=== PATIENT | male | born 1940 | race Caucasian/White ===

== ENCOUNTER 2017-05-14 21:24 | Inpatient (IN) | payer MEDICARE ==
--- NOTE | 2017-05-14 22:13 | ED ---
General Adult HPI - General Chief complaint: Shortness of Breath Stated complaint: fluid retention/SOB Time Seen by Provider: 05/14/17 21:35 Source: patient, RN notes reviewed Mode of arrival: wheelchair Limitations: no limitations - History of Present Illness Initial comments: This is a 77-year-old male who has a past medical history significant for alcoholism but no longer drinks. Patient has diabetes. Patient has some depression as well. Patient is on a small dose of Lasix according to family. Family brings the patient in today because he's been more short of breath lately and they've noticed increasing edema of his legs and increased size of his abdomen. Patient denies any pain whatsoever. Patient denies any recent fever chills or cough. Patient denies any abdominal pain patient denies nausea vomiting diarrhea. Patient denies chest pain palpitations difficulty breathing or shortness of breath. Patient denies any dysuria hematuria urinary frequency. - Related Data Home Medications Medication Instructions Recorded Confirmed ALPRAZolam [Xanax] 0.25 mg PO DAILY PRN 05/14/17 05/14/17 Aspirin [Adult Low Dose Aspirin EC] 81 mg PO DAILY 05/14/17 05/14/17 Cholecalciferol [Vitamin D3] 1,000 unit PO DAILY 05/14/17 05/14/17 Furosemide [Lasix] 20 mg PO DAILY 05/14/17 05/14/17 Memantine HCl [Namenda] 5 mg PO BID 05/14/17 05/14/17 Multivitamins, Thera [Multivitamin 1 tab PO DAILY 05/14/17 05/14/17 (formulary)] Omeprazole [PriLOSEC] 20 mg PO AC-BID 05/14/17 05/14/17 Potassium Chloride ER [K-Dur 10] 10 meq PO DAILY 05/14/17 05/14/17 Pravastatin Sodium [Pravachol] 20 mg PO DAILY 05/14/17 05/14/17 Venlafaxine HCl [Effexor XR] 150 mg PO DAILY 05/14/17 05/14/17 metFORMIN HCL 1,000 mg PO BID 05/14/17 05/14/17 risperiDONE [RisperDAL] 0.5 mg PO HS 05/14/17 05/14/17 Allergies Allergy/AdvReac Type Severity Reaction Status Date / Time donepezil [From Aricept] Allergy Unknown Verified 05/14/17 22:17 morphine Allergy Unknown Verified 05/14/17 22:17 Review of Systems ROS Statement: Those systems with pertinent positive or pertinent negative responses have been documented in the HPI. ROS Other: All systems not noted in ROS Statement are negative. Past Medical History Past Medical History: Dementia, Diabetes Mellitus, GERD/Reflux, Hyperlipidemia Additional Past Medical History / Comment(s): swallowing problems History of Any Multi-Drug Resistant Organisms: None Reported Past Surgical History: Back Surgery Additional Past Surgical History / Comment(s): esophagus stretched for swallowing issues, knee replaced, hip replaced Past Psychological History: Depression, PTSD Smoking Status: Former smoker Past Alcohol Use History: None Reported Past Drug Use History: None Reported General Exam - General Exam Comments Initial Comments: GENERAL: Patient is well-developed and well-nourished. Patient is nontoxic and well- hydrated and is in no acute distress. ENT: Neck is soft and supple. No significant lymphadenopathy is noted. Oropharynx is clear. Moist mucous membranes. Neck has full range of motion without eliciting any pain. EYES: The sclera were anicteric and conjunctiva were pink and moist. Extraocular movements were intact and pupils were equal round and reactive to light. Eyelids were unremarkable. PULMONARY: Unlabored respirations. Good breath sounds bilaterally. No audible rales rhonchi or wheezing was noted. CARDIOVASCULAR: There is a regular rate and rhythm without any murmurs gallops or rubs. ABDOMEN: Abdomen is soft and nontender but distended. Patient has normal bowel sounds SKIN: Skin is clear with no lesions or rashes and otherwise unremarkable. NEUROLOGIC: Patient is alert and oriented x3. Cranial nerves II through XII are grossly intact. Motor and sensory are also intact. Normal speech, volume and content. Symmetrical smile. MUSCULOSKELETAL: Normal extremities with adequate strength and full range of motion. 2+ edema bilaterally LYMPHATICS: No significant lymphadenopathy is noted PSYCHIATRIC: Normal psychiatric evaluation. Limitations: no limitations Course Vital Signs 05/14/17 05/14/17 05/14/17 21:35 22:05 22:57 Temperature 97.6 F Pulse Rate 89 79 Pulse Rate [ 88 [employer] ] Respiratory 26 H 20 18 Rate Blood Pressure 138/77 134/82 O2 Sat by Pulse 98 97 Oximetry 05/15/17 00:04 Temperature Pulse Rate 86 Pulse Rate [ [employer] ] Respiratory 20 Rate Blood Pressure 144/90 O2 Sat by Pulse 100 Oximetry Medical Decision Making - Medical Decision Making EKG shows normal sinus rhythm at 88 bpm RI interval 232 QRS is 76 QT interval 352 QTC is 425. Patient's EKG shows no ST segment elevation or depression or T wave abnormalities are noted. Chest x-ray shows possible aortic aneurysm. KUB shows probable ascites. CT of the chest shows no pulmonary embolism. Aorta does not look dilated. CT of the abdomen pelvis shows massive ascites with cirrhosis. There also appears to be a calcified gallstone that is quite large - Lab Data Result diagrams: 05/14/17 22:20 05/14/17 22:20 Lab Results 05/14/17 05/14/17 05/14/17 Range/Units 22:20 22:20 22:20 WBC 6.8 (3.8-10.6) k/uL RBC 3.39 L (4.30-5.90) m/uL Hgb 11.2 L (13.0-17.5) gm/dL Hct 36.1 L (39.0-53.0) % MCV 106.5 H (80.0-100.0) fL MCH 33.2 (25.0-35.0) pg MCHC 31.2 (31.0-37.0) g/dL RDW 13.9 (11.5-15.5) % Plt Count 168 (150-450) k/uL Neutrophils % 55 % Lymphocytes % 28 % Monocytes % 8 % Eosinophils % 6 % Basophils % 1 % Neutrophils # 3.7 (1.3-7.7) k/uL Lymphocytes # 1.9 (1.0-4.8) k/uL Monocytes # 0.6 (0-1.0) k/uL Eosinophils # 0.4 (0-0.7) k/uL Basophils # 0.0 (0-0.2) k/uL Hypochromasia Slight Macrocytosis Moderate PT (9.0-12.0) sec INR (<1.2) APTT (22.0-30.0) sec D-Dimer (<0.60) mg/L FEU Sodium 138 (137-145) mmol/L Potassium 4.8 (3.5-5.1) mmol/L Chloride 103 (98-107) mmol/L Carbon Dioxide 23 (22-30) mmol/L Anion Gap 12 mmol/L BUN 20 (9-20) mg/dL Creatinine 1.10 (0.66-1.25) mg/dL Est GFR (MDRD) Af Amer >60 (>60 ml/min/1.73 sqM) Est GFR (MDRD) Non-Af >60 (>60 ml/min/1.73 sqM) Glucose 144 H (74-99) mg/dL Calcium 8.8 (8.4-10.2) mg/dL Magnesium 1.1 L (1.6-2.3) mg/dL Total Bilirubin 1.0 (0.2-1.3) mg/dL AST 78 H (17-59) U/L ALT 42 (21-72) U/L Alkaline Phosphatase 322 H (38-126) U/L Total Creatine Kinase 95 (55-170) U/L CK-MB (CK-2) 1.1 (0.0-2.4) ng/mL CK-MB (CK-2) Rel Index 1.2 Troponin I 0.023 (0.000-0.034) ng/mL Total Protein 7.5 (6.3-8.2) g/dL Albumin 3.0 L (3.5-5.0) g/dL 05/14/17 Range/Units 22:20 WBC (3.8-10.6) k/uL RBC (4.30-5.90) m/uL Hgb (13.0-17.5) gm/dL Hct (39.0-53.0) % MCV (80.0-100.0) fL MCH (25.0-35.0) pg MCHC (31.0-37.0) g/dL RDW (11.5-15.5) % Plt Count (150-450) k/uL Neutrophils % % Lymphocytes % % Monocytes % % Eosinophils % % Basophils % % Neutrophils # (1.3-7.7) k/uL Lymphocytes # (1.0-4.8) k/uL Monocytes # (0-1.0) k/uL Eosinophils # (0-0.7) k/uL Basophils # (0-0.2) k/uL Hypochromasia Macrocytosis PT 13.5 H (9.0-12.0) sec INR 1.4 H (<1.2) APTT 25.3 (22.0-30.0) sec D-Dimer 4.94 H (<0.60) mg/L FEU Sodium (137-145) mmol/L Potassium (3.5-5.1) mmol/L Chloride (98-107) mmol/L Carbon Dioxide (22-30) mmol/L Anion Gap mmol/L BUN (9-20) mg/dL Creatinine (0.66-1.25) mg/dL Est GFR (MDRD) Af Amer (>60 ml/min/1.73 sqM) Est GFR (MDRD) Non-Af (>60 ml/min/1.73 sqM) Glucose (74-99) mg/dL Calcium (8.4-10.2) mg/dL Magnesium (1.6-2.3) mg/dL Total Bilirubin (0.2-1.3) mg/dL AST (17-59) U/L ALT (21-72) U/L Alkaline Phosphatase (38-126) U/L Total Creatine Kinase (55-170) U/L CK-MB (CK-2) (0.0-2.4) ng/mL CK-MB (CK-2) Rel Index Troponin I (0.000-0.034) ng/mL Total Protein (6.3-8.2) g/dL Albumin (3.5-5.0) g/dL Disposition Clinical Impression: Ascites, Cirrhosis Disposition: ADMITTED IP TO THIS [facility] Referrals: Jasmine Galicia MD [Primary Care Provider] - 1-2 days Time of Disposition: 00:29
[2017-05-14 22:34] LABS: Basophils % (A) 1 %; Eosinophils # (A) 0.4 k/uL (0-0.7); Eosinophils % (A) 6 %; HCT 36.1 % (39.0-53.0); HGB 11.2 gm/dL (13.0-17.5); Hypochromasia Slight; Lymphocytes # (A) 1.9 k/uL (1.0-4.8); Lymphocytes % (A) 28 %; MCH 33.2 pg (25.0-35.0); MCHC 31.2 g/dL (31.0-37.0); MCV 106.5 fL (80.0-100.0); Macrocytosis Moderate; Mean Platelet Volume 7.1; Monocytes # (A) 0.6 k/uL (0-1.0); Monocytes % (A) 8 %; Neutrophils # (A) 3.7 k/uL (1.3-7.7); Neutrophils % (A) 55 %; Platelet Count 168 k/uL (150-450); RBC 3.39 m/uL (4.30-5.90); RDW 13.9 % (11.5-15.5); WBC 6.8 k/uL (3.8-10.6)
--- NOTE | 2017-05-14 22:40 | XR ---
EXAMINATION TYPE: XR chest 2V DATE OF EXAM: 05/14/2017 COMPARISON: 05/14/2017 HISTORY: Difficulty breathing TECHNIQUE: Frontal and lateral views of the chest are obtained. FINDINGS: There is no heart failure nor confluent pneumonic infiltrate. Thoracic aorta is atheromato us. There is no sign of pleural effusion. There are chest leads. There is probably a hiatal hernia. IMPRESSION: No active cardiopulmonary disease. Hiatal hernia is possible. Atheromatous aorta. Aortic aneurysm at the diaphragm cannot be excluded. This appears increased compared to old exam.
--- NOTE | 2017-05-14 22:41 | XR ---
EXAMINATION TYPE: XR KUB DATE OF EXAM: 05/14/2017 COMPARISON: NONE HISTORY: Difficulty breathing TECHNIQUE: 2 views upright FINDINGS: There is no sign of intestinal obstruction or pneumoperitoneum. There is increased density over the abdomen could relate to ascites. Fecal pattern is normal. There are no pathologic calcificat ions over the kidneys. There is a right hip prosthesis. There is increased density at the diaphragmat ic hiatus that is probably due to hiatal hernia. IMPRESSION: Probable ascites. No free air seen.
[2017-05-14 22:45] LABS: Anion Gap 12 mmol/L; Calcium 8.8 mg/dL (8.4-10.2); Carbon Dioxide 23 mmol/L (22-30); Chloride 103 mmol/L (98-107); Glucose 144 mg/dL (74-99); Sodium 138 mmol/L (137-145); Total Protein 7.5 g/dL (6.3-8.2)
[2017-05-14 22:49] LABS: INR 1.4 (<1.2); Partial Thromboplastin Time 25.3 sec (22.0-30.0); Prothrombin Time 13.5 sec (9.0-12.0)
[2017-05-14 22:52] LABS: ALT 42 U/L (21-72); AST 78 U/L (17-59); Alkaline Phosphatase 322 U/L (38-126); Blood Urea Nitrogen 20 mg/dL (9-20); Magnesium 1.1 mg/dL (1.6-2.3); Potassium 4.8 mmol/L (3.5-5.1)
[2017-05-14 22:54] LABS: D-Dimer 4.94 mg/L FEU (<0.60)
[2017-05-14 23:11] LABS: Creatine Kinase MB 1.1 ng/mL (0.0-2.4); Troponin I 0.023 ng/mL (0.000-0.034)
[2017-05-14] MEDS ORDERED: RX INFO: IV CONTRAST WAS GIVEN 1 EACH MISC MISCELLANE PRN ×2 (23:23→23:24)
--- NOTE | 2017-05-15 00:18 | CT ---
EXAMINATION TYPE: CT abdomen pelvis w con DATE OF EXAM: 05/15/2017 COMPARISON: NONE HISTORY: abd swelling CT DLP: 2331 mGycm Automated exposure control for dose reduction was used. TECHNIQUE: Helical acquisition of images was performed from the lung bases through the pelvis. CONTRAST: Performed without Oral Contrast and with IV Contrast, patient injected with 100 mL of Omnipaque 350. FINDINGS: Lung bases are clear of consolidation. There is no pleural effusion. There is minimal calcified pleur al plaque at the left lung base. There is a massive amount of ascites fluid in the abdomen. Liver is relatively small and consistent w ith cirrhosis. There is no evidence of a splenic mass. There is no evidence of pancreatic mass. There is a 2 cm calcified gallstone. Bile ducts are not dilated. There is no adrenal mass. Kidneys show satisfactory contrast opacification. There is no hydronephrosi s. Ureters are not dilated. There is no retroperitoneal adenopathy. There is no evidence of a bowel o bstruction. I see no intestinal wall thickening. There are no dilated loops. There is a right hip pro sthesis. There is left scrotal hernia that contains fluid. IMPRESSION: MINIMAL CALCIFIED PLEURAL PLAQUE. CHANGES IN THE LIVER CONSISTENT WITH CIRRHOSIS. NO FOCAL LIVER MASS . MASSIVE ASCITES. LARGE CALCIFIED GALLSTONE. LEFT SCROTAL HERNIA AND PROBABLE LEFT HYDROCELE. THE WIDENING OF THE POSTERIOR MEDIASTINUM AT THE DIAPHRAGM ON THE ABDOMEN X-RAY APPEARS TO RELATE TO ASCITES FLUID COLLECTING AROUND THE GASTROESOPHAGEAL JUNCTION. NO EVIDENCE OF AORTIC ANEURYSM.
--- NOTE | 2017-05-15 00:22 | CT ---
EXAMINATION TYPE: CT chest angio for PE DATE OF EXAM: 05/15/2017 COMPARISON: NONE HISTORY: Pt. has elevated D-Dimer and swollen lower extremities CT DLP: 2331 mGycm Automated exposure control for dose reduction was used. CONTRAST: CT Chest for pulmonary embolism performed with with IV Contrast, patient injected with 100 mL of Omni paque 350. FINDINGS: There are 3-D post processed images. There is atheromatous change in the thoracic aorta. Ascending aorta measures up to 3.5 cm. There is n o sign of dissection. There is small pericardial effusion. There is no pleural effusion. There is mas sive ascites fluid in the upper abdomen. I see no filling defects in the pulmonary arteries. There are a few nonspecific mediastinal lymph nod es that measure less than 1 cm. There are no hilar masses. IMPRESSION: No evidence of pulmonary embolism. Massive ascites. Small pericardial effusion.
[2017-05-15] MEDS ORDERED: SODIUM CHLORIDE 0.9% 1,000 ML IV ONE (00:29)
[2017-05-15] MEDS ORDERED: ALPRAZolam 0.25 MG TAB PO PRN (10:46)
[2017-05-15] MEDS ORDERED: MAGNESIUM SULFATE-D5W PMX 1 GM in DEXTROSE/WATER 1 100ML.BAG IVPB ONE (10:49)
--- NOTE | 2017-05-15 10:56 | P.HPIM ---
History of Present Illness H&P Date: 05/15/17 This is a 77 -year-old gentleman is admitted to the emergency room with worsening distention and shortness of breath. Patient says that over the past several days he noticed worsening bilateral lower extremity edema and abdominal distention. Patient said that he used to drink alcohol heavily for several years and quit drinking a year ago. Never been evaluated for this problem for him. The emergency room scan of the abdomen and pelvis showed evidence of cirrhosis extensive ascites. The chest was negative for PE. Patient was admitted to the hospital for further evaluation. Review of Systems Review of system: 14 points review of systems were obtained and were negative except to what were mentioned in the HPI. Past Medical History Past Medical History: Dementia, Diabetes Mellitus, GERD/Reflux, Hyperlipidemia Additional Past Medical History / Comment(s): swallowing problems, edema, anemia , [place], [place] History of Any Multi-Drug Resistant Organisms: None Reported Past Surgical History: Back Surgery Additional Past Surgical History / Comment(s): esophagus stretched for swallowing issues, knee replaced, hip replaced, Past Anesthesia/Blood Transfusion Reactions: No Reported Reaction Past Psychological History: Depression, PTSD Smoking Status: Former smoker Past Alcohol Use History: None Reported Past Drug Use History: None Reported Medications and Allergies Home Medications Medication Instructions Recorded Confirmed Type ALPRAZolam [Xanax] 0.25 mg PO DAILY PRN 05/14/17 05/14/17 History Aspirin [Adult Low Dose Aspirin EC] 81 mg PO DAILY 05/14/17 05/14/17 History Cholecalciferol [Vitamin D3] 1,000 unit PO DAILY 05/14/17 05/14/17 History Furosemide [Lasix] 20 mg PO DAILY 05/14/17 05/14/17 History Memantine HCl [Namenda] 5 mg PO BID 05/14/17 05/14/17 History Multivitamins, Thera [Multivitamin 1 tab PO DAILY 05/14/17 05/14/17 History (formulary)] Omeprazole [PriLOSEC] 20 mg PO AC-BID 05/14/17 05/14/17 History Potassium Chloride ER [K-Dur 10] 10 meq PO DAILY 05/14/17 05/14/17 History Pravastatin Sodium [Pravachol] 20 mg PO DAILY 05/14/17 05/14/17 History Venlafaxine HCl [Effexor XR] 150 mg PO DAILY 05/14/17 05/14/17 History metFORMIN HCL 1,000 mg PO BID 05/14/17 05/14/17 History risperiDONE [RisperDAL] 0.5 mg PO HS 05/14/17 05/14/17 History Allergies Allergy/AdvReac Type Severity Reaction Status Date / Time donepezil [From Aricept] Allergy Unknown Verified 05/14/17 22:17 morphine Allergy Unknown Verified 05/14/17 22:17 Physical Exam Vitals: Vital Signs Temp Pulse Pulse Pulse Resp BP BP 05/15/17 07:00 98.0 F 87 16 117/75 05/15/17 01:42 97.0 F L 83 16 121/63 05/15/17 01:02 98.2 F 87 18 142/75 05/15/17 00:04 86 20 144/90 05/14/17 22:57 79 18 134/82 05/14/17 22:05 88 20 05/14/17 21:35 97.6 F 89 26 H 138/77 Pulse Ox 05/15/17 07:00 98 05/15/17 01:42 99 05/15/17 01:02 100 05/15/17 00:04 100 05/14/17 22:57 97 05/14/17 22:05 05/14/17 21:35 98 Intake and Output 05/14/17 05/15/17 05/15/17 22:59 06:59 14:59 Intake Total 590 Balance 590 Intake: Oral 590 Other: Voiding Method Toilet Urinal # Voids 2 Weight 80.286 kg General: The patient is awake and alert, in no distress Eye: there is normal conjunctiva bilaterally. Neck: The neck is supple, there is no JVD. Cardiovascular: Normal S1-S2, no S3-S4, no murmurs. Respiratory: Lungs clear to auscultation bilaterally Gastrointestinal: Abdomen significantly distended with evidence of large site Musculoskeletal: There is +3 pedal edema. Neurological:. Speech is normal. Skin: Skin is warm and dry Results CBC & Chem 7: 05/14/17 22:20 05/14/17 22:20 Labs: Abnormal Lab Results - Last 24 Hours (Table) 05/14/17 05/14/17 05/14/17 Range/Units 22:20 22:20 22:20 RBC 3.39 L (4.30-5.90) m/uL Hgb 11.2 L (13.0-17.5) gm/dL Hct 36.1 L (39.0-53.0) % MCV 106.5 H (80.0-100.0) fL PT 13.5 H (9.0-12.0) sec INR 1.4 H (<1.2) D-Dimer 4.94 H (<0.60) mg/L FEU Glucose 144 H (74-99) mg/dL Magnesium 1.1 L (1.6-2.3) mg/dL AST 78 H (17-59) U/L Alkaline Phosphatase 322 H (38-126) U/L Albumin 3.0 L (3.5-5.0) g/dL Thrombosis Risk Factor Assmnt - Choose All That Apply Each Risk Factor Represents 3 Points: Age 75 years or older Thrombosis Risk Factor Assessment Total Risk Factor Score: 3 Thrombosis Risk Factor Assessment Level: Moderate Risk Assessment and Plan Assessment: 1. Liver cirrhosis, most likely alcoholic cirrhosis given history. I would consult GI for further evaluation. Viral hepatitis panel 2. Large ascites: I would request therapeutic paracentesis. 3. Dyspnea: Most likely related to large ascites and fluids pushing on his diaphragm. Chest x-ray showed small effusion 4. History of heavy alcohol abuse now in remission for 1 year 5. BA
--- NOTE | 2017-05-15 14:14 | US ---
Therapeutic and diagnostic paracentesis. DATE OF EXAM: 05/15/2017 CLINICAL HISTORY: Ascites The procedure was discussed with the patient. The risks, complications, benefits, and alternatives we re discussed and any questions were answered. Informed consent was obtained. The patient was placed s upine on the ultrasound table and prepped and draped in the usual sterile fashion. All elements of maximal barrier technique were utilized. Under ultrasound guidance, access into the right lower quadrant was obtained, via the paracentesis catheter system and direct ultrasound guidanc e. Approximately 5.8 liters of straw-colored fluid was removed. The patient was stable throughout the pr ocedure and remained stable upon discharge from Department of Radiology. Sample sent to pathology for analysis. IMPRESSION: Successful paracentesis under ultrasound guidance.
[2017-05-15] MEDS: FUROSEMIDE 40 MG TAB PO SCH (14:25)
[2017-05-15 16:04] LABS: Hepatitis A Antibody IgM Non-Reactive (Non-Reactive); Hepatitis B Core IgM Non-Reactive (Non-Reactive)
--- NOTE | 2017-05-15 17:12 | CONS ---
CONSULTATION DATE OF CONSULTATION: 05/15/17. REQUESTING PHYSICIAN: Dr. White REASON FOR CONSULTATION: New onset ascites and possible liver cirrhosis. HISTORY OF THE PRESENT ILLNESS: The patient is a 77-year-old pleasant white male who was admitted to the hospital because of shortness of breath, abdominal distention and lower extremity swelling for the last several days duration. The patient has history of remote history of heavy alcohol abuse which he quit drinking about 5 years ago prior to which he was drinking almost on a daily basis for almost 40 years. At the time he denies any abdominal pain, reports no nausea, vomiting. He came into the emergency room and had a CT of the abdomen and pelvis done that showed evidence of a cirrhotic appearing liver as well as massive ascites. The patient has no prior history of chronic liver disease. No history of jaundice or hepatitis. No new medications that were started recently. He has longstanding history of diabetes mellitus. PAST MEDICAL HISTORY: Significant for dementia, diabetes mellitus, hypertension, hyperlipidemia and gastroesophageal reflux disease. PAST SURGICAL HISTORY: EGD with dilation in the past, knee replacement and hip replacement. MEDICATIONS: At home include Xanax, aspirin, Lasix, multivitamin, Prilosec, K-Dur, Pravachol, Effexor, metformin, Risperdal. ALLERGIES: TO ARICEPT AND MORPHINE. SOCIAL HISTORY: Alcohol use as mentioned above. No history of smoking. FAMILY HISTORY: Unremarkable. REVIEW OF SYSTEMS: Cardiopulmonary: No chest pain, shortness of breath. Genitourinary: No dysuria or hematuria. Musculoskeletal: Unremarkable. Skin unremarkable. Endocrine unremarkable. Psychiatric: History of anxiety and depression. Neurology unremarkable. Mild dementia. Constitutional: No recent weight loss. No fever, chills, night sweats. PHYSICAL EXAMINATION: He appears comfortable. No apparent distress. VITAL SIGNS: Stable. Blood pressure 152/86, pulse rate 90, temperature 96. HEENT examination unremarkable. Conjunctivae pink. Sclerae anicteric. Oral cavity no lesions. Neck: No jugular venous distention or lymph node enlargement. Chest was clear to auscultation. HEART: Regular rate and rhythm. ABDOMEN: Soft. He was distended. Free fluid noted in the abdomen. Positive shifting dullness. Extremities: 2+ pedal edema. Skin no rashes. NEUROLOGIC: Alert and orient x3. No focal deficits. LAB: WBC 6.8, hemoglobin 11.2, platelets 168, MCV 106, PT 13.5, INR 1.4, AST is 78, ALT is 42, alkaline phosphatase 322, and T bilirubin 1, albumin is 3. CT of the abdomen showed evidence of ascites and nodular appearing liver consistent with cirrhosis. IMPRESSION: This is a patient who presents to the hospital with new onset ascites and lower extremity swelling and CT scan showing free fluid in the abdomen as well as nodular irregularities in the liver consistent with liver cirrhosis. The biochemical picture and history is very suggestive of alcoholic liver disease with cirrhosis/portal hypertension. Of course, other etiologies of chronic liver disease needs to be excluded. RECOMMENDATIONS: 1. Agree with large volume diagnostic and therapeutic paracentesis. The fluid will be requested for albumin, protein, cell count and cytology. 2. Hepatitis serologies for B, and C. 3. Workup for chronic liver disease. 4. Low-salt diet. 5. After the paracentesis is done, we will start him on diuretics with Lasix 40 mg daily and Aldactone 100 mg daily. 6. We will follow the patient closely during this hospital stay. Thank you for this consultation. MMODL / IJN: [id number] /
[2017-05-15] MEDS: PANTOPRAZOLE 40 MG TABLET PO SCH (17:44)
[2017-05-15 18:27] LABS: Appearance,BF Hazy; Color,BF Yellow; Nucleated Cells, Body Fluid 78 /uL; RBC, Body Fluid 233 /uL
[2017-05-15 18:33] LABS: Mononuclear WBC,Body Fluid 95 %; Polynuclear WBC,Body Fluid 5 %; Total Cells Counted,Body Fluid 100
[2017-05-15] MEDS: HEPARIN SODIUM,PORCINE 5,000 UNIT/ML 1 ML VIAL SQ SCH (21:15)
[2017-05-15] MEDS: MEMANTINE 5 MG TAB PO SCH (21:15)
[2017-05-15] MEDS: risperiDONE 0.5 MG TAB PO SCH (21:15)
[2017-05-16 08:44] LABS: Basophils # (A) 0.1 k/uL (0-0.2); Basophils % (A) 1 %; Eosinophils # (A) 0.5 k/uL (0-0.7); Eosinophils % (A) 7 %; HCT 37.1 % (39.0-53.0); HGB 11.7 gm/dL (13.0-17.5); Hypochromasia Slight; Lymphocytes # (A) 2.5 k/uL (1.0-4.8); Lymphocytes % (A) 34 %; MCHC 31.6 g/dL (31.0-37.0); MCV 107.7 fL (80.0-100.0); Macrocytosis Moderate; Monocytes # (A) 0.6 k/uL (0-1.0); Monocytes % (A) 8 %; Neutrophils # (A) 3.4 k/uL (1.3-7.7); Neutrophils % (A) 46 %; Platelet Count 176 k/uL (150-450); RBC 3.44 m/uL (4.30-5.90); RDW 13.9 % (11.5-15.5); WBC 7.4 k/uL (3.8-10.6)
[2017-05-16 08:59] LABS: ALT 46 U/L (21-72); AST 73 U/L (17-59); Albumin 2.5 g/dL (3.5-5.0); Alkaline Phosphatase 362 U/L (38-126); Anion Gap 13 mmol/L; Blood Urea Nitrogen 15 mg/dL (9-20); Calcium 8.4 mg/dL (8.4-10.2); Carbon Dioxide 23 mmol/L (22-30); Chloride 102 mmol/L (98-107); Glucose 178 mg/dL (74-99); Magnesium 1.1 mg/dL (1.6-2.3); Potassium 3.9 mmol/L (3.5-5.1); Sodium 138 mmol/L (137-145); Total Bilirubin 0.9 mg/dL (0.2-1.3); Total Protein 6.4 g/dL (6.3-8.2)
[2017-05-16] MEDS: FUROSEMIDE 40 MG TAB PO SCH (10:25)
[2017-05-16] MEDS: PANTOPRAZOLE 40 MG TABLET PO SCH ×2 (10:25→18:15)
[2017-05-16] MEDS: CHOLECALCIFEROL 1,000 UNIT TAB PO SCH (10:25)
[2017-05-16] MEDS: ASPIRIN 81 MG PO SCH (10:25)
[2017-05-16] MEDS: MEMANTINE 5 MG TAB PO SCH ×2 (10:26→22:03)
[2017-05-16] MEDS: VENLAFAXINE HCL ER 150 MG CAP PO SCH (10:26)
[2017-05-16] MEDS: PRAVASTATIN SODIUM 20 MG TAB PO SCH (10:26)
[2017-05-16] MEDS: POTASSIUM CHLORIDE ER 10 MEQ TAB.ER.PRT PO SCH (10:26)
[2017-05-16] MEDS: SPIRONOLACTONE 25 MG TAB PO SCH (10:27)
[2017-05-16] MEDS: HEPARIN SODIUM,PORCINE 5,000 UNIT/ML 1 ML VIAL SQ SCH ×2 (10:28→22:04)
--- NOTE | 2017-05-16 11:25 | P.PN ---
Subjective Patient feels a lot better today after paracentesis. Objective - Vital Signs Vital signs: Vital Signs Temp 99.6 F 05/16/17 07:00 Pulse 103 H 05/16/17 07:00 Resp 18 05/16/17 07:00 BP 147/83 05/16/17 07:00 Pulse Ox 97 05/16/17 07:00 Intake & Output 05/15/17 05/16/17 05/16/17 18:59 06:59 18:59 Intake Total 700 1340 Balance 700 1340 Intake: Oral 700 1340 Other: Voiding Method Toilet Toilet Toilet Urinal Urinal Urinal # Voids 1 3 1 # Bowel Movements 1 - Exam General: The patient is awake and alert, in no distress Eye: there is normal conjunctiva bilaterally. Neck: The neck is supple, there is no JVD. Cardiovascular: Normal S1-S2, no S3-S4, no murmurs. Respiratory: Lungs clear to auscultation bilaterally Gastrointestinal: Abdomen is soft, nontender Musculoskeletal: There is no pedal edema. Neurological:. Speech is normal. Skin: Skin is warm and dry - Labs CBC & Chem 7: 05/16/17 08:20 05/16/17 08:20 Labs: Abnormal Lab Results - Last 24 Hours (Table) 05/16/17 05/16/17 Range/Units 08:20 08:20 RBC 3.44 L (4.30-5.90) m/uL Hgb 11.7 L (13.0-17.5) gm/dL Hct 37.1 L (39.0-53.0) % MCV 107.7 H (80.0-100.0) fL Glucose 178 H (74-99) mg/dL Magnesium 1.1 L (1.6-2.3) mg/dL AST 73 H (17-59) U/L Alkaline Phosphatase 362 H (38-126) U/L Albumin 2.5 L (3.5-5.0) g/dL Microbiology - Last 24 Hours (Table) 05/15/17 12:12 Gram Stain - Preliminary Peritoneal Fluid Body Fluid Culture - Preliminary 05/15/17 12:59 Anaerobic Culture - Preliminary Paracentesis Fluid Assessment and Plan Assessment: 1. Liver cirrhosis, most likely alcoholic cirrhosis given history. Viral hepatitis panel is negative. Seen and evaluated by GI. 2. Large ascites: Status post 5.8 L paracentesis. no evidence of SBP. We will start diuretics with Lasix 40 mg daily and spironolactone 100 mg daily. 3. Dyspnea: improved significantly. Most likely related to large ascites and fluids pushing on his diaphragm. Chest x-ray showed small effusion 4. History of heavy alcohol abuse now in remission for 1 year 5. BA Replace magnesium. Repeat lab work in the morning. Encouraged ambulation.
[2017-05-16] MEDS: MAGNESIUM SULFATE-D5W PMX 1 GM in DEXTROSE/WATER 1 100ML.BAG IVPB SCH ×2 (11:36→13:17)
--- NOTE | 2017-05-16 12:11 | P.PN ---
Subjective Progress Note Date: 05/16/17 Principal diagnosis: 77-year-old male admitted with shortness of breath abdominal distention with CT imaging reporting evidence of a cirrhotic-appearing liver as well as ascites. He is status post diagnostic therapeutic paracentesis yesterday with 5.8 L removal. This morning he feels better. Afebrile. Hepatitis screen nonreactive. Receiving diuretics. BUN 15. Creatinine 1.0. Objective - Vital Signs Vital signs: Vital Signs Temp 99.6 F 05/16/17 07:00 Pulse 103 H 05/16/17 07:00 Resp 18 05/16/17 07:00 BP 147/83 05/16/17 07:00 Pulse Ox 97 05/16/17 07:00 Intake & Output 05/15/17 05/16/17 05/16/17 18:59 06:59 18:59 Intake Total 700 1340 Balance 700 1340 Intake: Oral 700 1340 Other: Voiding Method Toilet Toilet Toilet Urinal Urinal Urinal # Voids 1 3 1 # Bowel Movements 1 - Exam General appearance: The patient is alert, oriented, in no acute distress. HET: Head is normocephalic and atraumatic. Pupils are equal and reactive. Oropharynx is clear without lesions. Neck: Supple without lymphadenopathy. Trachea midline. Heart: S1 S2. Regular rate and rhythm. Lungs: No crackles or wheezes are heard. Abdomen: Soft, nontender, nondistended with bowel sounds. No peritoneal signs. No palpable organomegaly or masses. Extremities: Normal skin color and turgor. No cyanosis, rash, ulceration, clubbing, or edema. Radial and pedal pulses are 2/4 bilaterally. Neurological: No focal deficits. Strength and sensation are grossly intact. - Labs CBC & Chem 7: 05/16/17 08:20 05/16/17 08:20 Labs: Abnormal Lab Results - Last 24 Hours (Table) 05/16/17 05/16/17 Range/Units 08:20 08:20 RBC 3.44 L (4.30-5.90) m/uL Hgb 11.7 L (13.0-17.5) gm/dL Hct 37.1 L (39.0-53.0) % MCV 107.7 H (80.0-100.0) fL Glucose 178 H (74-99) mg/dL Magnesium 1.1 L (1.6-2.3) mg/dL AST 73 H (17-59) U/L Alkaline Phosphatase 362 H (38-126) U/L Albumin 2.5 L (3.5-5.0) g/dL Microbiology - Last 24 Hours (Table) 05/15/17 12:12 Gram Stain - Preliminary Peritoneal Fluid Body Fluid Culture - Preliminary 05/15/17 12:59 Anaerobic Culture - Preliminary Paracentesis Fluid Assessment and Plan (1) Cirrhosis Narrative/Plan: Suspect alcohol liver disease Current Visit: Yes Status: Acute Code(s): K74.60 - UNSPECIFIED CIRRHOSIS OF LIVER SNOMED Code(s): 09446745 (2) Ascites Current Visit: Yes Status: Acute Code(s): R18.8 - OTHER ASCITES SNOMED Code(s): 416993303 (3) Portal hypertension Current Visit: Yes Status: Acute Code(s): K76.6 - PORTAL HYPERTENSION SNOMED Code(s): 06862112 Plan: 1. Lasix 40 mg daily. Aldactone 100 mg daily. Low-salt diet. Return to office in 2-3 weeks for reevaluation. Discharge per medicine. Assessment and plan of care discussed with Dr. Bennett
[2017-05-16] MEDS: MAGNESIUM OXIDE 400 MG TAB PO SCH (13:24)
[2017-05-16 16:55] LABS: Hepatitis C IgG Antibody Non-Reactive (Non-Reactive)
[2017-05-16 17:15] LABS: Iron Saturation 28.06 (15.00-50.00)
[2017-05-16 17:24] LABS: Alpha Fetoprotein, Tumor Mkr <1.3 ng/mL (0.0-7.9)
[2017-05-16] MEDS: risperiDONE 0.5 MG TAB PO SCH (22:03)
[2017-05-17 08:13] LABS: Basophils % (A) 0 %; Eosinophils # (A) 0.4 k/uL (0-0.7); Eosinophils % (A) 7 %; HCT 32.5 % (39.0-53.0); HGB 10.3 gm/dL (13.0-17.5); Lymphocytes # (A) 1.7 k/uL (1.0-4.8); Lymphocytes % (A) 31 %; MCH 33.7 pg (25.0-35.0); MCHC 31.8 g/dL (31.0-37.0); MCV 106.2 fL (80.0-100.0); Macrocytosis Moderate; Mean Platelet Volume 6.9; Monocytes # (A) 0.5 k/uL (0-1.0); Monocytes % (A) 9 %; Neutrophils # (A) 2.7 k/uL (1.3-7.7); Neutrophils % (A) 50 %; Platelet Count 160 k/uL (150-450); RBC 3.06 m/uL (4.30-5.90); RDW 13.9 % (11.5-15.5); WBC 5.5 k/uL (3.8-10.6)
[2017-05-17 08:35] LABS: ALT 47 U/L (21-72); AST 77 U/L (17-59); Albumin 2.2 g/dL (3.5-5.0); Alkaline Phosphatase 297 U/L (38-126); Anion Gap 7 mmol/L; Blood Urea Nitrogen 14 mg/dL (9-20); Carbon Dioxide 25 mmol/L (22-30); Chloride 104 mmol/L (98-107); Glucose 158 mg/dL (74-99); Magnesium 1.4 mg/dL (1.6-2.3); Potassium 4.1 mmol/L (3.5-5.1); Sodium 136 mmol/L (137-145); Total Bilirubin 0.6 mg/dL (0.2-1.3); Total Protein 5.7 g/dL (6.3-8.2)
[2017-05-17] MEDS: ASPIRIN 81 MG PO SCH (09:29)
[2017-05-17] MEDS: MEMANTINE 5 MG TAB PO SCH (09:29)
[2017-05-17] MEDS: CHOLECALCIFEROL 1,000 UNIT TAB PO SCH (09:29)
[2017-05-17] MEDS: FUROSEMIDE 40 MG TAB PO SCH (09:29)
[2017-05-17] MEDS: PANTOPRAZOLE 40 MG TABLET PO SCH (09:29)
[2017-05-17] MEDS: POTASSIUM CHLORIDE ER 10 MEQ TAB.ER.PRT PO SCH (09:30)
[2017-05-17] MEDS: VENLAFAXINE HCL ER 150 MG CAP PO SCH (09:30)
[2017-05-17] MEDS: SPIRONOLACTONE 25 MG TAB PO SCH (09:30)
[2017-05-17] MEDS: PRAVASTATIN SODIUM 20 MG TAB PO SCH (09:30)
[2017-05-17] MEDS: HEPARIN SODIUM,PORCINE 5,000 UNIT/ML 1 ML VIAL SQ SCH (09:31)
--- NOTE | 2017-05-17 10:12 | P.PN ---
Subjective Progress Note Date: 05/17/17 Principal diagnosis: Cirrhosis 77-year-old male admitted with shortness of breath abdominal distention with CT imaging reporting evidence of a cirrhotic-appearing liver as well as ascites. He is status post diagnostic therapeutic paracentesis 2 days ago with 5.8 L removal. Feels well today anticipating discharge. Afebrile. Hepatitis screen nonreactive. Receiving diuretics. BUN 14. Creatinine 0.9. Magnesium 1.4. Objective - Vital Signs Vital signs: Vital Signs Temp 98.4 F 05/17/17 07:00 Pulse 91 05/17/17 07:00 Resp 20 05/17/17 07:00 BP 101/69 05/17/17 07:00 Pulse Ox 94 L 05/16/17 23:00 Intake & Output 05/16/17 05/17/17 05/17/17 18:59 06:59 18:59 Intake Total 300 Output Total 300 Balance 0 Intake: Oral 300 Output: Urine 300 Other: Voiding Method Diaper Diaper # Voids 1 3 - Exam General appearance: The patient is alert, oriented, in no acute distress. HET: Head is normocephalic and atraumatic. Pupils are equal and reactive. Oropharynx is clear without lesions. Neck: Supple without lymphadenopathy. Trachea midline. Heart: S1 S2. Regular rate and rhythm. Lungs: No crackles or wheezes are heard. Abdomen: Soft, nontender, nondistended with bowel sounds. No peritoneal signs. No palpable organomegaly or masses. Extremities: Normal skin color and turgor. No cyanosis, rash, ulceration, clubbing, or edema. Radial and pedal pulses are 2/4 bilaterally. Neurological: No focal deficits. Strength and sensation are grossly intact. - Labs CBC & Chem 7: 05/17/17 07:38 05/17/17 07:38 Labs: Abnormal Lab Results - Last 24 Hours (Table) 05/16/17 05/17/17 05/17/17 Range/Units 08:20 07:38 07:38 RBC 3.06 L (4.30-5.90) m/uL Hgb 10.3 L (13.0-17.5) gm/dL Hct 32.5 L (39.0-53.0) % MCV 106.2 H (80.0-100.0) fL Sodium 136 L (137-145) mmol/L Glucose 158 H (74-99) mg/dL Calcium 8.0 L (8.4-10.2) mg/dL Magnesium 1.4 L (1.6-2.3) mg/dL AST 77 H (17-59) U/L Alkaline Phosphatase 297 H (38-126) U/L Total Protein 5.7 L (6.3-8.2) g/dL Albumin 2.2 L (3.5-5.0) g/dL ZBIGNIEW Screen POSITIVE H (NEGATIVE) Microbiology - Last 24 Hours (Table) 05/15/17 12:12 Gram Stain - Preliminary Peritoneal Fluid Body Fluid Culture - Preliminary Assessment and Plan (1) Cirrhosis Narrative/Plan: Suspect alcohol liver disease Current Visit: Yes Status: Acute Code(s): K74.60 - UNSPECIFIED CIRRHOSIS OF LIVER SNOMED Code(s): 98021539 (2) Ascites Current Visit: Yes Status: Acute Code(s): R18.8 - OTHER ASCITES SNOMED Code(s): 100561762 (3) Portal hypertension Current Visit: Yes Status: Acute Code(s): K76.6 - PORTAL HYPERTENSION SNOMED Code(s): 48650077 Plan: 1. Lasix 40 mg daily. Aldactone 100 mg daily. Low-salt diet. Return to office in 2-3 weeks for reevaluation. Discharge per medicine. Assessment and plan of care discussed with Dr. Bennett
--- NOTE | 2017-05-17 11:23 | P.DS ---
Providers Date of admission: 05/15/17 00:29 Expected date of discharge: 05/17/17 Attending physician: Nori Philippe Consults: 05/15/17 10:46 Consult Physician Routine Consulting Provider: Ruddy Jones Consult Reason/Comments: cirrhosis Do you want consulting provider notified?: Yes Primary care physician: Jasmine [facility] Course: 1. Liver cirrhosis, most likely alcoholic cirrhosis given history. Viral hepatitis panel is negative. Seen and evaluated by GI. 2. Large ascites: Status post 5.8 L paracentesis. no evidence of SBP. We will start diuretics with Lasix 40 mg daily and spironolactone 100 mg daily. 3. Dyspnea: improved significantly. Most likely related to large ascites and fluids pushing on his diaphragm. Chest x-ray showed small effusion 4. History of heavy alcohol abuse now in remission for 1 year 5. BA 6. Hypomagnesemia, started on magnesium supplements twice daily. Patient will be discharged home in a stable condition. Follow-up with PCP and GI as directed. Plan - Discharge Summary New Discharge Prescriptions: New Furosemide [Lasix] 40 mg PO DAILY #30 tab Magnesium Oxide [Mag-Ox] 400 mg PO BID #60 tab Spironolactone [Aldactone] 100 mg PO DAILY #30 tab Continue ALPRAZolam [Xanax] 0.25 mg PO DAILY PRN PRN Reason: Anxiety risperiDONE [RisperDAL] 0.5 mg PO HS Multivitamins, Thera [Multivitamin (formulary)] 1 tab PO DAILY metFORMIN HCL 1,000 mg PO BID Memantine HCl [Namenda] 5 mg PO BID Cholecalciferol [Vitamin D3] 1,000 unit PO DAILY Pravastatin Sodium [Pravachol] 20 mg PO DAILY Omeprazole [PriLOSEC] 20 mg PO AC-BID Venlafaxine HCl [Effexor XR] 150 mg PO DAILY Aspirin [Adult Low Dose Aspirin EC] 81 mg PO DAILY Discontinued Potassium Chloride ER [K-Dur 10] 10 meq PO DAILY Furosemide [Lasix] 20 mg PO DAILY Discharge Medication List ALPRAZolam [Xanax] 0.25 mg PO DAILY PRN 05/14/17 [History] Aspirin [Adult Low Dose Aspirin EC] 81 mg PO DAILY 05/14/17 [History] Cholecalciferol [Vitamin D3] 1,000 unit PO DAILY 05/14/17 [History] Memantine HCl [Namenda] 5 mg PO BID 05/14/17 [History] Multivitamins, Thera [Multivitamin (formulary)] 1 tab PO DAILY 05/14/17 [History ] Omeprazole [PriLOSEC] 20 mg PO AC-BID 05/14/17 [History] Pravastatin Sodium [Pravachol] 20 mg PO DAILY 05/14/17 [History] Venlafaxine HCl [Effexor XR] 150 mg PO DAILY 05/14/17 [History] metFORMIN HCL 1,000 mg PO BID 05/14/17 [History] risperiDONE [RisperDAL] 0.5 mg PO HS 05/14/17 [History] Furosemide [Lasix] 40 mg PO DAILY #30 tab 05/17/17 [Rx] Magnesium Oxide [Mag-Ox] 400 mg PO BID #60 tab 05/17/17 [Rx] Spironolactone [Aldactone] 100 mg PO DAILY #30 tab 05/17/17 [Rx] Follow up Appointment(s)/Referral(s): Radha Bennett MD [STAFF PHYSICIAN] - 06/28/17 2:00 pm Jasmine Galicia MD [Primary Care Provider] - 3 Days Discharge Disposition: HOME SELF-CARE
[2017-05-17 11:34] LABS: ANA Pattern Homogeneous; ANA Pattern 2 Nucleolar
[2017-05-17 12:26] VITALS: BP 113/67; PULSE 95; RESP 18; TEMP 98.6
[2017-05-17] MEDS: MAGNESIUM OXIDE 400 MG TAB PO SCH (12:30)
== END 2017-05-17 14:10 | disposition home or self-care (01) | DRG 433 ==
LOC: EC 21:24 → 5MS5E 05-15 00:29
PROVIDERS: ADMIT Internal Medicine; ATTEND Internal Medicine
PROC: 0W9G3ZX Drainage of Peritoneal Cavity, Percutaneous Approach, Diagnostic (ICD-10-PCS; principal; 2017-05-15)
DX: K70.31 Alcoholic cirrhosis of liver with ascites (principal); K76.6 Portal hypertension; E11.9 Type 2 diabetes mellitus without complications; E83.42 Hypomagnesemia; F03.90 Unspecified dementia, unspecified severity, without behavioral disturbance, psychotic disturbance, mood disturbance, and anxiety; F10.21 Alcohol dependence, in remission; F41.1 Generalized anxiety disorder; F32.9 Major depressive disorder, single episode, unspecified; F43.10 Post-traumatic stress disorder, unspecified; K21.9 Gastro-esophageal reflux disease without esophagitis; E78.5 Hyperlipidemia, unspecified; H91.90 Unspecified hearing loss, unspecified ear; Z96.659 Presence of unspecified artificial knee joint; I10 Essential (primary) hypertension; Z88.6 Allergy status to analgesic agent; Z88.8 Allergy status to other drugs, medicaments and biological substances; Z79.899 Other long term (current) drug therapy; Z79.82 Long term (current) use of aspirin; Z79.84 Long term (current) use of oral hypoglycemic drugs; Z87.891 Personal history of nicotine dependence; Z96.649 Presence of unspecified artificial hip joint
CPT/HCPCS: 36415; 49083; 71046; 71275; 74018; 74177; 80053; 80074; 82042; 82103; 82105; 82550; 82553; 82728; 83540; 83550; 83735; 84157; 84484; 85025; 85379; 85610; 85730; 86038; 86039; 86803; 87070; 87075; 87205; 87340; 88108; 88305; 88341; 88342; 89050; 93005; 99285

== ENCOUNTER 2017-05-20 20:36 | Inpatient (IN) | payer MEDICARE ==
[2017-05-20 21:33] LABS: HCT 34.2 % (39.0-53.0); MCH 33.5 pg (25.0-35.0); MCHC 32.2 g/dL (31.0-37.0); MCV 103.9 fL (80.0-100.0); Macrocytosis Slight; Mean Platelet Volume 7.4; Platelet Count 168 k/uL (150-450); RBC 3.29 m/uL (4.30-5.90); RDW 14.2 % (11.5-15.5); WBC 6.1 k/uL (3.8-10.6)
--- NOTE | 2017-05-20 21:39 | ED ---
SOB HPI - General Chief Complaint: Shortness of Breath Stated Complaint: LARS Time Seen by Provider: 05/20/17 21:00 Source: EMS Mode of arrival: EMS Limitations: altered mental status - History of Present Illness Initial Comments: Patient's a 77-year-old man here for dyspnea and also having fever. Patient also having a cough associated with this. The history is a little bit limited as she does appear to have some mild delirium. The patient does admit to a recent paracentesis where they took over 5 L of ascites from his abdomen. The patient had not been having fevers until today. He is not having abdominal pain. He is not having chest pain. MD Complaint: shortness of breath Onset/Timin -: days(s) Improves With: oxygen Worsens With: nothing Associated Symptoms: fever, cough - Related Data Home Medications Medication Instructions Recorded Confirmed ALPRAZolam [Xanax] 0.25 mg PO DAILY PRN 05/14/17 05/21/17 Aspirin [Adult Low Dose Aspirin EC] 81 mg PO DAILY 05/14/17 05/21/17 Cholecalciferol [Vitamin D3] 1,000 unit PO DAILY 05/14/17 05/21/17 Memantine HCl [Namenda] 5 mg PO BID 05/14/17 05/21/17 Multivitamins, Thera [Multivitamin 1 tab PO DAILY 05/14/17 05/21/17 (formulary)] Omeprazole [PriLOSEC] 20 mg PO AC-BID 05/14/17 05/21/17 Pravastatin Sodium [Pravachol] 20 mg PO DAILY 05/14/17 05/21/17 Venlafaxine HCl [Effexor XR] 150 mg PO DAILY 05/14/17 05/21/17 metFORMIN HCL 1,000 mg PO BID 05/14/17 05/21/17 risperiDONE [RisperDAL] 0.5 mg PO HS 05/14/17 05/21/17 Spironolactone [Aldactone] 100 mg PO DAILY 05/21/17 05/21/17 Previous Rx's Medication Instructions Recorded Furosemide [Lasix] 40 mg PO DAILY #30 tab 05/17/17 Magnesium Oxide [Mag-Ox] 400 mg PO BID #60 tab 05/17/17 Allergies Allergy/AdvReac Type Severity Reaction Status Date / Time donepezil [From Aricept] Allergy Unknown Verified 05/21/17 07:16 morphine Allergy Unknown Verified 05/21/17 07:16 Review of Systems ROS Statement: Those systems with pertinent positive or pertinent negative responses have been documented in the HPI. ROS Other: All systems not noted in ROS Statement are negative. Limitations: ROS unobtainable due to patients medical condition (Mild laryngeal) Constitutional: Reports: fever, weakness. Denies: chills Respiratory: Reports: cough, dyspnea. Denies: wheezes, hemoptysis Cardiovascular: Denies: chest pain, palpitations Gastrointestinal: Denies: abdominal pain, nausea, vomiting, diarrhea Genitourinary: Denies: dysuria, hematuria Musculoskeletal: Denies: back pain Skin: Denies: rash Neurological: Denies: headache, weakness, numbness Past Medical History Past Medical History: Dementia, Diabetes Mellitus, GERD/Reflux, Hyperlipidemia Additional Past Medical History / Comment(s): swallowing problems, edema, anemia , [place], Dentures History of Any Multi-Drug Resistant Organisms: None Reported Past Surgical History: Back Surgery Additional Past Surgical History / Comment(s): esophagus stretched for swallowing issues, knee replaced, hip replaced, Past Anesthesia/Blood Transfusion Reactions: No Reported Reaction Past Psychological History: Depression, PTSD Smoking Status: Former smoker Past Alcohol Use History: None Reported Past Drug Use History: None Reported General Exam Limitations: no limitations General appearance: alert, in distress Head exam: Present: atraumatic, normocephalic Eye exam: Present: normal appearance. Absent: scleral icterus, conjunctival injection Neck exam: Present: normal inspection Respiratory exam: Present: normal lung sounds bilaterally, rales (Bilateral bases). Absent: respiratory distress, wheezes, rhonchi, stridor, accessory muscle use, decreased breath sounds Cardiovascular Exam: Present: regular rate, tachycardia, normal heart sounds. Absent: systolic murmur, diastolic murmur, rubs, gallop GI/Abdominal exam: Present: soft. Absent: distended, tenderness, guarding, rebound, mass Extremities exam: Present: normal inspection, normal capillary refill. Absent: pedal edema, calf tenderness Back exam: Absent: CVA tenderness (R), CVA tenderness (L) Neurological exam: Present: alert Skin exam: Present: warm, dry, intact, normal color. Absent: rash Course Vital Signs 05/20/17 05/20/17 05/20/17 20:52 21:00 22:10 Temperature 102.7 F H 102.5 F H Pulse Rate 106 H 104 H Respiratory 25 H 26 H 23 Rate Blood Pressure 134/76 129/58 O2 Sat by Pulse 97 100 Oximetry 05/21/17 05/21/17 05/21/17 00:36 01:34 02:23 Temperature 100.6 F H 100.5 F H Pulse Rate 100 105 H 102 H Respiratory 26 H 26 H 20 Rate Blood Pressure 90/64 97/60 99/54 O2 Sat by Pulse 98 100 98 Oximetry 05/21/17 05/21/17 05/21/17 02:50 03:13 03:50 Temperature Pulse Rate 96 94 92 Respiratory 18 18 18 Rate Blood Pressure 84/51 94/50 88/54 O2 Sat by Pulse 98 100 100 Oximetry 05/21/17 05/21/17 05/21/17 04:20 05:17 05:50 Temperature 98.6 F Pulse Rate 82 95 82 Respiratory 22 18 18 Rate Blood Pressure 105/63 100/61 91/51 O2 Sat by Pulse 100 100 100 Oximetry 05/21/17 05/21/17 05/21/17 06:50 07:34 08:00 Temperature 101 F H Pulse Rate 82 90 90 Respiratory 18 16 16 Rate Blood Pressure 93/53 101/58 93/58 O2 Sat by Pulse 100 100 100 Oximetry 05/21/17 05/21/17 05/21/17 09:00 09:48 10:00 Temperature 99.6 F Pulse Rate 92 84 Respiratory 18 16 Rate Blood Pressure 114/56 96/62 O2 Sat by Pulse 100 100 Oximetry 05/21/17 05/21/17 05/21/17 11:00 12:00 12:41 Temperature Pulse Rate 79 81 Respiratory 18 18 Rate Blood Pressure 96/58 94/57 92/56 O2 Sat by Pulse 99 96 Oximetry 05/21/17 05/21/17 05/21/17 15:00 15:55 16:21 Temperature Pulse Rate 98 79 Respiratory 20 22 16 Rate Blood Pressure 86/51 O2 Sat by Pulse 95 98 Oximetry 05/21/17 05/21/17 17:59 18:00 Temperature 98.7 F Pulse Rate 83 86 Respiratory 18 20 Rate Blood Pressure 89/62 O2 Sat by Pulse 96 97 Oximetry Medical Decision Making - Medical Decision Making This patient is a 77-year-old man presenting with fever, cough, delirium. He is found to have influenza a and sepsis. Patient also having suspected right lower lobe pulmonary embolism. The patient given dose of Lovenox following the elevated d-dimer. Case discussed with Dr. Yao and assistant in nursing choice Dr. Coughlin. His treatment recommendations incorporated. - Lab Data Result diagrams: 05/22/17 03:50 05/22/17 03:50 Lab Results 05/20/17 05/20/17 05/20/17 Range/Units 21:00 21:00 21:00 WBC 6.1 (3.8-10.6) k/uL RBC 3.29 L (4.30-5.90) m/uL Hgb 11.0 L (13.0-17.5) gm/dL Hct 34.2 L (39.0-53.0) % MCV 103.9 H (80.0-100.0) fL MCH 33.5 (25.0-35.0) pg MCHC 32.2 (31.0-37.0) g/dL RDW 14.2 (11.5-15.5) % Plt Count 168 (150-450) k/uL Neutrophils % (Manual) 76 % Band Neutrophils % 1 % Lymphocytes % (Manual) 13 % Monocytes % (Manual) 10 % Neutrophils # (Manual) 4.60 (1.3-7.7) k/uL Lymphocytes # (Manual) 0.79 L (1.0-4.8) k/uL Monocytes # (Manual) 0.61 (0-1.0) k/uL Nucleated RBCs 0 (0-0) /100 WBC Manual Slide Review Performed Macrocytosis Slight PT (9.0-12.0) sec INR (<1.2) APTT (22.0-30.0) sec D-Dimer (<0.60) mg/L FEU Sample Site ABG pH (7.35-7.45) ABG pCO2 (35-45) mmHg ABG pO2 (83-108) mmHg ABG HCO3 (21-25) mmol/L ABG Total CO2 (19-24) mmol/L ABG O2 Saturation (94-97) % ABG Base Excess mmol/L Fidel Test FiO2 % Sodium 136 L (137-145) mmol/L Potassium 5.0 (3.5-5.1) mmol/L Chloride 99 (98-107) mmol/L Carbon Dioxide 23 (22-30) mmol/L Anion Gap 14 mmol/L BUN 19 (9-20) mg/dL Creatinine 1.20 (0.66-1.25) mg/dL Est GFR (MDRD) Af Amer >60 (>60 ml/min/1.73 sqM) Est GFR (MDRD) Non-Af 59 (>60 ml/min/1.73 sqM) Glucose 138 H (74-99) mg/dL Lactic Ac Sepsis Rflx Plasma Lactic Acid Rusty (0.7-2.0) mmol/L Calcium 8.9 (8.4-10.2) mg/dL Magnesium 1.2 L (1.6-2.3) mg/dL Total Bilirubin 0.8 (0.2-1.3) mg/dL AST 112 H (17-59) U/L ALT 64 (21-72) U/L Alkaline Phosphatase 299 H (38-126) U/L Ammonia (<30) umol/L Total Creatine Kinase 141 (55-170) U/L CK-MB (CK-2) 1.0 (0.0-2.4) ng/mL CK-MB (CK-2) Rel Index 0.7 Troponin I 0.048 H* (0.000-0.034) ng/mL NT-Pro-B Natriuret Pep pg/mL Total Protein 7.0 (6.3-8.2) g/dL Albumin 2.8 L (3.5-5.0) g/dL Influenza Type A RNA (Not Detectd) Influenza Type B (PCR) (Not Detectd) 05/20/17 05/20/17 05/20/17 Range/Units 21:00 21:00 21:00 WBC (3.8-10.6) k/uL RBC (4.30-5.90) m/uL Hgb (13.0-17.5) gm/dL Hct (39.0-53.0) % MCV (80.0-100.0) fL MCH (25.0-35.0) pg MCHC (31.0-37.0) g/dL RDW (11.5-15.5) % Plt Count (150-450) k/uL Neutrophils % (Manual) % Band Neutrophils % % Lymphocytes % (Manual) % Monocytes % (Manual) % Neutrophils # (Manual) (1.3-7.7) k/uL Lymphocytes # (Manual) (1.0-4.8) k/uL Monocytes # (Manual) (0-1.0) k/uL Nucleated RBCs (0-0) /100 WBC Manual Slide Review Macrocytosis PT 13.0 H (9.0-12.0) sec INR 1.4 H (<1.2) APTT 24.8 (22.0-30.0) sec D-Dimer 10.25 H (<0.60) mg/L FEU Sample Site ABG pH (7.35-7.45) ABG pCO2 (35-45) mmHg ABG pO2 (83-108) mmHg ABG HCO3 (21-25) mmol/L ABG Total CO2 (19-24) mmol/L ABG O2 Saturation (94-97) % ABG Base Excess mmol/L Fidel Test FiO2 % Sodium (137-145) mmol/L Potassium (3.5-5.1) mmol/L Chloride (98-107) mmol/L Carbon Dioxide (22-30) mmol/L Anion Gap mmol/L BUN (9-20) mg/dL Creatinine (0.66-1.25) mg/dL Est GFR (MDRD) Af Amer (>60 ml/min/1.73 sqM) Est GFR (MDRD) Non-Af (>60 ml/min/1.73 sqM) Glucose (74-99) mg/dL Lactic Ac Sepsis Rflx Plasma Lactic Acid Rusty 4.9 H* (0.7-2.0) mmol/L Calcium (8.4-10.2) mg/dL Magnesium (1.6-2.3) mg/dL Total Bilirubin (0.2-1.3) mg/dL AST (17-59) U/L ALT (21-72) U/L Alkaline Phosphatase (38-126) U/L Ammonia 11 (<30) umol/L Total Creatine Kinase (55-170) U/L CK-MB (CK-2) (0.0-2.4) ng/mL CK-MB (CK-2) Rel Index Troponin I (0.000-0.034) ng/mL NT-Pro-B Natriuret Pep 593 pg/mL Total Protein (6.3-8.2) g/dL Albumin (3.5-5.0) g/dL Influenza Type A RNA (Not Detectd) Influenza Type B (PCR) (Not Detectd) 05/20/17 05/20/17 05/20/17 Range/Units 21:00 21:52 23:50 WBC (3.8-10.6) k/uL RBC (4.30-5.90) m/uL Hgb (13.0-17.5) gm/dL Hct (39.0-53.0) % MCV (80.0-100.0) fL MCH (25.0-35.0) pg MCHC (31.0-37.0) g/dL RDW (11.5-15.5) % Plt Count (150-450) k/uL Neutrophils % (Manual) % Band Neutrophils % % Lymphocytes % (Manual) % Monocytes % (Manual) % Neutrophils # (Manual) (1.3-7.7) k/uL Lymphocytes # (Manual) (1.0-4.8) k/uL Monocytes # (Manual) (0-1.0) k/uL Nucleated RBCs (0-0) /100 WBC Manual Slide Review Macrocytosis PT (9.0-12.0) sec INR (<1.2) APTT (22.0-30.0) sec D-Dimer (<0.60) mg/L FEU Sample Site Right Radial ABG pH 7.46 H (7.35-7.45) ABG pCO2 27 L (35-45) mmHg ABG pO2 104 (83-108) mmHg ABG HCO3 19 L (21-25) mmol/L ABG Total CO2 20 (19-24) mmol/L ABG O2 Saturation 97.3 H (94-97) % ABG Base Excess -4.7 mmol/L Fidel Test Yes FiO2 36 % Sodium (137-145) mmol/L Potassium (3.5-5.1) mmol/L Chloride (98-107) mmol/L Carbon Dioxide (22-30) mmol/L Anion Gap mmol/L BUN (9-20) mg/dL Creatinine (0.66-1.25) mg/dL Est GFR (MDRD) Af Amer (>60 ml/min/1.73 sqM) Est GFR (MDRD) Non-Af (>60 ml/min/1.73 sqM) Glucose (74-99) mg/dL Lactic Ac Sepsis Rflx Y Plasma Lactic Acid Rusty (0.7-2.0) mmol/L Calcium (8.4-10.2) mg/dL Magnesium (1.6-2.3) mg/dL Total Bilirubin (0.2-1.3) mg/dL AST (17-59) U/L ALT (21-72) U/L Alkaline Phosphatase (38-126) U/L Ammonia (<30) umol/L Total Creatine Kinase (55-170) U/L CK-MB (CK-2) (0.0-2.4) ng/mL CK-MB (CK-2) Rel Index Troponin I (0.000-0.034) ng/mL NT-Pro-B Natriuret Pep pg/mL Total Protein (6.3-8.2) g/dL Albumin (3.5-5.0) g/dL Influenza Type A RNA Detected H (Not Detectd) Influenza Type B (PCR) Not Detected (Not Detectd) - EKG Data EKG shows normal: sinus rhythm (With PVCs), axis (Left axis deviation), intervals (Normal), QRS complexes (Normal), ST-T waves (T inversions in the lateral leads.) Rate: tachycardia (Rate approximately 106 bpm) When compared to previous EKG there are: other (The EKG is similar to that from 6 days ago.) Disposition Clinical Impression: Influenza A, Sepsis, Fever, Delirium, Pulmonary embolism Disposition: ADMITTED IP TO THIS HOSP Condition: Critical
[2017-05-20 21:43] LABS: INR 1.4 (<1.2); Partial Thromboplastin Time 24.8 sec (22.0-30.0)
[2017-05-20 21:44] LABS: Band Neutrophils % 1 %; Lymphocytes # (M) 0.79 k/uL (1.0-4.8); Monocytes # (M) 0.61 k/uL (0-1.0); Neutrophils % (M) 76 %; Nucleated Red Blood Cells 0 /100 WBC (0-0); Total Cells Counted 100
[2017-05-20 21:45] LABS: ALT 64 U/L (21-72); AST 112 U/L (17-59); Albumin 2.8 g/dL (3.5-5.0); Alkaline Phosphatase 299 U/L (38-126); Anion Gap 14 mmol/L; Blood Urea Nitrogen 19 mg/dL (9-20); Calcium 8.9 mg/dL (8.4-10.2); Carbon Dioxide 23 mmol/L (22-30); Chloride 99 mmol/L (98-107); Glucose 138 mg/dL (74-99); Sodium 136 mmol/L (137-145); Total Bilirubin 0.8 mg/dL (0.2-1.3)
--- NOTE | 2017-05-20 21:45 | XR ---
EXAMINATION TYPE: XR chest 1V portable DATE OF EXAM: 05/20/2017 Comparison: 05/14/2017 Clinical History: 77-year-old male shortness of breath and dyspnea Findings: Heart mildly enlarged. Low lung volumes with crowded vascular markings. Atherosclerotic arch calcific ations. Diffuse interstitial prominence is similar. Rounded retrocardiac density again noted. Impression: 1. Hypoventilatory changes. Interstitial densities likely chronic senescent change, stable from prior . No definite acute process. 2. Rounded retrocardiac density again noted. 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 We no te that the patient is frankly cirrhotic.
[2017-05-20 21:48] LABS: D-Dimer 10.25 mg/L FEU (<0.60)
[2017-05-20 21:51] LABS: Lactic Acid, Venous 4.9 mmol/L (0.7-2.0)
[2017-05-20 21:57] LABS: Troponin I 0.048 ng/mL (0.000-0.034)
[2017-05-20] MEDS ORDERED: SODIUM CHLORIDE 0.9% 500 ML IV STA (21:57)
[2017-05-20] MEDS ORDERED: RX INFO: IV CONTRAST WAS GIVEN 1 EACH MISC MISCELLANE PRN (22:14)
[2017-05-20] MEDS: IBUPROFEN 600 MG TAB PO STA ×2 (22:25→22:27)
[2017-05-20] MEDS ORDERED: IBUPROFEN 600 MG TAB PO STA (22:27)
--- NOTE | 2017-05-20 23:16 | CT ---
EXAMINATION TYPE: CT chest angio for PE DATE OF EXAM: 05/20/2017 COMPARISON: 05/14/2017 HISTORY: r/o PE chest pain CT DLP: 399.90 mGycm Automated exposure control for dose reduction was used. CONTRAST: CT Chest for pulmonary embolism performed with with IV Contrast, patient injected with 80 mL of Visip aque 320. FINDINGS: There are 3-D post processed images. Lungs are clear of consolidation. Heart is enlarged. There is a small pericardial effusion. There is no pleural effusion. Thoracic aorta measures up to 3.8 cm. There is no evidence of dissection. There are paratracheal lymph nodes that measure up to 1 cm. There are no hilar masses. There are small filling defects in the right lower lobe pulmonary artery. This is best seen on axial image 63. There is massive ascites. Liver is small consistent with cirrhosis. There is hiatal hernia. The bony thorax is intact. IMPRESSION: Massive ascites. Cirrhosis. Cardiomegaly. There is evidence of minimal emboli in the right lower lobe pulmonary artery. This appears new compar ed to old exam. Small pericardial effusion. This exam was discussed with Dr. Ambrose at 11:15 PM. Large calcified gallstone is noted.
[2017-05-20] MEDS ORDERED: ENOXAPARIN 80 MG/0.8 ML SYRINGE SQ STA (23:23)
[2017-05-20] MEDS ORDERED: LORazepam 2 MG/ML INJ IV STA (23:38)
[2017-05-20] MEDS ORDERED: OSELTAMIVIR 75 MG CAP PO STA (23:40)
[2017-05-20 23:56] LABS: ABG Base Excess -4.7 mmol/L; ABG HCO3 19 mmol/L (21-25); ABG Oxygen Saturation 97.3 % (94-97); ABG PCO2 27 mmHg (35-45); ABG PH 7.46 (7.35-7.45); ABG PO2 104 mmHg (83-108); ABG TCO2 20 mmol/L (19-24)
[2017-05-21] MEDS ORDERED: LEVOFLOXACIN 750MG-D5W PMX 750 MG in DEXTROSE/WATER 1 150ML.BAG IVPB STA (00:04)
[2017-05-21] MEDS ORDERED: SODIUM CHLORIDE 0.9% 1,000 ML IV ONE (00:12)
[2017-05-21] MEDS ORDERED: ALPRAZolam 0.25 MG TAB PO PRN (00:36)
[2017-05-21] MEDS ORDERED: NALOXONE 0.4 MG/ML 1 ML VIAL IV PRN (00:36)
[2017-05-21] MEDS ORDERED: VANCOMYCIN IV PER PHARMACY 1 EACH MISC MISCELLANE PRN (00:43)
[2017-05-21] MEDS ORDERED: HEPARIN SODIUM,PORCINE 10,000 UNIT/ML 1 ML VIAL IV ONE ×2 (00:49→04:45)
[2017-05-21] MEDS ORDERED: HEPARIN SODIUM,PORCINE 5,000 UNIT/ML 1 ML VIAL IV PRN (00:49)
[2017-05-21] MEDS ORDERED: VANCOMYCIN 1,250 MG in SODIUM CHLORIDE 0.9% 250 ML IVPB SCH (01:00)
--- NOTE | 2017-05-21 01:02 | CT ---
EXAMINATION TYPE: CT brain wo con DATE OF EXAM: 05/21/2017 COMPARISON: NONE HISTORY: AMS CT DLP: 2093.20 mGycm Automated exposure control for dose reduction was used. FINDINGS: There is patchy hypodensity in the periventricular white matter. There is mild cerebral cortical atro phy. There is no mass effect nor midline shift. There is no sign of intracranial hemorrhage. The calv arium is intact. IMPRESSION: MILD ATROPHY. CHRONIC WHITE MATTER CHANGES. NO ACUTE INTRACRANIAL ABNORMALITY.
[2017-05-21 01:24] LABS: Appearance,Urine Clear (Clear); Bilirubin,Urine Negative (Negative); Blood,Urine Negative (Negative); Color,Urine Dark Yellow; Glucose,Urine (UA) Negative (Negative); Ketones,Urine Trace (Negative); Leukocyte Esterase,Urine Negative (Negative); Mucus,Urine Moderate /hpf; PH, Urine 6.5 (5.0-8.0); Protein,Urine 3+ (Negative); RBC,Urine 6 /hpf (0-5)
[2017-05-21 01:33] LABS: Specific Gravity,Urine >1.050 (1.001-1.035)
[2017-05-21] MEDS: SODIUM CHLORIDE 0.9% 1,000 ML IV SCH (02:22)
[2017-05-21] MEDS ORDERED: SODIUM CHLORIDE 0.9% 500 ML IV STA (04:13)
[2017-05-21] MEDS: HEPARIN SOD,PORK IN 0.45% NACL 25,000 UNIT in 0.45% NACL 1 500ML.BAG IV SCH ×2 (04:44→14:27)
[2017-05-21] MEDS ORDERED: IBUPROFEN 600 MG TAB PO STA (07:36)
[2017-05-21] MEDS: ASPIRIN 81 MG PO SCH (08:55)
[2017-05-21] MEDS: CHOLECALCIFEROL 1,000 UNIT TAB PO SCH (08:56)
[2017-05-21] MEDS: DOCUSATE 100 MG CAP PO SCH ×2 (08:56→19:57)
[2017-05-21] MEDS: FUROSEMIDE 40 MG TAB PO SCH (08:57)
[2017-05-21] MEDS: MAGNESIUM OXIDE 400 MG TAB PO SCH ×2 (08:58→19:59)
[2017-05-21] MEDS: MEMANTINE 5 MG TAB PO SCH ×2 (08:59→19:58)
[2017-05-21] MEDS: MULTIVITAMINS, THERA 1 EACH TAB PO SCH (08:59)
[2017-05-21] MEDS: OSELTAMIVIR 75 MG CAP PO SCH ×2 (09:00→19:59)
[2017-05-21] MEDS: PRAVASTATIN SODIUM 20 MG TAB PO SCH (09:02)
[2017-05-21] MEDS: SPIRONOLACTONE 25 MG TAB PO SCH (09:02)
[2017-05-21] MEDS: PANTOPRAZOLE 40 MG TABLET PO SCH ×2 (09:05→19:52)
[2017-05-21] MEDS: VENLAFAXINE HCL ER 150 MG CAP PO SCH (09:05)
[2017-05-21] MEDS: FAMOTIDINE 20 MG/2 ML VIAL IV SCH ×2 (09:08→20:01)
[2017-05-21 11:21] LABS: Basophils % (A) 0 %; Eosinophils % (A) 1 %; HCT 27.9 % (39.0-53.0); Lymphocytes # (A) 0.8 k/uL (1.0-4.8); Lymphocytes % (A) 11 %; MCH 33.7 pg (25.0-35.0); MCHC 32.3 g/dL (31.0-37.0); MCV 104.3 fL (80.0-100.0); Macrocytosis Slight; Mean Platelet Volume 7.8; Monocytes # (A) 0.5 k/uL (0-1.0); Monocytes % (A) 6 %; Neutrophils # (A) 5.6 k/uL (1.3-7.7); Neutrophils % (A) 78 %; Platelet Count 104 k/uL (150-450); RBC 2.67 m/uL (4.30-5.90); RDW 14.1 % (11.5-15.5); WBC 7.1 k/uL (3.8-10.6)
[2017-05-21 11:33] LABS: ALT 59 U/L (21-72); AST 90 U/L (17-59); Albumin 2.3 g/dL (3.5-5.0); Alkaline Phosphatase 205 U/L (38-126); Anion Gap 9 mmol/L; Blood Urea Nitrogen 23 mg/dL (9-20); Calcium 7.9 mg/dL (8.4-10.2); Carbon Dioxide 22 mmol/L (22-30); Chloride 101 mmol/L (98-107); Glucose 148 mg/dL (74-99); Phosphorus 3.4 mg/dL (2.5-4.5); Potassium 4.8 mmol/L (3.5-5.1); Sodium 132 mmol/L (137-145); Total Bilirubin 0.5 mg/dL (0.2-1.3); Total Protein 5.9 g/dL (6.3-8.2)
[2017-05-21] MEDS: cefTRIAXone IN SWFI 1,000 MG/10 ML SYRINGE IVP SCH (12:23)
[2017-05-21] MEDS ORDERED: Magnesium Replacement Protocol 1 EACH MISC MISCELLANE PRN (12:39)
[2017-05-21] MEDS: MAGNESIUM SULFATE-D5W PMX 1 GM in DEXTROSE/WATER 1 100ML.BAG IVPB SCH ×4 (13:15→22:31)
--- NOTE | 2017-05-21 13:15 | P.HPIM ---
History of Present Illness H&P Date: 05/21/17 Chief Complaint: Confusion and shortness of breath This is a 77-year-old gentleman recently diagnosed alcoholic liver cirrhosis who presented to the emergency room with worsening confusion and shortness of breath. Patient was discharged from the hospital last week after a 3 days hospitalization where he underwent paracentesis with approximately 5.8 L removed. Patient is currently awake and alert. His daughter who is a nurse at bedside is providing history. She said after he came home within 2 days she noted that his abdomen is getting bigger. She also noted that her father was getting more short of breath and was having some wheezing. Today, he was more confused and hardly arousable. He also spiked a fever of 102 so EMS were called and patient was brought to the emergency room. Upon arrival, patient was found to be septic and influenza test was positive for influenza A. Patient was started on Tamiflu on IV ceftriaxone as well as IV fluid. His lactic acid was found to be elevated. Review of Systems Review of system: 14 points review of systems were obtained and were negative except to what were mentioned in the HPI. Past Medical History Past Medical History: Dementia, Diabetes Mellitus, GERD/Reflux, Hyperlipidemia Additional Past Medical History / Comment(s): swallowing problems, edema, anemia , [place], Dentures History of Any Multi-Drug Resistant Organisms: None Reported Past Surgical History: Back Surgery Additional Past Surgical History / Comment(s): esophagus stretched for swallowing issues, knee replaced, hip replaced, Past Anesthesia/Blood Transfusion Reactions: No Reported Reaction Past Psychological History: Depression, PTSD Smoking Status: Former smoker Past Alcohol Use History: None Reported Past Drug Use History: None Reported Medications and Allergies Home Medications Medication Instructions Recorded Confirmed Type ALPRAZolam [Xanax] 0.25 mg PO DAILY PRN 05/14/17 05/21/17 History Aspirin [Adult Low Dose Aspirin EC] 81 mg PO DAILY 05/14/17 05/21/17 History Cholecalciferol [Vitamin D3] 1,000 unit PO DAILY 05/14/17 05/21/17 History Memantine HCl [Namenda] 5 mg PO BID 05/14/17 05/21/17 History Multivitamins, Thera [Multivitamin 1 tab PO DAILY 05/14/17 05/21/17 History (formulary)] Omeprazole [PriLOSEC] 20 mg PO AC-BID 05/14/17 05/21/17 History Pravastatin Sodium [Pravachol] 20 mg PO DAILY 05/14/17 05/21/17 History Venlafaxine HCl [Effexor XR] 150 mg PO DAILY 05/14/17 05/21/17 History metFORMIN HCL 1,000 mg PO BID 05/14/17 05/21/17 History risperiDONE [RisperDAL] 0.5 mg PO HS 05/14/17 05/21/17 History Furosemide [Lasix] 40 mg PO DAILY #30 tab 05/17/17 05/21/17 Rx Magnesium Oxide [Mag-Ox] 400 mg PO BID #60 tab 05/17/17 05/21/17 Rx Spironolactone [Aldactone] 100 mg PO DAILY 05/21/17 05/21/17 History Allergies Allergy/AdvReac Type Severity Reaction Status Date / Time donepezil [From Aricept] Allergy Unknown Verified 05/21/17 07:16 morphine Allergy Unknown Verified 05/21/17 07:16 Physical Exam Vitals: Vital Signs Temp Pulse Resp BP Pulse Ox 05/21/17 12:41 92/56 05/21/17 12:00 81 18 94/57 96 05/21/17 11:00 79 18 96/58 99 05/21/17 10:00 84 16 96/62 100 05/21/17 09:48 99.6 F 05/21/17 09:00 92 18 114/56 100 05/21/17 08:00 90 16 93/58 100 05/21/17 07:34 101 F H 90 16 101/58 100 05/21/17 06:50 82 18 93/53 100 05/21/17 05:50 82 18 91/51 100 05/21/17 05:17 98.6 F 95 18 100/61 100 05/21/17 04:20 82 22 105/63 100 05/21/17 03:50 92 18 88/54 100 05/21/17 03:13 94 18 94/50 100 05/21/17 02:50 96 18 84/51 98 05/21/17 02:23 102 H 20 99/54 98 05/21/17 01:34 100.5 F H 105 H 26 H 97/60 100 05/21/17 00:36 100.6 F H 100 26 H 90/64 98 05/20/17 22:10 102.5 F H 104 H 23 129/58 100 05/20/17 21:00 26 H 05/20/17 20:52 102.7 F H 106 H 25 H 134/76 97 Intake and Output 05/20/17 05/21/17 05/21/17 22:59 06:59 14:59 Intake Total 214.993 Output Total 20 Balance -20 214.993 Intake: Intake, IV Titration 214.993 Amount Heparin Sod,Pork in 0.45% 214.993 NaCl 25,000 unit In 0.45 % NaCl 1 500ml.bag @ 18 UNITS/KG/HR 27.1 mls/hr IV .[id number] [facility] Rx#: [id number] Output: Urine 20 Straight 20 Other: Weight 75.296 kg General: The patient is awake and alert, in no distress. He appears chronically ill. Eye: there is normal conjunctiva bilaterally. Neck: The neck is supple, there is no JVD. Cardiovascular: Normal S1-S2, no S3-S4, no murmurs. Respiratory: Lungs clear to auscultation bilaterally Gastrointestinal: Abdomen is soft nontender, nondistended with evidence of moderate ascites. Musculoskeletal: There is +1-2 pedal edema. Neurological:. Speech is normal. Skin: Skin is warm and dry Results CBC & Chem 7: 05/21/17 10:57 05/21/17 10:57 Labs: Abnormal Lab Results - Last 24 Hours (Table) 05/20/17 05/20/17 05/20/17 Range/Units 21:00 21:00 21:00 RBC 3.29 L (4.30-5.90) m/uL Hgb 11.0 L (13.0-17.5) gm/dL Hct 34.2 L (39.0-53.0) % MCV 103.9 H (80.0-100.0) fL Plt Count (150-450) k/uL Lymphocytes # (1.0-4.8) k/uL Lymphocytes # (Manual) 0.79 L (1.0-4.8) k/uL PT (9.0-12.0) sec INR (<1.2) APTT (22.0-30.0) sec D-Dimer (<0.60) mg/L FEU ABG pH (7.35-7.45) ABG pCO2 (35-45) mmHg ABG HCO3 (21-25) mmol/L ABG O2 Saturation (94-97) % Sodium 136 L (137-145) mmol/L BUN (9-20) mg/dL Creatinine (0.66-1.25) mg/dL Glucose 138 H (74-99) mg/dL Plasma Lactic Acid Rusty (0.7-2.0) mmol/L Calcium (8.4-10.2) mg/dL Magnesium 1.2 L (1.6-2.3) mg/dL AST 112 H (17-59) U/L Alkaline Phosphatase 299 H (38-126) U/L Troponin I 0.048 H* (0.000-0.034) ng/mL Total Protein (6.3-8.2) g/dL Albumin 2.8 L (3.5-5.0) g/dL Ur Specific [place] (1.001-1.035) Urine Protein (Negative) Urine Ketones (Negative) Urine RBC (0-5) /hpf Urine Mucus (None) /hpf Influenza Type A RNA (Not Detectd) 05/20/17 05/20/17 05/20/17 Range/Units 21:00 21:00 21:00 RBC (4.30-5.90) m/uL Hgb (13.0-17.5) gm/dL Hct (39.0-53.0) % MCV (80.0-100.0) fL Plt Count (150-450) k/uL Lymphocytes # (1.0-4.8) k/uL Lymphocytes # (Manual) (1.0-4.8) k/uL PT 13.0 H (9.0-12.0) sec INR 1.4 H (<1.2) APTT (22.0-30.0) sec D-Dimer 10.25 H (<0.60) mg/L FEU ABG pH (7.35-7.45) ABG pCO2 (35-45) mmHg ABG HCO3 (21-25) mmol/L ABG O2 Saturation (94-97) % Sodium (137-145) mmol/L BUN (9-20) mg/dL Creatinine (0.66-1.25) mg/dL Glucose (74-99) mg/dL Plasma Lactic Acid Rusty 4.9 H* (0.7-2.0) mmol/L Calcium (8.4-10.2) mg/dL Magnesium (1.6-2.3) mg/dL AST (17-59) U/L Alkaline Phosphatase (38-126) U/L Troponin I (0.000-0.034) ng/mL Total Protein (6.3-8.2) g/dL Albumin (3.5-5.0) g/dL Ur Specific [place] (1.001-1.035) Urine Protein (Negative) Urine Ketones (Negative) Urine RBC (0-5) /hpf Urine Mucus (None) /hpf Influenza Type A RNA Detected H (Not Detectd) 05/20/17 05/21/17 05/21/17 Range/Units 23:50 01:04 01:33 RBC (4.30-5.90) m/uL Hgb (13.0-17.5) gm/dL Hct (39.0-53.0) % MCV (80.0-100.0) fL Plt Count (150-450) k/uL Lymphocytes # (1.0-4.8) k/uL Lymphocytes # (Manual) (1.0-4.8) k/uL PT (9.0-12.0) sec INR (<1.2) APTT (22.0-30.0) sec D-Dimer (<0.60) mg/L FEU ABG pH 7.46 H (7.35-7.45) ABG pCO2 27 L (35-45) mmHg ABG HCO3 19 L (21-25) mmol/L ABG O2 Saturation 97.3 H (94-97) % Sodium (137-145) mmol/L BUN (9-20) mg/dL Creatinine (0.66-1.25) mg/dL Glucose (74-99) mg/dL Plasma Lactic Acid Rusty 4.2 H* (0.7-2.0) mmol/L Calcium (8.4-10.2) mg/dL Magnesium (1.6-2.3) mg/dL AST (17-59) U/L Alkaline Phosphatase (38-126) U/L Troponin I (0.000-0.034) ng/mL Total Protein (6.3-8.2) g/dL Albumin (3.5-5.0) g/dL Ur Specific [place] >1.050 H (1.001-1.035) Urine Protein 3+ H (Negative) Urine Ketones Trace H (Negative) Urine RBC 6 H (0-5) /hpf Urine Mucus Moderate H (None) /hpf Influenza Type A RNA (Not Detectd) 05/21/17 05/21/17 05/21/17 Range/Units 10:57 10:57 10:57 RBC 2.67 L (4.30-5.90) m/uL Hgb 9.0 L D (13.0-17.5) gm/dL Hct 27.9 L (39.0-53.0) % MCV 104.3 H (80.0-100.0) fL Plt Count 104 L (150-450) k/uL Lymphocytes # 0.8 L (1.0-4.8) k/uL Lymphocytes # (Manual) (1.0-4.8) k/uL PT (9.0-12.0) sec INR (<1.2) APTT >200.0 H* (22.0-30.0) sec D-Dimer (<0.60) mg/L FEU ABG pH (7.35-7.45) ABG pCO2 (35-45) mmHg ABG HCO3 (21-25) mmol/L ABG O2 Saturation (94-97) % Sodium 132 L (137-145) mmol/L BUN 23 H (9-20) mg/dL Creatinine 1.30 H (0.66-1.25) mg/dL Glucose 148 H (74-99) mg/dL Plasma Lactic Acid Rusty (0.7-2.0) mmol/L Calcium 7.9 L (8.4-10.2) mg/dL Magnesium 1.2 L (1.6-2.3) mg/dL AST 90 H (17-59) U/L Alkaline Phosphatase 205 H (38-126) U/L Troponin I (0.000-0.034) ng/mL Total Protein 5.9 L (6.3-8.2) g/dL Albumin 2.3 L (3.5-5.0) g/dL Ur Specific [place] (1.001-1.035) Urine Protein (Negative) Urine Ketones (Negative) Urine RBC (0-5) /hpf Urine Mucus (None) /hpf Influenza Type A RNA (Not Detectd) 05/21/17 Range/Units 10:57 RBC (4.30-5.90) m/uL Hgb (13.0-17.5) gm/dL Hct (39.0-53.0) % MCV (80.0-100.0) fL Plt Count (150-450) k/uL Lymphocytes # (1.0-4.8) k/uL Lymphocytes # (Manual) (1.0-4.8) k/uL PT (9.0-12.0) sec INR (<1.2) APTT (22.0-30.0) sec D-Dimer (<0.60) mg/L FEU ABG pH (7.35-7.45) ABG pCO2 (35-45) mmHg ABG HCO3 (21-25) mmol/L ABG O2 Saturation (94-97) % Sodium (137-145) mmol/L BUN (9-20) mg/dL Creatinine (0.66-1.25) mg/dL Glucose (74-99) mg/dL Plasma Lactic Acid Rusty 3.0 H* (0.7-2.0) mmol/L Calcium (8.4-10.2) mg/dL Magnesium (1.6-2.3) mg/dL AST (17-59) U/L Alkaline Phosphatase (38-126) U/L Troponin I (0.000-0.034) ng/mL Total Protein (6.3-8.2) g/dL Albumin (3.5-5.0) g/dL Ur Specific [place] (1.001-1.035) Urine Protein (Negative) Urine Ketones (Negative) Urine RBC (0-5) /hpf Urine Mucus (None) /hpf Influenza Type A RNA (Not Detectd) Microbiology - Last 24 Hours (Table) 05/21/17 01:04 Urine Culture - Preliminary Urine,Catheterized Assessment and Plan Assessment: 1. Influenza A upper respiratory tract infection: On Tamiflu 2. Recurrent ascites need to rule out SBP. Currently on IV ceftriaxone 3. Acute toxo metabolic encephalopathy probably related to #1 and 2. Hepatic encephalopathy less likely as ammonia level is normal. 4. Suspected small PE in the right lower lobe noted on computed tomography scan currently on IV heparin. Seen and evaluated by pulmonology, thought to be less likely clinically. Awaiting final recommendations. 5. Alcoholic liver cirrhosis. 6. Hypomagnesemia will be replaced Today, I had a prolonged discussion with his daughter at bedside. She appeared to be frustrated of how fast his ascites recur. She wants her to be transferred to [facility] for TIPS evaluation. I told her I would be happy to transfer the patient that I think it's very less likely that he is getting to be considered for a TIPS procedure at this time giving ongoing infection and his overall condition as well as he only had 1 episode of ascites requiring paracentesis just last week. I counseled her extensively about the nature and the chronicity of his underlying liver cirrhosis. I told her that the focus is to get him better and try to improve his sepsis condition with antibiotic and use of Tamiflu. She appeared to be stressful about his recurrent ascites and wanted to be treated immediately. I also told her that this is not urgent and will be done in the morning. She believes that his recurrent ascites as a cause of his PROBLEMS. I tried my best to explain to her the overall condition of her father and his guarded prognosis. She appears to having hard time accepting the diagnosis as its recent diagnosis and also appeared to have hard time coping with his current presentation. She said that she would like to discuss with the rest of her family whether they want him to be transferred to [facility]. I told her I would be happy to do whatever they decide.
--- NOTE | 2017-05-21 14:21 | P.CNPUL ---
History of Present Illness Consult date: 05/21/17 Requesting physician: Meghna White Reason for consult: pulmonary embolism Chief complaint: Confusion, and shortness of breath. History of present illness: This is a 77-year-old white male with history of alcoholic liver cirrhosis, patient was admitted last week, and he was inpatient for about 3 days. At the time the patient presented with ascites, and he underwent paracentesis were and 5.8 L of fluid were removed from his abdominal cavity. The fluid was not infected, and it was not malignant. It was felt to be fluid related to ascites. Patient was noted by his daughter who is a nurse as having increase in his abdominal girth, she was also noting that her dad is getting more short of breath, intermittent episodes of wheezing, and at times he has become more confused and hardly arousable. Patient even spiked a temp of 102. Based on his initial workup in the ER, patient was positive for influenza A, his lactic acid was also noted to be elevated, and his CT of the chest raised the possibility of right lower lobe pulmonary embolism. Although the patient had a CT of the chest on his last admission and there was no evidence of pulmonary embolism at the time. Patient was started on Tamiflu and ceftriaxone, and I was asked to see him on consultation. He received fluid boluses, he was also placed on heparin for his presumptive right lower lobe pulmonary embolism, venous Doppler of both lower extremities was ordered, and patient will likely require another paracentesis. This will be addressed by gastroenterology and possibly by interventional radiology in the next 24-48 hours. The patient himself does not seem to be in distress, however he is a very poor historian, seems to be a bit lethargic. Most of the history was obtained from his daughter who was a nurse at his bedside. Prior to arrival to the ER, patient was noted to have more shortness of breath, coughing, wheezing, and the daughter believed he vomited not certain whether he sustained some aspiration. Review of Systems 12 point review of systems were obtained from his daughter at bedside, please refer to pertinent positives in the HPI otherwise remaining systems are negative. Past Medical History Past Medical History: Dementia, Diabetes Mellitus, GERD/Reflux, Hyperlipidemia Additional Past Medical History / Comment(s): swallowing problems, edema, anemia , [place], Dentures History of Any Multi-Drug Resistant Organisms: None Reported Past Surgical History: Back Surgery Additional Past Surgical History / Comment(s): esophagus stretched for swallowing issues, knee replaced, hip replaced, Past Anesthesia/Blood Transfusion Reactions: No Reported Reaction Past Psychological History: Depression, PTSD Smoking Status: Former smoker Past Alcohol Use History: None Reported Past Drug Use History: None Reported Medications and Allergies Home Medications Medication Instructions Recorded Confirmed Type ALPRAZolam [Xanax] 0.25 mg PO DAILY PRN 05/14/17 05/21/17 History Aspirin [Adult Low Dose Aspirin EC] 81 mg PO DAILY 05/14/17 05/21/17 History Cholecalciferol [Vitamin D3] 1,000 unit PO DAILY 05/14/17 05/21/17 History Memantine HCl [Namenda] 5 mg PO BID 05/14/17 05/21/17 History Multivitamins, Thera [Multivitamin 1 tab PO DAILY 05/14/17 05/21/17 History (formulary)] Omeprazole [PriLOSEC] 20 mg PO AC-BID 05/14/17 05/21/17 History Pravastatin Sodium [Pravachol] 20 mg PO DAILY 05/14/17 05/21/17 History Venlafaxine HCl [Effexor XR] 150 mg PO DAILY 05/14/17 05/21/17 History metFORMIN HCL 1,000 mg PO BID 05/14/17 05/21/17 History risperiDONE [RisperDAL] 0.5 mg PO HS 05/14/17 05/21/17 History Furosemide [Lasix] 40 mg PO DAILY #30 tab 05/17/17 05/21/17 Rx Magnesium Oxide [Mag-Ox] 400 mg PO BID #60 tab 05/17/17 05/21/17 Rx Spironolactone [Aldactone] 100 mg PO DAILY 05/21/17 05/21/17 History Allergies Allergy/AdvReac Type Severity Reaction Status Date / Time donepezil [From Aricept] Allergy Unknown Verified 05/21/17 07:16 morphine Allergy Unknown Verified 05/21/17 07:16 Physical Exam Vitals: Vital Signs Temp Pulse Resp BP Pulse Ox 05/21/17 12:41 92/56 05/21/17 12:00 81 18 94/57 96 05/21/17 11:00 79 18 96/58 99 05/21/17 10:00 84 16 96/62 100 05/21/17 09:48 99.6 F 05/21/17 09:00 92 18 114/56 100 05/21/17 08:00 90 16 93/58 100 05/21/17 07:34 101 F H 90 16 101/58 100 05/21/17 06:50 82 18 93/53 100 05/21/17 05:50 82 18 91/51 100 05/21/17 05:17 98.6 F 95 18 100/61 100 05/21/17 04:20 82 22 105/63 100 05/21/17 03:50 92 18 88/54 100 05/21/17 03:13 94 18 94/50 100 05/21/17 02:50 96 18 84/51 98 05/21/17 02:23 102 H 20 99/54 98 05/21/17 01:34 100.5 F H 105 H 26 H 97/60 100 05/21/17 00:36 100.6 F H 100 26 H 90/64 98 05/20/17 22:10 102.5 F H 104 H 23 129/58 100 05/20/17 21:00 26 H 05/20/17 20:52 102.7 F H 106 H 25 H 134/76 97 Intake and Output 05/20/17 05/21/17 05/21/17 22:59 06:59 14:59 Intake Total 214.993 Output Total 20 Balance -20 214.993 Intake: Intake, IV Titration 214.993 Amount Heparin Sod,Pork in 0.45% 214.993 NaCl 25,000 unit In 0.45 % NaCl 1 500ml.bag @ 18 UNITS/KG/HR 27.1 mls/hr IV .[id number] [facility] Rx#: [id number] Output: Urine 20 Straight 20 Other: Weight 75.296 kg General appearance: Physical exam revealed a 77-year-old white male, slightly lethargic, but arousable, not in respiratory distress. Head exam: atraumatic, normocephalic Eye exam: normal appearance. No evidence of scleral icterus, conjunctival injection Neck exam: Neck is supple, no neck masses, no JVD, no stridor. No lymphadenopathy noted. Respiratory exam: Minimal crackles and rhonchi noted at the bases bilaterally. Symmetrical chest expansion, no chest wall tenderness. Cardiovascular Exam: Distant S1 and S2, no S3 gallop. No murmur. GI/Abdominal exam: Slightly distended, positive ascites, enlarged liver was palpable about 5 cm below the right costal margin. Extremities exam: Trace of bipedal edema, left lower extremity seems to be a bit more swollen than the right lower extremity. Back exam: Absent: CVA tenderness (R), CVA tenderness (L) Neurological exam: Lethargic, arousable, follows simple instructions, no gross focal neurologic deficit except for lethargy. Skin exam: Unremarkable. Results - Laboratory Findings CBC and BMP: 05/21/17 10:57 05/21/17 10:57 ABG ABG pH 7.46 (7.35-7.45) H 05/20/17 23:50 ABG pCO2 27 mmHg (35-45) L 05/20/17 23:50 ABG pO2 104 mmHg (83-108) 05/20/17 23:50 ABG O2 Saturation 97.3 % (94-97) H 05/20/17 23:50 PT/INR, D-dimer PT 13.0 sec (9.0-12.0) H 05/20/17 21:00 INR 1.4 (<1.2) H 05/20/17 21:00 D-Dimer 10.25 mg/L FEU (<0.60) H 05/20/17 21:00 Abnormal lab findings: Abnormal Labs 05/20/17 05/20/17 05/20/17 21:00 21:00 21:00 RBC 3.29 L Hgb 11.0 L Hct 34.2 L MCV 103.9 H Plt Count Lymphocytes # Lymphocytes # (Manual) 0.79 L PT INR APTT D-Dimer ABG pH ABG pCO2 ABG HCO3 ABG O2 Saturation Sodium 136 L BUN Creatinine Glucose 138 H Plasma Lactic Acid Rusty Calcium Magnesium 1.2 L AST 112 H Alkaline Phosphatase 299 H Troponin I 0.048 H* Total Protein Albumin 2.8 L Ur Specific [place] Urine Protein Urine Ketones Urine RBC Urine Mucus Influenza Type A RNA 05/20/17 05/20/17 05/20/17 21:00 21:00 21:00 RBC Hgb Hct MCV Plt Count Lymphocytes # Lymphocytes # (Manual) PT 13.0 H INR 1.4 H APTT D-Dimer 10.25 H ABG pH ABG pCO2 ABG HCO3 ABG O2 Saturation Sodium BUN Creatinine Glucose Plasma Lactic Acid Rusty 4.9 H* Calcium Magnesium AST Alkaline Phosphatase Troponin I Total Protein Albumin Ur Specific [place] Urine Protein Urine Ketones Urine RBC Urine Mucus Influenza Type A RNA Detected H 05/20/17 05/21/17 05/21/17 23:50 01:04 01:33 RBC Hgb Hct MCV Plt Count Lymphocytes # Lymphocytes # (Manual) PT INR APTT D-Dimer ABG pH 7.46 H ABG pCO2 27 L ABG HCO3 19 L ABG O2 Saturation 97.3 H Sodium BUN Creatinine Glucose Plasma Lactic Acid Rusty 4.2 H* Calcium Magnesium AST Alkaline Phosphatase Troponin I Total Protein Albumin Ur Specific [place] >1.050 H Urine Protein 3+ H Urine Ketones Trace H Urine RBC 6 H Urine Mucus Moderate H Influenza Type A RNA 05/21/17 05/21/17 05/21/17 10:57 10:57 10:57 RBC 2.67 L Hgb 9.0 L D Hct 27.9 L MCV 104.3 H Plt Count 104 L Lymphocytes # 0.8 L Lymphocytes # (Manual) PT INR APTT >200.0 H* D-Dimer ABG pH ABG pCO2 ABG HCO3 ABG O2 Saturation Sodium 132 L BUN 23 H Creatinine 1.30 H Glucose 148 H Plasma Lactic Acid Rusty Calcium 7.9 L Magnesium 1.2 L AST 90 H Alkaline Phosphatase 205 H Troponin I Total Protein 5.9 L Albumin 2.3 L Ur Specific [place] Urine Protein Urine Ketones Urine RBC Urine Mucus Influenza Type A RNA 05/21/17 10:57 RBC Hgb Hct MCV Plt Count Lymphocytes # Lymphocytes # (Manual) PT INR APTT D-Dimer ABG pH ABG pCO2 ABG HCO3 ABG O2 Saturation Sodium BUN Creatinine Glucose Plasma Lactic Acid Rusty 3.0 H* Calcium Magnesium AST Alkaline Phosphatase Troponin I Total Protein Albumin Ur Specific [place] Urine Protein Urine Ketones Urine RBC Urine Mucus Influenza Type A RNA - Diagnostic Findings Chest x-ray: image reviewed (Chest x-ray was relatively unremarkable except for nonspecific retrocardiac density noted.) CT scan - chest: image reviewed (CT of the chest showed no evidence of consolidation. No evidence of pericardial or pleural effusion. Small filling defects noted in the right lower lobe pulmonary artery. And there is massive ascites.) Assessment and Plan Assessment: Impression: 1 recurrent ascites, rule out spontaneous bacterial peritonitis, patient is presently on ceftriaxone. 2 acute influenza A, presently on Tamiflu. 3 possible pulmonary embolism involving the right lower lobe, patient is presently on heparin. A venous Doppler was ordered to possibly confirm that there is evidence of thromboembolic disease. 4 history of alcoholic liver cirrhosis 5 acute presentation of sepsis with lactic acidosis, source is not quite clear, however I would be concerned about possible spontaneous bacterial peritonitis. Recommendation: Continue present treatment plan, patient may eventually require TIPS procedure for his recurrent ascites. In the meantime continue antibiotics , continue treatment with heparin, continue Tamiflu, continue Rocephin, long- term prognosis is definitely poor and guarded. Had a long discussion with his 2 daughters at bedside in the ER. We'll continue to follow. Patient may require another paracentesis, therapeutic and diagnostic at the same time. However heparin will have to be placed on hold prior to the procedure. Time with Patient: Greater than 30
--- NOTE | 2017-05-21 16:29 | US ---
EXAMINATION TYPE: US venous doppler duplex LE BI DATE OF EXAM: 05/21/2017 1:05 PM COMPARISON: NONE CLINICAL HISTORY: dvt / pe. SIDE PERFORMED: Bilateral TECHNIQUE: The lower extremity deep venous system is examined utilizing real time linear array sonog devi with graded compression, doppler sonography and color-flow sonography. VESSELS IMAGED: External Iliac Vein (EIV) Common Femoral Vein Deep Femoral Vein Greater Saphenous Vein * Femoral Vein Popliteal Vein Small Saphenous Vein * Proximal Calf Veins (* superficial vessels) Right Leg: Negative for DVT Left Leg: Negative for DVT IMPRESSION: Normal exam. No evidence of deep venous thrombosis in both legs.
[2017-05-21] MEDS: risperiDONE 0.5 MG TAB PO SCH (20:00)
[2017-05-21] MEDS: IPRATROPIUM-ALBUTEROL 3 ML NEB INHALATION PRN (21:07)
[2017-05-22] MEDS: SODIUM CHLORIDE 0.9% 1,000 ML IV SCH (01:40)
[2017-05-22] MEDS: HEPARIN SOD,PORK IN 0.45% NACL 25,000 UNIT in 0.45% NACL 1 500ML.BAG IV SCH (02:17)
[2017-05-22 04:10] LABS: ALT 50 U/L (21-72); AST 78 U/L (17-59); Albumin 2.1 g/dL (3.5-5.0); Alkaline Phosphatase 194 U/L (38-126); Anion Gap 7 mmol/L; Blood Urea Nitrogen 26 mg/dL (9-20); Carbon Dioxide 22 mmol/L (22-30); Chloride 101 mmol/L (98-107); Glucose 124 mg/dL (74-99); Potassium 4.3 mmol/L (3.5-5.1); Sodium 130 mmol/L (137-145); Total Bilirubin 0.4 mg/dL (0.2-1.3); Total Protein 5.7 g/dL (6.3-8.2)
[2017-05-22 04:19] LABS: HCT 28.5 % (39.0-53.0); HGB 8.9 gm/dL (13.0-17.5); MCH 33.6 pg (25.0-35.0); MCHC 31.2 g/dL (31.0-37.0); MCV 107.8 fL (80.0-100.0); Macrocytosis Moderate; Mean Platelet Volume 7.3; Platelet Count 90 k/uL (150-450); RBC 2.65 m/uL (4.30-5.90); RDW 14.1 % (11.5-15.5); WBC 5.5 k/uL (3.8-10.6)
[2017-05-22 04:42] LABS: Band Neutrophils % 4 %; Lymphocytes # (M) 0.11 k/uL (1.0-4.8); Monocytes # (M) 0.33 k/uL (0-1.0); Neutrophils % (M) 88 %; Nucleated Red Blood Cells 0 /100 WBC (0-0); Total Cells Counted 100
[2017-05-22 04:43] LABS: Polychromasia Present
[2017-05-22 06:28] LABS: Glucose,Whole Blood 102 mg/dL (75-99)
[2017-05-22] MEDS: PANTOPRAZOLE 40 MG TABLET PO SCH ×2 (06:34→17:32)
[2017-05-22] MEDS: IPRATROPIUM-ALBUTEROL 3 ML NEB INHALATION PRN ×2 (07:19→11:15)
[2017-05-22 09:34] LABS: INR 1.6 (<1.2); Prothrombin Time 15.1 sec (9.0-12.0)
[2017-05-22] MEDS: ASPIRIN 81 MG PO SCH (10:23)
[2017-05-22] MEDS: cefTRIAXone IN SWFI 1,000 MG/10 ML SYRINGE IVP SCH (10:26)
[2017-05-22] MEDS: CHOLECALCIFEROL 1,000 UNIT TAB PO SCH (10:26)
[2017-05-22] MEDS: MULTIVITAMINS, THERA 1 EACH TAB PO SCH (10:26)
[2017-05-22] MEDS: DOCUSATE 100 MG CAP PO SCH ×2 (10:26→20:33)
[2017-05-22] MEDS: FUROSEMIDE 40 MG TAB PO SCH (10:26)
[2017-05-22] MEDS: MEMANTINE 5 MG TAB PO SCH ×2 (10:27→20:32)
[2017-05-22] MEDS: FAMOTIDINE 20 MG/2 ML VIAL IV SCH (10:27)
[2017-05-22] MEDS: MAGNESIUM OXIDE 400 MG TAB PO SCH ×2 (10:27→20:32)
[2017-05-22] MEDS: OSELTAMIVIR 75 MG CAP PO SCH (10:28)
[2017-05-22] MEDS: VENLAFAXINE HCL ER 150 MG CAP PO SCH (11:39)
[2017-05-22] MEDS: PRAVASTATIN SODIUM 20 MG TAB PO SCH (11:39)
[2017-05-22] MEDS: SPIRONOLACTONE 25 MG TAB PO SCH (11:39)
[2017-05-22 12:01] LABS: Glucose,Whole Blood 167 mg/dL (75-99)
--- NOTE | 2017-05-22 12:14 | P.PN ---
Subjective Progress Note Date: 05/22/17 Patient is more awake today. He had an episode of choking while taking his pills this morning. His lung sounds wet with diffuse rhonchi and end expiratory wheezing Objective - Vital Signs Vital signs: Vital Signs Temp 97.2 F L 05/22/17 08:00 Pulse 94 05/22/17 11:26 Resp 18 05/22/17 08:00 BP 92/57 05/22/17 08:00 Pulse Ox 100 05/22/17 08:00 Intake & Output 05/21/17 05/22/17 05/22/17 18:59 06:59 18:59 Intake Total 1214.993 544.898 Balance 1214.993 544.898 Weight 74.5 kg Intake: Amount of Fluid Infused ( 1000 ml) Intake, IV Titration 214.993 544.898 Amount Heparin Sod,Pork in 0.45% 214.993 264.898 NaCl 25,000 unit In 0.45 % NaCl 1 500ml.bag @ 18 UNITS/KG/HR 27.1 mls/hr IV .[id number] [facility]ARE[facility] Rx#: [id number] Magnesium Sulfate-D5w Pmx 200 1 gm In Dextrose/Water 1 100ml.bag @ 100 mls/hr IVPB Q1H JARE[facility] Rx#: [id number] Sodium Chloride 0.9% 1, 80 000 ml @ 20 mls/hr IV . Q24H [facility]ARE[facility] Rx#:[id number] Other: Voiding Method Incontinent # Voids 1 - Exam General: The patient is awake and alert, in no distress Eye: there is normal conjunctiva bilaterally. Neck: The neck is supple, there is no JVD. Cardiovascular: Normal S1-S2, no S3-S4, no murmurs. Respiratory: Lungs with diffuse rhonchi and end expiratory wheezing Gastrointestinal: Abdomen is soft, nontender. There is evidence of small ascites Musculoskeletal: There is +1-2 pedal edema. Neurological:. Speech is normal. Skin: Skin is warm and dry - Labs CBC & Chem 7: 05/22/17 03:50 05/22/17 03:50 Labs: Abnormal Lab Results - Last 24 Hours (Table) 05/21/17 05/21/17 05/21/17 Range/Units 10:57 15:46 20:11 RBC (4.30-5.90) m/uL Hgb (13.0-17.5) gm/dL Hct (39.0-53.0) % MCV (80.0-100.0) fL Plt Count (150-450) k/uL Lymphocytes # (Manual) (1.0-4.8) k/uL PT (9.0-12.0) sec INR (<1.2) APTT >200.0 H* >200.0 H* (22.0-30.0) sec Sodium (137-145) mmol/L BUN (9-20) mg/dL Creatinine (0.66-1.25) mg/dL Glucose (74-99) mg/dL POC Glucose (mg/dL) (75-99) mg/dL Plasma Lactic Acid Rusty 2.4 H* (0.7-2.0) mmol/L Calcium (8.4-10.2) mg/dL AST (17-59) U/L Alkaline Phosphatase (38-126) U/L Total Protein (6.3-8.2) g/dL Albumin (3.5-5.0) g/dL 05/22/17 05/22/17 05/22/17 Range/Units 03:50 03:50 03:50 RBC 2.65 L (4.30-5.90) m/uL Hgb 8.9 L (13.0-17.5) gm/dL Hct 28.5 L (39.0-53.0) % MCV 107.8 H (80.0-100.0) fL Plt Count 90 L (150-450) k/uL Lymphocytes # (Manual) 0.11 L (1.0-4.8) k/uL PT (9.0-12.0) sec INR (<1.2) APTT >200.0 H* (22.0-30.0) sec Sodium 130 L (137-145) mmol/L BUN 26 H (9-20) mg/dL Creatinine 1.30 H (0.66-1.25) mg/dL Glucose 124 H (74-99) mg/dL POC Glucose (mg/dL) (75-99) mg/dL Plasma Lactic Acid Rusty (0.7-2.0) mmol/L Calcium 8.0 L (8.4-10.2) mg/dL AST 78 H (17-59) U/L Alkaline Phosphatase 194 H (38-126) U/L Total Protein 5.7 L (6.3-8.2) g/dL Albumin 2.1 L (3.5-5.0) g/dL 05/22/17 05/22/17 05/22/17 Range/Units 06:27 08:14 08:14 RBC (4.30-5.90) m/uL Hgb (13.0-17.5) gm/dL Hct (39.0-53.0) % MCV (80.0-100.0) fL Plt Count (150-450) k/uL Lymphocytes # (Manual) (1.0-4.8) k/uL PT 15.1 H (9.0-12.0) sec INR 1.6 H (<1.2) APTT 116.3 H* (22.0-30.0) sec Sodium (137-145) mmol/L BUN (9-20) mg/dL Creatinine (0.66-1.25) mg/dL Glucose (74-99) mg/dL POC Glucose (mg/dL) 102 H (75-99) mg/dL Plasma Lactic Acid Rusty (0.7-2.0) mmol/L Calcium (8.4-10.2) mg/dL AST (17-59) U/L Alkaline Phosphatase (38-126) U/L Total Protein (6.3-8.2) g/dL Albumin (3.5-5.0) g/dL 05/22/17 Range/Units 11:57 RBC (4.30-5.90) m/uL Hgb (13.0-17.5) gm/dL Hct (39.0-53.0) % MCV (80.0-100.0) fL Plt Count (150-450) k/uL Lymphocytes # (Manual) (1.0-4.8) k/uL PT (9.0-12.0) sec INR (<1.2) APTT (22.0-30.0) sec Sodium (137-145) mmol/L BUN (9-20) mg/dL Creatinine (0.66-1.25) mg/dL Glucose (74-99) mg/dL POC Glucose (mg/dL) 167 H (75-99) mg/dL Plasma Lactic Acid Rusty (0.7-2.0) mmol/L Calcium (8.4-10.2) mg/dL AST (17-59) U/L Alkaline Phosphatase (38-126) U/L Total Protein (6.3-8.2) g/dL Albumin (3.5-5.0) g/dL Microbiology - Last 24 Hours (Table) 05/21/17 01:33 Blood Culture - Preliminary Blood No Growth after 24 hours 05/20/17 21:00 Blood Culture - Preliminary Blood No Growth after 24 hours 05/21/17 01:04 Urine Culture - Preliminary Urine,Catheterized Assessment and Plan Assessment: 1. Influenza A upper respiratory tract infection: On Tamiflu 2. Recurrent ascites need to rule out SBP. Currently on IV ceftriaxone. Plan for paracentesis tomorrow 3. Acute toxo metabolic encephalopathy: Improved significantly. probably related to #1 and 2. Hepatic encephalopathy less likely as ammonia level is normal. 4. Suspected small PE in the right lower lobe noted on computed tomography scan currently IV heparin on hold due to significantly elevated PTT.. Seen and evaluated by pulmonology, thought to be less likely clinically. Awaiting final recommendations. Doppler ultrasound was negative for DVT 5. Alcoholic liver cirrhosis. 6. Hypomagnesemia will be replaced 7. Reactive airway disease with diffuse rhonchi and wheezing: We will continue bronchodilators. Add prednisone 40 mg daily. Today, I reviewed his medication list and lab work results. Continue current regimen. I updated his daughter at bedside about his current clinical condition. We'll continue supportive care. Repeat lab work in the morning.
--- NOTE | 2017-05-22 12:29 | P.PN ---
Subjective Progress Note Date: 05/22/17 Principal diagnosis: Recurrent ascites secondary to alcoholic liver disease. This is a 77-year-old white male with history of alcoholic liver cirrhosis, patient was admitted last week, and he was inpatient for about 3 days. At the time the patient presented with ascites, and he underwent paracentesis were and 5.8 L of fluid were removed from his abdominal cavity. The fluid was not infected, and it was not malignant. It was felt to be fluid related to ascites. Patient was noted by his daughter who is a nurse as having increase in his abdominal girth, she was also noting that her dad is getting more short of breath, intermittent episodes of wheezing, and at times he has become more confused and hardly arousable. Patient even spiked a temp of 102. Based on his initial workup in the ER, patient was positive for influenza A, his lactic acid was also noted to be elevated, and his CT of the chest raised the possibility of right lower lobe pulmonary embolism. Although the patient had a CT of the chest on his last admission and there was no evidence of pulmonary embolism at the time. Patient was started on Tamiflu and ceftriaxone, and I was asked to see him on consultation. He received fluid boluses, he was also placed on heparin for his presumptive right lower lobe pulmonary embolism, venous Doppler of both lower extremities was ordered, and patient will likely require another paracentesis. This will be addressed by gastroenterology and possibly by interventional radiology in the next 24-48 hours. The patient himself does not seem to be in distress, however he is a very poor historian, seems to be a bit lethargic. Most of the history was obtained from his daughter who was a nurse at his bedside. Prior to arrival to the ER, patient was noted to have more shortness of breath, coughing, wheezing, and the daughter believed he vomited not certain whether he sustained some aspiration. Patient was reevaluated today on 01/19/2018, more awake, very appropriate, in no form of distress. Remains on heparin, Tamiflu, and diuretics for his underlying liver disease and ascites. Venous Doppler was negative. Reviewed the CT of the chest again, apparently to radiologist felt that there may be pulmonary embolism in the right lower lobe, hence the patient will remain on anticoagulation therapy. Remains on antibiotics, his lactic acid is now back to normal. PTT was supratherapeutic, and heparin was placed temporarily on hold. Patient describes intermittent episodes of choking while eating or swallowing, but she also had previous swallow evaluation, and supposedly he passed. Objective - Vital Signs Vital signs: Vital Signs Temp 97.2 F L 05/22/17 08:00 Pulse 94 05/22/17 11:26 Resp 18 05/22/17 08:00 BP 92/57 05/22/17 08:00 Pulse Ox 100 05/22/17 08:00 Intake & Output 05/21/17 05/22/17 05/22/17 18:59 06:59 18:59 Intake Total 1214.993 544.898 Balance 1214.993 544.898 Weight 74.5 kg Intake: Amount of Fluid Infused ( 1000 ml) Intake, IV Titration 214.993 544.898 Amount Heparin Sod,Pork in 0.45% 214.993 264.898 NaCl 25,000 unit In 0.45 % NaCl 1 500ml.bag @ 18 UNITS/KG/HR 27.1 mls/hr IV .[id number] [facility] Rx#: [id number] Magnesium Sulfate-D5w Pmx 200 1 gm In Dextrose/Water 1 100ml.bag @ 100 mls/hr IVPB Q1H [facility] Rx#: [id number] Sodium Chloride 0.9% 1, 80 000 ml @ 20 mls/hr IV . Q24H [facility] Rx#:[id number] Other: Voiding Method Incontinent # Voids 1 - Exam General appearance: Physical exam revealed a 77-year-old white male, awake, responsive and in no distress. Head exam: atraumatic, normocephalic Eye exam: normal appearance. No evidence of scleral icterus, conjunctival injection Neck exam: Neck is supple, no neck masses, no JVD, no stridor. No lymphadenopathy noted. Respiratory exam: Minimal crackles and rhonchi noted at the bases bilaterally. Symmetrical chest expansion, no chest wall tenderness. Cardiovascular Exam: Distant S1 and S2, no S3 gallop. No murmur. GI/Abdominal exam: Slightly distended, positive ascites, enlarged liver was palpable about 5 cm below the right costal margin. No tenderness was appreciated. No rebound, no guarding. Extremities exam: Trace of bipedal edema, left lower extremity seems to be a bit more swollen than the right lower extremity. Back exam: Absent: CVA tenderness (R), CVA tenderness (L) Neurological exam: Alert, oriented 3, no focal deficit noted. Skin exam: Unremarkable. - Labs CBC & Chem 7: 05/22/17 03:50 05/22/17 03:50 Labs: Abnormal Lab Results - Last 24 Hours (Table) 05/21/17 05/21/17 05/21/17 Range/Units 10:57 15:46 20:11 RBC (4.30-5.90) m/uL Hgb (13.0-17.5) gm/dL Hct (39.0-53.0) % MCV (80.0-100.0) fL Plt Count (150-450) k/uL Lymphocytes # (Manual) (1.0-4.8) k/uL PT (9.0-12.0) sec INR (<1.2) APTT >200.0 H* >200.0 H* (22.0-30.0) sec Sodium (137-145) mmol/L BUN (9-20) mg/dL Creatinine (0.66-1.25) mg/dL Glucose (74-99) mg/dL POC Glucose (mg/dL) (75-99) mg/dL Plasma Lactic Acid Rusty 2.4 H* (0.7-2.0) mmol/L Calcium (8.4-10.2) mg/dL AST (17-59) U/L Alkaline Phosphatase (38-126) U/L Total Protein (6.3-8.2) g/dL Albumin (3.5-5.0) g/dL 05/22/17 05/22/17 05/22/17 Range/Units 03:50 03:50 03:50 RBC 2.65 L (4.30-5.90) m/uL Hgb 8.9 L (13.0-17.5) gm/dL Hct 28.5 L (39.0-53.0) % MCV 107.8 H (80.0-100.0) fL Plt Count 90 L (150-450) k/uL Lymphocytes # (Manual) 0.11 L (1.0-4.8) k/uL PT (9.0-12.0) sec INR (<1.2) APTT >200.0 H* (22.0-30.0) sec Sodium 130 L (137-145) mmol/L BUN 26 H (9-20) mg/dL Creatinine 1.30 H (0.66-1.25) mg/dL Glucose 124 H (74-99) mg/dL POC Glucose (mg/dL) (75-99) mg/dL Plasma Lactic Acid Rusty (0.7-2.0) mmol/L Calcium 8.0 L (8.4-10.2) mg/dL AST 78 H (17-59) U/L Alkaline Phosphatase 194 H (38-126) U/L Total Protein 5.7 L (6.3-8.2) g/dL Albumin 2.1 L (3.5-5.0) g/dL 05/22/17 05/22/17 05/22/17 Range/Units 06:27 08:14 08:14 RBC (4.30-5.90) m/uL Hgb (13.0-17.5) gm/dL Hct (39.0-53.0) % MCV (80.0-100.0) fL Plt Count (150-450) k/uL Lymphocytes # (Manual) (1.0-4.8) k/uL PT 15.1 H (9.0-12.0) sec INR 1.6 H (<1.2) APTT 116.3 H* (22.0-30.0) sec Sodium (137-145) mmol/L BUN (9-20) mg/dL Creatinine (0.66-1.25) mg/dL Glucose (74-99) mg/dL POC Glucose (mg/dL) 102 H (75-99) mg/dL Plasma Lactic Acid Rusty (0.7-2.0) mmol/L Calcium (8.4-10.2) mg/dL AST (17-59) U/L Alkaline Phosphatase (38-126) U/L Total Protein (6.3-8.2) g/dL Albumin (3.5-5.0) g/dL 05/22/17 Range/Units 11:57 RBC (4.30-5.90) m/uL Hgb (13.0-17.5) gm/dL Hct (39.0-53.0) % MCV (80.0-100.0) fL Plt Count (150-450) k/uL Lymphocytes # (Manual) (1.0-4.8) k/uL PT (9.0-12.0) sec INR (<1.2) APTT (22.0-30.0) sec Sodium (137-145) mmol/L BUN (9-20) mg/dL Creatinine (0.66-1.25) mg/dL Glucose (74-99) mg/dL POC Glucose (mg/dL) 167 H (75-99) mg/dL Plasma Lactic Acid Rusty (0.7-2.0) mmol/L Calcium (8.4-10.2) mg/dL AST (17-59) U/L Alkaline Phosphatase (38-126) U/L Total Protein (6.3-8.2) g/dL Albumin (3.5-5.0) g/dL Microbiology - Last 24 Hours (Table) 05/21/17 01:33 Blood Culture - Preliminary Blood No Growth after 24 hours 05/20/17 21:00 Blood Culture - Preliminary Blood No Growth after 24 hours 05/21/17 01:04 Urine Culture - Preliminary Urine,Catheterized Assessment and Plan Assessment: Impression: 1 recurrent ascites, rule out spontaneous bacterial peritonitis, patient is presently on ceftriaxone. 2 acute influenza A, presently on Tamiflu. 3 possible pulmonary embolism involving the right lower lobe, patient is presently on heparin. A venous Doppler was ordered to possibly confirm that there is evidence of thromboembolic disease. 4 history of alcoholic liver cirrhosis 5 acute presentation of sepsis with lactic acidosis, source is not quite clear, however I would be concerned about possible spontaneous bacterial peritonitis. Recommendation: Continue present treatment plan including heparin, recommend hematology evaluation regarding his anticoagulation therapy, patient will be added very high risk of bleeding considering his underlying liver disease. Recommend interventional radiology evaluation for possible paracentesis. Eventually the patient will need to be seen at a tertiary care center for possible TIPS. Time with Patient: Less than 30
[2017-05-22] MEDS: predniSONE 20 MG TAB PO SCH (12:37)
[2017-05-22] MEDS: guaiFENesin 600 MG TABLET.ER PO SCH ×2 (12:37→20:33)
--- NOTE | 2017-05-22 12:41 | XR ---
EXAMINATION TYPE: XR chest 1V portable DATE OF EXAM: 05/22/2017 CLINICAL HISTORY: Wheezing and coughing, rule out aspiration. TECHNIQUE: Single AP portable frontal view of the chest is obtained. COMPARISON: Chest x-ray and CTA chest from 2 days earlier. CTA chest May 14, 2017. FINDINGS: Low lung volumes are redemonstrated. There is chronic parenchymal change without suspicious new focal airspace opacity, pleural effusion, or pneumothorax seen bilaterally. Cardiac silhouette s ize is stable and within normal limits with ectatic and atherosclerotic aorta. Retrocardiac opacity c onsistent with varices and herniated ascites is redemonstrated. Osseous structures are demineralized. Multiple old right posterior lateral rib fractures are noted. IMPRESSION: Overall stable findings, chronic parenchymal change without suspicious new acute infilt rate.
[2017-05-22] MEDS: IPRATROPIUM-ALBUTEROL 3 ML NEB INHALATION SCH ×2 (15:29→20:54)
[2017-05-22 17:20] LABS: Glucose,Whole Blood 259 mg/dL (75-99)
[2017-05-22] MEDS: risperiDONE 0.5 MG TAB PO SCH (20:42)
[2017-05-22 21:14] LABS: Glucose,Whole Blood 282 mg/dL (75-99)
[2017-05-22] MEDS: OSELTAMIVIR 60 MG/10 ML ORAL SYRINGE PO SCH (21:31)
[2017-05-23] MEDS: IPRATROPIUM-ALBUTEROL 3 ML NEB INHALATION SCH ×7 (01:02→19:45)
[2017-05-23] MEDS: PANTOPRAZOLE 40 MG TABLET PO SCH ×2 (05:57→17:02)
[2017-05-23] MEDS: SODIUM CHLORIDE 0.9% 1,000 ML IV SCH (05:58)
[2017-05-23 06:28] LABS: Glucose,Whole Blood 199 mg/dL (75-99)
[2017-05-23 06:33] LABS: Basophils % (A) 0 %; Eosinophils % (A) 0 %; HCT 23.6 % (39.0-53.0); HGB 7.5 gm/dL (13.0-17.5); Lymphocytes # (A) 0.6 k/uL (1.0-4.8); Lymphocytes % (A) 14 %; MCH 33.1 pg (25.0-35.0); MCHC 31.7 g/dL (31.0-37.0); MCV 104.5 fL (80.0-100.0); Macrocytosis Slight; Mean Platelet Volume 7.9; Monocytes # (A) 0.2 k/uL (0-1.0); Monocytes % (A) 5 %; Neutrophils # (A) 3.3 k/uL (1.3-7.7); Neutrophils % (A) 78 %; RBC 2.26 m/uL (4.30-5.90); RDW 14.1 % (11.5-15.5); WBC 4.3 k/uL (3.8-10.6)
[2017-05-23 06:35] LABS: Platelet Count 86 k/uL (150-450)
[2017-05-23 06:43] LABS: INR 1.4 (<1.2)
[2017-05-23 06:44] LABS: ALT 41 U/L (21-72); AST 77 U/L (17-59); Albumin 2.2 g/dL (3.5-5.0); Alkaline Phosphatase 201 U/L (38-126); Anion Gap 10 mmol/L; Blood Urea Nitrogen 22 mg/dL (9-20); Carbon Dioxide 20 mmol/L (22-30); Chloride 101 mmol/L (98-107); Glucose 219 mg/dL (74-99); Potassium 4.7 mmol/L (3.5-5.1); Prothrombin Time 13.1 sec (9.0-12.0); Sodium 131 mmol/L (137-145); Total Bilirubin 0.4 mg/dL (0.2-1.3); Total Protein 5.7 g/dL (6.3-8.2)
[2017-05-23] MEDS: HEPARIN SOD,PORK IN 0.45% NACL 25,000 UNIT in 0.45% NACL 1 500ML.BAG IV SCH (08:41)
[2017-05-23] MEDS: cefTRIAXone IN SWFI 1,000 MG/10 ML SYRINGE IVP SCH (08:47)
[2017-05-23] MEDS: MEMANTINE 5 MG TAB PO SCH ×2 (08:47→20:21)
[2017-05-23] MEDS: DOCUSATE 100 MG CAP PO SCH ×2 (08:47→20:21)
[2017-05-23] MEDS: SPIRONOLACTONE 25 MG TAB PO SCH (08:47)
[2017-05-23] MEDS: predniSONE 20 MG TAB PO SCH (08:48)
[2017-05-23] MEDS: MAGNESIUM OXIDE 400 MG TAB PO SCH ×2 (08:48→20:21)
[2017-05-23] MEDS: FUROSEMIDE 40 MG TAB PO SCH (08:48)
[2017-05-23] MEDS: ASPIRIN 81 MG PO SCH (08:48)
[2017-05-23] MEDS: VENLAFAXINE HCL ER 150 MG CAP PO SCH (08:48)
[2017-05-23] MEDS: FAMOTIDINE 20 MG TAB PO SCH (08:48)
[2017-05-23] MEDS: PRAVASTATIN SODIUM 20 MG TAB PO SCH (08:48)
[2017-05-23] MEDS: guaiFENesin 600 MG TABLET.ER PO SCH ×2 (08:48→20:21)
[2017-05-23] MEDS: OSELTAMIVIR 60 MG/10 ML ORAL SYRINGE PO SCH ×2 (08:48→20:21)
--- NOTE | 2017-05-23 10:53 | P.CONS ---
History of Present Illness - Reason for Consult Consult date: 05/23/17 Cirrhosis Requesting physician: Meghna White - History of Present Illness 77-year-old gentleman with a history of alcohol abuse recently evaluated by the GI service a week ago for new onset of ascites and liver cirrhosis. He underwent therapeutic diagnostic paracentesis on 05/15/2017 with 5.8 L removal. Anaerobic aerobic ascitic cultures reported no organisms seen. Ascitic cytology negative for malignant cells. Hepatitis screen nonreactive. Serologic workup for chronic liver disease completed. ZBIGNIEW positive with 1:640 homogenous nucleolar pattern. Admitted with influenza A possible questionable small pulmonary embolism presently being evaluated by pulmonology receiving intravenous heparin. Venous Doppler negative for VTE. Received 2 doses of Tamiflu. Hemoglobin 7.5. White count 4.3. MCV 104. Platelet 86,000. INR 1.4. Total bilirubin 0.4. AST 77. ALT 41. Alkaline phosphatase 201. AFP less than 1.3. BUN 22. Creatinine 1.1. Review of Systems Constitutional: History of dementia. Denies fever, chills, sweats, weight gain , or loss. HEENT: Negative for migraines, blurred vision or loss, earaches, drainage, tinnitus, oral mucosal lesions, dysphagia, or odynophagia. Cardiac: Hyperlipidemia. Negative for chest pain, arrhythmias, or palpitation. Respiratory: Negative for shortness of breath, hemoptysis, cough, or sputum production. Gastrointestinal: See HPI for pertinent findings. Genitourinary: Negative for hematuria, urgency, frequency, polyuria, dysuria, or penile discharge. Musculoskeletal: Negative for muscle aches, swelling, arthritis, and arthralgias. Neurologic: Negative for stroke or TIA. Endocrine: History of diabetes. Negative for thyroid problems. Skin: Negative for rash or itching. Psychiatric: History of depression. PTSD. Past Medical History Past Medical History: Dementia, Diabetes Mellitus, GERD/Reflux, Hyperlipidemia Additional Past Medical History / Comment(s): swallowing problems, edema, anemia , mary's igloo, Dentures History of Any Multi-Drug Resistant Organisms: None Reported Past Surgical History: Back Surgery Additional Past Surgical History / Comment(s): esophagus stretched for swallowing issues, knee replaced, hip replaced, Past Anesthesia/Blood Transfusion Reactions: No Reported Reaction Past Psychological History: Depression, PTSD Smoking Status: Former smoker Past Alcohol Use History: None Reported Past Drug Use History: None Reported Medications and Allergies Home Medications Medication Instructions Recorded Confirmed Type ALPRAZolam [Xanax] 0.25 mg PO DAILY PRN 05/14/17 05/21/17 History Aspirin [Adult Low Dose Aspirin EC] 81 mg PO DAILY 05/14/17 05/21/17 History Cholecalciferol [Vitamin D3] 1,000 unit PO DAILY 05/14/17 05/21/17 History Memantine HCl [Namenda] 5 mg PO BID 05/14/17 05/21/17 History Multivitamins, Thera [Multivitamin 1 tab PO DAILY 05/14/17 05/21/17 History (formulary)] Omeprazole [PriLOSEC] 20 mg PO AC-BID 05/14/17 05/21/17 History Pravastatin Sodium [Pravachol] 20 mg PO DAILY 05/14/17 05/21/17 History Venlafaxine HCl [Effexor XR] 150 mg PO DAILY 05/14/17 05/21/17 History metFORMIN HCL 1,000 mg PO BID 05/14/17 05/21/17 History risperiDONE [RisperDAL] 0.5 mg PO HS 05/14/17 05/21/17 History Furosemide [Lasix] 40 mg PO DAILY #30 tab 05/17/17 05/21/17 Rx Magnesium Oxide [Mag-Ox] 400 mg PO BID #60 tab 05/17/17 05/21/17 Rx Spironolactone [Aldactone] 100 mg PO DAILY 05/21/17 05/21/17 History Allergies Allergy/AdvReac Type Severity Reaction Status Date / Time donepezil [From Aricept] Allergy Unknown Verified 05/21/17 07:16 morphine Allergy Unknown Verified 05/21/17 07:16 Physical Exam Vitals: Vital Signs Temp Pulse Pulse Resp BP Pulse Ox 05/23/17 09:44 84 05/23/17 09:35 80 05/23/17 08:00 97.1 F L 88 16 104/65 99 05/23/17 04:53 72 05/23/17 04:41 77 05/23/17 04:00 97.2 F L 79 16 99/60 97 05/23/17 01:14 79 05/23/17 01:02 74 05/23/17 00:00 97.3 F L 78 16 95/57 98 05/22/17 21:07 96 05/22/17 20:54 95 05/22/17 20:00 97.9 F 89 16 96/61 97 05/22/17 16:00 97.0 F L 97 18 97/53 100 05/22/17 15:41 92 05/22/17 15:32 96 05/22/17 12:00 97.1 F L 98 18 141/84 100 05/22/17 11:26 94 05/22/17 11:16 88 Intake and Output 05/22/17 05/23/17 05/23/17 22:59 06:59 14:59 Intake Total 440 240 Output Total 300 Balance 140 240 Intake: Intake, IV Titration 180 Amount Sodium Chloride 0.9% 1, 180 000 ml @ 20 mls/hr IV . Q24H [facility] Rx#:[id number] Oral 260 240 Output: Urine 300 Other: Voiding Method Urinal Urinal Urinal # Voids 0 2 # Bowel Movements 1 Weight 75 kg General appearance: The patient is alert, oriented, in no acute distress. HET: Head is normocephalic and atraumatic. Pupils are equal and reactive. Oropharynx is clear without lesions. Neck: Supple without lymphadenopathy. Trachea midline. Heart: S1 S2. Regular rate and rhythm. Lungs: No scattered rhonchi bilaterally. Abdomen: Soft, nontender, mildly distended with mild ascites with bowel sounds. No peritoneal signs. No palpable organomegaly or masses. Extremities: +2 pedal edema. Neurological: No focal deficits. Strength and sensation are grossly intact. Results CBC & Chem 7: 05/23/17 05:55 05/23/17 05:55 Labs: Abnormal Lab Results - Last 24 Hours (Table) 05/22/17 05/22/17 05/22/17 Range/Units 11:57 17:15 21:02 RBC (4.30-5.90) m/uL Hgb (13.0-17.5) gm/dL Hct (39.0-53.0) % MCV (80.0-100.0) fL Plt Count (150-450) k/uL Lymphocytes # (1.0-4.8) k/uL PT (9.0-12.0) sec INR (<1.2) Sodium (137-145) mmol/L Carbon Dioxide (22-30) mmol/L BUN (9-20) mg/dL Glucose (74-99) mg/dL POC Glucose (mg/dL) 167 H 259 H 282 H (75-99) mg/dL Calcium (8.4-10.2) mg/dL AST (17-59) U/L Alkaline Phosphatase (38-126) U/L Total Protein (6.3-8.2) g/dL Albumin (3.5-5.0) g/dL 05/23/17 05/23/17 05/23/17 Range/Units 05:55 05:55 05:55 RBC 2.26 L (4.30-5.90) m/uL Hgb 7.5 L (13.0-17.5) gm/dL Hct 23.6 L (39.0-53.0) % MCV 104.5 H (80.0-100.0) fL Plt Count 86 L (150-450) k/uL Lymphocytes # 0.6 L (1.0-4.8) k/uL PT 13.1 H (9.0-12.0) sec INR 1.4 H (<1.2) Sodium 131 L (137-145) mmol/L Carbon Dioxide 20 L (22-30) mmol/L BUN 22 H (9-20) mg/dL Glucose 219 H (74-99) mg/dL POC Glucose (mg/dL) (75-99) mg/dL Calcium 8.0 L (8.4-10.2) mg/dL AST 77 H (17-59) U/L Alkaline Phosphatase 201 H (38-126) U/L Total Protein 5.7 L (6.3-8.2) g/dL Albumin 2.2 L (3.5-5.0) g/dL 05/23/17 Range/Units 06:23 RBC (4.30-5.90) m/uL Hgb (13.0-17.5) gm/dL Hct (39.0-53.0) % MCV (80.0-100.0) fL Plt Count (150-450) k/uL Lymphocytes # (1.0-4.8) k/uL PT (9.0-12.0) sec INR (<1.2) Sodium (137-145) mmol/L Carbon Dioxide (22-30) mmol/L BUN (9-20) mg/dL Glucose (74-99) mg/dL POC Glucose (mg/dL) 199 H (75-99) mg/dL Calcium (8.4-10.2) mg/dL AST (17-59) U/L Alkaline Phosphatase (38-126) U/L Total Protein (6.3-8.2) g/dL Albumin (3.5-5.0) g/dL Microbiology - Last 24 Hours (Table) 05/21/17 01:33 Blood Culture - Preliminary Blood No Growth after 48 hours 05/20/17 21:00 Blood Culture - Preliminary Blood No Growth after 48 hours 05/21/17 01:04 Urine Culture - Final Urine,Catheterized Assessment and Plan (1) Influenza A Current Visit: Yes Status: Acute Code(s): J10.1 - FLU DUE TO OTH IDENT INFLUENZA VIRUS W OTH RESP MANIFEST SNOMED Code(s): 660984364 (2) Ascites Current Visit: No Status: Acute Code(s): R18.8 - OTHER ASCITES SNOMED Code (s): 878571337 (3) Cirrhosis Narrative/Plan: Suspect alcohol liver cirrhosis Current Visit: No Status: Acute Code(s): K74.60 - UNSPECIFIED CIRRHOSIS OF LIVER SNOMED Code(s): 56501955 (4) Anemia Narrative/Plan: Clinically no evidence of active GI bleed Current Visit: Yes Status: Acute Code(s): D64.9 - ANEMIA, UNSPECIFIED SNOMED Code(s): 418160469 (5) Thrombocytopenia Current Visit: Yes Status: Acute Code(s): D69.6 - THROMBOCYTOPENIA, UNSPECIFIED SNOMED Code(s): 256344410 (6) Coagulopathy Current Visit: Yes Status: Acute Code(s): D68.9 - COAGULATION DEFECT, UNSPECIFIED SNOMED Code(s): 86551056 (7) Portal hypertension Current Visit: No Status: Acute Code(s): K76.6 - PORTAL HYPERTENSION SNOMED Code(s): 61611118 Plan: 1. Case was discussed with interventional radiologist; will reevaluate tomorrow for possible paracentesis would like patient to receive additional doses with Tamiflu before leaving isolation and undergoing paracentesis. Continue with intravenous antibiotics. 2. Will obtain an ultrasound in a.m. to assess for ascites. 3. Continue with Lasix 40 mg daily. Aldactone 100 mg daily. 4. Low-salt diet as tolerated. Thank you for this kind referral and the opportunity to participate in the care of your patient. This consultation was discussed with Dr. Jones. The impression and plan of care have been directed as dictated.
[2017-05-23 11:59] LABS: Glucose,Whole Blood 323 mg/dL (75-99)
--- NOTE | 2017-05-23 12:18 | P.PN ---
Subjective Progress Note Date: 05/23/17 Principal diagnosis: Recurrent ascites secondary to alcoholic liver disease. This is a 77-year-old white male with history of alcoholic liver cirrhosis, patient was admitted last week, and he was inpatient for about 3 days. At the time the patient presented with ascites, and he underwent paracentesis were and 5.8 L of fluid were removed from his abdominal cavity. The fluid was not infected, and it was not malignant. It was felt to be fluid related to ascites. Patient was noted by his daughter who is a nurse as having increase in his abdominal girth, she was also noting that her dad is getting more short of breath, intermittent episodes of wheezing, and at times he has become more confused and hardly arousable. Patient even spiked a temp of 102. Based on his initial workup in the ER, patient was positive for influenza A, his lactic acid was also noted to be elevated, and his CT of the chest raised the possibility of right lower lobe pulmonary embolism. Although the patient had a CT of the chest on his last admission and there was no evidence of pulmonary embolism at the time. Patient was started on Tamiflu and ceftriaxone, and I was asked to see him on consultation. He received fluid boluses, he was also placed on heparin for his presumptive right lower lobe pulmonary embolism, venous Doppler of both lower extremities was ordered, and patient will likely require another paracentesis. This will be addressed by gastroenterology and possibly by interventional radiology in the next 24-48 hours. The patient himself does not seem to be in distress, however he is a very poor historian, seems to be a bit lethargic. Most of the history was obtained from his daughter who was a nurse at his bedside. Prior to arrival to the ER, patient was noted to have more shortness of breath, coughing, wheezing, and the daughter believed he vomited not certain whether he sustained some aspiration. Patient was reevaluated today on 01/19/2018, more awake, very appropriate, in no form of distress. Remains on heparin, Tamiflu, and diuretics for his underlying liver disease and ascites. Venous Doppler was negative. Reviewed the CT of the chest again, apparently to radiologist felt that there may be pulmonary embolism in the right lower lobe, hence the patient will remain on anticoagulation therapy. Remains on antibiotics, his lactic acid is now back to normal. PTT was supratherapeutic, and heparin was placed temporarily on hold. Patient describes intermittent episodes of choking while eating or swallowing, but she also had previous swallow evaluation, and supposedly he passed. The patient is seen again today 05/23/2017 in follow-up on the selective care unit. He is currently resting quite comfortably in bed. He is awake and alert in no acute distress. He denies any worsening shortness of breath, cough or congestion. Maintaining good O2 saturations in the high 90s on room air. He's been afebrile. Hemodynamically stable. Ultrasound is pending for possible paracentesis by interventional radiology. He remains on Tamiflu. White count 4.3. Hemoglobin 7.5. Platelet count 86,000. INR 1.4. Sodium 131. Creatinine 1.10. Objective - Vital Signs Vital signs: Vital Signs Temp 97.1 F L 05/23/17 08:00 Pulse 84 05/23/17 09:44 Resp 16 05/23/17 08:00 BP 104/65 05/23/17 08:00 Pulse Ox 99 05/23/17 08:00 Intake & Output 05/22/17 05/23/17 05/23/17 18:59 06:59 18:59 Intake Total 240 440 240 Output Total 300 Balance 240 140 240 Weight 75 kg Intake: Intake, IV Titration 180 Amount Sodium Chloride 0.9% 1, 180 000 ml @ 20 mls/hr IV . Q24H JAREK Rx#:[id number] Oral 240 260 240 Output: Urine 300 Other: Voiding Method Urinal Urinal # Voids 1 2 # Bowel Movements 1 - Exam GENERAL EXAM: Alert, active, comfortable in no apparent distress. HEAD: Normocephalic. EYES: Normal reaction of pupils, equal size. NOSE: Clear with pink turbinates. THROAT: No erythema or exudates. NECK: No masses, no JVD. CHEST: No chest wall deformity. LUNGS: Equal air entry with crackles in the by lateral posterior bases. CVS: S1 and S2 normal with no audible murmur, regular rhythm. ABDOMEN: Distended, positive fluid wave, normal bowel sounds, no guarding or rigidity. SPINE: No scoliosis or deformity SKIN: No rashes CENTRAL NERVOUS SYSTEM: No focal deficits, tone is normal in all 4 extremities. EXTREMITIES: There is no peripheral edema. No clubbing, no cyanosis. Peripheral pulses are intact. - Labs CBC & Chem 7: 05/23/17 05:55 05/23/17 05:55 Labs: Abnormal Lab Results - Last 24 Hours (Table) 05/22/17 05/22/17 05/23/17 Range/Units 17:15 21:02 05:55 RBC 2.26 L (4.30-5.90) m/uL Hgb 7.5 L (13.0-17.5) gm/dL Hct 23.6 L (39.0-53.0) % MCV 104.5 H (80.0-100.0) fL Plt Count 86 L (150-450) k/uL Lymphocytes # 0.6 L (1.0-4.8) k/uL PT (9.0-12.0) sec INR (<1.2) Sodium (137-145) mmol/L Carbon Dioxide (22-30) mmol/L BUN (9-20) mg/dL Glucose (74-99) mg/dL POC Glucose (mg/dL) 259 H 282 H (75-99) mg/dL Calcium (8.4-10.2) mg/dL AST (17-59) U/L Alkaline Phosphatase (38-126) U/L Total Protein (6.3-8.2) g/dL Albumin (3.5-5.0) g/dL 05/23/17 05/23/17 05/23/17 Range/Units 05:55 05:55 06:23 RBC (4.30-5.90) m/uL Hgb (13.0-17.5) gm/dL Hct (39.0-53.0) % MCV (80.0-100.0) fL Plt Count (150-450) k/uL Lymphocytes # (1.0-4.8) k/uL PT 13.1 H (9.0-12.0) sec INR 1.4 H (<1.2) Sodium 131 L (137-145) mmol/L Carbon Dioxide 20 L (22-30) mmol/L BUN 22 H (9-20) mg/dL Glucose 219 H (74-99) mg/dL POC Glucose (mg/dL) 199 H (75-99) mg/dL Calcium 8.0 L (8.4-10.2) mg/dL AST 77 H (17-59) U/L Alkaline Phosphatase 201 H (38-126) U/L Total Protein 5.7 L (6.3-8.2) g/dL Albumin 2.2 L (3.5-5.0) g/dL 05/23/17 Range/Units 11:55 RBC (4.30-5.90) m/uL Hgb (13.0-17.5) gm/dL Hct (39.0-53.0) % MCV (80.0-100.0) fL Plt Count (150-450) k/uL Lymphocytes # (1.0-4.8) k/uL PT (9.0-12.0) sec INR (<1.2) Sodium (137-145) mmol/L Carbon Dioxide (22-30) mmol/L BUN (9-20) mg/dL Glucose (74-99) mg/dL POC Glucose (mg/dL) 323 H (75-99) mg/dL Calcium (8.4-10.2) mg/dL AST (17-59) U/L Alkaline Phosphatase (38-126) U/L Total Protein (6.3-8.2) g/dL Albumin (3.5-5.0) g/dL Microbiology - Last 24 Hours (Table) 05/21/17 01:33 Blood Culture - Preliminary Blood No Growth after 48 hours 05/20/17 21:00 Blood Culture - Preliminary Blood No Growth after 48 hours 05/21/17 01:04 Urine Culture - Final Urine,Catheterized Assessment and Plan Assessment: Impression: 1 recurrent ascites, rule out spontaneous bacterial peritonitis, patient is presently on ceftriaxone. Ultrasound and paracentesis pending. 2 acute influenza A, presently on Tamiflu. 3 possible pulmonary embolism involving the right lower lobe, patient is presently on heparin. A venous Doppler revealed no evidence of DVT bilaterally 4 history of alcoholic liver cirrhosis 5 acute presentation of sepsis with lactic acidosis, source is not quite clear, suspect possible spontaneous bacterial peritonitis. Plan: The patient was seen and evaluated by Dr. Coughlin. We'll continue with his current medications for now. Continue Tamiflu. Continue diuretics. Paracentesis is planned. We will continue to follow make further recommendations based on his clinical status. I, the cosigning physician, performed a history & physical examination of the patient. Lungs sounds have crackles in the bilateral posterior bases. Maintaining good O2 saturations in the 90s on room air. I discussed the assessment and plan of care with my nurse practitioner, Virginia Song. I attest to the above note as dictated by her.
[2017-05-23] MEDS ORDERED: RX INFO: IV CONTRAST WAS GIVEN 1 EACH MISC MISCELLANE PRN (13:12)
--- NOTE | 2017-05-23 13:17 | P.PN ---
Subjective Patient is doing well today no event overnight Objective - Vital Signs Vital signs: Vital Signs Temp 97.1 F L 05/23/17 08:00 Pulse 84 05/23/17 09:44 Resp 16 05/23/17 08:00 BP 104/65 05/23/17 08:00 Pulse Ox 99 05/23/17 08:00 Intake & Output 05/22/17 05/23/17 05/23/17 18:59 06:59 18:59 Intake Total 240 440 240 Output Total 300 Balance 240 140 240 Weight 75 kg Intake: Intake, IV Titration 180 Amount Sodium Chloride 0.9% 1, 180 000 ml @ 20 mls/hr IV . Q24H JAREK Rx#:[id number] Oral 240 260 240 Output: Urine 300 Other: Voiding Method Urinal Urinal # Voids 1 2 # Bowel Movements 1 - Exam General: The patient is awake and alert, in no distress Eye: there is normal conjunctiva bilaterally. Neck: The neck is supple, there is no JVD. Cardiovascular: Normal S1-S2, no S3-S4, no murmurs. Respiratory: Lungs clear Gastrointestinal: Abdomen is soft, nontender. There is evidence of small ascites Musculoskeletal: There is +1-2 pedal edema. Neurological:. Speech is normal. Skin: Skin is warm and dry - Labs CBC & Chem 7: 05/23/17 05:55 05/23/17 05:55 Labs: Abnormal Lab Results - Last 24 Hours (Table) 05/22/17 05/22/17 05/23/17 Range/Units 17:15 21:02 05:55 RBC 2.26 L (4.30-5.90) m/uL Hgb 7.5 L (13.0-17.5) gm/dL Hct 23.6 L (39.0-53.0) % MCV 104.5 H (80.0-100.0) fL Plt Count 86 L (150-450) k/uL Lymphocytes # 0.6 L (1.0-4.8) k/uL PT (9.0-12.0) sec INR (<1.2) Sodium (137-145) mmol/L Carbon Dioxide (22-30) mmol/L BUN (9-20) mg/dL Glucose (74-99) mg/dL POC Glucose (mg/dL) 259 H 282 H (75-99) mg/dL Calcium (8.4-10.2) mg/dL AST (17-59) U/L Alkaline Phosphatase (38-126) U/L Total Protein (6.3-8.2) g/dL Albumin (3.5-5.0) g/dL 05/23/17 05/23/17 05/23/17 Range/Units 05:55 05:55 06:23 RBC (4.30-5.90) m/uL Hgb (13.0-17.5) gm/dL Hct (39.0-53.0) % MCV (80.0-100.0) fL Plt Count (150-450) k/uL Lymphocytes # (1.0-4.8) k/uL PT 13.1 H (9.0-12.0) sec INR 1.4 H (<1.2) Sodium 131 L (137-145) mmol/L Carbon Dioxide 20 L (22-30) mmol/L BUN 22 H (9-20) mg/dL Glucose 219 H (74-99) mg/dL POC Glucose (mg/dL) 199 H (75-99) mg/dL Calcium 8.0 L (8.4-10.2) mg/dL AST 77 H (17-59) U/L Alkaline Phosphatase 201 H (38-126) U/L Total Protein 5.7 L (6.3-8.2) g/dL Albumin 2.2 L (3.5-5.0) g/dL 05/23/17 Range/Units 11:55 RBC (4.30-5.90) m/uL Hgb (13.0-17.5) gm/dL Hct (39.0-53.0) % MCV (80.0-100.0) fL Plt Count (150-450) k/uL Lymphocytes # (1.0-4.8) k/uL PT (9.0-12.0) sec INR (<1.2) Sodium (137-145) mmol/L Carbon Dioxide (22-30) mmol/L BUN (9-20) mg/dL Glucose (74-99) mg/dL POC Glucose (mg/dL) 323 H (75-99) mg/dL Calcium (8.4-10.2) mg/dL AST (17-59) U/L Alkaline Phosphatase (38-126) U/L Total Protein (6.3-8.2) g/dL Albumin (3.5-5.0) g/dL Microbiology - Last 24 Hours (Table) 05/21/17 01:33 Blood Culture - Preliminary Blood No Growth after 48 hours 05/20/17 21:00 Blood Culture - Preliminary Blood No Growth after 48 hours 05/21/17 01:04 Urine Culture - Final Urine,Catheterized Assessment and Plan Assessment: 1. Influenza A upper respiratory tract infection: On Tamiflu 2. Recurrent ascites need to rule out SBP. Currently on IV ceftriaxone. Plan for paracentesis tomorrow 3. Acute toxo metabolic encephalopathy: Improved significantly. probably related to #1 and 2. Hepatic encephalopathy less likely as ammonia level is normal. 4. Suspected small PE in the right lower lobe noted on computed tomography scan. Patient is a very poor candidate for anticoagulation. will order repeat CT to confirm or r/o PE. Doppler ultrasound was negative for DVT 5. Alcoholic liver cirrhosis. 6. Hypomagnesemia will be replaced 7. Reactive airway disease with diffuse rhonchi and wheezing: We will continue bronchodilators. Add prednisone 40 mg daily. 8. thrombocytopenia: worsening since admission. liver disease vs HIT? will consut heme Today, I reviewed his medication list and lab work results. - hold diuretics for now as patient ulises be given IV contrast for CT chest - plan for paracentesis tomorrow
[2017-05-23] MEDS ORDERED: ENOXAPARIN 80 MG/0.8 ML SYRINGE SQ STA (14:07)
[2017-05-23 16:49] LABS: Glucose,Whole Blood 315 mg/dL (75-99)
[2017-05-23] MEDS: INSULIN ASPART 100 UNIT/ML 1 ML 10 ML VIAL SQ SCH ×2 (17:41→21:37)
[2017-05-23] MEDS: risperiDONE 0.5 MG TAB PO SCH (20:21)
[2017-05-23 20:58] LABS: Glucose,Whole Blood 316 mg/dL (75-99)
[2017-05-24] MEDS: SODIUM CHLORIDE 0.9% 1,000 ML IV SCH (04:26)
[2017-05-24 06:23] LABS: Glucose,Whole Blood 133 mg/dL (75-99)
[2017-05-24] MEDS: INSULIN ASPART 100 UNIT/ML 1 ML 10 ML VIAL SQ SCH ×4 (06:34→21:44)
[2017-05-24] MEDS: PANTOPRAZOLE 40 MG TABLET PO SCH ×2 (06:35→17:28)
[2017-05-24 07:08] LABS: INR 1.4 (<1.2); Prothrombin Time 13.1 sec (9.0-12.0)
[2017-05-24 07:16] LABS: Basophils % (A) 0 %; Eosinophils % (A) 0 %; HCT 23.4 % (39.0-53.0); HGB 7.3 gm/dL (13.0-17.5); Hypochromasia Slight; Lymphocytes # (A) 0.7 k/uL (1.0-4.8); Lymphocytes % (A) 16 %; MCH 33.4 pg (25.0-35.0); MCHC 31.4 g/dL (31.0-37.0); MCV 106.6 fL (80.0-100.0); Macrocytosis Moderate; Mean Platelet Volume 7.6; Monocytes # (A) 0.4 k/uL (0-1.0); Monocytes % (A) 9 %; Neutrophils # (A) 2.9 k/uL (1.3-7.7); Neutrophils % (A) 71 %; WBC 4.1 k/uL (3.8-10.6)
[2017-05-24 07:17] LABS: ALT 46 U/L (21-72); AST 63 U/L (17-59); Albumin 2.1 g/dL (3.5-5.0); Alkaline Phosphatase 192 U/L (38-126); Anion Gap 5 mmol/L; Blood Urea Nitrogen 18 mg/dL (9-20); Calcium 8.3 mg/dL (8.4-10.2); Carbon Dioxide 26 mmol/L (22-30); Chloride 103 mmol/L (98-107); Glucose 118 mg/dL (74-99); Potassium 4.9 mmol/L (3.5-5.1); Sodium 134 mmol/L (137-145); Total Bilirubin 0.4 mg/dL (0.2-1.3); Total Protein 5.4 g/dL (6.3-8.2)
[2017-05-24 07:21] LABS: Platelet Count 80 k/uL (150-450)
--- NOTE | 2017-05-24 08:24 | US ---
EXAMINATION TYPE: US abdomen limited DATE OF EXAM: 05/24/2017 COMPARISON: NONE CLINICAL HISTORY: 77-year-old male with distention, assess for ascites. Technique: Sonographic examination of the 4 abdominal quadrants for assessment of ascites fluid. FINDINGS: Moderate amount of ascites noted within abdomen and pelvis, greater on the right . IMPRESSION: Ultrasound confirms moderate abdominopelvic ascites, greater on the right.
[2017-05-24] MEDS: cefTRIAXone IN SWFI 1,000 MG/10 ML SYRINGE IVP SCH (08:33)
[2017-05-24] MEDS: FAMOTIDINE 20 MG TAB PO SCH (08:33)
[2017-05-24] MEDS: DOCUSATE 100 MG CAP PO SCH ×2 (08:33→20:56)
[2017-05-24] MEDS: ASPIRIN 81 MG PO SCH (08:33)
[2017-05-24] MEDS: MAGNESIUM OXIDE 400 MG TAB PO SCH ×2 (08:34→21:02)
[2017-05-24] MEDS: MEMANTINE 5 MG TAB PO SCH ×2 (08:34→21:02)
[2017-05-24] MEDS: guaiFENesin 600 MG TABLET.ER PO SCH ×2 (08:34→21:02)
[2017-05-24] MEDS: OSELTAMIVIR 60 MG/10 ML ORAL SYRINGE PO SCH ×2 (08:34→21:02)
[2017-05-24] MEDS: PRAVASTATIN SODIUM 20 MG TAB PO SCH (08:35)
[2017-05-24] MEDS: VENLAFAXINE HCL ER 150 MG CAP PO SCH (08:35)
[2017-05-24] MEDS: IPRATROPIUM-ALBUTEROL 3 ML NEB INHALATION SCH ×3 (08:46→16:15)
--- NOTE | 2017-05-24 09:13 | P.PN ---
Subjective Progress Note Date: 05/24/17 Principal diagnosis: Influenza, liver cirrhosis 77-year-old male with suspected alcohol liver disease admitted with acute influenza. Feels better today. Denies abdominal pain. Afebrile. Hemoglobin 7.3. Platelet 80,000. INR 1.4. LFTs; total bilirubin 0.4. AST 63. ALT 46. Alk phos is 192. Ultrasound abdomen reported moderate abdominal pelvic ascites greater on the right. Preliminary blood cultures no growth. Objective - Vital Signs Vital signs: Vital Signs Temp 96.9 F L 05/24/17 08:00 Pulse 79 05/24/17 08:56 Resp 20 05/24/17 08:00 BP 119/75 05/24/17 08:00 Pulse Ox 97 05/24/17 08:00 Intake & Output 05/23/17 05/24/17 05/24/17 18:59 06:59 18:59 Intake Total 716 Output Total 300 Balance 416 Weight 74 kg Intake: Oral 716 Output: Urine 300 Other: Voiding Method Urinal Urinal # Voids 2 # Bowel Movements 1 1 - Exam General appearance: The patient is alert, oriented, in no acute distress. HET: Head is normocephalic and atraumatic. Pupils are equal and reactive. Oropharynx is clear without lesions. Neck: Supple without lymphadenopathy. Trachea midline. Heart: S1 S2. Regular rate and rhythm. Lungs: Slight diminishment bilaterally. Upper airways with scattered rhonchi clears with cough. Abdomen: Soft, nontender, mild ascites with bowel sounds. No peritoneal signs. No palpable organomegaly or masses. Extremities: Normal skin color and turgor. No cyanosis, rash, ulceration, clubbing, or edema. Radial and pedal pulses are 2/4 bilaterally. Neurological: No focal deficits. Strength and sensation are grossly intact. - Labs CBC & Chem 7: 05/24/17 06:17 05/24/17 06:17 Labs: Abnormal Lab Results - Last 24 Hours (Table) 05/23/17 05/23/17 05/23/17 Range/Units 11:55 16:47 20:48 RBC (4.30-5.90) m/uL Hgb (13.0-17.5) gm/dL Hct (39.0-53.0) % MCV (80.0-100.0) fL Plt Count (150-450) k/uL Lymphocytes # (1.0-4.8) k/uL PT (9.0-12.0) sec INR (<1.2) Sodium (137-145) mmol/L Glucose (74-99) mg/dL POC Glucose (mg/dL) 323 H 315 H 316 H (75-99) mg/dL Calcium (8.4-10.2) mg/dL AST (17-59) U/L Alkaline Phosphatase (38-126) U/L Total Protein (6.3-8.2) g/dL Albumin (3.5-5.0) g/dL 05/24/17 05/24/17 05/24/17 Range/Units 06:17 06:17 06:17 RBC 2.20 L (4.30-5.90) m/uL Hgb 7.3 L (13.0-17.5) gm/dL Hct 23.4 L (39.0-53.0) % MCV 106.6 H (80.0-100.0) fL Plt Count 80 L (150-450) k/uL Lymphocytes # 0.7 L (1.0-4.8) k/uL PT 13.1 H (9.0-12.0) sec INR 1.4 H (<1.2) Sodium 134 L (137-145) mmol/L Glucose 118 H (74-99) mg/dL POC Glucose (mg/dL) (75-99) mg/dL Calcium 8.3 L (8.4-10.2) mg/dL AST 63 H (17-59) U/L Alkaline Phosphatase 192 H (38-126) U/L Total Protein 5.4 L (6.3-8.2) g/dL Albumin 2.1 L (3.5-5.0) g/dL 05/24/17 Range/Units 06:22 RBC (4.30-5.90) m/uL Hgb (13.0-17.5) gm/dL Hct (39.0-53.0) % MCV (80.0-100.0) fL Plt Count (150-450) k/uL Lymphocytes # (1.0-4.8) k/uL PT (9.0-12.0) sec INR (<1.2) Sodium (137-145) mmol/L Glucose (74-99) mg/dL POC Glucose (mg/dL) 133 H (75-99) mg/dL Calcium (8.4-10.2) mg/dL AST (17-59) U/L Alkaline Phosphatase (38-126) U/L Total Protein (6.3-8.2) g/dL Albumin (3.5-5.0) g/dL Microbiology - Last 24 Hours (Table) 05/21/17 01:33 Blood Culture - Preliminary Blood No Growth after 72 hours 05/20/17 21:00 Blood Culture - Preliminary Blood No Growth after 72 hours Assessment and Plan (1) Influenza A Current Visit: Yes Status: Acute Code(s): J10.1 - FLU DUE TO OTH IDENT INFLUENZA VIRUS W OTH RESP MANIFEST SNOMED Code(s): 634688034 (2) Ascites Current Visit: No Status: Acute Code(s): R18.8 - OTHER ASCITES SNOMED Code (s): 891564825 (3) Cirrhosis Narrative/Plan: Suspect alcohol liver cirrhosis Current Visit: No Status: Acute Code(s): K74.60 - UNSPECIFIED CIRRHOSIS OF LIVER SNOMED Code(s): 50414774 (4) Anemia Narrative/Plan: Clinically no evidence of active GI bleed Current Visit: Yes Status: Acute Code(s): D64.9 - ANEMIA, UNSPECIFIED SNOMED Code(s): 318901236 (5) Thrombocytopenia Current Visit: Yes Status: Acute Code(s): D69.6 - THROMBOCYTOPENIA, UNSPECIFIED SNOMED Code(s): 361384051 (6) Coagulopathy Current Visit: Yes Status: Acute Code(s): D68.9 - COAGULATION DEFECT, UNSPECIFIED SNOMED Code(s): 13472195 (7) Portal hypertension Current Visit: No Status: Acute Code(s): K76.6 - PORTAL HYPERTENSION SNOMED Code(s): 57441119 Plan: 1. Continue with antibiotics. Possible paracentesis today. 2. Continue with Lasix 40 mg daily. Aldactone 100 mg daily. Assessment and plan a care discussed with Dr. Jones
[2017-05-24 11:47] LABS: Glucose,Whole Blood 153 mg/dL (75-99)
[2017-05-24 11:51] LABS: Reticulocyte % 1.9 % (0.5-2.0)
--- NOTE | 2017-05-24 12:44 | P.PN ---
Subjective Progress Note Date: 05/24/17 Principal diagnosis: Recurrent ascites secondary to alcoholic liver disease. This is a 77-year-old white male with history of alcoholic liver cirrhosis, patient was admitted last week, and he was inpatient for about 3 days. At the time the patient presented with ascites, and he underwent paracentesis were and 5.8 L of fluid were removed from his abdominal cavity. The fluid was not infected, and it was not malignant. It was felt to be fluid related to ascites. Patient was noted by his daughter who is a nurse as having increase in his abdominal girth, she was also noting that her dad is getting more short of breath, intermittent episodes of wheezing, and at times he has become more confused and hardly arousable. Patient even spiked a temp of 102. Based on his initial workup in the ER, patient was positive for influenza A, his lactic acid was also noted to be elevated, and his CT of the chest raised the possibility of right lower lobe pulmonary embolism. Although the patient had a CT of the chest on his last admission and there was no evidence of pulmonary embolism at the time. Patient was started on Tamiflu and ceftriaxone, and I was asked to see him on consultation. He received fluid boluses, he was also placed on heparin for his presumptive right lower lobe pulmonary embolism, venous Doppler of both lower extremities was ordered, and patient will likely require another paracentesis. This will be addressed by gastroenterology and possibly by interventional radiology in the next 24-48 hours. The patient himself does not seem to be in distress, however he is a very poor historian, seems to be a bit lethargic. Most of the history was obtained from his daughter who was a nurse at his bedside. Prior to arrival to the ER, patient was noted to have more shortness of breath, coughing, wheezing, and the daughter believed he vomited not certain whether he sustained some aspiration. Patient was reevaluated today on 01/19/2018, more awake, very appropriate, in no form of distress. Remains on heparin, Tamiflu, and diuretics for his underlying liver disease and ascites. Venous Doppler was negative. Reviewed the CT of the chest again, apparently to radiologist felt that there may be pulmonary embolism in the right lower lobe, hence the patient will remain on anticoagulation therapy. Remains on antibiotics, his lactic acid is now back to normal. PTT was supratherapeutic, and heparin was placed temporarily on hold. Patient describes intermittent episodes of choking while eating or swallowing, but she also had previous swallow evaluation, and supposedly he passed. The patient is seen again today 05/23/2017 in follow-up on the selective care unit. He is currently resting quite comfortably in bed. He is awake and alert in no acute distress. He denies any worsening shortness of breath, cough or congestion. Maintaining good O2 saturations in the high 90s on room air. He's been afebrile. Hemodynamically stable. Ultrasound is pending for possible paracentesis by interventional radiology. He remains on Tamiflu. White count 4.3. Hemoglobin 7.5. Platelet count 86,000. INR 1.4. Sodium 131. Creatinine 1.10. The patient is seen again today 05/24/2017 in follow-up on the selective care unit. He is currently resting quite comfortably in bed. He denies any worsening shortness of breath, cough or congestion. Maintaining good O2 saturations in the 90s on room air. Ultrasound of the abdomen did reveal significant ascites more so on the right. The plan is for paracentesis. White count 4.1. Hemoglobin 7.3. Platelet count 80,000, INR 1.4. Creatinine 1.08. Blood culture reveals no growth. Urine culture reveals no growth. Objective - Vital Signs Vital signs: Vital Signs Temp 97.3 F L 05/24/17 11:55 Pulse 94 05/24/17 11:55 Resp 20 05/24/17 11:55 BP 145/77 05/24/17 11:55 Pulse Ox 93 L 05/24/17 11:55 Intake & Output 05/23/17 05/24/17 05/24/17 18:59 06:59 18:59 Intake Total 716 Output Total 300 200 Balance 416 -200 Weight 74 kg Intake: Oral 716 Output: Urine 300 200 Other: Voiding Method Urinal Urinal Urinal # Voids 2 # Bowel Movements 1 1 - Exam GENERAL EXAM: Alert, active, comfortable in no apparent distress. HEAD: Normocephalic. EYES: Normal reaction of pupils, equal size. NOSE: Clear with pink turbinates. THROAT: No erythema or exudates. NECK: No masses, no JVD. CHEST: No chest wall deformity. LUNGS: Equal air entry with crackles in the by lateral posterior bases. CVS: S1 and S2 normal with no audible murmur, regular rhythm. ABDOMEN: Distended, positive fluid wave, normal bowel sounds, no guarding or rigidity. SPINE: No scoliosis or deformity SKIN: No rashes CENTRAL NERVOUS SYSTEM: No focal deficits, tone is normal in all 4 extremities. EXTREMITIES: There is no peripheral edema. No clubbing, no cyanosis. Peripheral pulses are intact. - Labs CBC & Chem 7: 05/24/17 06:17 05/24/17 06:17 Labs: Abnormal Lab Results - Last 24 Hours (Table) 05/23/17 05/23/17 05/24/17 Range/Units 16:47 20:48 06:17 RBC 2.20 L (4.30-5.90) m/uL Hgb 7.3 L (13.0-17.5) gm/dL Hct 23.4 L (39.0-53.0) % MCV 106.6 H (80.0-100.0) fL Plt Count 80 L (150-450) k/uL Lymphocytes # 0.7 L (1.0-4.8) k/uL PT (9.0-12.0) sec INR (<1.2) APTT (22.0-30.0) sec Sodium (137-145) mmol/L Glucose (74-99) mg/dL POC Glucose (mg/dL) 315 H 316 H (75-99) mg/dL Calcium (8.4-10.2) mg/dL AST (17-59) U/L Alkaline Phosphatase (38-126) U/L Total Protein (6.3-8.2) g/dL Albumin (3.5-5.0) g/dL 05/24/17 05/24/17 05/24/17 Range/Units 06:17 06:17 06:22 RBC (4.30-5.90) m/uL Hgb (13.0-17.5) gm/dL Hct (39.0-53.0) % MCV (80.0-100.0) fL Plt Count (150-450) k/uL Lymphocytes # (1.0-4.8) k/uL PT 13.1 H (9.0-12.0) sec INR 1.4 H (<1.2) APTT (22.0-30.0) sec Sodium 134 L (137-145) mmol/L Glucose 118 H (74-99) mg/dL POC Glucose (mg/dL) 133 H (75-99) mg/dL Calcium 8.3 L (8.4-10.2) mg/dL AST 63 H (17-59) U/L Alkaline Phosphatase 192 H (38-126) U/L Total Protein 5.4 L (6.3-8.2) g/dL Albumin 2.1 L (3.5-5.0) g/dL 05/24/17 05/24/17 Range/Units 11:15 11:44 RBC (4.30-5.90) m/uL Hgb (13.0-17.5) gm/dL Hct (39.0-53.0) % MCV (80.0-100.0) fL Plt Count (150-450) k/uL Lymphocytes # (1.0-4.8) k/uL PT (9.0-12.0) sec INR (<1.2) APTT 30.1 H (22.0-30.0) sec Sodium (137-145) mmol/L Glucose (74-99) mg/dL POC Glucose (mg/dL) 153 H (75-99) mg/dL Calcium (8.4-10.2) mg/dL AST (17-59) U/L Alkaline Phosphatase (38-126) U/L Total Protein (6.3-8.2) g/dL Albumin (3.5-5.0) g/dL Microbiology - Last 24 Hours (Table) 05/21/17 01:33 Blood Culture - Preliminary Blood No Growth after 72 hours 05/20/17 21:00 Blood Culture - Preliminary Blood No Growth after 72 hours Assessment and Plan Assessment: Impression: 1 recurrent ascites, rule out spontaneous bacterial peritonitis, patient is presently on ceftriaxone. Ultrasound done revealing moderate ascites more so on the right and paracentesis pending. 2 acute influenza A, presently on Tamiflu. 3 possible pulmonary embolism involving the right lower lobe, patient is presently on heparin. A venous Doppler revealed no evidence of DVT bilaterally 4 history of alcoholic liver cirrhosis 5 acute presentation of sepsis with lactic acidosis, source is not quite clear, suspect possible spontaneous bacterial peritonitis. Plan: The patient was seen and evaluated by Dr. Madyson. We'll continue with his current medications for now. Continue Tamiflu. Continue diuretics. Paracentesis is planned. He may benefit from a repeat computed tomography scan to rule out true pulmonary embolism and avoid long-term anticoagulants. We will continue to follow and make further recommendations based on his clinical status. I, the cosigning physician, performed a history & physical examination of the patient. Lungs sounds have crackles in the bilateral posterior bases. Maintaining good O2 saturations in the 90s on room air. I discussed the assessment and plan of care with my nurse practitioner, Virginia Song. I attest to the above note as dictated by her.
[2017-05-24] MEDS ORDERED: RX INFO: IV CONTRAST WAS GIVEN 1 EACH MISC MISCELLANE PRN (13:28)
[2017-05-24] MEDS: ALPRAZolam 0.25 MG TAB PO PRN (13:54)
--- NOTE | 2017-05-24 15:58 | CT ---
EXAMINATION TYPE: CT angio chest DATE OF EXAM: 05/24/2017 COMPARISON: 05/20/2017 HISTORY: 77-year-old male for candidate for anticoagulation, reassess pulmonary embolism TECHNIQUE: Contiguous axial scanning of the chest performed with IV Contrast, patient injected with 1 00 mL of Omnipaque 350. Coronal/sagittal MIP reconstructions performed. CT DLP: 295.3 mGycm Automated exposure control for dose reduction was used. FINDINGS: The heart is upper limits of normal in size with small anterior pericardial effusion relatively simil ar to prior exam. Coronary vessel calcifications are present in remarkable for coronary artery diseas e. 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 Mild episodic arch calcifications with conventional a the [facility] vessel branching anatomy. While there is satisfactory opacification of all pulmonary arterial system, there is diffuse patient breathing throughout the scan making the study essentially nondiagnostic. There is no large central s addle embolus. No large central right or left main pulmonary artery embolus. The majority of the loba r, segmental, subsegmental, and more distal arterial branches are nondiagnostic similar to the 018 exam. Borderline sized right tracheobronchial angle lymph node at 1.1 cm is stable. Breathing motion artifacts limiting assessment for small pulmonary nodules. No consolidation or pleur al effusion seen. Large abdominal ascites with cirrhotic morphology to the liver identified in the visualized upper abd omen. Cholelithiasis with a 2.1 cm gallstone. Bones: Old healed rib fracture deformities on the right. No osseous destructive process. IMPRESSION: 1. NO LARGE CENTRAL PULMONARY EMBOLUS. HOWEVER, DUE TO THE PATIENT FREELY BREATHING DURING THE SCAN, ASSESSMENT OF THE MAJORITY OF THE LOBAR, SEGMENTAL, SUBSEGMENTAL, AND MORE DISTAL ARTERIAL BRANCHES I S ESSENTIALLY NONDIAGNOSTIC, SIMILAR TO THE 05/20/2017 EXAM. 2. SEEMA CIRRHOSIS AND LARGE ABDOMINAL ASCITES. CHOLELITHIASIS.
--- NOTE | 2017-05-24 16:25 | P.PN ---
Subjective Patient is doing well today no event overnight Objective - Vital Signs Vital signs: Vital Signs Temp 97.3 F L 05/24/17 11:55 Pulse 84 05/24/17 16:17 Resp 20 05/24/17 11:55 BP 145/77 05/24/17 11:55 Pulse Ox 93 L 05/24/17 11:55 Intake & Output 05/23/17 05/24/17 05/24/17 18:59 06:59 18:59 Intake Total 716 236 Output Total 300 250 Balance 416 -14 Weight 74 kg Intake: Oral 716 236 Output: Urine 300 250 Other: Voiding Method Urinal Urinal Urinal # Voids 2 # Bowel Movements 1 1 - Exam General: The patient is awake and alert, in no distress Eye: there is normal conjunctiva bilaterally. Neck: The neck is supple, there is no JVD. Cardiovascular: Normal S1-S2, no S3-S4, no murmurs. Respiratory: Lungs clear Gastrointestinal: Abdomen is soft, nontender. There is evidence of small ascites Musculoskeletal: There is +1-2 pedal edema. Neurological:. Speech is normal. Skin: Skin is warm and dry and there is diffuse bruising with small hematoma formation on both arms above the elbow. - Labs CBC & Chem 7: 05/24/17 06:17 05/24/17 06:17 Labs: Abnormal Lab Results - Last 24 Hours (Table) 05/23/17 05/23/17 05/24/17 Range/Units 16:47 20:48 06:17 RBC 2.20 L (4.30-5.90) m/uL Hgb 7.3 L (13.0-17.5) gm/dL Hct 23.4 L (39.0-53.0) % MCV 106.6 H (80.0-100.0) fL Plt Count 80 L (150-450) k/uL Lymphocytes # 0.7 L (1.0-4.8) k/uL PT (9.0-12.0) sec INR (<1.2) APTT (22.0-30.0) sec Sodium (137-145) mmol/L Glucose (74-99) mg/dL POC Glucose (mg/dL) 315 H 316 H (75-99) mg/dL Calcium (8.4-10.2) mg/dL AST (17-59) U/L Alkaline Phosphatase (38-126) U/L Total Protein (6.3-8.2) g/dL Albumin (3.5-5.0) g/dL 05/24/17 05/24/17 05/24/17 Range/Units 06:17 06:17 06:22 RBC (4.30-5.90) m/uL Hgb (13.0-17.5) gm/dL Hct (39.0-53.0) % MCV (80.0-100.0) fL Plt Count (150-450) k/uL Lymphocytes # (1.0-4.8) k/uL PT 13.1 H (9.0-12.0) sec INR 1.4 H (<1.2) APTT (22.0-30.0) sec Sodium 134 L (137-145) mmol/L Glucose 118 H (74-99) mg/dL POC Glucose (mg/dL) 133 H (75-99) mg/dL Calcium 8.3 L (8.4-10.2) mg/dL AST 63 H (17-59) U/L Alkaline Phosphatase 192 H (38-126) U/L Total Protein 5.4 L (6.3-8.2) g/dL Albumin 2.1 L (3.5-5.0) g/dL 05/24/17 05/24/17 Range/Units 11:15 11:44 RBC (4.30-5.90) m/uL Hgb (13.0-17.5) gm/dL Hct (39.0-53.0) % MCV (80.0-100.0) fL Plt Count (150-450) k/uL Lymphocytes # (1.0-4.8) k/uL PT (9.0-12.0) sec INR (<1.2) APTT 30.1 H (22.0-30.0) sec Sodium (137-145) mmol/L Glucose (74-99) mg/dL POC Glucose (mg/dL) 153 H (75-99) mg/dL Calcium (8.4-10.2) mg/dL AST (17-59) U/L Alkaline Phosphatase (38-126) U/L Total Protein (6.3-8.2) g/dL Albumin (3.5-5.0) g/dL Microbiology - Last 24 Hours (Table) 05/21/17 01:33 Blood Culture - Preliminary Blood No Growth after 72 hours 05/20/17 21:00 Blood Culture - Preliminary Blood No Growth after 72 hours Assessment and Plan Assessment: 1. Influenza A upper respiratory tract infection: On Tamiflu finish 5 days course 2. Recurrent ascites need to rule out SBP. Currently on IV ceftriaxone. Plan for paracentesis tomorrow 3. Acute toxo metabolic encephalopathy: Improved significantly. probably related to #1 and 2. Hepatic encephalopathy less likely as ammonia level is normal. 4. Suspected small PE in the right lower lobe noted on computed tomography scan. Patient is a very poor candidate for anticoagulation. Doppler ultrasound was negative for DVT. Repeat computed tomography scan of the chest showed no evidence of large PE that was suboptimal for evaluation of segmental and subsegmental PE. 5. Alcoholic liver cirrhosis. 6. Hypomagnesemia will be replaced 7. Reactive airway disease with diffuse rhonchi and wheezing: We will continue bronchodilators. 8. thrombocytopenia: worsening since admission. liver disease vs HIT? will consut heme Today, I reviewed his medication list and lab work results. - We'll resume diuretics tomorrow - plan for paracentesis tomorrow
[2017-05-24 16:55] LABS: Glucose,Whole Blood 196 mg/dL (75-99)
[2017-05-24 18:51] LABS: Protein, Total 5.3 g/dL (6.2-8.2)
[2017-05-24 18:57] LABS: Iron Saturation 17.8 (15.00-50.00)
[2017-05-24 19:09] LABS: Folate, Serum 14.1 ng/mL
[2017-05-24] MEDS: IPRATROPIUM-ALBUTEROL 3 ML NEB INHALATION PRN (20:03)
[2017-05-24] MEDS: risperiDONE 0.5 MG TAB PO SCH (21:02)
[2017-05-24 21:55] LABS: Glucose,Whole Blood 140 mg/dL (75-99)
[2017-05-25] MEDS: SODIUM CHLORIDE 0.9% 1,000 ML IV SCH (01:43)
[2017-05-25] MEDS: PANTOPRAZOLE 40 MG TABLET PO SCH ×2 (06:13→16:22)
[2017-05-25] MEDS: INSULIN ASPART 100 UNIT/ML 1 ML 10 ML VIAL SQ SCH ×4 (06:13→21:12)
[2017-05-25 06:14] LABS: Glucose,Whole Blood 149 mg/dL (75-99)
[2017-05-25] MEDS: ALPRAZolam 0.25 MG TAB PO PRN ×2 (06:18→19:57)
[2017-05-25] MEDS: IPRATROPIUM-ALBUTEROL 3 ML NEB INHALATION PRN ×4 (06:21→20:39)
[2017-05-25 06:23] LABS: Basophils % (A) 0 %; Eosinophils # (A) 0.1 k/uL (0-0.7); Eosinophils % (A) 3 %; HCT 25.8 % (39.0-53.0); HGB 8.2 gm/dL (13.0-17.5); Lymphocytes # (A) 0.9 k/uL (1.0-4.8); Lymphocytes % (A) 21 %; MCH 32.9 pg (25.0-35.0); MCHC 31.7 g/dL (31.0-37.0); MCV 103.9 fL (80.0-100.0); Macrocytosis Slight; Mean Platelet Volume 7.4; Monocytes # (A) 0.5 k/uL (0-1.0); Monocytes % (A) 12 %; Neutrophils # (A) 2.5 k/uL (1.3-7.7); Neutrophils % (A) 60 %; RBC 2.48 m/uL (4.30-5.90); RDW 14.3 % (11.5-15.5); WBC 4.2 k/uL (3.8-10.6)
[2017-05-25 06:33] LABS: ALT 48 U/L (21-72); AST 75 U/L (17-59); Albumin 2.1 g/dL (3.5-5.0); Alkaline Phosphatase 204 U/L (38-126); Anion Gap 6 mmol/L; Blood Urea Nitrogen 16 mg/dL (9-20); Calcium 8.2 mg/dL (8.4-10.2); Carbon Dioxide 25 mmol/L (22-30); Chloride 101 mmol/L (98-107); Glucose 143 mg/dL (74-99); Platelet Count 95 k/uL (150-450); Sodium 132 mmol/L (137-145); Total Bilirubin 0.6 mg/dL (0.2-1.3); Total Protein 5.5 g/dL (6.3-8.2)
[2017-05-25 06:37] LABS: INR 1.4 (<1.2); Prothrombin Time 12.9 sec (9.0-12.0)
[2017-05-25] MEDS: ASPIRIN 81 MG PO SCH (10:41)
[2017-05-25] MEDS: VENLAFAXINE HCL ER 150 MG CAP PO SCH (10:41)
[2017-05-25] MEDS: cefTRIAXone IN SWFI 1,000 MG/10 ML SYRINGE IVP SCH (10:42)
[2017-05-25] MEDS: FUROSEMIDE 40 MG TAB PO SCH (10:43)
[2017-05-25] MEDS: guaiFENesin 600 MG TABLET.ER PO SCH ×2 (10:43→19:57)
[2017-05-25] MEDS: DOCUSATE 100 MG CAP PO SCH ×2 (10:43→19:57)
[2017-05-25] MEDS: MEMANTINE 5 MG TAB PO SCH ×2 (10:44→19:58)
[2017-05-25] MEDS: MAGNESIUM OXIDE 400 MG TAB PO SCH ×2 (10:44→19:57)
[2017-05-25] MEDS: OSELTAMIVIR 60 MG/10 ML ORAL SYRINGE PO SCH (10:45)
[2017-05-25] MEDS: PRAVASTATIN SODIUM 20 MG TAB PO SCH (10:46)
[2017-05-25] MEDS: SPIRONOLACTONE 25 MG TAB PO SCH (10:46)
[2017-05-25 11:49] LABS: Glucose,Whole Blood 121 mg/dL (75-99)
--- NOTE | 2017-05-25 13:19 | P.PN ---
Subjective Patient is scheduled for paracentesis today Objective - Vital Signs Vital signs: Vital Signs Temp 97.1 F L 05/25/17 11:07 Pulse 91 05/25/17 13:10 Resp 20 05/25/17 13:10 BP 117/69 05/25/17 13:10 Pulse Ox 99 05/25/17 13:10 Intake & Output 05/24/17 05/25/17 05/25/17 18:59 06:59 18:59 Intake Total 472 120 0 Output Total 250 150 Balance 222 -30 0 Weight 78.5 kg 78 kg Intake: Oral 472 120 0 Output: Urine 250 150 Other: Voiding Method Urinal Urinal Bedside Commode # Voids 2 # Bowel Movements 1 - Labs CBC & Chem 7: 05/25/17 05:32 05/25/17 05:32 Labs: Abnormal Lab Results - Last 24 Hours (Table) 05/24/17 05/24/17 05/24/17 Range/Units 06:30 11:29 16:50 RBC (4.30-5.90) m/uL Hgb (13.0-17.5) gm/dL Hct (39.0-53.0) % MCV (80.0-100.0) fL Plt Count (150-450) k/uL Lymphocytes # (1.0-4.8) k/uL PT (9.0-12.0) sec INR (<1.2) Sodium (137-145) mmol/L Glucose (74-99) mg/dL POC Glucose (mg/dL) 196 H (75-99) mg/dL Calcium (8.4-10.2) mg/dL Magnesium (1.6-2.3) mg/dL Iron 42 L (65-175) ug/dL AST (17-59) U/L Alkaline Phosphatase (38-126) U/L Total Protein (6.3-8.2) g/dL Total Protein (PEP) 5.3 L (6.2-8.2) g/dL Albumin (3.5-5.0) g/dL 05/24/17 05/25/17 05/25/17 Range/Units 21:42 05:32 05:32 RBC 2.48 L (4.30-5.90) m/uL Hgb 8.2 L (13.0-17.5) gm/dL Hct 25.8 L (39.0-53.0) % MCV 103.9 H (80.0-100.0) fL Plt Count 95 L (150-450) k/uL Lymphocytes # 0.9 L (1.0-4.8) k/uL PT 12.9 H (9.0-12.0) sec INR 1.4 H (<1.2) Sodium (137-145) mmol/L Glucose (74-99) mg/dL POC Glucose (mg/dL) 140 H (75-99) mg/dL Calcium (8.4-10.2) mg/dL Magnesium (1.6-2.3) mg/dL Iron (65-175) ug/dL AST (17-59) U/L Alkaline Phosphatase (38-126) U/L Total Protein (6.3-8.2) g/dL Total Protein (PEP) (6.2-8.2) g/dL Albumin (3.5-5.0) g/dL 05/25/17 05/25/17 05/25/17 Range/Units 05:32 06:08 11:47 RBC (4.30-5.90) m/uL Hgb (13.0-17.5) gm/dL Hct (39.0-53.0) % MCV (80.0-100.0) fL Plt Count (150-450) k/uL Lymphocytes # (1.0-4.8) k/uL PT (9.0-12.0) sec INR (<1.2) Sodium 132 L (137-145) mmol/L Glucose 143 H (74-99) mg/dL POC Glucose (mg/dL) 149 H 121 H (75-99) mg/dL Calcium 8.2 L (8.4-10.2) mg/dL Magnesium 1.4 L (1.6-2.3) mg/dL Iron (65-175) ug/dL AST 75 H (17-59) U/L Alkaline Phosphatase 204 H (38-126) U/L Total Protein 5.5 L (6.3-8.2) g/dL Total Protein (PEP) (6.2-8.2) g/dL Albumin 2.1 L (3.5-5.0) g/dL Microbiology - Last 24 Hours (Table) 05/21/17 01:33 Blood Culture - Preliminary Blood No Growth after 96 hours 05/20/17 21:00 Blood Culture - Preliminary Blood No Growth after 96 hours Assessment and Plan Assessment: 1. Influenza A upper respiratory tract infection: On Tamiflu finish 5 days course 2. Recurrent ascites need to rule out SBP. Currently on IV ceftriaxone. Plan for paracentesis today 3. Acute toxo metabolic encephalopathy: Improved significantly. probably related to #1 and 2. Hepatic encephalopathy less likely as ammonia level is normal. 4. Suspected small PE in the right lower lobe noted on computed tomography scan. Patient is a very poor candidate for anticoagulation. Doppler ultrasound was negative for DVT. Repeat computed tomography scan of the chest showed no evidence of large PE that was suboptimal for evaluation of segmental and subsegmental PE. 5. Alcoholic liver cirrhosis. 6. Hypomagnesemia will be replaced 7. Reactive airway disease with diffuse rhonchi and wheezing: We will continue bronchodilators. 8. thrombocytopenia: worsening since admission. liver disease vs HIT? will consut heme 9. Bilateral arms hematoma Today, I reviewed his medication list and lab work results. -Patient is a very poor candidate for anticoagulation. Awaiting hematology evaluation and final recommendation from pulmonology. -Continue diuretics -PT/OT
--- NOTE | 2017-05-25 14:25 | US ---
EXAMINATION TYPE: US paracentesis abd w/image DATE OF EXAM: 05/25/2017 COMPARISON: NONE HISTORY: Ascites. PROCEDURE: Maximal barrier technique was utilized. The skin overlying a suitable pocket of fluid was localized with ultrasound and the overlying skin was prepped and draped. Ultrasound was utilized with sterile technique. Lidocaine was used for local anesthesia and a skin terri made with a scalpel. Catheter was advanced under direct ultrasound guidance into a suitable pocket of fluid and approximately 5.1 liter s of serous fluid were removed. Catheter was withdrawn and hemostasis achieved. There is no immedia te complication; the patient is discharged in stable condition. IMPRESSION: STATUS POST ULTRASOUND GUIDED PARACENTESIS FOR PALLIATION OF ASCITES. THIS PROCEDURE WA S PERFORMED BY THE UNDERSIGNED. Specimen sent for laboratory analysis.
--- NOTE | 2017-05-25 16:28 | P.PN ---
Subjective Progress Note Date: 05/25/17 Principal diagnosis: Recurrent ascites secondary to liver disease. This is a 77-year-old white male with history of alcoholic liver cirrhosis, patient was admitted last week, and he was inpatient for about 3 days. At the time the patient presented with ascites, and he underwent paracentesis were and 5.8 L of fluid were removed from his abdominal cavity. The fluid was not infected, and it was not malignant. It was felt to be fluid related to ascites. Patient was noted by his daughter who is a nurse as having increase in his abdominal girth, she was also noting that her dad is getting more short of breath, intermittent episodes of wheezing, and at times he has become more confused and hardly arousable. Patient even spiked a temp of 102. Based on his initial workup in the ER, patient was positive for influenza A, his lactic acid was also noted to be elevated, and his CT of the chest raised the possibility of right lower lobe pulmonary embolism. Although the patient had a CT of the chest on his last admission and there was no evidence of pulmonary embolism at the time. Patient was started on Tamiflu and ceftriaxone, and I was asked to see him on consultation. He received fluid boluses, he was also placed on heparin for his presumptive right lower lobe pulmonary embolism, venous Doppler of both lower extremities was ordered, and patient will likely require another paracentesis. This will be addressed by gastroenterology and possibly by interventional radiology in the next 24-48 hours. The patient himself does not seem to be in distress, however he is a very poor historian, seems to be a bit lethargic. Most of the history was obtained from his daughter who was a nurse at his bedside. Prior to arrival to the ER, patient was noted to have more shortness of breath, coughing, wheezing, and the daughter believed he vomited not certain whether he sustained some aspiration. Patient was reevaluated today on 01/19/2018, more awake, very appropriate, in no form of distress. Remains on heparin, Tamiflu, and diuretics for his underlying liver disease and ascites. Venous Doppler was negative. Reviewed the CT of the chest again, apparently to radiologist felt that there may be pulmonary embolism in the right lower lobe, hence the patient will remain on anticoagulation therapy. Remains on antibiotics, his lactic acid is now back to normal. PTT was supratherapeutic, and heparin was placed temporarily on hold. Patient describes intermittent episodes of choking while eating or swallowing, but she also had previous swallow evaluation, and supposedly he passed. The patient is seen again today 05/23/2017 in follow-up on the selective care unit. He is currently resting quite comfortably in bed. He is awake and alert in no acute distress. He denies any worsening shortness of breath, cough or congestion. Maintaining good O2 saturations in the high 90s on room air. He's been afebrile. Hemodynamically stable. Ultrasound is pending for possible paracentesis by interventional radiology. He remains on Tamiflu. White count 4.3. Hemoglobin 7.5. Platelet count 86,000. INR 1.4. Sodium 131. Creatinine 1.10. The patient is seen again today 05/24/2017 in follow-up on the selective care unit. He is currently resting quite comfortably in bed. He denies any worsening shortness of breath, cough or congestion. Maintaining good O2 saturations in the 90s on room air. Ultrasound of the abdomen did reveal significant ascites more so on the right. The plan is for paracentesis. White count 4.1. Hemoglobin 7.3. Platelet count 80,000, INR 1.4. Creatinine 1.08. Blood culture reveals no growth. Urine culture reveals no growth. On 05/25/2017 patient seen in follow-up. Is seen resting comfortably in bed, denies any acute distress. Denies any acute dyspnea, chest pain, chest congestion or sputum production. He underwent ultrasound-guided paracentesis with removal of 5.1 L of serous fluid from his abdomen. He tolerated the procedure well. He states his breathing is easier since the paracentesis. He is on 2 L per nasal cannula with O2 sat 99%. Hemodynamically stable. Afebrile. His labs show white count of 4.2, hemoglobin of 8.2, and are 1.4, sodium of 132, potassium 5.0, UN of 16, creatinine of 1.4. Continues is on antibiotics with Rocephin, he is on oral Lasix, completed his Tamiflu. Objective - Vital Signs Vital signs: Vital Signs Temp 97.1 F L 05/25/17 11:07 Pulse 92 05/25/17 16:17 Resp 20 05/25/17 13:20 BP 109/73 05/25/17 13:20 Pulse Ox 99 05/25/17 13:20 Intake & Output 05/24/17 05/25/17 05/25/17 18:59 06:59 18:59 Intake Total 472 120 0 Output Total 250 150 Balance 222 -30 0 Weight 78.5 kg 78 kg Intake: Oral 472 120 0 Output: Urine 250 150 Other: Voiding Method Urinal Urinal Bedside Commode # Voids 2 1 # Bowel Movements 1 - Exam GENERAL EXAM: Alert, active, comfortable in no apparent distress. HEAD: Normocephalic. EYES: Normal reaction of pupils, equal size. NOSE: Clear with pink turbinates. THROAT: No erythema or exudates. NECK: No masses, no JVD. CHEST: No chest wall deformity. LUNGS: Equal air entry with crackles in the by lateral posterior bases. CVS: S1 and S2 normal with no audible murmur, regular rhythm. ABDOMEN: Distended, positive fluid wave, normal bowel sounds, no guarding or rigidity. SPINE: No scoliosis or deformity SKIN: No rashes CENTRAL NERVOUS SYSTEM: No focal deficits, tone is normal in all 4 extremities. EXTREMITIES: There is no peripheral edema. No clubbing, no cyanosis. Peripheral pulses are intact. - Labs CBC & Chem 7: 05/25/17 05:32 05/25/17 05:32 Labs: Abnormal Lab Results - Last 24 Hours (Table) 05/24/17 05/24/17 05/24/17 Range/Units 06:30 11:29 16:50 RBC (4.30-5.90) m/uL Hgb (13.0-17.5) gm/dL Hct (39.0-53.0) % MCV (80.0-100.0) fL Plt Count (150-450) k/uL Lymphocytes # (1.0-4.8) k/uL PT (9.0-12.0) sec INR (<1.2) Sodium (137-145) mmol/L Glucose (74-99) mg/dL POC Glucose (mg/dL) 196 H (75-99) mg/dL Calcium (8.4-10.2) mg/dL Magnesium (1.6-2.3) mg/dL Iron 42 L (65-175) ug/dL AST (17-59) U/L Alkaline Phosphatase (38-126) U/L Total Protein (6.3-8.2) g/dL Total Protein (PEP) 5.3 L (6.2-8.2) g/dL Albumin (3.5-5.0) g/dL 05/24/17 05/25/17 05/25/17 Range/Units 21:42 05:32 05:32 RBC 2.48 L (4.30-5.90) m/uL Hgb 8.2 L (13.0-17.5) gm/dL Hct 25.8 L (39.0-53.0) % MCV 103.9 H (80.0-100.0) fL Plt Count 95 L (150-450) k/uL Lymphocytes # 0.9 L (1.0-4.8) k/uL PT 12.9 H (9.0-12.0) sec INR 1.4 H (<1.2) Sodium (137-145) mmol/L Glucose (74-99) mg/dL POC Glucose (mg/dL) 140 H (75-99) mg/dL Calcium (8.4-10.2) mg/dL Magnesium (1.6-2.3) mg/dL Iron (65-175) ug/dL AST (17-59) U/L Alkaline Phosphatase (38-126) U/L Total Protein (6.3-8.2) g/dL Total Protein (PEP) (6.2-8.2) g/dL Albumin (3.5-5.0) g/dL 05/25/17 05/25/17 05/25/17 Range/Units 05:32 06:08 11:47 RBC (4.30-5.90) m/uL Hgb (13.0-17.5) gm/dL Hct (39.0-53.0) % MCV (80.0-100.0) fL Plt Count (150-450) k/uL Lymphocytes # (1.0-4.8) k/uL PT (9.0-12.0) sec INR (<1.2) Sodium 132 L (137-145) mmol/L Glucose 143 H (74-99) mg/dL POC Glucose (mg/dL) 149 H 121 H (75-99) mg/dL Calcium 8.2 L (8.4-10.2) mg/dL Magnesium 1.4 L (1.6-2.3) mg/dL Iron (65-175) ug/dL AST 75 H (17-59) U/L Alkaline Phosphatase 204 H (38-126) U/L Total Protein 5.5 L (6.3-8.2) g/dL Total Protein (PEP) (6.2-8.2) g/dL Albumin 2.1 L (3.5-5.0) g/dL Microbiology - Last 24 Hours (Table) 05/21/17 01:33 Blood Culture - Preliminary Blood No Growth after 96 hours 05/20/17 21:00 Blood Culture - Preliminary Blood No Growth after 96 hours Assessment and Plan Plan: Assessment: 1 recurrent ascites, rule out spontaneous bacterial peritonitis, patient is presently on ceftriaxone. Ultrasound done revealing moderate ascites more so on the right and paracentesis pending. 2 acute influenza A, presently on Tamiflu. 3 possible pulmonary embolism involving the right lower lobe, patient is presently on heparin. A venous Doppler revealed no evidence of DVT bilaterally 4 history of alcoholic liver cirrhosis 5 acute presentation of sepsis with lactic acidosis, source is not quite clear, suspect possible spontaneous bacterial peritonitis. Plan: Continue current medical treatment, patient completed his Tamiflu, continue Rocephin. She is breathing easier after today's paracentesis would removal of 5.1 L of fluid. His vitals remained stable. Patient is afebrile. Increase activity as tolerated. We'll continue to follow with you. I performed a history & physical examination of the patient and discussed their management with my nurse practitioner, Diana Marte. I reviewed the nurse practitioner's note and agree with the documented findings and plan of care. Lung sounds are positive for bibasilar crackles. The findings and the impression was discussed with the patient. I attest to the documentation by the nurse practitioner. Time with Patient: Less than 30
[2017-05-25 16:34] LABS: Albumin 1.92 g/dL (3.80-4.90); Gamma Globulin 1.38 g/dL (0.70-1.50)
[2017-05-25 17:06] LABS: Glucose,Whole Blood 209 mg/dL (75-99)
[2017-05-25] MEDS: risperiDONE 0.5 MG TAB PO SCH (19:57)
[2017-05-25 21:14] LABS: Glucose,Whole Blood 142 mg/dL (75-99)
--- NOTE | 2017-05-25 23:35 | P.CONS ---
History of Present Illness - Reason for Consult Consult date: 05/24/17 Thrombocytopenia, ?PE Requesting physician: Meghna White - Chief Complaint SOB, Fever - History of Present Illness Mr Crow is a 77 year old male patient who was recently admitted on 05/15/17 with shortness of breath and abdominal distention. He has a long history of ETOH abuse, quit one year ago. He was diagnosed with liver cirrhosis, likely secondary to history of ETOH, and abdominal ascites in which he underwent paracentesis. Removal of 5.8L at that time. His platelet count during this previous admission was within normal limits. He was given prophylactic subcut heparin during this previous admission. On 05/20/17 he represented to [facility] ED with complaints of shortness of breath, and fever. He was admitted with influenza A, CTA chest was completed which shown minimal pulmonary emboli in the RLL pulmonary artery. Heparin drip was initiated. Tamiflu was started for positive Influenza A. Mr. Nevarez platelets have continued to decrease since admission. He is currently holding platelet count of 80. He does have evidence of subcutaneous bleeding with bilateral upper extremity internal eccymosis and eccymosis on abdomen. Heparin drip has since been discontinued and we have been consulted to further assess. Review of Systems A 14 point review of systems was assessed and completed and all negative except HPI Constitutional: Reports fatigue, Reports lethargy, Reports poor appetite Gastrointestinal: Reports abdominal pain, Reports bloating, Reports indigestion , Reports nausea Integumentary: Reports unusual bruising Past Medical History Past Medical History: Dementia, Diabetes Mellitus, GERD/Reflux, Hyperlipidemia Additional Past Medical History / Comment(s): swallowing problems, edema, anemia , [place], Dentures History of Any Multi-Drug Resistant Organisms: None Reported Past Surgical History: Back Surgery Additional Past Surgical History / Comment(s): esophagus stretched for swallowing issues, knee replaced, hip replaced, Past Anesthesia/Blood Transfusion Reactions: No Reported Reaction Past Psychological History: Depression, PTSD Smoking Status: Former smoker Past Alcohol Use History: None Reported, Abuse, Heavy Additional Past Alcohol Use History / Comment(s): Quit over a year ago per patient Past Drug Use History: None Reported Medications and Allergies Home Medications Medication Instructions Recorded Confirmed Type ALPRAZolam [Xanax] 0.25 mg PO DAILY PRN 05/14/17 05/21/17 History Aspirin [Adult Low Dose Aspirin EC] 81 mg PO DAILY 05/14/17 05/21/17 History Cholecalciferol [Vitamin D3] 1,000 unit PO DAILY 05/14/17 05/21/17 History Memantine HCl [Namenda] 5 mg PO BID 05/14/17 05/21/17 History Multivitamins, Thera [Multivitamin 1 tab PO DAILY 05/14/17 05/21/17 History (formulary)] Omeprazole [PriLOSEC] 20 mg PO AC-BID 05/14/17 05/21/17 History Pravastatin Sodium [Pravachol] 20 mg PO DAILY 05/14/17 05/21/17 History Venlafaxine HCl [Effexor XR] 150 mg PO DAILY 05/14/17 05/21/17 History metFORMIN HCL 1,000 mg PO BID 05/14/17 05/21/17 History risperiDONE [RisperDAL] 0.5 mg PO HS 05/14/17 05/21/17 History Furosemide [Lasix] 40 mg PO DAILY #30 tab 05/17/17 05/21/17 Rx Magnesium Oxide [Mag-Ox] 400 mg PO BID #60 tab 05/17/17 05/21/17 Rx Spironolactone [Aldactone] 100 mg PO DAILY 05/21/17 05/21/17 History Allergies Allergy/AdvReac Type Severity Reaction Status Date / Time donepezil [From Aricept] Allergy Unknown Verified 05/21/17 07:16 morphine Allergy Unknown Verified 05/21/17 07:16 Physical Exam Vitals: Vital Signs Temp Pulse Pulse Resp BP Pulse Ox 05/24/17 08:56 79 05/24/17 08:46 78 05/24/17 08:00 96.9 F L 74 20 119/75 97 05/24/17 04:00 97.1 F L 84 17 146/86 97 05/24/17 00:00 82 16 05/23/17 23:48 97.5 F L 82 16 105/61 96 05/23/17 20:00 97.3 F L 96 16 108/73 97 05/23/17 19:58 88 16 05/23/17 19:45 84 16 05/23/17 16:52 82 16 05/23/17 16:42 80 16 05/23/17 16:00 97.4 F L 89 18 113/75 99 05/23/17 13:46 82 05/23/17 13:36 86 05/23/17 12:00 97.1 F L 88 16 115/70 98 Intake and Output 05/23/17 05/24/17 05/24/17 22:59 06:59 14:59 Intake Total 240 Balance 240 Intake: Oral 240 Other: Voiding Method Urinal Urinal Urinal # Voids 2 # Bowel Movements 1 Weight 74 kg - Constitutional General appearance: no acute distress - EENT Eyes: EOMI, PERRLA ENT: hearing grossly normal, normal oropharynx - Neck supple Neck: normal ROM - Respiratory Respiratory: bilateral: diminished (lower lobes) - Cardiovascular Rhythm: regular Heart sounds: normal: S1, S2 leg Peripheral Edema: bilateral: 2+ radial pulse Peripheral Pulses: bilateral: Normal - Gastrointestinal Abdominal Ascites General gastrointestinal: distended, no hepatomegaly, normal bowel sounds, tenderness - Integumentary Interior aspects of bilateral arms with large eccymosis and abdominal bruising also noted. - Neurologic no focal Defects - Musculoskeletal Musculoskeletal: generalized weakness - Psychiatric confused Results CBC & Chem 7: 05/25/17 05:32 05/25/17 05:32 Labs: Abnormal Lab Results - Last 24 Hours (Table) 05/23/17 05/23/17 05/23/17 Range/Units 11:55 16:47 20:48 RBC (4.30-5.90) m/uL Hgb (13.0-17.5) gm/dL Hct (39.0-53.0) % MCV (80.0-100.0) fL Plt Count (150-450) k/uL Lymphocytes # (1.0-4.8) k/uL PT (9.0-12.0) sec INR (<1.2) Sodium (137-145) mmol/L Glucose (74-99) mg/dL POC Glucose (mg/dL) 323 H 315 H 316 H (75-99) mg/dL Calcium (8.4-10.2) mg/dL AST (17-59) U/L Alkaline Phosphatase (38-126) U/L Total Protein (6.3-8.2) g/dL Albumin (3.5-5.0) g/dL 05/24/17 05/24/17 05/24/17 Range/Units 06:17 06:17 06:17 RBC 2.20 L (4.30-5.90) m/uL Hgb 7.3 L (13.0-17.5) gm/dL Hct 23.4 L (39.0-53.0) % MCV 106.6 H (80.0-100.0) fL Plt Count 80 L (150-450) k/uL Lymphocytes # 0.7 L (1.0-4.8) k/uL PT 13.1 H (9.0-12.0) sec INR 1.4 H (<1.2) Sodium 134 L (137-145) mmol/L Glucose 118 H (74-99) mg/dL POC Glucose (mg/dL) (75-99) mg/dL Calcium 8.3 L (8.4-10.2) mg/dL AST 63 H (17-59) U/L Alkaline Phosphatase 192 H (38-126) U/L Total Protein 5.4 L (6.3-8.2) g/dL Albumin 2.1 L (3.5-5.0) g/dL 05/24/17 Range/Units 06:22 RBC (4.30-5.90) m/uL Hgb (13.0-17.5) gm/dL Hct (39.0-53.0) % MCV (80.0-100.0) fL Plt Count (150-450) k/uL Lymphocytes # (1.0-4.8) k/uL PT (9.0-12.0) sec INR (<1.2) Sodium (137-145) mmol/L Glucose (74-99) mg/dL POC Glucose (mg/dL) 133 H (75-99) mg/dL Calcium (8.4-10.2) mg/dL AST (17-59) U/L Alkaline Phosphatase (38-126) U/L Total Protein (6.3-8.2) g/dL Albumin (3.5-5.0) g/dL Microbiology - Last 24 Hours (Table) 05/21/17 01:33 Blood Culture - Preliminary Blood No Growth after 72 hours 05/20/17 21:00 Blood Culture - Preliminary Blood No Growth after 72 hours Chest x-ray: report reviewed CT scan - chest: report reviewed US - abdomen: report reviewed Venous US: report reviewed Assessment and Plan (1) Thrombocytopenia Narrative/Plan: 1. Likely secondary to acute infection, liver disease, eccymosis. Unikely to be secondary to Heparin induced antibodies with timeframe, although will check Heparin Induced Abs secondary to recent exposure, platelet count 40% drop and question of pulmonary emboli. 2. Monitor for new or progressive bleeding 3. Continue to hold heparin at this time. 4. Daily CBC with diff, review smear. 5. Monitor Coags: PT, INR, PTT Current Visit: Yes Status: Acute Code(s): D69.6 - THROMBOCYTOPENIA, UNSPECIFIED SNOMED Code(s): 138468367 (2) Anemia Narrative/Plan: Macrocytic Anemia: Likely secondary to underlying liver disease and ETOH. Patient baseline hemoglobin 10-11 on previous admissions from 2014. Currently his hemoglobin is 7.3, with the drop most likely due to soft tissue blood loss 1. Will check Anemia work-up including B12, folate, Ferritin, Iron TIBC, SPEP, smear. 2. Monitor Daily CBC and Transfusions less than 7. Current Visit: Yes Status: Acute Code(s): D64.9 - ANEMIA, UNSPECIFIED SNOMED Code(s): 392073886 (3) History of ETOH abuse Narrative/Plan: 1. Patient quit a year ago, although new diagnosis of liver Cirrhosis and ascites. Current Visit: Yes Status: Acute Code(s): Z87.898 - PERSONAL HISTORY OF OTHER SPECIFIED CONDITIONS SNOMED Code(s): 216044163 (4) Coagulopathy Narrative/Plan: 1. Due to underlying liver disease. PT/INR and PTT monitoring. He is currently off Heparin. Current Visit: Yes Status: Acute Code(s): D68.9 - COAGULATION DEFECT, UNSPECIFIED SNOMED Code(s): 07253423 (5) Influenza A Narrative/Plan: Per ID/PCP - Tamiflu, may contribute to bicytopenia Current Visit: Yes Status: Acute Code(s): J10.1 - FLU DUE TO OTH IDENT INFLUENZA VIRUS W OTH RESP MANIFEST SNOMED Code(s): 925806890 (6) Pulmonary embolism Narrative/Plan: 1. CTA chest completed 05/20 and showed minimal emboli RLL pulm artery. Unclear if true PE, Pulmonary evaluation may assist in determination. Case d/w Pulmonary medicine and IM in detail. They may consider repeat CT. I would not recommend anticoagulation, unless we can be reasonably certain that the pt did have a PE ,as he is clinically at increased risk for bleeding due to his underlying liver disease Current Visit: Yes Status: Acute Code(s): I26.99 - OTHER PULMONARY EMBOLISM WITHOUT ACUTE COR PULMONALE SNOMED Code(s): 90082199
[2017-05-26 06:16] LABS: Glucose,Whole Blood 163 mg/dL (75-99)
[2017-05-26] MEDS: SODIUM CHLORIDE 0.9% 1,000 ML IV SCH (06:27)
[2017-05-26] MEDS: INSULIN ASPART 100 UNIT/ML 1 ML 10 ML VIAL SQ SCH ×4 (06:41→21:01)
[2017-05-26] MEDS: PANTOPRAZOLE 40 MG TABLET PO SCH ×2 (06:42→17:37)
[2017-05-26 06:48] LABS: Basophils % (A) 0 %; Eosinophils # (A) 0.1 k/uL (0-0.7); Eosinophils % (A) 2 %; HCT 29.2 % (39.0-53.0); HGB 9.2 gm/dL (13.0-17.5); Lymphocytes # (A) 1.5 k/uL (1.0-4.8); Lymphocytes % (A) 23 %; MCH 33.1 pg (25.0-35.0); MCHC 31.4 g/dL (31.0-37.0); MCV 105.4 fL (80.0-100.0); Macrocytosis Moderate; Mean Platelet Volume 7.2; Monocytes # (A) 0.6 k/uL (0-1.0); Monocytes % (A) 9 %; Neutrophils % (A) 62 %; Platelet Count 121 k/uL (150-450); RBC 2.77 m/uL (4.30-5.90); RDW 14.6 % (11.5-15.5); WBC 6.5 k/uL (3.8-10.6)
[2017-05-26 06:59] LABS: ALT 48 U/L (21-72); AST 73 U/L (17-59); Albumin 2.1 g/dL (3.5-5.0); Alkaline Phosphatase 241 U/L (38-126); Anion Gap 8 mmol/L; Blood Urea Nitrogen 14 mg/dL (9-20); Calcium 8.2 mg/dL (8.4-10.2); Carbon Dioxide 24 mmol/L (22-30); Chloride 101 mmol/L (98-107); Glucose 158 mg/dL (74-99); Potassium 4.8 mmol/L (3.5-5.1); Sodium 133 mmol/L (137-145); Total Bilirubin 0.7 mg/dL (0.2-1.3); Total Protein 5.8 g/dL (6.3-8.2)
[2017-05-26 07:07] LABS: INR 1.3 (<1.2); Prothrombin Time 12.5 sec (9.0-12.0)
[2017-05-26] MEDS: IPRATROPIUM-ALBUTEROL 3 ML NEB INHALATION PRN ×4 (07:33→19:59)
--- NOTE | 2017-05-26 08:31 | P.PN ---
Subjective Progress Note Date: 05/26/17 Principal diagnosis: Influenza, liver cirrhosis 77-year-old male with suspected alcohol liver disease admitted with acute influenza. Feels better today. Denies abdominal pain. Afebrile. Hemoglobin 9.2. Platelet 121,000. INR 1.3. Status post paracentesis yesterday 5 L removal. Objective - Vital Signs Vital signs: Vital Signs Temp 97.5 F L 05/26/17 04:00 Pulse 96 05/26/17 07:44 Resp 18 05/26/17 04:00 BP 133/78 05/26/17 04:00 Pulse Ox 96 05/26/17 04:00 Intake & Output 05/25/17 05/26/17 05/26/17 18:59 06:59 18:59 Intake Total 236 Balance 236 Weight 78 kg 72.4 kg Intake: Oral 236 Other: Voiding Method Bedside Commode Bedside Commode # Voids 1 1 # Bowel Movements 1 - Exam General appearance: The patient is alert, oriented, in no acute distress. HET: Head is normocephalic and atraumatic. Pupils are equal and reactive. Oropharynx is clear without lesions. Neck: Supple without lymphadenopathy. Trachea midline. Heart: S1 S2. Regular rate and rhythm. Lungs: Slight diminishment bilaterally. Upper airways with scattered rhonchi clears with cough. Abdomen: Soft, nontender, nondistended with bowel sounds. No peritoneal signs. No palpable organomegaly or masses. Extremities: Normal skin color and turgor. No cyanosis, rash, ulceration, clubbing, or edema. Radial and pedal pulses are 2/4 bilaterally. Neurological: No focal deficits. Strength and sensation are grossly intact. - Labs CBC & Chem 7: 05/26/17 05:58 05/26/17 05:58 Labs: Abnormal Lab Results - Last 24 Hours (Table) 05/24/17 05/25/17 05/25/17 Range/Units 11:29 11:47 17:04 RBC (4.30-5.90) m/uL Hgb (13.0-17.5) gm/dL Hct (39.0-53.0) % MCV (80.0-100.0) fL Plt Count (150-450) k/uL PT (9.0-12.0) sec INR (<1.2) Sodium (137-145) mmol/L Glucose (74-99) mg/dL POC Glucose (mg/dL) 121 H 209 H (75-99) mg/dL Calcium (8.4-10.2) mg/dL Magnesium (1.6-2.3) mg/dL AST (17-59) U/L Alkaline Phosphatase (38-126) U/L Total Protein (6.3-8.2) g/dL Albumin (3.5-5.0) g/dL Albumin (PEP) 1.92 L (3.80-4.90) g/dL 05/25/17 05/26/17 05/26/17 Range/Units 21:09 05:58 05:58 RBC 2.77 L (4.30-5.90) m/uL Hgb 9.2 L (13.0-17.5) gm/dL Hct 29.2 L (39.0-53.0) % MCV 105.4 H (80.0-100.0) fL Plt Count 121 L (150-450) k/uL PT 12.5 H (9.0-12.0) sec INR 1.3 H (<1.2) Sodium (137-145) mmol/L Glucose (74-99) mg/dL POC Glucose (mg/dL) 142 H (75-99) mg/dL Calcium (8.4-10.2) mg/dL Magnesium (1.6-2.3) mg/dL AST (17-59) U/L Alkaline Phosphatase (38-126) U/L Total Protein (6.3-8.2) g/dL Albumin (3.5-5.0) g/dL Albumin (PEP) (3.80-4.90) g/dL 05/26/17 05/26/17 Range/Units 05:58 06:14 RBC (4.30-5.90) m/uL Hgb (13.0-17.5) gm/dL Hct (39.0-53.0) % MCV (80.0-100.0) fL Plt Count (150-450) k/uL PT (9.0-12.0) sec INR (<1.2) Sodium 133 L (137-145) mmol/L Glucose 158 H (74-99) mg/dL POC Glucose (mg/dL) 163 H (75-99) mg/dL Calcium 8.2 L (8.4-10.2) mg/dL Magnesium 1.3 L (1.6-2.3) mg/dL AST 73 H (17-59) U/L Alkaline Phosphatase 241 H (38-126) U/L Total Protein 5.8 L (6.3-8.2) g/dL Albumin 2.1 L (3.5-5.0) g/dL Albumin (PEP) (3.80-4.90) g/dL Microbiology - Last 24 Hours (Table) 05/21/17 01:33 Blood Culture - Preliminary Blood No Growth after 120 hours 05/20/17 21:00 Blood Culture - Preliminary Blood No Growth after 120 hours 05/25/17 12:26 Gram Stain - Preliminary Ascites Fluid Body Fluid Culture - Preliminary 05/25/17 12:26 Anaerobic Culture - Preliminary Ascites Fluid Assessment and Plan (1) Influenza A Current Visit: Yes Status: Acute Code(s): J10.1 - FLU DUE TO OTH IDENT INFLUENZA VIRUS W OTH RESP MANIFEST SNOMED Code(s): 734526757 (2) Ascites Narrative/Plan: Status post paracentesis 5 L removal Current Visit: No Status: Acute Code(s): R18.8 - OTHER ASCITES SNOMED Code (s): 019903729 (3) Cirrhosis Narrative/Plan: Suspect alcohol liver cirrhosis Current Visit: No Status: Acute Code(s): K74.60 - UNSPECIFIED CIRRHOSIS OF LIVER SNOMED Code(s): 78288502 (4) Anemia Narrative/Plan: Clinically no evidence of active GI bleed Current Visit: Yes Status: Acute Code(s): D64.9 - ANEMIA, UNSPECIFIED SNOMED Code(s): 995846827 (5) Thrombocytopenia Current Visit: Yes Status: Acute Code(s): D69.6 - THROMBOCYTOPENIA, UNSPECIFIED SNOMED Code(s): 737753813 (6) Coagulopathy Current Visit: Yes Status: Acute Code(s): D68.9 - COAGULATION DEFECT, UNSPECIFIED SNOMED Code(s): 15106411 (7) Portal hypertension Current Visit: No Status: Acute Code(s): K76.6 - PORTAL HYPERTENSION SNOMED Code(s): 03639878 Plan: 1. DC per medicine. Return to office in 3-4 weeks. 2. Continue with Lasix 40 mg daily. Aldactone 100 mg daily. Assessment and plan a care discussed with Dr. Jones
[2017-05-26] MEDS: SPIRONOLACTONE 25 MG TAB PO SCH (08:50)
[2017-05-26] MEDS: MAGNESIUM OXIDE 400 MG TAB PO SCH ×3 (08:50→20:42)
[2017-05-26] MEDS: guaiFENesin 600 MG TABLET.ER PO SCH ×2 (08:50→20:41)
[2017-05-26] MEDS: cefTRIAXone IN SWFI 1,000 MG/10 ML SYRINGE IVP SCH (08:50)
[2017-05-26] MEDS: FUROSEMIDE 40 MG TAB PO SCH (08:50)
[2017-05-26] MEDS: VENLAFAXINE HCL ER 150 MG CAP PO SCH (08:50)
[2017-05-26] MEDS: ASPIRIN 81 MG PO SCH (08:50)
[2017-05-26] MEDS: MEMANTINE 5 MG TAB PO SCH ×2 (08:50→20:41)
[2017-05-26] MEDS: PRAVASTATIN SODIUM 20 MG TAB PO SCH (08:50)
[2017-05-26] MEDS: DOCUSATE 100 MG CAP PO SCH ×2 (08:50→20:41)
--- NOTE | 2017-05-26 11:54 | P.PN ---
Subjective Progress Note Date: 05/26/17 Principal diagnosis: Recurrent ascites secondary to alcoholic liver disease. This is a 77-year-old white male with history of alcoholic liver cirrhosis, patient was admitted last week, and he was inpatient for about 3 days. At the time the patient presented with ascites, and he underwent paracentesis were and 5.8 L of fluid were removed from his abdominal cavity. The fluid was not infected, and it was not malignant. It was felt to be fluid related to ascites. Patient was noted by his daughter who is a nurse as having increase in his abdominal girth, she was also noting that her dad is getting more short of breath, intermittent episodes of wheezing, and at times he has become more confused and hardly arousable. Patient even spiked a temp of 102. Based on his initial workup in the ER, patient was positive for influenza A, his lactic acid was also noted to be elevated, and his CT of the chest raised the possibility of right lower lobe pulmonary embolism. Although the patient had a CT of the chest on his last admission and there was no evidence of pulmonary embolism at the time. Patient was started on Tamiflu and ceftriaxone, and I was asked to see him on consultation. He received fluid boluses, he was also placed on heparin for his presumptive right lower lobe pulmonary embolism, venous Doppler of both lower extremities was ordered, and patient will likely require another paracentesis. This will be addressed by gastroenterology and possibly by interventional radiology in the next 24-48 hours. The patient himself does not seem to be in distress, however he is a very poor historian, seems to be a bit lethargic. Most of the history was obtained from his daughter who was a nurse at his bedside. Prior to arrival to the ER, patient was noted to have more shortness of breath, coughing, wheezing, and the daughter believed he vomited not certain whether he sustained some aspiration. Patient was reevaluated today on 01/19/2018, more awake, very appropriate, in no form of distress. Remains on heparin, Tamiflu, and diuretics for his underlying liver disease and ascites. Venous Doppler was negative. Reviewed the CT of the chest again, apparently to radiologist felt that there may be pulmonary embolism in the right lower lobe, hence the patient will remain on anticoagulation therapy. Remains on antibiotics, his lactic acid is now back to normal. PTT was supratherapeutic, and heparin was placed temporarily on hold. Patient describes intermittent episodes of choking while eating or swallowing, but she also had previous swallow evaluation, and supposedly he passed. The patient is seen again today 05/23/2017 in follow-up on the selective care unit. He is currently resting quite comfortably in bed. He is awake and alert in no acute distress. He denies any worsening shortness of breath, cough or congestion. Maintaining good O2 saturations in the high 90s on room air. He's been afebrile. Hemodynamically stable. Ultrasound is pending for possible paracentesis by interventional radiology. He remains on Tamiflu. White count 4.3. Hemoglobin 7.5. Platelet count 86,000. INR 1.4. Sodium 131. Creatinine 1.10. The patient is seen again today 05/24/2017 in follow-up on the selective care unit. He is currently resting quite comfortably in bed. He denies any worsening shortness of breath, cough or congestion. Maintaining good O2 saturations in the 90s on room air. Ultrasound of the abdomen did reveal significant ascites more so on the right. The plan is for paracentesis. White count 4.1. Hemoglobin 7.3. Platelet count 80,000, INR 1.4. Creatinine 1.08. Blood culture reveals no growth. Urine culture reveals no growth. On 05/25/2017 patient seen in follow-up. Is seen resting comfortably in bed, denies any acute distress. Denies any acute dyspnea, chest pain, chest congestion or sputum production. He underwent ultrasound-guided paracentesis with removal of 5.1 L of serous fluid from his abdomen. He tolerated the procedure well. He states his breathing is easier since the paracentesis. He is on 2 L per nasal cannula with O2 sat 99%. Hemodynamically stable. Afebrile. His labs show white count of 4.2, hemoglobin of 8.2, and are 1.4, sodium of 132, potassium 5.0, UN of 16, creatinine of 1.4. Continues is on antibiotics with Rocephin, he is on oral Lasix, completed his Tamiflu. The patient is seen again today 05/26/2017 in follow-up on the selective care unit. He is resting quite comfortably in bed. He denies any worsening shortness of breath, cough or congestion. He is status post 5 L removal of ascitic fluid. He is maintaining good O2 saturations in the mid 90s on 2 L/m per nasal cannula. He is afebrile. Hemodynamically stable. Fluid cultures are pending. White count 6.5. Hemoglobin 9.2. Creatinine 0.92. Objective - Vital Signs Vital signs: Vital Signs Temp 98.7 F 05/26/17 08:00 Pulse 92 05/26/17 11:18 Resp 20 05/26/17 08:00 BP 107/73 05/26/17 08:00 Pulse Ox 95 05/26/17 08:00 Intake & Output 05/25/17 05/26/17 05/26/17 18:59 06:59 18:59 Intake Total 236 Balance 236 Weight 78 kg 72.4 kg 72.4 kg Intake: Oral 236 Other: Voiding Method Bedside Commode Bedside Commode Bedside Commode # Voids 1 1 # Bowel Movements 1 - Exam GENERAL EXAM: Alert, active, comfortable in no apparent distress. HEAD: Normocephalic. EYES: Normal reaction of pupils, equal size. NOSE: Clear with pink turbinates. THROAT: No erythema or exudates. NECK: No masses, no JVD. CHEST: No chest wall deformity. LUNGS: Equal air entry with crackles in the by lateral posterior bases. CVS: S1 and S2 normal with no audible murmur, regular rhythm. ABDOMEN: Soft, normal bowel sounds, no guarding or rigidity. SPINE: No scoliosis or deformity SKIN: No rashes CENTRAL NERVOUS SYSTEM: No focal deficits, tone is normal in all 4 extremities. EXTREMITIES: There is no peripheral edema. No clubbing, no cyanosis. Peripheral pulses are intact. - Labs CBC & Chem 7: 05/26/17 05:58 05/26/17 05:58 Labs: Abnormal Lab Results - Last 24 Hours (Table) 05/24/17 05/25/17 05/25/17 Range/Units 11:29 11:47 17:04 RBC (4.30-5.90) m/uL Hgb (13.0-17.5) gm/dL Hct (39.0-53.0) % MCV (80.0-100.0) fL Plt Count (150-450) k/uL PT (9.0-12.0) sec INR (<1.2) Sodium (137-145) mmol/L Glucose (74-99) mg/dL POC Glucose (mg/dL) 121 H 209 H (75-99) mg/dL Calcium (8.4-10.2) mg/dL Magnesium (1.6-2.3) mg/dL AST (17-59) U/L Alkaline Phosphatase (38-126) U/L Total Protein (6.3-8.2) g/dL Albumin (3.5-5.0) g/dL Albumin (PEP) 1.92 L (3.80-4.90) g/dL 05/25/17 05/26/17 05/26/17 Range/Units 21:09 05:58 05:58 RBC 2.77 L (4.30-5.90) m/uL Hgb 9.2 L (13.0-17.5) gm/dL Hct 29.2 L (39.0-53.0) % MCV 105.4 H (80.0-100.0) fL Plt Count 121 L (150-450) k/uL PT 12.5 H (9.0-12.0) sec INR 1.3 H (<1.2) Sodium (137-145) mmol/L Glucose (74-99) mg/dL POC Glucose (mg/dL) 142 H (75-99) mg/dL Calcium (8.4-10.2) mg/dL Magnesium (1.6-2.3) mg/dL AST (17-59) U/L Alkaline Phosphatase (38-126) U/L Total Protein (6.3-8.2) g/dL Albumin (3.5-5.0) g/dL Albumin (PEP) (3.80-4.90) g/dL 05/26/17 05/26/17 Range/Units 05:58 06:14 RBC (4.30-5.90) m/uL Hgb (13.0-17.5) gm/dL Hct (39.0-53.0) % MCV (80.0-100.0) fL Plt Count (150-450) k/uL PT (9.0-12.0) sec INR (<1.2) Sodium 133 L (137-145) mmol/L Glucose 158 H (74-99) mg/dL POC Glucose (mg/dL) 163 H (75-99) mg/dL Calcium 8.2 L (8.4-10.2) mg/dL Magnesium 1.3 L (1.6-2.3) mg/dL AST 73 H (17-59) U/L Alkaline Phosphatase 241 H (38-126) U/L Total Protein 5.8 L (6.3-8.2) g/dL Albumin 2.1 L (3.5-5.0) g/dL Albumin (PEP) (3.80-4.90) g/dL Microbiology - Last 24 Hours (Table) 05/25/17 12:26 Gram Stain - Preliminary Ascites Fluid Body Fluid Culture - Preliminary 05/21/17 01:33 Blood Culture - Preliminary Blood No Growth after 120 hours 05/20/17 21:00 Blood Culture - Preliminary Blood No Growth after 120 hours 05/25/17 12:26 Anaerobic Culture - Preliminary Ascites Fluid Assessment and Plan Assessment: Impression: 1 recurrent ascites, rule out spontaneous bacterial peritonitis, patient is presently on ceftriaxone. Ultrasound done revealing moderate ascites more so on the right status post paracentesis with 5.1 L removed. Fluid analysis pending. 2 acute influenza A, presently on Tamiflu. 3 possible pulmonary embolism involving the right lower lobe. A venous Doppler revealed no evidence of DVT bilaterally 4 history of alcoholic liver cirrhosis 5 acute presentation of sepsis with lactic acidosis, source is not quite clear, suspect possible spontaneous bacterial peritonitis. Plan: The patient was seen and evaluated by Dr. Coughlin. The patient is status post paracentesis with 5 L of fluid removed. He is breathing easier today. We will continue to follow and make further recommendations based on his clinical status. I, the cosigning physician, performed a history & physical examination of the patient. Lungs sounds have crackles in the bilateral posterior bases. Maintaining good O2 saturations in the 90s on room air. I discussed the assessment and plan of care with my nurse practitioner, Virginia Song. I attest to the above note as dictated by her.
[2017-05-26 12:33] LABS: Glucose,Whole Blood 203 mg/dL (75-99)
[2017-05-26] MEDS ORDERED: MAGNESIUM OXIDE 400 MG TAB PO SCH (13:30)
--- NOTE | 2017-05-26 13:34 | P.PN ---
Subjective Progress Note Date: 05/26/17 Patient is status post paracentesis with 5 L removed. Fluid cultures are pending. Patient reports no abdominal pain. Reports improvement in his cough and breathing. Patient has been working with physical therapy. He will likely need ECF placement. Objective - Vital Signs Vital signs: Vital Signs Temp 98.7 F 05/26/17 08:00 Pulse 92 05/26/17 11:18 Resp 20 05/26/17 08:00 BP 107/73 05/26/17 08:00 Pulse Ox 95 05/26/17 08:00 Intake & Output 05/25/17 05/26/17 05/26/17 18:59 06:59 18:59 Intake Total 236 Balance 236 Weight 78 kg 72.4 kg 72.4 kg Intake: Oral 236 Other: Voiding Method Bedside Commode Bedside Commode Bedside Commode # Voids 1 1 # Bowel Movements 1 - Exam Head normocephalic Neck supple Lungs clear to auscultation bilaterally no wheezing or crackles Heart regular rate and rhythm S1-S2, no rub or gallop Abdomen is soft nontender nondistended positive bowel sounds no hepatosplenomegaly Extremities no edema Neuro alert and orientated to 3 - Labs CBC & Chem 7: 05/26/17 05:58 05/26/17 05:58 Labs: Abnormal Lab Results - Last 24 Hours (Table) 05/24/17 05/25/17 05/25/17 Range/Units 11:29 17:04 21:09 RBC (4.30-5.90) m/uL Hgb (13.0-17.5) gm/dL Hct (39.0-53.0) % MCV (80.0-100.0) fL Plt Count (150-450) k/uL PT (9.0-12.0) sec INR (<1.2) Sodium (137-145) mmol/L Glucose (74-99) mg/dL POC Glucose (mg/dL) 209 H 142 H (75-99) mg/dL Calcium (8.4-10.2) mg/dL Magnesium (1.6-2.3) mg/dL AST (17-59) U/L Alkaline Phosphatase (38-126) U/L Total Protein (6.3-8.2) g/dL Albumin (3.5-5.0) g/dL Albumin (PEP) 1.92 L (3.80-4.90) g/dL 05/26/17 05/26/17 05/26/17 Range/Units 05:58 05:58 05:58 RBC 2.77 L (4.30-5.90) m/uL Hgb 9.2 L (13.0-17.5) gm/dL Hct 29.2 L (39.0-53.0) % MCV 105.4 H (80.0-100.0) fL Plt Count 121 L (150-450) k/uL PT 12.5 H (9.0-12.0) sec INR 1.3 H (<1.2) Sodium 133 L (137-145) mmol/L Glucose 158 H (74-99) mg/dL POC Glucose (mg/dL) (75-99) mg/dL Calcium 8.2 L (8.4-10.2) mg/dL Magnesium 1.3 L (1.6-2.3) mg/dL AST 73 H (17-59) U/L Alkaline Phosphatase 241 H (38-126) U/L Total Protein 5.8 L (6.3-8.2) g/dL Albumin 2.1 L (3.5-5.0) g/dL Albumin (PEP) (3.80-4.90) g/dL 18 05/26/17 Range/Units 06:14 12:14 RBC (4.30-5.90) m/uL Hgb (13.0-17.5) gm/dL Hct (39.0-53.0) % MCV (80.0-100.0) fL Plt Count (150-450) k/uL PT (9.0-12.0) sec INR (<1.2) Sodium (137-145) mmol/L Glucose (74-99) mg/dL POC Glucose (mg/dL) 163 H 203 H (75-99) mg/dL Calcium (8.4-10.2) mg/dL Magnesium (1.6-2.3) mg/dL AST (17-59) U/L Alkaline Phosphatase (38-126) U/L Total Protein (6.3-8.2) g/dL Albumin (3.5-5.0) g/dL Albumin (PEP) (3.80-4.90) g/dL Microbiology - Last 24 Hours (Table) 05/25/17 12:26 Gram Stain - Preliminary Ascites Fluid Body Fluid Culture - Preliminary 05/21/17 01:33 Blood Culture - Preliminary Blood No Growth after 120 hours 05/20/17 21:00 Blood Culture - Preliminary Blood No Growth after 120 hours 05/25/17 12:26 Anaerobic Culture - Preliminary Ascites Fluid Assessment and Plan Assessment: 1. Influenza A upper respiratory tract infection: On Tamiflu finish 5 days course 2. Recurrent ascites need to rule out SBP. Currently on IV ceftriaxone. Patient is status post paracentesis with 5.1 L removed. Fluid analysis pending 3. Acute toxo metabolic encephalopathy: Improved significantly. probably related to #1 and 2. Hepatic encephalopathy less likely as ammonia level is normal. 4. Suspected small PE in the right lower lobe noted on computed tomography scan. Patient is a very poor candidate for anticoagulation. Doppler ultrasound was negative for DVT. Repeat computed tomography scan of the chest showed no evidence of large PE that was suboptimal for evaluation of segmental and subsegmental PE. Patient is a poor candidate for anticoagulation. Anticoagulation was discontinued. Patient was seen by both pulmonary and hematology 5. Alcoholic liver cirrhosis. 6. Hypomagnesemia will be replaced. Magnesium low at 1.3 will increase his oral magnesium to 500 mg twice a day 7. Reactive airway disease with diffuse rhonchi and wheezing: We will continue bronchodilators. 8. thrombocytopenia: Hit antibody negative. Toes and pain likely due to acute infection liver disease and ecchymosis. Patient seen by hematology 9. Bilateral arms hematoma 10. Chronic anemia due to his underlying liver disease and alcohol use Awaiting fluid analysis results to rule out S BP Continue physical therapy. Patient will require ECF placement Anticipate discharge Monday I performed an examination of the patient and discussed their management with the physician Manager Of Transportation. I have reviewed the Physician Manager Of Transportation's notes and agree with the documented findings and plan of care
[2017-05-26 17:51] LABS: Glucose,Whole Blood 134 mg/dL (75-99)
[2017-05-26] MEDS: risperiDONE 0.5 MG TAB PO SCH (20:41)
[2017-05-26 20:46] LABS: Glucose,Whole Blood 255 mg/dL (75-99)
[2017-05-26] MEDS: ALPRAZolam 0.25 MG TAB PO PRN (21:00)
[2017-05-27] MEDS: IPRATROPIUM-ALBUTEROL 3 ML NEB INHALATION PRN ×5 (03:37→19:00)
[2017-05-27] MEDS: SODIUM CHLORIDE 0.9% 1,000 ML IV SCH (04:04)
[2017-05-27 06:29] LABS: Basophils % (A) 0 %; Eosinophils # (A) 0.2 k/uL (0-0.7); Eosinophils % (A) 2 %; HCT 27.6 % (39.0-53.0); HGB 8.9 gm/dL (13.0-17.5); INR 1.4 (<1.2); Lymphocytes # (A) 1.1 k/uL (1.0-4.8); Lymphocytes % (A) 14 %; MCH 33.2 pg (25.0-35.0); MCHC 32.1 g/dL (31.0-37.0); MCV 103.7 fL (80.0-100.0); Macrocytosis Slight; Mean Platelet Volume 7.3; Monocytes # (A) 0.6 k/uL (0-1.0); Monocytes % (A) 8 %; Neutrophils # (A) 5.4 k/uL (1.3-7.7); Neutrophils % (A) 72 %; Platelet Count 126 k/uL (150-450); Prothrombin Time 12.9 sec (9.0-12.0); RBC 2.66 m/uL (4.30-5.90); RDW 14.8 % (11.5-15.5); WBC 7.5 k/uL (3.8-10.6)
[2017-05-27 06:29] LABS: Glucose,Whole Blood 128 mg/dL (75-99)
[2017-05-27] MEDS: PANTOPRAZOLE 40 MG TABLET PO SCH ×2 (06:30→17:14)
[2017-05-27] MEDS: INSULIN ASPART 100 UNIT/ML 1 ML 10 ML VIAL SQ SCH ×4 (06:30→22:11)
[2017-05-27 06:40] LABS: ALT 53 U/L (21-72); AST 67 U/L (17-59); Albumin 2.1 g/dL (3.5-5.0); Alkaline Phosphatase 215 U/L (38-126); Anion Gap 6 mmol/L; Blood Urea Nitrogen 17 mg/dL (9-20); Calcium 8.1 mg/dL (8.4-10.2); Carbon Dioxide 24 mmol/L (22-30); Chloride 99 mmol/L (98-107); Glucose 118 mg/dL (74-99); Potassium 4.5 mmol/L (3.5-5.1); Sodium 129 mmol/L (137-145); Total Bilirubin 0.9 mg/dL (0.2-1.3); Total Protein 5.6 g/dL (6.3-8.2)
[2017-05-27] MEDS: guaiFENesin 600 MG TABLET.ER PO SCH ×2 (09:26→20:55)
[2017-05-27] MEDS: ASPIRIN 81 MG PO SCH (09:26)
[2017-05-27] MEDS: DOCUSATE 100 MG CAP PO SCH ×2 (09:26→20:55)
[2017-05-27] MEDS: FUROSEMIDE 40 MG TAB PO SCH (09:26)
[2017-05-27] MEDS: MEMANTINE 5 MG TAB PO SCH ×2 (09:27→20:54)
[2017-05-27] MEDS: MAGNESIUM OXIDE 400 MG TAB PO SCH ×3 (09:27→20:54)
[2017-05-27] MEDS: PRAVASTATIN SODIUM 20 MG TAB PO SCH (09:28)
[2017-05-27] MEDS: VENLAFAXINE HCL ER 150 MG CAP PO SCH (09:28)
[2017-05-27] MEDS: SPIRONOLACTONE 25 MG TAB PO SCH (09:28)
[2017-05-27] MEDS: cefTRIAXone IN SWFI 1,000 MG/10 ML SYRINGE IVP SCH (09:37)
[2017-05-27] MEDS: ALPRAZolam 0.25 MG TAB PO PRN (10:12)
[2017-05-27 12:28] LABS: Glucose,Whole Blood 305 mg/dL (75-99)
--- NOTE | 2017-05-27 12:41 | P.PN ---
Subjective Progress Note Date: 05/27/17 Today patient is alert and oriented 3 he is feeling more constable he underwent paracentesis yesterday with 5.1 L of ascites fluid removed He denies any chest pain or shortness of breath he has cough with occasional sputum production there is no nausea or vomiting no abdominal pain no diarrhea or constipation and no urinary symptoms. Objective - Vital Signs Vital signs: Vital Signs Temp 98.2 F 05/27/17 11:44 Pulse 105 H 05/27/17 11:44 Resp 18 05/27/17 11:44 BP 117/66 05/27/17 11:44 Pulse Ox 92 L 05/27/17 11:44 Intake & Output 05/26/17 05/27/17 05/27/17 18:59 06:59 18:59 Intake Total 540 Output Total 600 Balance -60 Weight 72.4 kg 71.5 kg Intake: Oral 540 Output: Urine 600 Other: Voiding Method Bedside Commode Diaper # Voids 1 - Exam Head normocephalic and atraumatic Neck supple no JVD no goiter no lymphadenopathy Lungs exam reveals a crackles in both lung bases no wheezing Heart regular rate and rhythm S1-S2, no rub or gallop Abdomen is soft nontender nondistended positive bowel sounds no hepatosplenomegaly Extremities no edema no cyanosis or clubbing Neuro alert and orientated to 3 - Labs CBC & Chem 7: 05/27/17 05:54 05/27/17 05:54 Labs: Abnormal Lab Results - Last 24 Hours (Table) 05/26/17 05/26/17 05/27/17 Range/Units 17:32 20:45 05:54 RBC 2.66 L (4.30-5.90) m/uL Hgb 8.9 L (13.0-17.5) gm/dL Hct 27.6 L (39.0-53.0) % MCV 103.7 H (80.0-100.0) fL Plt Count 126 L (150-450) k/uL PT (9.0-12.0) sec INR (<1.2) Sodium (137-145) mmol/L Glucose (74-99) mg/dL POC Glucose (mg/dL) 134 H 255 H (75-99) mg/dL Calcium (8.4-10.2) mg/dL Magnesium (1.6-2.3) mg/dL AST (17-59) U/L Alkaline Phosphatase (38-126) U/L Total Protein (6.3-8.2) g/dL Albumin (3.5-5.0) g/dL 05/27/17 05/27/17 05/27/17 Range/Units 05:54 05:54 06:17 RBC (4.30-5.90) m/uL Hgb (13.0-17.5) gm/dL Hct (39.0-53.0) % MCV (80.0-100.0) fL Plt Count (150-450) k/uL PT 12.9 H (9.0-12.0) sec INR 1.4 H (<1.2) Sodium 129 L (137-145) mmol/L Glucose 118 H (74-99) mg/dL POC Glucose (mg/dL) 128 H (75-99) mg/dL Calcium 8.1 L (8.4-10.2) mg/dL Magnesium 1.2 L (1.6-2.3) mg/dL AST 67 H (17-59) U/L Alkaline Phosphatase 215 H (38-126) U/L Total Protein 5.6 L (6.3-8.2) g/dL Albumin 2.1 L (3.5-5.0) g/dL 05/27/17 Range/Units 12:14 RBC (4.30-5.90) m/uL Hgb (13.0-17.5) gm/dL Hct (39.0-53.0) % MCV (80.0-100.0) fL Plt Count (150-450) k/uL PT (9.0-12.0) sec INR (<1.2) Sodium (137-145) mmol/L Glucose (74-99) mg/dL POC Glucose (mg/dL) 305 H (75-99) mg/dL Calcium (8.4-10.2) mg/dL Magnesium (1.6-2.3) mg/dL AST (17-59) U/L Alkaline Phosphatase (38-126) U/L Total Protein (6.3-8.2) g/dL Albumin (3.5-5.0) g/dL Microbiology - Last 24 Hours (Table) 05/21/17 01:33 Blood Culture - Final Blood No Growth after 144 hours 05/20/17 21:00 Blood Culture - Final Blood No Growth after 144 hours 05/25/17 12:26 Gram Stain - Preliminary Ascites Fluid Body Fluid Culture - Preliminary Assessment and Plan Plan: 1. Influenza A upper respiratory tract infection: On Tamiflu finish 5 days course 2. Recurrent ascites need to rule out SBP. Currently on IV ceftriaxone. Patient is status post paracentesis with 5.1 L removed. Fluid analysis pending 3. Acute toxo metabolic encephalopathy: Improved significantly. probably related to #1 and 2. Hepatic encephalopathy less likely as ammonia level is normal. 4. Suspected small PE in the right lower lobe noted on computed tomography scan. Patient is a very poor candidate for anticoagulation. Doppler ultrasound was negative for DVT. Repeat computed tomography scan of the chest showed no evidence of large PE that was suboptimal for evaluation of segmental and subsegmental PE. Patient is a poor candidate for anticoagulation. Anticoagulation was discontinued. Patient was seen by both pulmonary and hematology 5. Alcoholic liver cirrhosis. 6. Hypomagnesemia will be replaced. Magnesium low at 1.3 will increase his oral magnesium to 500 mg twice a day 7. Reactive airway disease with diffuse rhonchi and wheezing: We will continue bronchodilators. 8. thrombocytopenia: Hit antibody negative. Toes and pain likely due to acute infection liver disease and ecchymosis. Patient seen by hematology 9. Bilateral arms hematoma 10. Chronic anemia due to his underlying liver disease and alcohol use Awaiting fluid analysis results to rule out S BP Continue physical therapy. Patient will require ECF placement Anticipate discharge Monday
--- NOTE | 2017-05-27 12:41 | P.PN ---
Subjective Progress Note Date: 05/27/17 Principal diagnosis: Recurrent ascites secondary to alcoholic liver disease. This is a 77-year-old white male with history of alcoholic liver cirrhosis, patient was admitted last week, and he was inpatient for about 3 days. At the time the patient presented with ascites, and he underwent paracentesis were and 5.8 L of fluid were removed from his abdominal cavity. The fluid was not infected, and it was not malignant. It was felt to be fluid related to ascites. Patient was noted by his daughter who is a nurse as having increase in his abdominal girth, she was also noting that her dad is getting more short of breath, intermittent episodes of wheezing, and at times he has become more confused and hardly arousable. Patient even spiked a temp of 102. Based on his initial workup in the ER, patient was positive for influenza A, his lactic acid was also noted to be elevated, and his CT of the chest raised the possibility of right lower lobe pulmonary embolism. Although the patient had a CT of the chest on his last admission and there was no evidence of pulmonary embolism at the time. Patient was started on Tamiflu and ceftriaxone, and I was asked to see him on consultation. He received fluid boluses, he was also placed on heparin for his presumptive right lower lobe pulmonary embolism, venous Doppler of both lower extremities was ordered, and patient will likely require another paracentesis. This will be addressed by gastroenterology and possibly by interventional radiology in the next 24-48 hours. The patient himself does not seem to be in distress, however he is a very poor historian, seems to be a bit lethargic. Most of the history was obtained from his daughter who was a nurse at his bedside. Prior to arrival to the ER, patient was noted to have more shortness of breath, coughing, wheezing, and the daughter believed he vomited not certain whether he sustained some aspiration. Patient was reevaluated today on 01/19/2018, more awake, very appropriate, in no form of distress. Remains on heparin, Tamiflu, and diuretics for his underlying liver disease and ascites. Venous Doppler was negative. Reviewed the CT of the chest again, apparently to radiologist felt that there may be pulmonary embolism in the right lower lobe, hence the patient will remain on anticoagulation therapy. Remains on antibiotics, his lactic acid is now back to normal. PTT was supratherapeutic, and heparin was placed temporarily on hold. Patient describes intermittent episodes of choking while eating or swallowing, but she also had previous swallow evaluation, and supposedly he passed. The patient is seen again today 05/23/2017 in follow-up on the selective care unit. He is currently resting quite comfortably in bed. He is awake and alert in no acute distress. He denies any worsening shortness of breath, cough or congestion. Maintaining good O2 saturations in the high 90s on room air. He's been afebrile. Hemodynamically stable. Ultrasound is pending for possible paracentesis by interventional radiology. He remains on Tamiflu. White count 4.3. Hemoglobin 7.5. Platelet count 86,000. INR 1.4. Sodium 131. Creatinine 1.10. The patient is seen again today 05/24/2017 in follow-up on the selective care unit. He is currently resting quite comfortably in bed. He denies any worsening shortness of breath, cough or congestion. Maintaining good O2 saturations in the 90s on room air. Ultrasound of the abdomen did reveal significant ascites more so on the right. The plan is for paracentesis. White count 4.1. Hemoglobin 7.3. Platelet count 80,000, INR 1.4. Creatinine 1.08. Blood culture reveals no growth. Urine culture reveals no growth. On 05/25/2017 patient seen in follow-up. Is seen resting comfortably in bed, denies any acute distress. Denies any acute dyspnea, chest pain, chest congestion or sputum production. He underwent ultrasound-guided paracentesis with removal of 5.1 L of serous fluid from his abdomen. He tolerated the procedure well. He states his breathing is easier since the paracentesis. He is on 2 L per nasal cannula with O2 sat 99%. Hemodynamically stable. Afebrile. His labs show white count of 4.2, hemoglobin of 8.2, and are 1.4, sodium of 132, potassium 5.0, UN of 16, creatinine of 1.4. Continues is on antibiotics with Rocephin, he is on oral Lasix, completed his Tamiflu. The patient is seen again today 05/26/2017 in follow-up on the selective care unit. He is resting quite comfortably in bed. He denies any worsening shortness of breath, cough or congestion. He is status post 5 L removal of ascitic fluid. He is maintaining good O2 saturations in the mid 90s on 2 L/m per nasal cannula. He is afebrile. Hemodynamically stable. Fluid cultures are pending. White count 6.5. Hemoglobin 9.2. Creatinine 0.92. Reevaluated today on 05/27/2017, patient seems to be very comfortable, in no distress, felt better since his paracentesis was done and over 5 L were drained. Repeat CT of the chest did not show pulmonary embolism, hence heparin was discontinued. Labs were reviewed, sodium is 129, hemoglobin is 8.9 WBC count is 7.5. Objective - Vital Signs Vital signs: Vital Signs Temp 98.2 F 05/27/17 11:44 Pulse 105 H 05/27/17 11:44 Resp 18 05/27/17 11:44 BP 117/66 05/27/17 11:44 Pulse Ox 92 L 05/27/17 11:44 Intake & Output 05/26/17 05/27/17 05/27/17 18:59 06:59 18:59 Intake Total 540 Output Total 600 Balance -60 Weight 72.4 kg 71.5 kg Intake: Oral 540 Output: Urine 600 Other: Voiding Method Bedside Commode Diaper # Voids 1 - Exam General appearance: Physical exam revealed a 77-year-old white male, awake, responsive and in no distress. Head exam: atraumatic, normocephalic Eye exam: normal appearance. No evidence of scleral icterus, conjunctival injection Neck exam: Neck is supple, no neck masses, no JVD, no stridor. No lymphadenopathy noted. Respiratory exam: Minimal crackles and rhonchi noted at the bases bilaterally. More so at the right base. Symmetrical chest expansion, no chest wall tenderness. Cardiovascular Exam: Distant S1 and S2, no S3 gallop. No murmur. GI/Abdominal exam: Slightly distended, small amount of ascites appreciated enlarged liver was palpable about 5 cm below the right costal margin. No tenderness was appreciated. No rebound, no guarding. Extremities exam: Trace of bipedal edema, left lower extremity seems to be a bit more swollen than the right lower extremity. Back exam: Absent: CVA tenderness (R), CVA tenderness (L) Neurological exam: Alert, oriented 3, no focal deficit noted. Skin: Evidence of purpura and ecchymosis noted in lower extremities. - Labs CBC & Chem 7: 05/27/17 05:54 05/27/17 05:54 Labs: Abnormal Lab Results - Last 24 Hours (Table) 05/26/17 05/26/17 05/27/17 Range/Units 17:32 20:45 05:54 RBC 2.66 L (4.30-5.90) m/uL Hgb 8.9 L (13.0-17.5) gm/dL Hct 27.6 L (39.0-53.0) % MCV 103.7 H (80.0-100.0) fL Plt Count 126 L (150-450) k/uL PT (9.0-12.0) sec INR (<1.2) Sodium (137-145) mmol/L Glucose (74-99) mg/dL POC Glucose (mg/dL) 134 H 255 H (75-99) mg/dL Calcium (8.4-10.2) mg/dL Magnesium (1.6-2.3) mg/dL AST (17-59) U/L Alkaline Phosphatase (38-126) U/L Total Protein (6.3-8.2) g/dL Albumin (3.5-5.0) g/dL 05/27/17 05/27/17 05/27/17 Range/Units 05:54 05:54 06:17 RBC (4.30-5.90) m/uL Hgb (13.0-17.5) gm/dL Hct (39.0-53.0) % MCV (80.0-100.0) fL Plt Count (150-450) k/uL PT 12.9 H (9.0-12.0) sec INR 1.4 H (<1.2) Sodium 129 L (137-145) mmol/L Glucose 118 H (74-99) mg/dL POC Glucose (mg/dL) 128 H (75-99) mg/dL Calcium 8.1 L (8.4-10.2) mg/dL Magnesium 1.2 L (1.6-2.3) mg/dL AST 67 H (17-59) U/L Alkaline Phosphatase 215 H (38-126) U/L Total Protein 5.6 L (6.3-8.2) g/dL Albumin 2.1 L (3.5-5.0) g/dL 05/27/17 Range/Units 12:14 RBC (4.30-5.90) m/uL Hgb (13.0-17.5) gm/dL Hct (39.0-53.0) % MCV (80.0-100.0) fL Plt Count (150-450) k/uL PT (9.0-12.0) sec INR (<1.2) Sodium (137-145) mmol/L Glucose (74-99) mg/dL POC Glucose (mg/dL) 305 H (75-99) mg/dL Calcium (8.4-10.2) mg/dL Magnesium (1.6-2.3) mg/dL AST (17-59) U/L Alkaline Phosphatase (38-126) U/L Total Protein (6.3-8.2) g/dL Albumin (3.5-5.0) g/dL Microbiology - Last 24 Hours (Table) 05/21/17 01:33 Blood Culture - Final Blood No Growth after 144 hours 05/20/17 21:00 Blood Culture - Final Blood No Growth after 144 hours 05/25/17 12:26 Gram Stain - Preliminary Ascites Fluid Body Fluid Culture - Preliminary Assessment and Plan Assessment: Impression: 1 recurrent ascites, spontaneous bacterial peritonitis was ruled out. 2 acute influenza A, presently on Tamiflu. 3 possible pulmonary embolism involving the right lower lobe, patient is presently on heparin. A venous Doppler was ordered to possibly confirm that there is evidence of thromboembolic disease. 4 history of alcoholic liver cirrhosis 5 acute presentation of sepsis with lactic acidosis, resolved. This could very well be related to his underlying liver disease and cirrhosis. No clear-cut infection was diagnosed. Recommendation: Continue present treatment consider discharge planning if cleared by other consultants on the case. Time with Patient: Less than 30
[2017-05-27 17:17] LABS: Glucose,Whole Blood 221 mg/dL (75-99)
[2017-05-27] MEDS: risperiDONE 0.5 MG TAB PO SCH (20:54)
[2017-05-27 21:14] LABS: Glucose,Whole Blood 135 mg/dL (75-99)
[2017-05-28] MEDS: SODIUM CHLORIDE 0.9% 1,000 ML IV SCH (02:21)
[2017-05-28 06:00] LABS: Glucose,Whole Blood 128 mg/dL (75-99)
[2017-05-28] MEDS: INSULIN ASPART 100 UNIT/ML 1 ML 10 ML VIAL SQ SCH ×4 (06:24→21:54)
[2017-05-28] MEDS: PANTOPRAZOLE 40 MG TABLET PO SCH ×2 (06:41→16:36)
[2017-05-28] MEDS: IPRATROPIUM-ALBUTEROL 3 ML NEB INHALATION PRN ×4 (07:19→20:18)
[2017-05-28] MEDS: cefTRIAXone IN SWFI 1,000 MG/10 ML SYRINGE IVP SCH (08:53)
[2017-05-28] MEDS: DOCUSATE 100 MG CAP PO SCH ×2 (08:53→21:53)
[2017-05-28] MEDS: ASPIRIN 81 MG PO SCH (08:53)
[2017-05-28] MEDS: MAGNESIUM OXIDE 400 MG TAB PO SCH ×3 (08:54→21:53)
[2017-05-28] MEDS: guaiFENesin 600 MG TABLET.ER PO SCH ×2 (08:54→21:53)
[2017-05-28] MEDS: PRAVASTATIN SODIUM 20 MG TAB PO SCH (08:54)
[2017-05-28] MEDS: MEMANTINE 5 MG TAB PO SCH ×2 (08:54→21:54)
[2017-05-28] MEDS: VENLAFAXINE HCL ER 150 MG CAP PO SCH (08:54)
[2017-05-28] MEDS: FUROSEMIDE 40 MG TAB PO SCH (08:54)
[2017-05-28] MEDS: SPIRONOLACTONE 25 MG TAB PO SCH (08:55)
--- NOTE | 2017-05-28 11:58 | P.PN ---
Subjective Progress Note Date: 05/28/17 Today patient is alert and oriented 3 he is feeling more constable he underwent paracentesis yesterday with 5.1 L of ascites fluid removed He denies any chest pain or shortness of breath he has cough with occasional sputum production there is no nausea or vomiting no abdominal pain no diarrhea or constipation and no urinary symptoms. On 02/25/2018 patient is alert and oriented resting comfortably in bed still complaining of shortness of breath with activity complaining of occasional cough otherwise no complaints abdominal discomfort improved significantly after paracentesis Objective - Vital Signs Vital signs: Vital Signs Temp 97.6 F 05/28/17 11:29 Pulse 93 05/28/17 11:29 Resp 18 05/28/17 11:29 BP 123/79 05/28/17 11:29 Pulse Ox 93 L 05/28/17 11:29 Intake & Output 05/27/17 05/28/17 05/28/17 18:59 06:59 18:59 Intake Total 250 230 Balance 250 230 Weight 71.3 kg Intake: Oral 250 230 Other: Voiding Method Diaper # Voids 3 0 - Exam Head normocephalic and atraumatic Neck supple no JVD no goiter no lymphadenopathy Lungs exam reveals crackles in both lung bases no wheezing Heart regular rate and rhythm S1-S2, no rub or gallop Abdomen is soft nontender nondistended positive bowel sounds no hepatosplenomegaly Extremities no edema no cyanosis or clubbing Neuro alert and orientated to 3 - Labs CBC & Chem 7: 05/27/17 05:54 05/27/17 05:54 Labs: Abnormal Lab Results - Last 24 Hours (Table) 05/27/17 05/27/17 05/27/17 Range/Units 12:14 17:07 21:13 POC Glucose (mg/dL) 305 H 221 H 135 H (75-99) mg/dL 05/28/17 Range/Units 05:58 POC Glucose (mg/dL) 128 H (75-99) mg/dL Microbiology - Last 24 Hours (Table) 05/25/17 12:26 Anaerobic Culture - Preliminary Ascites Fluid 05/25/17 12:26 Gram Stain - Preliminary Ascites Fluid Body Fluid Culture - Preliminary Assessment and Plan Plan: 1. Influenza A upper respiratory tract infection: On Tamiflu finish 5 days course 2. Recurrent ascites need to rule out SBP. Currently on IV ceftriaxone. Patient is status post paracentesis with 5.1 L removed. Fluid analysis pending 3. Acute toxo metabolic encephalopathy: Improved significantly. probably related to #1 and 2. Hepatic encephalopathy less likely as ammonia level is normal. 4. Suspected small PE in the right lower lobe noted on computed tomography scan. Patient is a very poor candidate for anticoagulation. Doppler ultrasound was negative for DVT. Repeat computed tomography scan of the chest showed no evidence of large PE that was suboptimal for evaluation of segmental and subsegmental PE. Patient is a poor candidate for anticoagulation. Anticoagulation was discontinued. Patient was seen by both pulmonary and hematology 5. Alcoholic liver cirrhosis. 6. Hypomagnesemia will be replaced. Magnesium low at 1.3 will increase his oral magnesium to 500 mg twice a day 7. Reactive airway disease with diffuse rhonchi and wheezing: We will continue bronchodilators. 8. thrombocytopenia: Hit antibody negative. Toes and pain likely due to acute infection liver disease and ecchymosis. Patient seen by hematology 9. Bilateral arms hematoma 10. Chronic anemia due to his underlying liver disease and alcohol use Awaiting fluid analysis results to rule out S BP Continue physical therapy. Patient will require ECF placement Anticipate discharge Monday
[2017-05-28 12:02] LABS: Glucose,Whole Blood 220 mg/dL (75-99)
--- NOTE | 2017-05-28 12:13 | P.PN ---
Subjective Progress Note Date: 05/28/17 Principal diagnosis: Recurrent ascites secondary to alcoholic liver disease. This is a 77-year-old white male with history of alcoholic liver cirrhosis, patient was admitted last week, and he was inpatient for about 3 days. At the time the patient presented with ascites, and he underwent paracentesis were and 5.8 L of fluid were removed from his abdominal cavity. The fluid was not infected, and it was not malignant. It was felt to be fluid related to ascites. Patient was noted by his daughter who is a nurse as having increase in his abdominal girth, she was also noting that her dad is getting more short of breath, intermittent episodes of wheezing, and at times he has become more confused and hardly arousable. Patient even spiked a temp of 102. Based on his initial workup in the ER, patient was positive for influenza A, his lactic acid was also noted to be elevated, and his CT of the chest raised the possibility of right lower lobe pulmonary embolism. Although the patient had a CT of the chest on his last admission and there was no evidence of pulmonary embolism at the time. Patient was started on Tamiflu and ceftriaxone, and I was asked to see him on consultation. He received fluid boluses, he was also placed on heparin for his presumptive right lower lobe pulmonary embolism, venous Doppler of both lower extremities was ordered, and patient will likely require another paracentesis. This will be addressed by gastroenterology and possibly by interventional radiology in the next 24-48 hours. The patient himself does not seem to be in distress, however he is a very poor historian, seems to be a bit lethargic. Most of the history was obtained from his daughter who was a nurse at his bedside. Prior to arrival to the ER, patient was noted to have more shortness of breath, coughing, wheezing, and the daughter believed he vomited not certain whether he sustained some aspiration. Patient was reevaluated today on 01/19/2018, more awake, very appropriate, in no form of distress. Remains on heparin, Tamiflu, and diuretics for his underlying liver disease and ascites. Venous Doppler was negative. Reviewed the CT of the chest again, apparently to radiologist felt that there may be pulmonary embolism in the right lower lobe, hence the patient will remain on anticoagulation therapy. Remains on antibiotics, his lactic acid is now back to normal. PTT was supratherapeutic, and heparin was placed temporarily on hold. Patient describes intermittent episodes of choking while eating or swallowing, but she also had previous swallow evaluation, and supposedly he passed. The patient is seen again today 05/23/2017 in follow-up on the selective care unit. He is currently resting quite comfortably in bed. He is awake and alert in no acute distress. He denies any worsening shortness of breath, cough or congestion. Maintaining good O2 saturations in the high 90s on room air. He's been afebrile. Hemodynamically stable. Ultrasound is pending for possible paracentesis by interventional radiology. He remains on Tamiflu. White count 4.3. Hemoglobin 7.5. Platelet count 86,000. INR 1.4. Sodium 131. Creatinine 1.10. The patient is seen again today 05/24/2017 in follow-up on the selective care unit. He is currently resting quite comfortably in bed. He denies any worsening shortness of breath, cough or congestion. Maintaining good O2 saturations in the 90s on room air. Ultrasound of the abdomen did reveal significant ascites more so on the right. The plan is for paracentesis. White count 4.1. Hemoglobin 7.3. Platelet count 80,000, INR 1.4. Creatinine 1.08. Blood culture reveals no growth. Urine culture reveals no growth. On 05/25/2017 patient seen in follow-up. Is seen resting comfortably in bed, denies any acute distress. Denies any acute dyspnea, chest pain, chest congestion or sputum production. He underwent ultrasound-guided paracentesis with removal of 5.1 L of serous fluid from his abdomen. He tolerated the procedure well. He states his breathing is easier since the paracentesis. He is on 2 L per nasal cannula with O2 sat 99%. Hemodynamically stable. Afebrile. His labs show white count of 4.2, hemoglobin of 8.2, and are 1.4, sodium of 132, potassium 5.0, UN of 16, creatinine of 1.4. Continues is on antibiotics with Rocephin, he is on oral Lasix, completed his Tamiflu. The patient is seen again today 05/26/2017 in follow-up on the selective care unit. He is resting quite comfortably in bed. He denies any worsening shortness of breath, cough or congestion. He is status post 5 L removal of ascitic fluid. He is maintaining good O2 saturations in the mid 90s on 2 L/m per nasal cannula. He is afebrile. Hemodynamically stable. Fluid cultures are pending. White count 6.5. Hemoglobin 9.2. Creatinine 0.92. Reevaluated today on 05/27/2017, patient seems to be very comfortable, in no distress, felt better since his paracentesis was done and over 5 L were drained. [address] of the chest did not show pulmonary embolism, hence heparin was discontinued. Labs were reviewed, sodium is 129, hemoglobin is 8.9 WBC count is 7.5. Reevaluated today on 05/28/2017, patient continues to do relatively well, has intermittent cough, no pain, no nausea no vomiting, no hemoptysis, no specific complaints. His abdominal discomfort significantly improved post paracentesis. Labs were reviewed including CBC and basic metabolic profile, sodium is a bit low at 129. Objective - Vital Signs Vital signs: Vital Signs Temp 97.6 F 05/28/17 11:29 Pulse 93 05/28/17 11:29 Resp 18 05/28/17 11:29 BP 123/79 05/28/17 11:29 Pulse Ox 93 L 05/28/17 11:29 Intake & Output 05/27/17 05/28/17 05/28/17 18:59 06:59 18:59 Intake Total 250 230 Balance 250 230 Weight 71.3 kg Intake: Oral 250 230 Other: Voiding Method Diaper # Voids 3 0 - Exam General appearance: Physical exam revealed a 77-year-old white male, awake, responsive and in no distress. Head exam: atraumatic, normocephalic Eye exam: normal appearance. No evidence of scleral icterus, conjunctival injection Neck exam: Neck is supple, no neck masses, no JVD, no stridor. No lymphadenopathy noted. Respiratory exam: Minimal crackles and rhonchi noted at the bases bilaterally. More so at the right base. Symmetrical chest expansion, no chest wall tenderness. Cardiovascular Exam: Distant S1 and S2, no S3 gallop. No murmur. GI/Abdominal exam: Slightly distended, small amount of ascites appreciated enlarged liver was palpable about 5 cm below the right costal margin. No tenderness was appreciated. No rebound, no guarding. Extremities exam: Trace of bipedal edema, left lower extremity seems to be a bit more swollen than the right lower extremity. Back exam: Absent: CVA tenderness (R), CVA tenderness (L) Neurological exam: Alert, oriented 3, no focal deficit noted. Skin: Evidence of purpura and ecchymosis noted in lower extremities. - Labs CBC & Chem 7: 05/27/17 05:54 05/27/17 05:54 Labs: Abnormal Lab Results - Last 24 Hours (Table) 05/27/17 05/27/17 05/27/17 Range/Units 12:14 17:07 21:13 POC Glucose (mg/dL) 305 H 221 H 135 H (75-99) mg/dL 05/28/17 05/28/17 Range/Units 05:58 11:44 POC Glucose (mg/dL) 128 H 220 H (75-99) mg/dL Microbiology - Last 24 Hours (Table) 05/25/17 12:26 Anaerobic Culture - Preliminary Ascites Fluid 05/25/17 12:26 Gram Stain - Preliminary Ascites Fluid Body Fluid Culture - Preliminary Assessment and Plan Assessment: Impression: 1 recurrent ascites, spontaneous bacterial peritonitis was ruled out. 2 acute influenza A, presently on Tamiflu. 3 possible pulmonary embolism involving the right lower lobe, patient is presently on heparin. A venous Doppler was ordered to possibly confirm that there is evidence of thromboembolic disease. 4 history of alcoholic liver cirrhosis 5 acute presentation of sepsis with lactic acidosis, resolved. This could very well be related to his underlying liver disease and cirrhosis. No clear-cut infection was diagnosed. Recommendation: Continue present treatment consider discharge planning on Monday , follow-up chest x-ray in a.m. Time with Patient: Less than 30
[2017-05-28 16:47] LABS: Glucose,Whole Blood 204 mg/dL (75-99)
[2017-05-28 21:35] LABS: Glucose,Whole Blood 208 mg/dL (75-99)
[2017-05-28] MEDS: risperiDONE 0.5 MG TAB PO SCH (21:53)
[2017-05-29] MEDS: SODIUM CHLORIDE 0.9% 1,000 ML IV SCH (01:26)
[2017-05-29] MEDS: INSULIN ASPART 100 UNIT/ML 1 ML 10 ML VIAL SQ SCH ×3 (06:05→17:44)
[2017-05-29] MEDS: PANTOPRAZOLE 40 MG TABLET PO SCH ×2 (06:05→17:44)
[2017-05-29 06:10] LABS: Glucose,Whole Blood 102 mg/dL (75-99)
[2017-05-29 06:35] LABS: Basophils % (A) 0 %; Eosinophils # (A) 0.2 k/uL (0-0.7); Eosinophils % (A) 4 %; HGB 8.1 gm/dL (13.0-17.5); Lymphocytes % (A) 18 %; MCH 32.6 pg (25.0-35.0); MCHC 31.2 g/dL (31.0-37.0); MCV 104.5 fL (80.0-100.0); Macrocytosis Moderate; Mean Platelet Volume 7.5; Monocytes # (A) 0.4 k/uL (0-1.0); Monocytes % (A) 7 %; Neutrophils # (A) 3.8 k/uL (1.3-7.7); Neutrophils % (A) 67 %; Platelet Count 140 k/uL (150-450); RBC 2.49 m/uL (4.30-5.90); RDW 14.9 % (11.5-15.5); WBC 5.7 k/uL (3.8-10.6)
[2017-05-29 06:50] LABS: ALT 50 U/L (21-72); AST 73 U/L (17-59); Albumin 1.9 g/dL (3.5-5.0); Alkaline Phosphatase 225 U/L (38-126); Anion Gap 2 mmol/L; Blood Urea Nitrogen 18 mg/dL (9-20); Calcium 8.2 mg/dL (8.4-10.2); Carbon Dioxide 28 mmol/L (22-30); Chloride 101 mmol/L (98-107); Glucose 103 mg/dL (74-99); Potassium 4.8 mmol/L (3.5-5.1); Sodium 131 mmol/L (137-145); Total Bilirubin 0.7 mg/dL (0.2-1.3); Total Protein 5.3 g/dL (6.3-8.2)
[2017-05-29] MEDS: IPRATROPIUM-ALBUTEROL 3 ML NEB INHALATION PRN ×4 (08:05→20:38)
--- NOTE | 2017-05-29 08:19 | XR ---
EXAMINATION TYPE: XR chest 1V portable DATE OF EXAM: 05/29/2017 COMPARISON: 05/22/2017 INDICATION: Abnormal auscultation TECHNIQUE: Single frontal view of the chest is obtained. FINDINGS: The heart size is normal. The pulmonary vasculature is normal. Some mild increased densities at the lateral right base, may be some atelectasis. There is depression of the minor fissure and mild elevation of the diaphragm. IMPRESSION: 1. Mild right lower lobe atelectasis.
--- NOTE | 2017-05-29 10:07 | P.PN ---
Subjective Progress Note Date: 05/29/17 Patient is status post paracentesis with 5 L removed. Fluid cultures are pending. Patient reports no abdominal pain. Reports improvement in his cough and breathing. Patient has been working with physical therapy. He will likely need ECF placement. 05/29/2017 patient sitting up in bed comfortably. Does report having a cough. Chest x-ray showing a right lower lobe atelectasis. Apparently over the weekend patient had a choking episode. There are concerns for aspiration. Speech therapy was consulted to evaluate patient swallow. He is scheduled for a barium swallow today. He did have a low-grade temp of 100.4 last night. Reports having a bowel movement. Denies any difficulty urinating. Denies any chest pain or shortness of breath. Denies any diarrhea. Objective - Vital Signs Vital signs: Vital Signs Temp 97.4 F L 05/29/17 04:00 Pulse 94 05/29/17 08:23 Resp 14 05/29/17 04:00 BP 129/79 05/29/17 04:00 Pulse Ox 95 05/29/17 04:00 Intake & Output 05/28/17 05/29/17 05/29/17 18:59 06:59 18:59 Intake Total 0 Balance 0 Weight 74.5 kg Intake: Oral 0 Other: Voiding Method Diaper # Voids 1 - Exam Head normocephalic Neck supple Lungs coarse breath sounds noted bilaterally Heart regular rate and rhythm S1-S2, no rub or gallop Abdomen is soft nontender nondistended positive bowel sounds no hepatosplenomegaly Extremities no edema Neuro alert and orientated to 3 - Labs CBC & Chem 7: 05/29/17 06:14 05/29/17 06:14 Labs: Abnormal Lab Results - Last 24 Hours (Table) 05/28/17 05/28/17 05/28/17 Range/Units 11:44 16:37 21:33 RBC (4.30-5.90) m/uL Hgb (13.0-17.5) gm/dL Hct (39.0-53.0) % MCV (80.0-100.0) fL Plt Count (150-450) k/uL Sodium (137-145) mmol/L Glucose (74-99) mg/dL POC Glucose (mg/dL) 220 H 204 H 208 H (75-99) mg/dL Calcium (8.4-10.2) mg/dL Magnesium (1.6-2.3) mg/dL AST (17-59) U/L Alkaline Phosphatase (38-126) U/L Total Protein (6.3-8.2) g/dL Albumin (3.5-5.0) g/dL 05/29/17 05/29/17 05/29/17 Range/Units 06:04 06:14 06:14 RBC 2.49 L (4.30-5.90) m/uL Hgb 8.1 L (13.0-17.5) gm/dL Hct 26.0 L (39.0-53.0) % MCV 104.5 H (80.0-100.0) fL Plt Count 140 L (150-450) k/uL Sodium 131 L (137-145) mmol/L Glucose 103 H (74-99) mg/dL POC Glucose (mg/dL) 102 H (75-99) mg/dL Calcium 8.2 L (8.4-10.2) mg/dL Magnesium (1.6-2.3) mg/dL AST 73 H (17-59) U/L Alkaline Phosphatase 225 H (38-126) U/L Total Protein 5.3 L (6.3-8.2) g/dL Albumin 1.9 L (3.5-5.0) g/dL 05/29/17 Range/Units 06:14 RBC (4.30-5.90) m/uL Hgb (13.0-17.5) gm/dL Hct (39.0-53.0) % MCV (80.0-100.0) fL Plt Count (150-450) k/uL Sodium (137-145) mmol/L Glucose (74-99) mg/dL POC Glucose (mg/dL) (75-99) mg/dL Calcium (8.4-10.2) mg/dL Magnesium 1.5 L (1.6-2.3) mg/dL AST (17-59) U/L Alkaline Phosphatase (38-126) U/L Total Protein (6.3-8.2) g/dL Albumin (3.5-5.0) g/dL Microbiology - Last 24 Hours (Table) 05/25/17 12:26 Gram Stain - Final Ascites Fluid Body Fluid Culture - Final Assessment and Plan Assessment: 1. Influenza A upper respiratory tract infection: Completed Tamiflu treatment 2. Recurrent ascites: Patient is status post paracentesis with 5.1 L removed. Fluid analysis is negative. SBP ruled out 3. Acute toxo metabolic encephalopathy: Improved significantly. probably related to #1 and 2. Hepatic encephalopathy less likely as ammonia level is normal. 4. Suspected small PE in the right lower lobe noted on computed tomography scan. Patient is a very poor candidate for anticoagulation. Doppler ultrasound was negative for DVT. Repeat computed tomography scan of the chest showed no evidence of large PE that was suboptimal for evaluation of segmental and subsegmental PE. Patient is a poor candidate for anticoagulation. Anticoagulation was discontinued. Patient was seen by both pulmonary and hematology 5. Alcoholic liver cirrhosis. 6. Hypomagnesemia will be replaced. We'll give 1 dose of magnesium sulfate 7. Reactive airway disease with diffuse rhonchi and wheezing: We will continue bronchodilators. 8. thrombocytopenia: Hit antibody negative. Seen by hematology 9. Bilateral arms hematoma 10. Chronic anemia due to his underlying liver disease and alcohol use 11. Choking episode concerns for aspiration. Speech therapy consulted. Patient scheduled for barium swallow today. Patient also be reevaluated by pulmonary service, case discussed with pulmonary venous practitioner. Repeat chest x-ray showing atelectasis. Incentive spirometer ordered. 12. Severe protein calorie malnutrition continue supplement Patient will be discharged to ECF when medically stable I performed an examination of the patient and discussed their management with the physician Turn Out. I have reviewed the Physician Turn Out's notes and agree with the documented findings and plan of care
--- NOTE | 2017-05-29 10:08 | FL ---
EXAMINATION TYPE: FL barium swallow DATE OF EXAM: 05/29/2017 COMPARISON: NONE HISTORY: Difficulty swallowing choking TECHNIQUE: A single contrast UGI study is performed. FINDINGS: Esophagus dilates to normal caliber to the gastroesophageal junction. Small hiatal hernia is present. Secondary and tertiary contractions were evident. Some mild narrowing of the distal esophagus not ex cluded. 30 seconds of fluoroscopy time was provided. Nine images were obtained. IMPRESSIONS: 1. Presbyesophagus with secondary and tertiary contractions. 2. Some mild narrowing of the distal esophagus may be present.
[2017-05-29 10:21] VITALS: BMI 27.3
[2017-05-29] MEDS ORDERED: MAGNESIUM SULFATE-D5W PMX 1 GM in DEXTROSE/WATER 1 100ML.BAG IVPB ONE (11:00)
[2017-05-29 12:01] LABS: Glucose,Whole Blood 123 mg/dL (75-99)
[2017-05-29] MEDS: cefTRIAXone IN SWFI 1,000 MG/10 ML SYRINGE IVP SCH (12:07)
[2017-05-29] MEDS: guaiFENesin 600 MG TABLET.ER PO SCH (12:33)
[2017-05-29] MEDS: DOCUSATE 100 MG CAP PO SCH (12:33)
[2017-05-29] MEDS: PRAVASTATIN SODIUM 20 MG TAB PO SCH (12:33)
[2017-05-29] MEDS: FUROSEMIDE 40 MG TAB PO SCH (12:33)
[2017-05-29] MEDS: MEMANTINE 5 MG TAB PO SCH (12:33)
[2017-05-29] MEDS: VENLAFAXINE HCL ER 150 MG CAP PO SCH (12:33)
[2017-05-29] MEDS: SPIRONOLACTONE 25 MG TAB PO SCH (12:34)
[2017-05-29] MEDS: ASPIRIN 81 MG PO SCH (12:34)
[2017-05-29] MEDS: MAGNESIUM OXIDE 400 MG TAB PO SCH ×2 (12:34→17:44)
--- NOTE | 2017-05-29 14:25 | P.PN ---
Subjective Progress Note Date: 05/29/17 Principal diagnosis: Recurrent ascites secondary to liver disease. This is a 77-year-old white male with history of alcoholic liver cirrhosis, patient was admitted last week, and he was inpatient for about 3 days. At the time the patient presented with ascites, and he underwent paracentesis were and 5.8 L of fluid were removed from his abdominal cavity. The fluid was not infected, and it was not malignant. It was felt to be fluid related to ascites. Patient was noted by his daughter who is a nurse as having increase in his abdominal girth, she was also noting that her dad is getting more short of breath, intermittent episodes of wheezing, and at times he has become more confused and hardly arousable. Patient even spiked a temp of 102. Based on his initial workup in the ER, patient was positive for influenza A, his lactic acid was also noted to be elevated, and his CT of the chest raised the possibility of right lower lobe pulmonary embolism. Although the patient had a CT of the chest on his last admission and there was no evidence of pulmonary embolism at the time. Patient was started on Tamiflu and ceftriaxone, and I was asked to see him on consultation. He received fluid boluses, he was also placed on heparin for his presumptive right lower lobe pulmonary embolism, venous Doppler of both lower extremities was ordered, and patient will likely require another paracentesis. This will be addressed by gastroenterology and possibly by interventional radiology in the next 24-48 hours. The patient himself does not seem to be in distress, however he is a very poor historian, seems to be a bit lethargic. Most of the history was obtained from his daughter who was a nurse at his bedside. Prior to arrival to the ER, patient was noted to have more shortness of breath, coughing, wheezing, and the daughter believed he vomited not certain whether he sustained some aspiration. Patient was reevaluated today on 01/19/2018, more awake, very appropriate, in no form of distress. Remains on heparin, Tamiflu, and diuretics for his underlying liver disease and ascites. Venous Doppler was negative. Reviewed the CT of the chest again, apparently to radiologist felt that there may be pulmonary embolism in the right lower lobe, hence the patient will remain on anticoagulation therapy. Remains on antibiotics, his lactic acid is now back to normal. PTT was supratherapeutic, and heparin was placed temporarily on hold. Patient describes intermittent episodes of choking while eating or swallowing, but she also had previous swallow evaluation, and supposedly he passed. The patient is seen again today 05/23/2017 in follow-up on the selective care unit. He is currently resting quite comfortably in bed. He is awake and alert in no acute distress. He denies any worsening shortness of breath, cough or congestion. Maintaining good O2 saturations in the high 90s on room air. He's been afebrile. Hemodynamically stable. Ultrasound is pending for possible paracentesis by interventional radiology. He remains on Tamiflu. White count 4.3. Hemoglobin 7.5. Platelet count 86,000. INR 1.4. Sodium 131. Creatinine 1.10. The patient is seen again today 05/24/2017 in follow-up on the selective care unit. He is currently resting quite comfortably in bed. He denies any worsening shortness of breath, cough or congestion. Maintaining good O2 saturations in the 90s on room air. Ultrasound of the abdomen did reveal significant ascites more so on the right. The plan is for paracentesis. White count 4.1. Hemoglobin 7.3. Platelet count 80,000, INR 1.4. Creatinine 1.08. Blood culture reveals no growth. Urine culture reveals no growth. On 05/25/2017 patient seen in follow-up. Is seen resting comfortably in bed, denies any acute distress. Denies any acute dyspnea, chest pain, chest congestion or sputum production. He underwent ultrasound-guided paracentesis with removal of 5.1 L of serous fluid from his abdomen. He tolerated the procedure well. He states his breathing is easier since the paracentesis. He is on 2 L per nasal cannula with O2 sat 99%. Hemodynamically stable. Afebrile. His labs show white count of 4.2, hemoglobin of 8.2, and are 1.4, sodium of 132, potassium 5.0, UN of 16, creatinine of 1.4. Continues is on antibiotics with Rocephin, he is on oral Lasix, completed his Tamiflu. The patient is seen again today 05/26/2017 in follow-up on the selective care unit. He is resting quite comfortably in bed. He denies any worsening shortness of breath, cough or congestion. He is status post 5 L removal of ascitic fluid. He is maintaining good O2 saturations in the mid 90s on 2 L/m per nasal cannula. He is afebrile. Hemodynamically stable. Fluid cultures are pending. White count 6.5. Hemoglobin 9.2. Creatinine 0.92. Reevaluated today on 05/27/2017, patient seems to be very comfortable, in no distress, felt better since his paracentesis was done and over 5 L were drained. Repeat CT of the chest did not show pulmonary embolism, hence heparin was discontinued. Labs were reviewed, sodium is 129, hemoglobin is 8.9 WBC count is 7.5. Reevaluated today on 05/28/2017, patient continues to do relatively well, has intermittent cough, no pain, no nausea no vomiting, no hemoptysis, no specific complaints. His abdominal discomfort significantly improved post paracentesis. Labs were reviewed including CBC and basic metabolic profile, sodium is a bit low at 129. On 05/29/2017 patient seen in follow-up. Yesterday he had an episode of choking while drinking out of a cup and was suspected to have aspirated. He did have some low-grade fever at 2000 last night with a temp of 100.4F. Patient denies any acute distress, he is alert, awake, resting comfortably in bed, currently on 2 L per nasal cannula with O2 sat 97%. He is afebrile today. Chest x-ray this morning shows evidence of right lower lobe atelectasis. 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 Lung sounds are positive for crackles at bilateral lower bases, no rhonchi or wheezes noted. He denies any chest pain, denies any fever or chills, denies any hemoptysis, denies any chest congestion or wheezing. He continues on Rocephin, nebulized treatments. From pulmonary standpoint he remains stable, and he is stable for discharge home today on an oral antibiotic. Objective - Vital Signs Vital signs: Vital Signs Temp 97.7 F 05/29/17 12:00 Pulse 90 05/29/17 12:04 Resp 20 05/29/17 12:00 BP 115/70 05/29/17 12:00 Pulse Ox 97 05/29/17 12:00 Intake & Output 0205/29/17 05/29/17 18:59 06:59 18:59 Intake Total 0 0 Balance 0 0 Weight 74.5 kg 74.5 kg Intake: Oral 0 0 Other: Voiding Method Diaper Diaper # Voids 1 - Exam GENERAL EXAM: Alert, active, comfortable in no apparent distress. HEAD: Normocephalic. EYES: Normal reaction of pupils, equal size. NOSE: Clear with pink turbinates. THROAT: No erythema or exudates. NECK: No masses, no JVD. CHEST: No chest wall deformity. LUNGS: Equal air entry with crackles in the by lateral posterior bases. CVS: S1 and S2 normal with no audible murmur, regular rhythm. ABDOMEN: Distended, positive fluid wave, normal bowel sounds, no guarding or rigidity. SPINE: No scoliosis or deformity SKIN: No rashes CENTRAL NERVOUS SYSTEM: No focal deficits, tone is normal in all 4 extremities. EXTREMITIES: There is no peripheral edema. No clubbing, no cyanosis. Peripheral pulses are intact. - Labs CBC & Chem 7: 05/29/17 06:14 05/29/17 06:14 Labs: Abnormal Lab Results - Last 24 Hours (Table) 05/28/17 05/28/17 05/29/17 Range/Units 16:37 21:33 06:04 RBC (4.30-5.90) m/uL Hgb (13.0-17.5) gm/dL Hct (39.0-53.0) % MCV (80.0-100.0) fL Plt Count (150-450) k/uL Sodium (137-145) mmol/L Glucose (74-99) mg/dL POC Glucose (mg/dL) 204 H 208 H 102 H (75-99) mg/dL Calcium (8.4-10.2) mg/dL Magnesium (1.6-2.3) mg/dL AST (17-59) U/L Alkaline Phosphatase (38-126) U/L Total Protein (6.3-8.2) g/dL Albumin (3.5-5.0) g/dL 05/29/17 05/29/17 05/29/17 Range/Units 06:14 06:14 06:14 RBC 2.49 L (4.30-5.90) m/uL Hgb 8.1 L (13.0-17.5) gm/dL Hct 26.0 L (39.0-53.0) % MCV 104.5 H (80.0-100.0) fL Plt Count 140 L (150-450) k/uL Sodium 131 L (137-145) mmol/L Glucose 103 H (74-99) mg/dL POC Glucose (mg/dL) (75-99) mg/dL Calcium 8.2 L (8.4-10.2) mg/dL Magnesium 1.5 L (1.6-2.3) mg/dL AST 73 H (17-59) U/L Alkaline Phosphatase 225 H (38-126) U/L Total Protein 5.3 L (6.3-8.2) g/dL Albumin 1.9 L (3.5-5.0) g/dL 05/29/17 Range/Units 11:58 RBC (4.30-5.90) m/uL Hgb (13.0-17.5) gm/dL Hct (39.0-53.0) % MCV (80.0-100.0) fL Plt Count (150-450) k/uL Sodium (137-145) mmol/L Glucose (74-99) mg/dL POC Glucose (mg/dL) 123 H (75-99) mg/dL Calcium (8.4-10.2) mg/dL Magnesium (1.6-2.3) mg/dL AST (17-59) U/L Alkaline Phosphatase (38-126) U/L Total Protein (6.3-8.2) g/dL Albumin (3.5-5.0) g/dL Microbiology - Last 24 Hours (Table) 05/25/17 12:26 Anaerobic Culture - Final Ascites Fluid 05/25/17 12:26 Gram Stain - Final Ascites Fluid Body Fluid Culture - Final Assessment and Plan Plan: Assessment: #1. Choking episode with suspected aspiration on 05/28/2017. Chest x-ray from today just showed right lower lobe atelectasis, patient did have an isolated low -grade fever last night with a temp of 100.4. Afebrile today, denies any acute dyspnea, denies any chest wall pain, denies any coughing or chest congestion. #2. recurrent ascites, rule out spontaneous bacterial peritonitis, patient is presently on ceftriaxone. Ultrasound done revealing moderate ascites, patient is status post paracentesis on 05/25/2017, ascites fluid was negative for any growth. #3. acute influenza A, completed a course of Tamiflu #4. possible pulmonary embolism involving the right lower lobe, patient is presently on heparin. A venous Doppler revealed no evidence of DVT bilaterally #5. history of alcoholic liver cirrhosis #6. acute presentation of sepsis with lactic acidosis, source is not quite clear, suspect possible spontaneous bacterial peritonitis. Plan: Chest x-ray from today was reviewed, shows right lower lobe atelectasis. Clinically patient is afebrile, denies any chest congestion, sputum production or acute dyspnea. From pulmonary standpoint she is stable for discharge home today, on an oral antibiotic, could be Augmentin for 7 days. Maintain aspiration precautions. I performed a history & physical examination of the patient and discussed their management with my nurse practitioner, Diana Marte. I reviewed the nurse practitioner's note and agree with the documented findings and plan of care. Lung sounds are positive for bibasilar crackles. The findings and the impression was discussed with the patient. I attest to the documentation by the nurse practitioner. Time with Patient: Less than 30
[2017-05-29 16:58] LABS: Glucose,Whole Blood 214 mg/dL (75-99)
[2017-05-29 21:33] LABS: Glucose,Whole Blood 141 mg/dL (75-99)
[2017-05-30] MEDS: guaiFENesin 600 MG TABLET.ER PO SCH ×3 (00:16→20:58)
[2017-05-30] MEDS: INSULIN ASPART 100 UNIT/ML 1 ML 10 ML VIAL SQ SCH ×5 (00:16→21:07)
[2017-05-30] MEDS: MEMANTINE 5 MG TAB PO SCH ×3 (00:16→20:57)
[2017-05-30] MEDS: DOCUSATE 100 MG CAP PO SCH ×3 (00:16→20:58)
[2017-05-30] MEDS: risperiDONE 0.5 MG TAB PO SCH ×2 (00:16→20:58)
[2017-05-30] MEDS: MAGNESIUM OXIDE 400 MG TAB PO SCH ×4 (00:16→20:57)
[2017-05-30] MEDS: SODIUM CHLORIDE 0.9% 1,000 ML IV SCH (00:20)
[2017-05-30 05:59] LABS: Glucose,Whole Blood 173 mg/dL (75-99)
[2017-05-30] MEDS: PANTOPRAZOLE 40 MG TABLET PO SCH ×3 (06:33→17:14)
[2017-05-30 08:31] LABS: ALT 58 U/L (21-72); AST 84 U/L (17-59); Albumin 1.9 g/dL (3.5-5.0); Alkaline Phosphatase 251 U/L (38-126); Anion Gap 6 mmol/L; Blood Urea Nitrogen 17 mg/dL (9-20); Calcium 8.1 mg/dL (8.4-10.2); Carbon Dioxide 25 mmol/L (22-30); Chloride 101 mmol/L (98-107); Glucose 161 mg/dL (74-99); Potassium 4.8 mmol/L (3.5-5.1); Sodium 132 mmol/L (137-145); Total Bilirubin 0.6 mg/dL (0.2-1.3); Total Protein 5.4 g/dL (6.3-8.2)
[2017-05-30 08:32] LABS: Basophils % (A) 0 %; Eosinophils # (A) 0.2 k/uL (0-0.7); Eosinophils % (A) 3 %; HCT 25.6 % (39.0-53.0); HGB 8.1 gm/dL (13.0-17.5); Lymphocytes # (A) 0.9 k/uL (1.0-4.8); Lymphocytes % (A) 14 %; MCH 33.1 pg (25.0-35.0); MCHC 31.7 g/dL (31.0-37.0); MCV 104.4 fL (80.0-100.0); Macrocytosis Moderate; Mean Platelet Volume 7.5; Monocytes # (A) 0.4 k/uL (0-1.0); Monocytes % (A) 6 %; Neutrophils # (A) 4.5 k/uL (1.3-7.7); Neutrophils % (A) 75 %; Platelet Count 139 k/uL (150-450); RBC 2.46 m/uL (4.30-5.90); RDW 14.7 % (11.5-15.5); WBC 6.1 k/uL (3.8-10.6)
[2017-05-30] MEDS: ASPIRIN 81 MG PO SCH (09:31)
[2017-05-30] MEDS: FUROSEMIDE 40 MG TAB PO SCH (09:31)
[2017-05-30] MEDS: SPIRONOLACTONE 25 MG TAB PO SCH (09:31)
[2017-05-30] MEDS: VENLAFAXINE HCL ER 150 MG CAP PO SCH (09:31)
[2017-05-30] MEDS: PRAVASTATIN SODIUM 20 MG TAB PO SCH (09:31)
[2017-05-30] MEDS: cefTRIAXone IN SWFI 1,000 MG/10 ML SYRINGE IVP SCH (09:32)
[2017-05-30] MEDS: IPRATROPIUM-ALBUTEROL 3 ML NEB INHALATION PRN ×3 (11:12→20:37)
--- NOTE | 2017-05-30 11:23 | P.PN ---
Subjective Progress Note Date: 05/30/17 Patient is status post paracentesis with 5 L removed. Fluid cultures are pending. Patient reports no abdominal pain. Reports improvement in his cough and breathing. Patient has been working with physical therapy. He will likely need ECF placement. 05/29/2017 patient sitting up in bed comfortably. Does report having a cough. Chest x-ray showing a right lower lobe atelectasis. Apparently over the weekend patient had a choking episode. There are concerns for aspiration. Speech therapy was consulted to evaluate patient swallow. He is scheduled for a barium swallow today. He did have a low-grade temp of 100.4 last night. Reports having a bowel movement. Denies any difficulty urinating. Denies any chest pain or shortness of breath. Denies any diarrhea. 05/30/2017 patient lying in bed comfortably. Has no complaints of pain. Still having some coarse breath sounds on exam. However, patient reports he is feeling much better. Cough is improved. Reports that he always has some wheeze and congestion at home. Social work is working on ECF placement. Patient requires an insurance prior authorization Objective - Vital Signs Vital signs: Vital Signs Temp 98.1 F 05/30/17 08:00 Pulse 96 05/30/17 11:15 Resp 18 05/30/17 08:00 BP 111/71 05/30/17 08:00 Pulse Ox 98 05/30/17 08:00 Intake & Output 05/29/17 05/30/17 05/30/17 18:59 06:59 18:59 Intake Total 240 240 Balance 240 240 Weight 74.5 kg 73.1 kg Intake: Oral 240 240 Other: Voiding Method Diaper Diaper Diaper # Voids 2 0 2 # Bowel Movements 1 1 - Exam Head normocephalic Neck supple Lungs coarse breath sounds noted bilaterally. But improving Heart regular rate and rhythm S1-S2, no rub or gallop Abdomen is soft nontender nondistended positive bowel sounds no hepatosplenomegaly Extremities no edema Neuro alert and orientated to 3 - Labs CBC & Chem 7: 05/30/17 05:42 05/30/17 05:42 Labs: Abnormal Lab Results - Last 24 Hours (Table) 05/29/17 05/29/17 05/29/17 Range/Units 11:58 16:50 21:32 RBC (4.30-5.90) m/uL Hgb (13.0-17.5) gm/dL Hct (39.0-53.0) % MCV (80.0-100.0) fL Plt Count (150-450) k/uL Lymphocytes # (1.0-4.8) k/uL Sodium (137-145) mmol/L Glucose (74-99) mg/dL POC Glucose (mg/dL) 123 H 214 H 141 H (75-99) mg/dL Calcium (8.4-10.2) mg/dL AST (17-59) U/L Alkaline Phosphatase (38-126) U/L Total Protein (6.3-8.2) g/dL Albumin (3.5-5.0) g/dL 05/30/17 05/30/17 05/30/17 Range/Units 05:42 05:42 05:58 RBC 2.46 L (4.30-5.90) m/uL Hgb 8.1 L (13.0-17.5) gm/dL Hct 25.6 L (39.0-53.0) % MCV 104.4 H (80.0-100.0) fL Plt Count 139 L (150-450) k/uL Lymphocytes # 0.9 L (1.0-4.8) k/uL Sodium 132 L (137-145) mmol/L Glucose 161 H (74-99) mg/dL POC Glucose (mg/dL) 173 H (75-99) mg/dL Calcium 8.1 L (8.4-10.2) mg/dL AST 84 H (17-59) U/L Alkaline Phosphatase 251 H (38-126) U/L Total Protein 5.4 L (6.3-8.2) g/dL Albumin 1.9 L (3.5-5.0) g/dL Microbiology - Last 24 Hours (Table) 05/25/17 12:26 Anaerobic Culture - Final Ascites Fluid 05/25/17 12:26 Gram Stain - Final Ascites Fluid Body Fluid Culture - Final Assessment and Plan Assessment: 1. Influenza A upper respiratory tract infection: Completed Tamiflu treatment 2. Recurrent ascites: Patient is status post paracentesis with 5.1 L removed. Fluid analysis is negative. SBP ruled out 3. Acute toxo metabolic encephalopathy: Improved significantly. probably related to #1 and 2. Hepatic encephalopathy less likely as ammonia level is normal. 4. Suspected small PE in the right lower lobe noted on computed tomography scan. Patient is a very poor candidate for anticoagulation. Doppler ultrasound was negative for DVT. Repeat computed tomography scan of the chest showed no evidence of large PE that was suboptimal for evaluation of segmental and subsegmental PE. Patient is a poor candidate for anticoagulation. Anticoagulation was discontinued. Patient was seen by both pulmonary and hematology 5. Alcoholic liver cirrhosis. 6. Hypomagnesemia : Improving continue with oral supplement 7. Reactive airway disease with diffuse rhonchi and wheezing: We will continue bronchodilators. 8. thrombocytopenia: Hit antibody negative. Seen by hematology 9. Bilateral arms hematoma 10. Chronic anemia due to his underlying liver disease and alcohol use 11. Choking episode, concerns for aspiration. Evaluated by pulmonary service and speech therapy. Pulmonary recommends Augmentin for 7 days at discharge. Diet adjusted per speech therapist. Repeat chest x-ray showing atelectasis. Incentive spirometer ordered. 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 Some mild narrowing of the distal esophagus may be present. 12. Severe protein calorie malnutrition continue supplement Unable to discharge patient to ECF today. His insurance requires a prior authorization. Social work is working on discharge planning and getting the prior authorization. Anticipate discharge to ECF tomorrow I performed an examination of the patient and discussed their management with the physician Qc Manager. I have reviewed the Physician Qc Manager's notes and agree with the documented findings and plan of care
[2017-05-30 11:30] LABS: Glucose,Whole Blood 162 mg/dL (75-99)
--- NOTE | 2017-05-30 12:18 | P.PN ---
Subjective Progress Note Date: 05/30/17 Principal diagnosis: Recurrent ascites secondary to liver disease. This is a 77-year-old white male with history of alcoholic liver cirrhosis, patient was admitted last week, and he was inpatient for about 3 days. At the time the patient presented with ascites, and he underwent paracentesis were and 5.8 L of fluid were removed from his abdominal cavity. The fluid was not infected, and it was not malignant. It was felt to be fluid related to ascites. Patient was noted by his daughter who is a nurse as having increase in his abdominal girth, she was also noting that her dad is getting more short of breath, intermittent episodes of wheezing, and at times he has become more confused and hardly arousable. Patient even spiked a temp of 102. Based on his initial workup in the ER, patient was positive for influenza A, his lactic acid was also noted to be elevated, and his CT of the chest raised the possibility of right lower lobe pulmonary embolism. Although the patient had a CT of the chest on his last admission and there was no evidence of pulmonary embolism at the time. Patient was started on Tamiflu and ceftriaxone, and I was asked to see him on consultation. He received fluid boluses, he was also placed on heparin for his presumptive right lower lobe pulmonary embolism, venous Doppler of both lower extremities was ordered, and patient will likely require another paracentesis. This will be addressed by gastroenterology and possibly by interventional radiology in the next 24-48 hours. The patient himself does not seem to be in distress, however he is a very poor historian, seems to be a bit lethargic. Most of the history was obtained from his daughter who was a nurse at his bedside. Prior to arrival to the ER, patient was noted to have more shortness of breath, coughing, wheezing, and the daughter believed he vomited not certain whether he sustained some aspiration. Patient was reevaluated today on 01/19/2018, more awake, very appropriate, in no form of distress. Remains on heparin, Tamiflu, and diuretics for his underlying liver disease and ascites. Venous Doppler was negative. Reviewed the CT of the chest again, apparently to radiologist felt that there may be pulmonary embolism in the right lower lobe, hence the patient will remain on anticoagulation therapy. Remains on antibiotics, his lactic acid is now back to normal. PTT was supratherapeutic, and heparin was placed temporarily on hold. Patient describes intermittent episodes of choking while eating or swallowing, but she also had previous swallow evaluation, and supposedly he passed. The patient is seen again today 05/23/2017 in follow-up on the selective care unit. He is currently resting quite comfortably in bed. He is awake and alert in no acute distress. He denies any worsening shortness of breath, cough or congestion. Maintaining good O2 saturations in the high 90s on room air. He's been afebrile. Hemodynamically stable. Ultrasound is pending for possible paracentesis by interventional radiology. He remains on Tamiflu. White count 4.3. Hemoglobin 7.5. Platelet count 86,000. INR 1.4. Sodium 131. Creatinine 1.10. The patient is seen again today 05/24/2017 in follow-up on the selective care unit. He is currently resting quite comfortably in bed. He denies any worsening shortness of breath, cough or congestion. Maintaining good O2 saturations in the 90s on room air. Ultrasound of the abdomen did reveal significant ascites more so on the right. The plan is for paracentesis. White count 4.1. Hemoglobin 7.3. Platelet count 80,000, INR 1.4. Creatinine 1.08. Blood culture reveals no growth. Urine culture reveals no growth. On 05/25/2017 patient seen in follow-up. Is seen resting comfortably in bed, denies any acute distress. Denies any acute dyspnea, chest pain, chest congestion or sputum production. He underwent ultrasound-guided paracentesis with removal of 5.1 L of serous fluid from his abdomen. He tolerated the procedure well. He states his breathing is easier since the paracentesis. He is on 2 L per nasal cannula with O2 sat 99%. Hemodynamically stable. Afebrile. His labs show white count of 4.2, hemoglobin of 8.2, and are 1.4, sodium of 132, potassium 5.0, UN of 16, creatinine of 1.4. Continues is on antibiotics with Rocephin, he is on oral Lasix, completed his Tamiflu. The patient is seen again today 05/26/2017 in follow-up on the selective care unit. He is resting quite comfortably in bed. He denies any worsening shortness of breath, cough or congestion. He is status post 5 L removal of ascitic fluid. He is maintaining good O2 saturations in the mid 90s on 2 L/m per nasal cannula. He is afebrile. Hemodynamically stable. Fluid cultures are pending. White count 6.5. Hemoglobin 9.2. Creatinine 0.92. Reevaluated today on 05/27/2017, patient seems to be very comfortable, in no distress, felt better since his paracentesis was done and over 5 L were drained. Repeat CT of the chest did not show pulmonary embolism, hence heparin was discontinued. Labs were reviewed, sodium is 129, hemoglobin is 8.9 WBC count is 7.5. Reevaluated today on 05/28/2017, patient continues to do relatively well, has intermittent cough, no pain, no nausea no vomiting, no hemoptysis, no specific complaints. His abdominal discomfort significantly improved post paracentesis. Labs were reviewed including CBC and basic metabolic profile, sodium is a bit low at 129. On 05/29/2017 patient seen in follow-up. Yesterday he had an episode of choking while drinking out of a cup and was suspected to have aspirated. He did have some low-grade fever at 2000 last night with a temp of 100.4F. Patient denies any acute distress, he is alert, awake, resting comfortably in bed, currently on 2 L per nasal cannula with O2 sat 97%. He is afebrile today. Chest x-ray this morning shows evidence of right lower lobe atelectasis. 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 Lung sounds are positive for crackles at bilateral lower bases, no rhonchi or wheezes noted. He denies any chest pain, denies any fever or chills, denies any hemoptysis, denies any chest congestion or wheezing. He continues on Rocephin, nebulized treatments. From pulmonary standpoint he remains stable, and he is stable for discharge home today on an oral antibiotic. On 05/30/2017 patient is seen again in follow-up. He remains stable. His lung sounds are positive for some scattered rhonchi, patient needs to be encouraged to continue working on his incentive spirometry, and deep breathing and coughing. Otherwise he denies any acute dyspnea. He has been afebrile, and hemodynamically stable. Currently on 2 L per nasal cannula with O2 sat at 98%, he did ambulate in the hallway with physical therapy on room air, and upon return to the room his room air pulse ox was 97%. Patient did become mildly dyspneic with ambulation, but recovered quickly with rest. Social work is working on ECF placement. Otherwise he remains stable, and kidney with current medical treatment. Upon discharge he can continue on 7 more days of oral Augmentin. Objective - Vital Signs Vital signs: Vital Signs Temp 98.1 F 05/30/17 08:00 Pulse 88 05/30/17 11:32 Resp 18 05/30/17 11:23 BP 111/71 05/30/17 08:00 Pulse Ox 98 05/30/17 08:00 Intake & Output 05/29/17 05/30/17 05/30/17 18:59 06:59 18:59 Intake Total 240 240 Balance 240 240 Weight 74.5 kg 73.1 kg Intake: Oral 240 240 Other: Voiding Method Diaper Diaper Diaper # Voids 2 0 2 # Bowel Movements 1 1 - Exam GENERAL EXAM: Alert, active, comfortable in no apparent distress. HEAD: Normocephalic. EYES: Normal reaction of pupils, equal size. NOSE: Clear with pink turbinates. THROAT: No erythema or exudates. NECK: No masses, no JVD. CHEST: No chest wall deformity. LUNGS: Equal air entry with scattered rhonchi CVS: S1 and S2 normal with no audible murmur, regular rhythm. ABDOMEN: Distended, positive fluid wave, normal bowel sounds, no guarding or rigidity. SPINE: No scoliosis or deformity SKIN: No rashes CENTRAL NERVOUS SYSTEM: No focal deficits, tone is normal in all 4 extremities. EXTREMITIES: There is no peripheral edema. No clubbing, no cyanosis. Peripheral pulses are intact. - Labs CBC & Chem 7: 05/30/17 05:42 05/30/17 05:42 Labs: Abnormal Lab Results - Last 24 Hours (Table) 05/29/17 05/29/17 05/30/17 Range/Units 16:50 21:32 05:42 RBC 2.46 L (4.30-5.90) m/uL Hgb 8.1 L (13.0-17.5) gm/dL Hct 25.6 L (39.0-53.0) % MCV 104.4 H (80.0-100.0) fL Plt Count 139 L (150-450) k/uL Lymphocytes # 0.9 L (1.0-4.8) k/uL Sodium (137-145) mmol/L Glucose (74-99) mg/dL POC Glucose (mg/dL) 214 H 141 H (75-99) mg/dL Calcium (8.4-10.2) mg/dL AST (17-59) U/L Alkaline Phosphatase (38-126) U/L Total Protein (6.3-8.2) g/dL Albumin (3.5-5.0) g/dL 05/30/17 05/30/17 05/30/17 Range/Units 05:42 05:58 11:19 RBC (4.30-5.90) m/uL Hgb (13.0-17.5) gm/dL Hct (39.0-53.0) % MCV (80.0-100.0) fL Plt Count (150-450) k/uL Lymphocytes # (1.0-4.8) k/uL Sodium 132 L (137-145) mmol/L Glucose 161 H (74-99) mg/dL POC Glucose (mg/dL) 173 H 162 H (75-99) mg/dL Calcium 8.1 L (8.4-10.2) mg/dL AST 84 H (17-59) U/L Alkaline Phosphatase 251 H (38-126) U/L Total Protein 5.4 L (6.3-8.2) g/dL Albumin 1.9 L (3.5-5.0) g/dL Microbiology - Last 24 Hours (Table) 05/25/17 12:26 Anaerobic Culture - Final Ascites Fluid 05/25/17 12:26 Gram Stain - Final Ascites Fluid Body Fluid Culture - Final Assessment and Plan Plan: Assessment: #1. Choking episode with suspected aspiration on 05/28/2017. Chest x-ray from today just showed right lower lobe atelectasis, patient did have an isolated low -grade fever last night with a temp of 100.4. Afebrile today, denies any acute dyspnea, denies any chest wall pain, denies any coughing or chest congestion. #2. recurrent ascites, rule out spontaneous bacterial peritonitis, patient is presently on ceftriaxone. Ultrasound done revealing moderate ascites, patient is status post paracentesis on 05/25/2017, ascites fluid was negative for any growth. #3. acute influenza A, completed a course of Tamiflu #4. possible pulmonary embolism involving the right lower lobe, patient is presently on heparin. A venous Doppler revealed no evidence of DVT bilaterally #5. history of alcoholic liver cirrhosis #6. acute presentation of sepsis with lactic acidosis, source is not quite clear, ascites fluid culture was negative for any growth. Plan: Continue current medical treatment, patient remains afebrile, denies any acute dyspnea, maintaining aspiration precautions, continue encouraging incentive spirometry. He has been ambulating with the physical therapy, tolerated very well, on room air. We will switch the Rocephin to oral Augmentin 875/125 twice a day for 7 days. Continue DuoNeb nebulized treatments. I performed a history & physical examination of the patient and discussed their management with my nurse practitioner, Diana Marte. I reviewed the nurse practitioner's note and agree with the documented findings and plan of care. Lung sounds are positive for scattered rhonchi. The findings and the impression was discussed with the patient. I attest to the documentation by the nurse practitioner. Time with Patient: Less than 30
[2017-05-30] MEDS: ALPRAZolam 0.25 MG TAB PO PRN ×2 (13:07→20:57)
[2017-05-30 16:46] LABS: Glucose,Whole Blood 174 mg/dL (75-99)
[2017-05-30 20:56] LABS: Glucose,Whole Blood 140 mg/dL (75-99)
[2017-05-30] MEDS: AMOXIC-POT CLAV 875-125MG 1 EACH TAB PO SCH (20:57)
[2017-05-31] MEDS: SODIUM CHLORIDE 0.9% 1,000 ML IV SCH (05:08)
[2017-05-31 06:01] LABS: Glucose,Whole Blood 139 mg/dL (75-99)
[2017-05-31] MEDS: INSULIN ASPART 100 UNIT/ML 1 ML 10 ML VIAL SQ SCH ×4 (07:16→22:53)
--- NOTE | 2017-05-31 08:32 | CDI ---
Last Revision, March 2017 Documentation Clarification Form Date: 05/31/2017 8:11:00 AM From: Sailaja Corbett RN Admit Date: 05/21/2017 12:41:00 AM Patient Name: Андрей Crow Visit Number: [id number] ATTENTION: The Clinical Documentation Specialists (CDI) and [facility] Coding Staff appreciate your assistance in clarifying documentation. Please respond to the clarification below the line at the bottom and electronically sign. The CDI & [facility] Coding staff will review the response and follow-up if needed. Please note: Queries are made part of the Legal Health Record. If you have any questions, please contact the author of this message via ITS. Dr. Meghna White, Documentation and location in medical record included 05/21 in the H&P states "sepsis". Charting on 05/22 Dr Coughlin "acute presentation of sepsis", 05/23 - in Progress Notes Sepsis is stated. History/Risk Factors: dementia, dm, gerd, hyperlipidemia, x smoker, Influenza, ascites Clinical Indicators: WBC on admission 6.1 Lactic acid on admission: 4.9 Vitals signs on admission: T 102.7, P 106, R 25, 134/76, 97% NON REBREATHER Treatment: ID Consult: Antibiotics: IV Vanco, IV Rocephin, PO Augmentin IV Bolus: x1 In your professional opinion, please clarify if these findings signify one of the following conditions, whether the condition is POA, and cause, if known: Sepsis ruled in Sepsis ruled out Other, please specify Unable to determine Present on Admission: Yes No Please continue to document in your progress notes and discharge summary in order to capture severity of illness and risk of mortality. Include clinical findings that support your diagnosis. MTDD
--- NOTE | 2017-05-31 08:51 | P.PN ---
Subjective Progress Note Date: 05/31/17 Principal diagnosis: Influenza, liver cirrhosis 77-year-old male with suspected alcohol liver disease admitted with acute influenza 10 days ago. Status post paracentesis a week ago; ascitic culture no growth. Over the course of the last few days he was having difficulty swallowing with choking and coughing and gagging placed on a modified chopped dysphagia level III diet. MBS 2 days ago reported possible distal esophageal narrowing with features of presbyesophagus and secondary/tertiary contractions. Denies abdominal pain. Afebrile. Objective - Vital Signs Vital signs: Vital Signs Temp 99.2 F 05/31/17 04:00 Pulse 83 05/31/17 04:00 Resp 20 05/31/17 04:00 BP 104/71 05/31/17 04:00 Pulse Ox 96 05/31/17 04:00 Intake & Output 05/30/17 05/31/17 05/31/17 18:59 06:59 18:59 Intake Total 720 Output Total 2 2 Balance 718 -2 Weight 76.5 kg Intake: Oral 720 Output: Stool 2 2 Other: Voiding Method Diaper Bedside Commode Diaper Incontinent # Voids 1 1 # Bowel Movements 0 - Exam General appearance: The patient is alert, oriented, in no acute distress. HET: Head is normocephalic and atraumatic. Pupils are equal and reactive. Oropharynx is clear without lesions. Neck: Supple without lymphadenopathy. Trachea midline. Heart: S1 S2. Regular rate and rhythm. Lungs: Slight diminishment bilaterally. Upper airways with scattered rhonchi clears with cough. Abdomen: Soft, nontender, nondistended with bowel sounds. No peritoneal signs. No palpable organomegaly or masses. Extremities: Normal skin color and turgor. No cyanosis, rash, ulceration, clubbing, or edema. Radial and pedal pulses are 2/4 bilaterally. Neurological: No focal deficits. Strength and sensation are grossly intact. - Labs CBC & Chem 7: 05/30/17 05:42 05/30/17 05:42 Labs: Abnormal Lab Results - Last 24 Hours (Table) 05/30/17 05/30/17 05/30/17 Range/Units 11:19 16:28 20:54 POC Glucose (mg/dL) 162 H 174 H 140 H (75-99) mg/dL 02/28/18 Range/Units 05:53 POC Glucose (mg/dL) 139 H (75-99) mg/dL Assessment and Plan (1) Influenza A Current Visit: Yes Status: Acute Code(s): J10.1 - FLU DUE TO OTH IDENT INFLUENZA VIRUS W OTH RESP MANIFEST SNOMED Code(s): 940001845 (2) Ascites Narrative/Plan: Status post paracentesis 5 L removal Current Visit: No Status: Acute Code(s): R18.8 - OTHER ASCITES SNOMED Code (s): 422247011 (3) Cirrhosis Narrative/Plan: Suspect alcohol liver cirrhosis Current Visit: No Status: Acute Code(s): K74.60 - UNSPECIFIED CIRRHOSIS OF LIVER SNOMED Code(s): 42146871 (4) Anemia Narrative/Plan: Clinically no evidence of active GI bleed Current Visit: Yes Status: Acute Code(s): D64.9 - ANEMIA, UNSPECIFIED SNOMED Code(s): 169586947 (5) Thrombocytopenia Current Visit: Yes Status: Acute Code(s): D69.6 - THROMBOCYTOPENIA, UNSPECIFIED SNOMED Code(s): 419132811 (6) Coagulopathy Current Visit: Yes Status: Acute Code(s): D68.9 - COAGULATION DEFECT, UNSPECIFIED SNOMED Code(s): 08027777 (7) Portal hypertension Current Visit: No Status: Acute Code(s): K76.6 - PORTAL HYPERTENSION SNOMED Code(s): 26771513 (8) Dysphagia Narrative/Plan: Suspect presbyesophagus cannot exclude underlying mild distal esophageal stricture per MBS study Current Visit: Yes Status: Acute Code(s): R13.10 - DYSPHAGIA, UNSPECIFIED SNOMED Code(s): 81929045 Plan: 1. EGD evaluation today. The archival records clerk has discussed the risks, benefits and alternative therapies for the above-mentioned procedure and for both sedation/analgesia as well as necessary blood product administration, if indicated, as they pertain to this patient. The patient has indicated understanding and acceptance of the risks and procedures discussed. Assessment and plan a care discussed with Dr. Bennett
[2017-05-31] MEDS: IPRATROPIUM-ALBUTEROL 3 ML NEB INHALATION PRN ×3 (09:10→16:24)
[2017-05-31 11:40] LABS: Glucose,Whole Blood 106 mg/dL (75-99)
[2017-05-31] MEDS ORDERED: PROPOFOL 10 MG/ML 20 ML VIAL IV ONE (13:05)
[2017-05-31] MEDS ORDERED: LIDOCAINE 1% INJ 10MG/ML (20 ML MDV) ONE (13:05)
[2017-05-31] MEDS ORDERED: SODIUM CHLORIDE 0.9% 1,000 ML IV ONE (13:14)
--- NOTE | 2017-05-31 13:14 | P.PCN ---
Date of Procedure: 05/31/17 Procedure(s) Performed: BRIEF HISTORY: Patient is a 77-year-old, pleasant, male, scheduled for an upper endoscopy as a part of evaluation of dysphagia. He had a modified barium swallow done yesterday which showed possible esophageal stricture in the distal esophagus.. PROCEDURE PERFORMED: Esophagogastroduodenoscopy with biopsy. PREOPERATIVE DIAGNOSIS: Dysphagia. IV sedation per anesthesia. PROCEDURE: After informed consent was obtained, the patient was brought into the endoscopy unit. IV sedation was administered by Anesthesia under continuous monitoring. Initially the Olympus GIF-140 video endoscope was inserted into the mouth. Esophagus intubated without any difficulty. It was gradually advanced into the stomach and duodenum and carefully examined. The bulb and the second part of the duodenum appeared normal. The scope at this time was withdrawn to the stomach, adequately insufflated with air, and upon careful examination, mucosa of the antrum, body, had changes consistent with mild portal hypertensive gastropathy. The cardia and the fundus appeared normal. The scope was then withdrawn into the esophagus. The GE junction was located at 39 cm from the incisors. There were no erosions or ulcerations seen. There were multiple superficial distal esophageal circumferential rings identified but no evidence of esophageal stricture. Biopsies were done from the distal esophagus. Rest of the esophagus appeared normal and and the patient tolerated the procedure well. IMPRESSION: 1. Multiple superficial distal esophageal circumferential rings with no evidence of esophageal stricture. 2. Mild portal hypertensive gastropathy. RECOMMENDATIONS: The findings of this examination were discussed with the patient as well as his family. He was advised to continue with pured diet. He will follow with the biopsy results..
--- NOTE | 2017-05-31 14:17 | P.PN ---
Subjective Progress Note Date: 05/31/17 Principal diagnosis: Recurrent ascites secondary to liver disease. This is a 77-year-old white male with history of alcoholic liver cirrhosis, patient was admitted last week, and he was inpatient for about 3 days. At the time the patient presented with ascites, and he underwent paracentesis were and 5.8 L of fluid were removed from his abdominal cavity. The fluid was not infected, and it was not malignant. It was felt to be fluid related to ascites. Patient was noted by his daughter who is a nurse as having increase in his abdominal girth, she was also noting that her dad is getting more short of breath, intermittent episodes of wheezing, and at times he has become more confused and hardly arousable. Patient even spiked a temp of 102. Based on his initial workup in the ER, patient was positive for influenza A, his lactic acid was also noted to be elevated, and his CT of the chest raised the possibility of right lower lobe pulmonary embolism. Although the patient had a CT of the chest on his last admission and there was no evidence of pulmonary embolism at the time. Patient was started on Tamiflu and ceftriaxone, and I was asked to see him on consultation. He received fluid boluses, he was also placed on heparin for his presumptive right lower lobe pulmonary embolism, venous Doppler of both lower extremities was ordered, and patient will likely require another paracentesis. This will be addressed by gastroenterology and possibly by interventional radiology in the next 24-48 hours. The patient himself does not seem to be in distress, however he is a very poor historian, seems to be a bit lethargic. Most of the history was obtained from his daughter who was a nurse at his bedside. Prior to arrival to the ER, patient was noted to have more shortness of breath, coughing, wheezing, and the daughter believed he vomited not certain whether he sustained some aspiration. Patient was reevaluated today on 01/19/2018, more awake, very appropriate, in no form of distress. Remains on heparin, Tamiflu, and diuretics for his underlying liver disease and ascites. Venous Doppler was negative. Reviewed the CT of the chest again, apparently to radiologist felt that there may be pulmonary embolism in the right lower lobe, hence the patient will remain on anticoagulation therapy. Remains on antibiotics, his lactic acid is now back to normal. PTT was supratherapeutic, and heparin was placed temporarily on hold. Patient describes intermittent episodes of choking while eating or swallowing, but she also had previous swallow evaluation, and supposedly he passed. The patient is seen again today 05/23/2017 in follow-up on the selective care unit. He is currently resting quite comfortably in bed. He is awake and alert in no acute distress. He denies any worsening shortness of breath, cough or congestion. Maintaining good O2 saturations in the high 90s on room air. He's been afebrile. Hemodynamically stable. Ultrasound is pending for possible paracentesis by interventional radiology. He remains on Tamiflu. White count 4.3. Hemoglobin 7.5. Platelet count 86,000. INR 1.4. Sodium 131. Creatinine 1.10. The patient is seen again today 05/24/2017 in follow-up on the selective care unit. He is currently resting quite comfortably in bed. He denies any worsening shortness of breath, cough or congestion. Maintaining good O2 saturations in the 90s on room air. Ultrasound of the abdomen did reveal significant ascites more so on the right. The plan is for paracentesis. White count 4.1. Hemoglobin 7.3. Platelet count 80,000, INR 1.4. Creatinine 1.08. Blood culture reveals no growth. Urine culture reveals no growth. On 05/25/2017 patient seen in follow-up. Is seen resting comfortably in bed, denies any acute distress. Denies any acute dyspnea, chest pain, chest congestion or sputum production. He underwent ultrasound-guided paracentesis with removal of 5.1 L of serous fluid from his abdomen. He tolerated the procedure well. He states his breathing is easier since the paracentesis. He is on 2 L per nasal cannula with O2 sat 99%. Hemodynamically stable. Afebrile. His labs show white count of 4.2, hemoglobin of 8.2, and are 1.4, sodium of 132, potassium 5.0, UN of 16, creatinine of 1.4. Continues is on antibiotics with Rocephin, he is on oral Lasix, completed his Tamiflu. The patient is seen again today 05/26/2017 in follow-up on the selective care unit. He is resting quite comfortably in bed. He denies any worsening shortness of breath, cough or congestion. He is status post 5 L removal of ascitic fluid. He is maintaining good O2 saturations in the mid 90s on 2 L/m per nasal cannula. He is afebrile. Hemodynamically stable. Fluid cultures are pending. White count 6.5. Hemoglobin 9.2. Creatinine 0.92. Reevaluated today on 05/27/2017, patient seems to be very comfortable, in no distress, felt better since his paracentesis was done and over 5 L were drained. Repeat CT of the chest did not show pulmonary embolism, hence heparin was discontinued. Labs were reviewed, sodium is 129, hemoglobin is 8.9 WBC count is 7.5. Reevaluated today on 05/28/2017, patient continues to do relatively well, has intermittent cough, no pain, no nausea no vomiting, no hemoptysis, no specific complaints. His abdominal discomfort significantly improved post paracentesis. Labs were reviewed including CBC and basic metabolic profile, sodium is a bit low at 129. On 05/29/2017 patient seen in follow-up. Yesterday he had an episode of choking while drinking out of a cup and was suspected to have aspirated. He did have some low-grade fever at 2000 last night with a temp of 100.4F. Patient denies any acute distress, he is alert, awake, resting comfortably in bed, currently on 2 L per nasal cannula with O2 sat 97%. He is afebrile today. Chest x-ray this morning shows evidence of right lower lobe atelectasis. 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 Lung sounds are positive for crackles at bilateral lower bases, no rhonchi or wheezes noted. He denies any chest pain, denies any fever or chills, denies any hemoptysis, denies any chest congestion or wheezing. He continues on Rocephin, nebulized treatments. From pulmonary standpoint he remains stable, and he is stable for discharge home today on an oral antibiotic. On 05/30/2017 patient is seen again in follow-up. He remains stable. His lung sounds are positive for some scattered rhonchi, patient needs to be encouraged to continue working on his incentive spirometry, and deep breathing and coughing. Otherwise he denies any acute dyspnea. He has been afebrile, and hemodynamically stable. Currently on 2 L per nasal cannula with O2 sat at 98%, he did ambulate in the hallway with physical therapy on room air, and upon return to the room his room air pulse ox was 97%. Patient did become mildly dyspneic with ambulation, but recovered quickly with rest. Social work is working on ECF placement. Otherwise he remains stable, and kidney with current medical treatment. Upon discharge he can continue on 7 more days of oral Augmentin. On 05/31/2017 patient seen in follow-up. Denies any acute distress. Lung sounds are positive for minimal crackles over right lower lobe, otherwise clear. He is on room air, O2 sat at 93%. No chest congestion or sputum production. He continues on empiric Augmentin. Ascites fluid was negative for any growth, blood and urine cultures are negative. Patient is hemodynamically stable, denies any acute complaints. Discharge planning is in progress for discharge to the subacute rehab today Objective - Vital Signs Vital signs: Vital Signs Temp 97.7 F 05/31/17 11:57 Pulse 80 05/31/17 12:37 Resp 20 05/31/17 11:57 BP 118/73 05/31/17 11:57 Pulse Ox 93 L 05/31/17 11:57 Intake & Output 05/30/17 05/31/17 05/31/17 18:59 06:59 18:59 Intake Total 720 50 Output Total 2 2 4 Balance 718 -2 46 Weight 76.5 kg Intake: IV 50 Oral 720 Output: Stool 2 2 4 Other: Voiding Method Diaper Bedside Commode Bedside Commode Diaper Diaper Incontinent Incontinent # Voids 1 1 2 # Bowel Movements 0 2 - Exam GENERAL EXAM: Alert, active, comfortable in no apparent distress. HEAD: Normocephalic. EYES: Normal reaction of pupils, equal size. NOSE: Clear with pink turbinates. THROAT: No erythema or exudates. NECK: No masses, no JVD. CHEST: No chest wall deformity. LUNGS: Equal air entry some limited crackles over right lower lobe, clear on the left. Patient is on room air, denies any acute distress. CVS: S1 and S2 normal with no audible murmur, regular rhythm. ABDOMEN: Distended, positive fluid wave, normal bowel sounds, no guarding or rigidity. SPINE: No scoliosis or deformity SKIN: No rashes CENTRAL NERVOUS SYSTEM: No focal deficits, tone is normal in all 4 extremities. EXTREMITIES: There is no peripheral edema. No clubbing, no cyanosis. Peripheral pulses are intact. - Labs CBC & Chem 7: 05/30/17 05:42 05/30/17 05:42 Labs: Abnormal Lab Results - Last 24 Hours (Table) 05/30/17 05/30/17 05/31/17 Range/Units 16:28 20:54 05:53 POC Glucose (mg/dL) 174 H 140 H 139 H (75-99) mg/dL 05/31/17 Range/Units 11:37 POC Glucose (mg/dL) 106 H (75-99) mg/dL Assessment and Plan Plan: Assessment: #1. Choking episode with suspected aspiration on 05/28/2017. Chest x-ray from today just showed right lower lobe atelectasis, patient did have an isolated low -grade fever last night with a temp of 100.4. Afebrile today, denies any acute dyspnea, denies any chest wall pain, denies any coughing or chest congestion. #2. recurrent ascites, rule out spontaneous bacterial peritonitis, patient is presently on ceftriaxone. Ultrasound done revealing moderate ascites, patient is status post paracentesis on 05/25/2017, ascites fluid was negative for any growth. #3. acute influenza A, completed a course of Tamiflu #4. possible pulmonary embolism involving the right lower lobe, patient is presently on heparin. A venous Doppler revealed no evidence of DVT bilaterally #5. history of alcoholic liver cirrhosis #6. acute presentation of sepsis with lactic acidosis, source is not quite clear, ascites fluid culture was negative for any growth. Plan: Patient is stable from pulmonary standpoint, continue Augmentin, continue nebulized treatments. Denies any acute distress, denies any acute dyspnea. May is on room air, maintaining O2 saturations above 92%. He has been ambulating the halls, tolerating it well. From pulmonary standpoint he is stable for discharge to subacute rehab today. I performed a history & physical examination of the patient and discussed their management with my nurse practitioner, Diana Marte. I reviewed the nurse practitioner's note and agree with the documented findings and plan of care. Lung sounds are positive for minimal crackles over right posterior lower lobe. The findings and the impression was discussed with the patient. I attest to the documentation by the nurse practitioner. Time with Patient: Less than 30
[2017-05-31] MEDS: PANTOPRAZOLE 40 MG TABLET PO SCH ×2 (14:54→14:55)
[2017-05-31] MEDS: FUROSEMIDE 40 MG TAB PO SCH (14:55)
[2017-05-31] MEDS: MEMANTINE 5 MG TAB PO SCH ×2 (14:55→20:01)
[2017-05-31] MEDS: MAGNESIUM OXIDE 400 MG TAB PO SCH ×3 (14:55→20:01)
[2017-05-31] MEDS: ASPIRIN 81 MG PO SCH (14:55)
[2017-05-31] MEDS: SPIRONOLACTONE 25 MG TAB PO SCH (14:55)
[2017-05-31] MEDS: guaiFENesin 600 MG TABLET.ER PO SCH ×2 (14:55→20:00)
[2017-05-31] MEDS: VENLAFAXINE HCL ER 150 MG CAP PO SCH (14:55)
[2017-05-31] MEDS: AMOXIC-POT CLAV 875-125MG 1 EACH TAB PO SCH ×2 (14:55→20:00)
[2017-05-31] MEDS: DOCUSATE 100 MG CAP PO SCH ×2 (14:55→20:06)
[2017-05-31] MEDS: PRAVASTATIN SODIUM 20 MG TAB PO SCH (14:58)
[2017-05-31] MEDS: ALPRAZolam 0.25 MG TAB PO PRN (16:00)
[2017-05-31 16:43] LABS: Glucose,Whole Blood 176 mg/dL (75-99)
--- NOTE | 2017-05-31 17:30 | P.PN ---
Subjective Progress Note Date: 05/31/17 Today patient is alert and oriented 3 he is feeling more constable he underwent paracentesis yesterday with 5.1 L of ascites fluid removed He denies any chest pain or shortness of breath he has cough with occasional sputum production there is no nausea or vomiting no abdominal pain no diarrhea or constipation and no urinary symptoms. On 05/28/2017 patient is alert and oriented resting comfortably in bed still complaining of shortness of breath with activity complaining of occasional cough otherwise no complaints abdominal discomfort improved significantly after paracentesis 05/29/2017 patient sitting up in bed comfortably. Does report having a cough. Chest x-ray showing a right lower lobe atelectasis. Apparently over the weekend patient had a choking episode. There are concerns for aspiration. Speech therapy was consulted to evaluate patient swallow. He is scheduled for a barium swallow today. He did have a low-grade temp of 100.4 last night. Reports having a bowel movement. Denies any difficulty urinating. Denies any chest pain or shortness of breath. Denies any diarrhea. 05/30/2017 patient lying in bed comfortably. Has no complaints of pain. Still having some coarse breath sounds on exam. However, patient reports he is feeling much better. Cough is improved. Reports that he always has some wheeze and congestion at home. Social work is working on ECF placement. Patient requires an insurance prior authorization On 05/31/2017 patient lying in bed comfortably. Denies any complaints. patient reports he is feeling much better. Cough is improved. Social work is working on ECF placement. Patient requires an insurance prior authorization, had EGD today results reviewed awaiting biopsy result. Objective - Vital Signs Vital signs: Vital Signs Temp 97.7 F 05/31/17 16:21 Pulse 80 05/31/17 16:36 Resp 20 05/31/17 16:21 BP 124/53 05/31/17 16:21 Pulse Ox 93 L 05/31/17 16:21 Intake & Output 05/30/17 05/31/17 05/31/17 18:59 06:59 18:59 Intake Total 720 50 Output Total 2 2 6 Balance 718 -2 44 Weight 76.5 kg Intake: IV 50 Oral 720 Output: Stool 2 2 6 Other: Voiding Method Diaper Bedside Commode Bedside Commode Diaper Diaper Incontinent Incontinent # Voids 1 1 2 # Bowel Movements 0 2 - Exam Head normocephalic and atraumatic Neck supple no JVD no goiter no lymphadenopathy Lungs exam reveals crackles in both lung bases no wheezing Heart regular rate and rhythm S1-S2, no rub or gallop Abdomen is soft nontender nondistended positive bowel sounds no hepatosplenomegaly Extremities no edema no cyanosis or clubbing Neuro alert and orientated to 3 - Labs CBC & Chem 7: 05/30/17 05:42 05/30/17 05:42 Labs: Abnormal Lab Results - Last 24 Hours (Table) 05/30/17 05/31/17 05/31/17 Range/Units 20:54 05:53 11:37 POC Glucose (mg/dL) 140 H 139 H 106 H (75-99) mg/dL 05/31/17 Range/Units 16:34 POC Glucose (mg/dL) 176 H (75-99) mg/dL Assessment and Plan Plan: 1. Influenza A upper respiratory tract infection: On Tamiflu finish 5 days course 2. Recurrent ascites need to rule out SBP. Currently on IV ceftriaxone. Patient is status post paracentesis with 5.1 L removed. Fluid analysis pending 3. Acute toxo metabolic encephalopathy: Improved significantly. probably related to #1 and 2. Hepatic encephalopathy less likely as ammonia level is normal. 4. Suspected small PE in the right lower lobe noted on computed tomography scan. Patient is a very poor candidate for anticoagulation. Doppler ultrasound was negative for DVT. Repeat computed tomography scan of the chest showed no evidence of large PE that was suboptimal for evaluation of segmental and subsegmental PE. Patient is a poor candidate for anticoagulation. Anticoagulation was discontinued. Patient was seen by both pulmonary and hematology 5. Alcoholic liver cirrhosis. 6. Hypomagnesemia will be replaced. Magnesium low at 1.3 will increase his oral magnesium to 500 mg twice a day 7. Reactive airway disease with diffuse rhonchi and wheezing: We will continue bronchodilators. 8. thrombocytopenia: Hit antibody negative. Toes and pain likely due to acute infection liver disease and ecchymosis. Patient seen by hematology 9. Bilateral arms hematoma 10. Chronic anemia due to his underlying liver disease and alcohol use 11. Patient had EGD today, results reviewed, awaiting biopsy results Awaiting fluid analysis results to rule out S BP Continue physical therapy. Patient will require ECF placement Anticipate discharge Monday
[2017-05-31] MEDS: risperiDONE 0.5 MG TAB PO SCH (20:02)
[2017-05-31 20:25] LABS: Glucose,Whole Blood 127 mg/dL (75-99)
[2017-06-01] MEDS: SODIUM CHLORIDE 0.9% 1,000 ML IV SCH (01:41)
[2017-06-01] MEDS: ALPRAZolam 0.25 MG TAB PO PRN (03:19)
[2017-06-01 06:50] LABS: Basophils % (A) 0 %; Eosinophils # (A) 0.2 k/uL (0-0.7); Eosinophils % (A) 3 %; HGB 8.9 gm/dL (13.0-17.5); Lymphocytes # (A) 1.1 k/uL (1.0-4.8); Lymphocytes % (A) 17 %; MCH 33.3 pg (25.0-35.0); MCHC 31.6 g/dL (31.0-37.0); MCV 105.2 fL (80.0-100.0); Macrocytosis Moderate; Mean Platelet Volume 7.2; Monocytes # (A) 0.5 k/uL (0-1.0); Monocytes % (A) 8 %; Neutrophils # (A) 4.5 k/uL (1.3-7.7); Neutrophils % (A) 69 %; Platelet Count 155 k/uL (150-450); RBC 2.66 m/uL (4.30-5.90); RDW 14.9 % (11.5-15.5); WBC 6.5 k/uL (3.8-10.6)
[2017-06-01 07:00] LABS: ALT 63 U/L (21-72); AST 89 U/L (17-59); Alkaline Phosphatase 280 U/L (38-126); Anion Gap 5 mmol/L; Blood Urea Nitrogen 17 mg/dL (9-20); Calcium 8.3 mg/dL (8.4-10.2); Carbon Dioxide 24 mmol/L (22-30); Chloride 101 mmol/L (98-107); Glucose 125 mg/dL (74-99); Potassium 4.7 mmol/L (3.5-5.1); Sodium 130 mmol/L (137-145); Total Protein 5.8 g/dL (6.3-8.2)
[2017-06-01 07:01] LABS: Glucose,Whole Blood 125 mg/dL (75-99)
[2017-06-01] MEDS: IPRATROPIUM-ALBUTEROL 3 ML NEB INHALATION PRN (07:36)
[2017-06-01] MEDS: INSULIN ASPART 100 UNIT/ML 1 ML 10 ML VIAL SQ SCH ×2 (07:38→13:11)
[2017-06-01] MEDS: VENLAFAXINE HCL ER 150 MG CAP PO SCH (08:04)
[2017-06-01] MEDS: SPIRONOLACTONE 25 MG TAB PO SCH (08:04)
[2017-06-01] MEDS: guaiFENesin 600 MG TABLET.ER PO SCH (08:04)
[2017-06-01] MEDS: MAGNESIUM OXIDE 400 MG TAB PO SCH (08:04)
[2017-06-01] MEDS: AMOXIC-POT CLAV 875-125MG 1 EACH TAB PO SCH (08:04)
[2017-06-01] MEDS: DOCUSATE 100 MG CAP PO SCH (08:04)
[2017-06-01] MEDS: FUROSEMIDE 40 MG TAB PO SCH (08:05)
[2017-06-01] MEDS: ASPIRIN 81 MG PO SCH (08:05)
[2017-06-01] MEDS: PRAVASTATIN SODIUM 20 MG TAB PO SCH (08:05)
[2017-06-01] MEDS: MEMANTINE 5 MG TAB PO SCH (08:05)
[2017-06-01 08:17] VITALS: BP 145/92; PULSE 78; RESP 16; TEMP 96.8
--- NOTE | 2017-06-01 10:39 | P.PN ---
Subjective Progress Note Date: 06/01/17 Principal diagnosis: Recurrent ascites secondary to liver disease. This is a 77-year-old white male with history of alcoholic liver cirrhosis, patient was admitted last week, and he was inpatient for about 3 days. At the time the patient presented with ascites, and he underwent paracentesis were and 5.8 L of fluid were removed from his abdominal cavity. The fluid was not infected, and it was not malignant. It was felt to be fluid related to ascites. Patient was noted by his daughter who is a nurse as having increase in his abdominal girth, she was also noting that her dad is getting more short of breath, intermittent episodes of wheezing, and at times he has become more confused and hardly arousable. Patient even spiked a temp of 102. Based on his initial workup in the ER, patient was positive for influenza A, his lactic acid was also noted to be elevated, and his CT of the chest raised the possibility of right lower lobe pulmonary embolism. Although the patient had a CT of the chest on his last admission and there was no evidence of pulmonary embolism at the time. Patient was started on Tamiflu and ceftriaxone, and I was asked to see him on consultation. He received fluid boluses, he was also placed on heparin for his presumptive right lower lobe pulmonary embolism, venous Doppler of both lower extremities was ordered, and patient will likely require another paracentesis. This will be addressed by gastroenterology and possibly by interventional radiology in the next 24-48 hours. The patient himself does not seem to be in distress, however he is a very poor historian, seems to be a bit lethargic. Most of the history was obtained from his daughter who was a nurse at his bedside. Prior to arrival to the ER, patient was noted to have more shortness of breath, coughing, wheezing, and the daughter believed he vomited not certain whether he sustained some aspiration. Patient was reevaluated today on 01/19/2018, more awake, very appropriate, in no form of distress. Remains on heparin, Tamiflu, and diuretics for his underlying liver disease and ascites. Venous Doppler was negative. Reviewed the CT of the chest again, apparently to radiologist felt that there may be pulmonary embolism in the right lower lobe, hence the patient will remain on anticoagulation therapy. Remains on antibiotics, his lactic acid is now back to normal. PTT was supratherapeutic, and heparin was placed temporarily on hold. Patient describes intermittent episodes of choking while eating or swallowing, but she also had previous swallow evaluation, and supposedly he passed. The patient is seen again today 05/23/2017 in follow-up on the selective care unit. He is currently resting quite comfortably in bed. He is awake and alert in no acute distress. He denies any worsening shortness of breath, cough or congestion. Maintaining good O2 saturations in the high 90s on room air. He's been afebrile. Hemodynamically stable. Ultrasound is pending for possible paracentesis by interventional radiology. He remains on Tamiflu. White count 4.3. Hemoglobin 7.5. Platelet count 86,000. INR 1.4. Sodium 131. Creatinine 1.10. The patient is seen again today 05/24/2017 in follow-up on the selective care unit. He is currently resting quite comfortably in bed. He denies any worsening shortness of breath, cough or congestion. Maintaining good O2 saturations in the 90s on room air. Ultrasound of the abdomen did reveal significant ascites more so on the right. The plan is for paracentesis. White count 4.1. Hemoglobin 7.3. Platelet count 80,000, INR 1.4. Creatinine 1.08. Blood culture reveals no growth. Urine culture reveals no growth. On 05/25/2017 patient seen in follow-up. Is seen resting comfortably in bed, denies any acute distress. Denies any acute dyspnea, chest pain, chest congestion or sputum production. He underwent ultrasound-guided paracentesis with removal of 5.1 L of serous fluid from his abdomen. He tolerated the procedure well. He states his breathing is easier since the paracentesis. He is on 2 L per nasal cannula with O2 sat 99%. Hemodynamically stable. Afebrile. His labs show white count of 4.2, hemoglobin of 8.2, and are 1.4, sodium of 132, potassium 5.0, UN of 16, creatinine of 1.4. Continues is on antibiotics with Rocephin, he is on oral Lasix, completed his Tamiflu. The patient is seen again today 05/26/2017 in follow-up on the selective care unit. He is resting quite comfortably in bed. He denies any worsening shortness of breath, cough or congestion. He is status post 5 L removal of ascitic fluid. He is maintaining good O2 saturations in the mid 90s on 2 L/m per nasal cannula. He is afebrile. Hemodynamically stable. Fluid cultures are pending. White count 6.5. Hemoglobin 9.2. Creatinine 0.92. Reevaluated today on 05/27/2017, patient seems to be very comfortable, in no distress, felt better since his paracentesis was done and over 5 L were drained. Repeat CT of the chest did not show pulmonary embolism, hence heparin was discontinued. Labs were reviewed, sodium is 129, hemoglobin is 8.9 WBC count is 7.5. Reevaluated today on 05/28/2017, patient continues to do relatively well, has intermittent cough, no pain, no nausea no vomiting, no hemoptysis, no specific complaints. His abdominal discomfort significantly improved post paracentesis. Labs were reviewed including CBC and basic metabolic profile, sodium is a bit low at 129. On 05/29/2017 patient seen in follow-up. Yesterday he had an episode of choking while drinking out of a cup and was suspected to have aspirated. He did have some low-grade fever at 2000 last night with a temp of 100.4F. Patient denies any acute distress, he is alert, awake, resting comfortably in bed, currently on 2 L per nasal cannula with O2 sat 97%. He is afebrile today. Chest x-ray this morning shows evidence of right lower lobe atelectasis. 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 Lung sounds are positive for crackles at bilateral lower bases, no rhonchi or wheezes noted. He denies any chest pain, denies any fever or chills, denies any hemoptysis, denies any chest congestion or wheezing. He continues on Rocephin, nebulized treatments. From pulmonary standpoint he remains stable, and he is stable for discharge home today on an oral antibiotic. On 05/30/2017 patient is seen again in follow-up. He remains stable. His lung sounds are positive for some scattered rhonchi, patient needs to be encouraged to continue working on his incentive spirometry, and deep breathing and coughing. Otherwise he denies any acute dyspnea. He has been afebrile, and hemodynamically stable. Currently on 2 L per nasal cannula with O2 sat at 98%, he did ambulate in the hallway with physical therapy on room air, and upon return to the room his room air pulse ox was 97%. Patient did become mildly dyspneic with ambulation, but recovered quickly with rest. Social work is working on ECF placement. Otherwise he remains stable, and kidney with current medical treatment. Upon discharge he can continue on 7 more days of oral Augmentin. On 05/31/2017 patient seen in follow-up. Denies any acute distress. Lung sounds are positive for minimal crackles over right lower lobe, otherwise clear. He is on room air, O2 sat at 93%. No chest congestion or sputum production. He continues on empiric Augmentin. Ascites fluid was negative for any growth, blood and urine cultures are negative. Patient is hemodynamically stable, denies any acute complaints. Discharge planning is in progress for discharge to the subacute rehab today On 06/01/2017 patient seen in follow-up on the regular surgical floor. He sitting up in bed, denies any acute complaints. Denies any acute dyspnea. Lung sounds are positive for a few scattered wheezes, but no rhonchi or rales noted. Afebrile, he remains on room air with pulse ox at 96%. Blood cultures urine culture and ascites fluid cultures remain negative. She remains on oral Augmentin. From pulmonary standpoint stable for discharge to the subacute rehab today. Objective - Vital Signs Vital signs: Vital Signs Temp 96.8 F L 06/01/17 07:00 Pulse 86 06/01/17 07:46 Resp 16 06/01/17 07:00 BP 145/92 06/01/17 07:00 Pulse Ox 96 06/01/17 07:00 Intake & Output 05/31/17 06/01/17 06/01/17 18:59 06:59 18:59 Intake Total 410 300 Output Total 6 Balance 404 300 Weight 76 kg Intake: IV 50 Oral 360 Other 300 Output: Stool 6 Other: Voiding Method Bedside Commode Bedside Commode Diaper Diaper Incontinent Incontinent # Voids 3 2 # Bowel Movements 2 - Exam GENERAL EXAM: Alert, active, comfortable in no apparent distress. HEAD: Normocephalic. EYES: Normal reaction of pupils, equal size. NOSE: Clear with pink turbinates. THROAT: No erythema or exudates. NECK: No masses, no JVD. CHEST: No chest wall deformity. LUNGS: Equal air entry a few scattered wheezes. Patient is on room air, denies any acute distress. CVS: S1 and S2 normal with no audible murmur, regular rhythm. ABDOMEN: Distended, positive fluid wave, normal bowel sounds, no guarding or rigidity. SPINE: No scoliosis or deformity SKIN: No rashes CENTRAL NERVOUS SYSTEM: No focal deficits, tone is normal in all 4 extremities. EXTREMITIES: There is no peripheral edema. No clubbing, no cyanosis. Peripheral pulses are intact. - Labs CBC & Chem 7: 06/01/17 06:27 06/01/17 06:27 Labs: Abnormal Lab Results - Last 24 Hours (Table) 05/31/17 05/31/17 05/31/17 Range/Units 11:37 16:34 20:20 RBC (4.30-5.90) m/uL Hgb (13.0-17.5) gm/dL Hct (39.0-53.0) % MCV (80.0-100.0) fL Sodium (137-145) mmol/L Glucose (74-99) mg/dL POC Glucose (mg/dL) 106 H 176 H 127 H (75-99) mg/dL Calcium (8.4-10.2) mg/dL AST (17-59) U/L Alkaline Phosphatase (38-126) U/L Total Protein (6.3-8.2) g/dL Albumin (3.5-5.0) g/dL 06/01/17 06/01/17 06/01/17 Range/Units 06:27 06:27 06:56 RBC 2.66 L (4.30-5.90) m/uL Hgb 8.9 L (13.0-17.5) gm/dL Hct 28.0 L (39.0-53.0) % MCV 105.2 H (80.0-100.0) fL Sodium 130 L (137-145) mmol/L Glucose 125 H (74-99) mg/dL POC Glucose (mg/dL) 125 H (75-99) mg/dL Calcium 8.3 L (8.4-10.2) mg/dL AST 89 H (17-59) U/L Alkaline Phosphatase 280 H (38-126) U/L Total Protein 5.8 L (6.3-8.2) g/dL Albumin 2.0 L (3.5-5.0) g/dL Assessment and Plan Plan: Assessment: #1. Choking episode with suspected aspiration on 05/28/2017. Chest x-ray was negative for any clear evidence of pneumonia, patient was started empirically on Augmentin, will complete a 7 day course treatment with it. #2. recurrent ascites, ruled out spontaneous bacterial peritonitis, status post paracentesis on 05/25/2017, ascites fluid was negative for any growth. #3. acute influenza A, completed a course of Tamiflu #4. possible pulmonary embolism involving the right lower lobe, patient is presently on heparin. A venous Doppler revealed no evidence of DVT bilaterally #5. history of alcoholic liver cirrhosis #6. acute presentation of sepsis with lactic acidosis, source is not quite clear, ascites fluid culture was negative for any growth. Plan: Patient remains stable from pulmonary standpoint, continue Augmentin for a total of 7 days, continue nebulized treatments. No acute events overnight, denies any acute complaints, anticipate discharge to subacute rehab today. I performed a history & physical examination of the patient and discussed their management with my nurse practitioner, Diana Marte. I reviewed the nurse practitioner's note and agree with the documented findings and plan of care. Lung sounds are positive for a few scattered wheezes The findings and the impression was discussed with the patient. I attest to the documentation by the nurse practitioner. Time with Patient: Less than 30
--- NOTE | 2017-06-01 11:20 | P.DS ---
Providers Date of admission: 05/21/17 00:41 Expected date of discharge: 06/01/17 Attending physician: Nori Philippe Consults: 05/21/17 00:36 Consult Physician Stat Consulting Provider: Lashawn Coughlin Consult Reason/Comments: ICU Management Do you want consulting provider notified?: Already Contacted 05/23/17 13:17 Consult Physician Routine Consulting Provider: Chet Fraire Consult Reason/Comments: thrombocytopenia/ possible PE Do you want consulting provider notified?: Yes 05/30/17 12:14 Consult Physician Routine Consulting Provider: Radha Bennett Consult Reason/Comments: narrowing of distal esophagus on barium swallow Do you want consulting provider notified?: Yes Primary care physician: J[facility] Course: 1. 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 Recurrent ascites: status post paracentesis during this admission with 5.1 L removed. Continue diuresis 3. Small PE in the right lower lobe noted on computed tomography scan: Patient is not a candidate for anticoagulation giving underlying liver disease, thrombocytopenia, and bilateral arm bruising. Patient was seen by hematology and pulmonology 4. Multiple superficial distal esophageal circumferential rings: Noted on EGD. Continue pured diet. 5. Influenza A upper respiratory tract infection: Finished 5 days course of Tamiflu during this hospitalization 6. Hypomagnesemia: oral magnesium to 500 mg twice a day Patient Condition at Discharge: Poor Plan - Discharge Summary Discharge Rx Participant: No New Discharge Prescriptions: New Amoxic-Pot Clav 875-125Mg [Augmentin 875-125] 1 each PO Q12HR #10 tab Ipratropium-Albuterol Nebulize [Duoneb 0.5 mg-3 mg/3 ml Soln] 3 ml INHALATION RT-QID PRN #0 ampul.neb PRN Reason: Wheezing Pantoprazole [Protonix] 40 mg PO AC-BRKFST #30 tablet. Continue risperiDONE [RisperDAL] 0.5 mg PO HS Multivitamins, Thera [Multivitamin (formulary)] 1 tab PO DAILY metFORMIN HCL 1,000 mg PO BID Memantine HCl [Namenda] 5 mg PO BID Cholecalciferol [Vitamin D3] 1,000 unit PO DAILY Pravastatin Sodium [Pravachol] 20 mg PO DAILY Venlafaxine HCl [Effexor XR] 150 mg PO DAILY Aspirin [Adult Low Dose Aspirin EC] 81 mg PO DAILY Furosemide [Lasix] 40 mg PO DAILY #30 tab Magnesium Oxide [Mag-Ox] 400 mg PO BID #60 tab Spironolactone [Aldactone] 100 mg PO DAILY Discontinued ALPRAZolam [Xanax] 0.25 mg PO DAILY PRN PRN Reason: Anxiety Omeprazole [PriLOSEC] 20 mg PO AC-BID Discharge Medication List Aspirin [Adult Low Dose Aspirin EC] 81 mg PO DAILY 05/14/17 [History] Cholecalciferol [Vitamin D3] 1,000 unit PO DAILY 05/14/17 [History] Memantine HCl [Namenda] 5 mg PO BID 05/14/17 [History] Multivitamins, Thera [Multivitamin (formulary)] 1 tab PO DAILY 05/14/17 [History ] Pravastatin Sodium [Pravachol] 20 mg PO DAILY 05/14/17 [History] Venlafaxine HCl [Effexor XR] 150 mg PO DAILY 05/14/17 [History] metFORMIN HCL 1,000 mg PO BID 05/14/17 [History] risperiDONE [RisperDAL] 0.5 mg PO HS 05/14/17 [History] Furosemide [Lasix] 40 mg PO DAILY #30 tab 05/17/17 [Rx] Magnesium Oxide [Mag-Ox] 400 mg PO BID #60 tab 05/17/17 [Rx] Spironolactone [Aldactone] 100 mg PO DAILY 05/21/17 [History] Amoxic-Pot Clav 875-125Mg [Augmentin 875-125] 1 each PO Q12HR #10 tab 06/01/17 [ Rx] Ipratropium-Albuterol Nebulize [Duoneb 0.5 mg-3 mg/3 ml Soln] 3 ml INHALATION RT -QID PRN #0 ampul.neb 06/01/17 [Rx] Pantoprazole [Protonix] 40 mg PO AC-BRKFST #30 tablet. 06/01/17 [Rx] Follow up Appointment(s)/Referral(s): Radha Bennett MD [STAFF PHYSICIAN] - 06/21/17 1:00 pm Viviana Bailey [NON-STAFF] - As Needed Meghna White MD [STAFF PHYSICIAN] - 1 Week Activity/Diet/Wound Care/Special Instructions: [facility] [phone]. Discharge Disposition: TRANSFER TO SNF/ECF
[2017-06-01 11:27] LABS: Glucose,Whole Blood 218 mg/dL (75-99)
--- NOTE | 2017-06-02 15:58 | CDI ---
Last Revision, March 2017 Documentation Clarification Form Date: 06/02/2017 3:40:00 PM From: Loren Andujar Phone: If you have a question regarding this query, please contact Merissa Stewartcarololvin Bucket Pusher at [phone] between 8am and 5pm Admit Date: 05/21/2017 12:41:00 AM Patient Name: Андрей Crow Visit Number: [id number] Discharge Date: 06/01/17 ATTENTION: The Clinical Documentation Specialists (CDI) and [facility] Coding Staff appreciate your assistance in clarifying documentation. Please respond to the clarification below the line at the bottom and electronically sign. The CDI & [facility] Coding staff will review the response and follow-up if needed. Please note: Queries are made part of the Legal Health Record. If you have any questions, please contact the author of this message via ITS. Dr. Meghna White Sepsis is documented in the ED note, H&P, Dr. Coughlin's Consult note and progress notes from 05/22 thru 06/[address] Murireta and Dr. Coughlin but it is not documented in the Discharge Summary. History/Risk Factors: Influenza A, possible spontaneous bacterial peritonitis that was ruled out and ascites with cirrhosis. Clinical Indicators: Confusion, fever and short of breath. WBC/Left Shift: 6.1/4.6 Lactic acid: 4.9 Blood cultures: No growth Vitals signs on admission: T. 102.7, P. 106, R. 25, BP 134/76 Antibiotics: IV Rocephen, IV Levofloxacin, P.O. Augmentin, IV Bolus: Sodium Chloride 1000 mls @ 999 mls/hr In your professional opinion, please clarify on of the following: Sepsis ruled in Sepsis ruled out Other, please specify Unable to determine Identify the (suspected) organism MTDD
--- NOTE | 2017-06-06 14:57 | CDI ---
Last Revision, March 2017 Documentation Clarification Form Date: 06/02/2017 3:40:00 PM From: Loren Andujar Phone: If you have a question regarding this query, contact Merissa Stewartcarololvin [employer] Manager at [phone] between 8am and 5pm Admit Date: 05/21/2017 12:41:00 AM Patient Name: Андрей Crow Visit Number: [id number] Discharge Date: ATTENTION: The Clinical Documentation Specialists (CDI) and [facility] Coding Staff appreciate your assistance in clarifying documentation. Please respond to the clarification below the line at the bottom and electronically sign. The CDI & [facility] Coding staff will review the response and follow-up if needed. Please note: Queries are made part of the Legal Health Record. If you have any questions, please contact the author of this message via ITS. Dr. Meghna White Sepsis is documented in the ED note, H&P, Dr. Coughlin's Consult note and progress notes from 05/22 thru 06/[address] Murrieta and Dr. Coughlin but it is not documented in the Discharge Summary. History/Risk Factors: Influenza A, possible spontaneous bacterial peritonitis that was ruled out and ascites with cirrhosis. Clinical Indicators: Confusion, fever and short of breath. WBC/Left Shift: 6.1/4.6 Lactic acid: 4.9 Blood cultures: No growth Vitals signs on admission: T. 102.7, P. 106, R. 25, BP 134/76 Antibiotics: IV Rocephen, IV Levofloxacin, P.O. Augmentin, IV Bolus: Sodium Chloride 1000 mls @ 999 mls/hr In your professional opinion, please clarify on of the following: Sepsis ruled in Sepsis ruled out Other, please specify Unable to determine Identify the (suspected) organism . MTDD
--- NOTE | 2017-06-08 09:14 | CDI ---
Last Revision, March 2017 Documentation Clarification Form Date: 06/02/2017 3:40:00 PM From: Loren Andujar Phone: If you have a question regarding this query, please contact Merissafreddie Thurman Tunnel Man at [phone]. Admit Date: 05/21/2017 12:41:00 AM Patient Name: Андрей Crow Visit Number: [id number] Discharge Date: 06/01 ATTENTION: The Clinical Documentation Specialists (CDI) and [facility] Coding Staff appreciate your assistance in clarifying documentation. Please respond to the clarification below the line at the bottom and electronically sign. The CDI & [facility] Coding staff will review the response and follow-up if needed. Please note: Queries are made part of the Legal Health Record. If you have any questions, please contact the author of this message via ITS. Dr. Meghna White Sepsis is documented in the ED note, H&P, Dr. Coughlin's Consult note and progress notes from 05/22 thru 06/[address] Murrieta and Dr. Coughlin but it is not documented in the Discharge Summary. History/Risk Factors: Influenza A, possible spontaneous bacterial peritonitis that was ruled out and ascites with cirrhosis. Clinical Indicators: Confusion, fever and short of breath. WBC/Left Shift: 6.1/4.6 Lactic acid: 4.9 Blood cultures: No growth Vitals signs on admission: T. 102.7, P. 106, R. 25, BP 134/76 Antibiotics: IV Rocephen, IV Levofloxacin, P.O. Augmentin, IV Bolus: Sodium Chloride 1000 mls @ 999 mls/hr In your professional opinion, please clarify on of the following: Sepsis ruled in Sepsis ruled out Other, please specify Unable to determine ruled in MTDD
== END 2017-06-01 13:00 | DRG 871 ==
LOC: EC 20:36 → 6ICU 05-21 00:41 → 6SEL 05-21 12:23 → 3SUR 05-31 22:40
PROVIDERS: ADMIT Internal Medicine; ATTEND Internal Medicine
PROC: 0W9G3ZZ Drainage of Peritoneal Cavity, Percutaneous Approach (ICD-10-PCS; principal; 2017-05-25)
PROC: 0DB38ZX Excision of Lower Esophagus, Via Natural or Artificial Opening Endoscopic, Diagnostic (ICD-10-PCS; 2017-05-31)
DX: A41.9 Sepsis, unspecified organism (principal); E43 Unspecified severe protein-calorie malnutrition; I26.99 Other pulmonary embolism without acute cor pulmonale; G93.41 Metabolic encephalopathy; K76.6 Portal hypertension; E87.2 Acidosis; D68.9 Coagulation defect, unspecified; J98.11 Atelectasis; D69.6 Thrombocytopenia, unspecified; J10.1 Influenza due to other identified influenza virus with other respiratory manifestations; D53.9 Nutritional anemia, unspecified; E83.42 Hypomagnesemia; D63.8 Anemia in other chronic diseases classified elsewhere; F03.90 Unspecified dementia, unspecified severity, without behavioral disturbance, psychotic disturbance, mood disturbance, and anxiety; E11.9 Type 2 diabetes mellitus without complications; E78.5 Hyperlipidemia, unspecified; H91.90 Unspecified hearing loss, unspecified ear; K08.109 Complete loss of teeth, unspecified cause, unspecified class; S40.022A Contusion of left upper arm, initial encounter; S40.021A Contusion of right upper arm, initial encounter; F32.9 Major depressive disorder, single episode, unspecified; F43.10 Post-traumatic stress disorder, unspecified; J45.909 Unspecified asthma, uncomplicated; K21.9 Gastro-esophageal reflux disease without esophagitis; K31.89 Other diseases of stomach and duodenum; K70.31 Alcoholic cirrhosis of liver with ascites; K72.90 Hepatic failure, unspecified without coma; R13.10 Dysphagia, unspecified; K22.8 Other specified diseases of esophagus; Z79.82 Long term (current) use of aspirin; Z79.899 Other long term (current) drug therapy; Z79.84 Long term (current) use of oral hypoglycemic drugs; Z88.5 Allergy status to narcotic agent; Z88.8 Allergy status to other drugs, medicaments and biological substances; Z87.891 Personal history of nicotine dependence; Z96.649 Presence of unspecified artificial hip joint; Z96.659 Presence of unspecified artificial knee joint
CPT/HCPCS: 36415; 36600; 43239; 49083; 51701; 70450; 71045; 71275; 74220; 76705; 80053; 81001; 82140; 82550; 82553; 82607; 82728; 82746; 82805; 83540; 83550; 83605; 83735; 83880; 84100; 84165; 84484; 85025; 85045; 85379; 85610; 85730; 86022; 87040; 87070; 87075; 87086; 87205; 87502; 88305; 93005; 93970; 94640; 96365; 96366; 96367; 96368; 96372; 96375; 96376; 99285

== ENCOUNTER 2017-06-21 09:04 | Day surgery (SDC) | payer MEDICARE ==
[2017-06-21 09:44] LABS: Mean Platelet Volume 7.2; Platelet Count 167 k/uL (150-450)
[2017-06-21 09:45] VITALS: TEMP 98
[2017-06-21 10:48] LABS: Prothrombin Time 12.9 sec (9.0-12.0)
[2017-06-21 10:50] LABS: INR 1.4 (<1.2)
[2017-06-21] MEDS: ALBUMIN HUMAN 25% 50 ML in EMPTY BAG 1 BAG IVPB SCH ×3 (11:19→12:28)
[2017-06-21 11:29] VITALS: RESP 16
[2017-06-21 12:29] VITALS: BP 109/53; PULSE 96
--- NOTE | 2017-06-21 15:20 | US ---
EXAMINATION TYPE: US paracentesis abd w/image DATE OF EXAM: 06/21/2017 COMPARISON: NONE HISTORY: Ascites. PROCEDURE: Maximal barrier technique was utilized. The skin overlying a suitable pocket of fluid was localized with ultrasound and the overlying skin was prepped and draped. Ultrasound was utilized with sterile technique. Lidocaine was used for local anesthesia and a skin terri made with a scalpel. Catheter was advanced under direct ultrasound guidance into a suitable pocket of fluid and approximately 5.8 liter s of serous fluid were removed. Catheter was withdrawn and hemostasis achieved. There is no immedia te complication; the patient is discharged in stable condition. IMPRESSION: STATUS POST ULTRASOUND GUIDED PARACENTESIS FOR PALLIATION OF ASCITES. THIS PROCEDURE WA S PERFORMED BY THE UNDERSIGNED.
[2017-06-21 17:41] LABS: Appearance,BF Clear; Color,BF Yellow
[2017-06-21 17:42] LABS: Nucleated Cells, Body Fluid 71 /uL; RBC, Body Fluid 183 /uL
[2017-06-21 17:43] LABS: Mononuclear WBC,Body Fluid 95 %; Polynuclear WBC,Body Fluid 5 %; Total Cells Counted,Body Fluid 100
== END 2017-06-21 12:10 | disposition home or self-care (01) ==
LOC: RADPROMAIN 09:04
PROVIDERS: ATTEND Internal Medicine Gastroenterology
DX: R18.8 Other ascites (principal); K74.60 Unspecified cirrhosis of liver
CPT/HCPCS: 89050; 82565; 82947; 85049; 85610; 87070; 87205; 87075; 96365; 36415; 49083; P9047

== ENCOUNTER 2017-07-11 23:39 | Inpatient (IN) | payer MEDICARE ==
[2017-07-12] MEDS ORDERED: ACETAMINOPHEN IV (For NPO) 1,000 MG in EMPTY BAG 1 BAG IVPB STA (00:58)
[2017-07-12] MEDS ORDERED: SODIUM CHLORIDE 0.9% 500 ML IV SCH (01:00)
--- NOTE | 2017-07-12 01:03 | ED ---
General Adult HPI - General Chief complaint: Altered Mental Status Stated complaint: WEAKNESS,ALTERED MENTAL STATUS Time Seen by Provider: 07/12/17 00:39 Source: patient, family, EMS, RN notes reviewed Mode of arrival: EMS Limitations: altered mental status, physical limitation - History of Present Illness Initial comments: Patient is a pleasant 77-year-old male presenting to the emergency Department with complaints of fever and altered level of consciousness. Patient is a poor historian. Patient does have history of dementia. Majority of history is obtained from family. Onset of symptoms was tonight over the past few hours. Patient has occasional cough however this is chronic and unchanged. Patient seems fatigued and drowsy. Patient was mostly answering yes and no earlier. Patient does have a history of cirrhosis and does have routine paracentesis done. Neck scheduled paracentesis is approximately one week from now. - Related Data Home Medications Medication Instructions Recorded Confirmed Aspirin [Adult Low Dose Aspirin EC] 81 mg PO DAILY 05/14/17 06/21/17 Cholecalciferol [Vitamin D3] 1,000 unit PO DAILY 05/14/17 07/11/17 Memantine HCl [Namenda] 5 mg PO BID 05/14/17 07/11/17 Multivitamins, Thera [Multivitamin 1 tab PO DAILY 05/14/17 07/11/17 (formulary)] Venlafaxine HCl [Effexor XR] 150 mg PO BID 05/14/17 07/11/17 risperiDONE [RisperDAL] 0.5 mg PO HS 05/14/17 07/11/17 Spironolactone [Aldactone] 100 mg PO DAILY 05/21/17 07/11/17 ALPRAZolam [Xanax] 0.5 mg PO DAILY PRN 06/19/17 07/11/17 Bisacodyl [Dulcolax] 10 mg RECTAL DAILY PRN 06/19/17 07/11/17 Magnesium Hydroxide [Milk of 30 ml PO DAILY PRN 06/19/17 07/11/17 Magnesia Concentrate] Pantoprazole [Protonix] 40 mg PO BID 07/11/17 07/11/17 Previous Rx's Medication Instructions Recorded Furosemide [Lasix] 40 mg PO DAILY #30 tab 05/17/17 Magnesium Oxide [Mag-Ox] 400 mg PO BID #60 tab 05/17/17 Ipratropium-Albuterol Nebulize 3 ml INHALATION RT-QID PRN #0 06/01/17 [Duoneb 0.5 mg-3 mg/3 ml Soln] ampul.neb Allergies Allergy/AdvReac Type Severity Reaction Status Date / Time donepezil [From Aricept] Allergy Unknown Verified 07/11/17 15:28 morphine Allergy Unknown Verified 07/11/17 15:28 Review of Systems ROS Statement: Those systems with pertinent positive or pertinent negative responses have been documented in the HPI. ROS Other: All systems not noted in ROS Statement are negative. Constitutional: Reports: fever (Temperature at home was 101.6) Eyes: Denies: eye discharge ENT: Denies: epistaxis Respiratory: Reports: cough (Chronic and unchanged) Cardiovascular: Denies: chest pain Endocrine: Reports: fatigue Gastrointestinal: Denies: vomiting Genitourinary: Denies: hematuria Musculoskeletal: Denies: back pain Skin: Denies: rash Neurological: Reports: confusion (Drowsiness) Past Medical History Past Medical History: Dementia, Diabetes Mellitus, GERD/Reflux, Hyperlipidemia, Liver Disease Additional Past Medical History / Comment(s): swallowing problems, edema, anemia , [place], Dentures, liver cirrhosis, in evaluation process for liver transplant. History of Any Multi-Drug Resistant Organisms: None Reported Past Surgical History: Back Surgery Additional Past Surgical History / Comment(s): esophagus stretched for swallowing issues, knee replaced, hip replaced, multi paracentesis Past Anesthesia/Blood Transfusion Reactions: No Reported Reaction Past Psychological History: Depression, PTSD Smoking Status: Former smoker Past Alcohol Use History: None Reported, Abuse, Heavy Past Drug Use History: None Reported General Exam Limitations: altered mental status, physical limitation General appearance: in no apparent distress, other (Drowsy but easily arousable to voice) Head exam: Present: atraumatic, normocephalic Eye exam: Present: normal appearance, PERRL, EOMI. Absent: nystagmus ENT exam: Present: mucous membranes dry Neck exam: Present: normal inspection. Absent: tenderness, meningismus Respiratory exam: Present: normal lung sounds bilaterally Cardiovascular Exam: Present: regular rate, normal rhythm GI/Abdominal exam: Present: soft, distended (Minimally distended abdomen). Absent: tenderness Extremities exam: Present: pedal edema (+1 bilateral). Absent: calf tenderness Neurological exam: Present: oriented X3, CN II-XII intact, other (Drowsy but arousable to voice). Absent: motor sensory deficit Psychiatric exam: Present: normal affect, normal mood Skin exam: Present: normal color Course Vital Signs 07/11/17 07/12/17 07/12/17 23:40 00:40 01:47 Temperature 99.2 F Pulse Rate 107 H 96 80 Respiratory 16 17 16 Rate Blood Pressure 119/62 98/61 115/61 O2 Sat by Pulse 98 97 100 Oximetry 07/12/17 02:50 Temperature Pulse Rate 76 Respiratory 17 Rate Blood Pressure 90/54 O2 Sat by Pulse 99 Oximetry EKG Findings - EKG Comments: EKG Findings:: Sinus tachycardia 104. CO 156. QRS 78. QT 350. QTC 460. Left axis. Normal QRS. No acute ST change. Medical Decision Making - Medical Decision Making Patient reevaluated and does appear alert. Family states patient is somewhat confused still. Patient has no significant elevation of white blood cell count. No obvious source of infection. Patient does have elevation of ammonia concerning for hepatic encephalopathy. Influenza will be ordered. Patient will be covered with antibiotics for possible infection. Patient will be consult with gastroenterology. Case was discussed with practitioner Myriam soni , who will admit for Dr. Guillermo, covering for Dr. Rendon. Family is updated. Patient does not meet sepsis criteria. - Lab Data Result diagrams: 07/12/17 00:03 07/12/17 00:03 Lab Results 07/12/17 07/12/17 07/12/17 Range/Units 00:03 00:03 00:03 WBC 8.1 (3.8-10.6) k/uL RBC 3.01 L (4.30-5.90) m/uL Hgb 10.4 L (13.0-17.5) gm/dL Hct 30.7 L (39.0-53.0) % MCV 102.0 H (80.0-100.0) fL MCH 34.6 (25.0-35.0) pg MCHC 33.9 (31.0-37.0) g/dL RDW 14.3 (11.5-15.5) % Plt Count 164 (150-450) k/uL Neutrophils % 81 % Lymphocytes % 10 % Monocytes % 5 % Eosinophils % 1 % Basophils % 0 % Neutrophils # 6.6 (1.3-7.7) k/uL Lymphocytes # 0.8 L (1.0-4.8) k/uL Monocytes # 0.4 (0-1.0) k/uL Eosinophils # 0.1 (0-0.7) k/uL Basophils # 0.0 (0-0.2) k/uL Macrocytosis Slight PT (9.0-12.0) sec INR (<1.2) APTT (22.0-30.0) sec Sodium 132 L (137-145) mmol/L Potassium 4.9 (3.5-5.1) mmol/L Chloride 100 (98-107) mmol/L Carbon Dioxide 22 (22-30) mmol/L Anion Gap 10 mmol/L BUN 25 H (9-20) mg/dL Creatinine 1.10 (0.66-1.25) mg/dL Est GFR (CKD-EPI)AfAm 75 (>60 ml/min/1.73 sqM) Est GFR (CKD-EPI)NonAf 65 (>60 ml/min/1.73 sqM) Glucose 278 H (74-99) mg/dL Plasma Lactic Acid Rusty (0.7-2.0) mmol/L Calcium 8.4 (8.4-10.2) mg/dL Total Bilirubin 0.7 (0.2-1.3) mg/dL AST 204 H (17-59) U/L ALT 104 H (21-72) U/L Alkaline Phosphatase 291 H (38-126) U/L Ammonia (<30) umol/L Total Creatine Kinase 42 L (55-170) U/L CK-MB (CK-2) 0.5 (0.0-2.4) ng/mL CK-MB (CK-2) Rel Index 1.2 Troponin I 0.038 H* (0.000-0.034) ng/mL Total Protein 6.9 (6.3-8.2) g/dL Albumin 2.4 L (3.5-5.0) g/dL Urine Color Urine Appearance (Clear) Urine pH (5.0-8.0) Ur Specific [place] (1.001-1.035) Urine Protein (Negative) Urine Glucose (UA) (Negative) Urine Ketones (Negative) Urine Blood (Negative) Urine Nitrite (Negative) Urine Bilirubin (Negative) Urine Urobilinogen (<2.0) mg/dL Ur Leukocyte Esterase (Negative) 07/12/17 07/12/17 07/12/17 Range/Units 00:03 00:03 00:03 WBC (3.8-10.6) k/uL RBC (4.30-5.90) m/uL Hgb (13.0-17.5) gm/dL Hct (39.0-53.0) % MCV (80.0-100.0) fL MCH (25.0-35.0) pg MCHC (31.0-37.0) g/dL RDW (11.5-15.5) % Plt Count (150-450) k/uL Neutrophils % % Lymphocytes % % Monocytes % % Eosinophils % % Basophils % % Neutrophils # (1.3-7.7) k/uL Lymphocytes # (1.0-4.8) k/uL Monocytes # (0-1.0) k/uL Eosinophils # (0-0.7) k/uL Basophils # (0-0.2) k/uL Macrocytosis PT 12.4 H (9.0-12.0) sec INR 1.3 H (<1.2) APTT 24.1 (22.0-30.0) sec Sodium (137-145) mmol/L Potassium (3.5-5.1) mmol/L Chloride (98-107) mmol/L Carbon Dioxide (22-30) mmol/L Anion Gap mmol/L BUN (9-20) mg/dL Creatinine (0.66-1.25) mg/dL Est GFR (CKD-EPI)AfAm (>60 ml/min/1.73 sqM) Est GFR (CKD-EPI)NonAf (>60 ml/min/1.73 sqM) Glucose (74-99) mg/dL Plasma Lactic Acid Rusty 2.6 H* (0.7-2.0) mmol/L Calcium (8.4-10.2) mg/dL Total Bilirubin (0.2-1.3) mg/dL AST (17-59) U/L ALT (21-72) U/L Alkaline Phosphatase (38-126) U/L Ammonia 47 H (<30) umol/L Total Creatine Kinase (55-170) U/L CK-MB (CK-2) (0.0-2.4) ng/mL CK-MB (CK-2) Rel Index Troponin I (0.000-0.034) ng/mL Total Protein (6.3-8.2) g/dL Albumin (3.5-5.0) g/dL Urine Color Urine Appearance (Clear) Urine pH (5.0-8.0) Ur Specific [place] (1.001-1.035) Urine Protein (Negative) Urine Glucose (UA) (Negative) Urine Ketones (Negative) Urine Blood (Negative) Urine Nitrite (Negative) Urine Bilirubin (Negative) Urine Urobilinogen (<2.0) mg/dL Ur Leukocyte Esterase (Negative) 07/12/17 Range/Units 01:50 WBC (3.8-10.6) k/uL RBC (4.30-5.90) m/uL Hgb (13.0-17.5) gm/dL Hct (39.0-53.0) % MCV (80.0-100.0) fL MCH (25.0-35.0) pg MCHC (31.0-37.0) g/dL RDW (11.5-15.5) % Plt Count (150-450) k/uL Neutrophils % % Lymphocytes % % Monocytes % % Eosinophils % % Basophils % % Neutrophils # (1.3-7.7) k/uL Lymphocytes # (1.0-4.8) k/uL Monocytes # (0-1.0) k/uL Eosinophils # (0-0.7) k/uL Basophils # (0-0.2) k/uL Macrocytosis PT (9.0-12.0) sec INR (<1.2) APTT (22.0-30.0) sec Sodium (137-145) mmol/L Potassium (3.5-5.1) mmol/L Chloride (98-107) mmol/L Carbon Dioxide (22-30) mmol/L Anion Gap mmol/L BUN (9-20) mg/dL Creatinine (0.66-1.25) mg/dL Est GFR (CKD-EPI)AfAm (>60 ml/min/1.73 sqM) Est GFR (CKD-EPI)NonAf (>60 ml/min/1.73 sqM) Glucose (74-99) mg/dL Plasma Lactic Acid Rusty (0.7-2.0) mmol/L Calcium (8.4-10.2) mg/dL Total Bilirubin (0.2-1.3) mg/dL AST (17-59) U/L ALT (21-72) U/L Alkaline Phosphatase (38-126) U/L Ammonia (<30) umol/L Total Creatine Kinase (55-170) U/L CK-MB (CK-2) (0.0-2.4) ng/mL CK-MB (CK-2) Rel Index Troponin I (0.000-0.034) ng/mL Total Protein (6.3-8.2) g/dL Albumin (3.5-5.0) g/dL Urine Color Yellow Urine Appearance Clear (Clear) Urine pH 6.0 (5.0-8.0) Ur Specific [place] 1.024 (1.001-1.035) Urine Protein Trace H (Negative) Urine Glucose (UA) Trace H (Negative) Urine Ketones Negative (Negative) Urine Blood Negative (Negative) Urine Nitrite Negative (Negative) Urine Bilirubin Negative (Negative) Urine Urobilinogen 2.0 (<2.0) mg/dL Ur Leukocyte Esterase Negative (Negative) - Radiology Data Radiology results: report reviewed (Computed tomography scan of the brain shows no acute process), image reviewed (Chest x-ray shows no acute process.) Disposition Clinical Impression: Hepatic encephalopathy, Fever Disposition: ADMITTED IP TO THIS [facility] Condition: Serious Referrals: Lore Rendon MD [Primary Care Provider] - 1-2 days Decision Time: 03:43
[2017-07-12 01:14] LABS: Basophils % (A) 0 %; Eosinophils # (A) 0.1 k/uL (0-0.7); Eosinophils % (A) 1 %; HCT 30.7 % (39.0-53.0); HGB 10.4 gm/dL (13.0-17.5); Lymphocytes # (A) 0.8 k/uL (1.0-4.8); Lymphocytes % (A) 10 %; MCH 34.6 pg (25.0-35.0); MCHC 33.9 g/dL (31.0-37.0); Macrocytosis Slight; Mean Platelet Volume 7.1; Monocytes # (A) 0.4 k/uL (0-1.0); Monocytes % (A) 5 %; Neutrophils # (A) 6.6 k/uL (1.3-7.7); Neutrophils % (A) 81 %; Platelet Count 164 k/uL (150-450); RBC 3.01 m/uL (4.30-5.90); RDW 14.3 % (11.5-15.5); WBC 8.1 k/uL (3.8-10.6)
[2017-07-12 01:21] LABS: INR 1.3 (<1.2); Partial Thromboplastin Time 24.1 sec (22.0-30.0); Prothrombin Time 12.4 sec (9.0-12.0)
[2017-07-12 01:27] LABS: Albumin 2.4 g/dL (3.5-5.0); Calcium 8.4 mg/dL (8.4-10.2); Potassium 4.9 mmol/L (3.5-5.1); Total Bilirubin 0.7 mg/dL (0.2-1.3); Total Protein 6.9 g/dL (6.3-8.2)
[2017-07-12 01:43] LABS: Creatine Kinase MB 0.5 ng/mL (0.0-2.4)
[2017-07-12 01:45] LABS: Troponin I 0.038 ng/mL (0.000-0.034)
[2017-07-12 02:01] LABS: Appearance,Urine Clear (Clear); Bilirubin,Urine Negative (Negative); Blood,Urine Negative (Negative); Color,Urine Yellow; Glucose,Urine (UA) Trace (Negative); Ketones,Urine Negative (Negative); Leukocyte Esterase,Urine Negative (Negative); Nitrite,Urine Negative (Negative); Protein,Urine Trace (Negative); Specific Gravity,Urine 1.024 (1.001-1.035)
--- NOTE | 2017-07-12 02:02 | CT ---
EXAMINATION TYPE: CT brain wo con DATE OF EXAM: 07/12/2017 COMPARISON: 05/21/2017 HISTORY: AMS, Weakness CT DLP: 961.00 mGycm Automated exposure control for dose reduction was used. FINDINGS: There is cerebral cortical atrophy. There is no mass effect nor midline shift. There is no sign of in tracranial hemorrhage. There is patchy hypodensity in the periventricular white matter. IMPRESSION: CEREBRAL ATROPHY AND CHRONIC SMALL VESSEL ISCHEMIA. NO CHANGE.
--- NOTE | 2017-07-12 02:04 | XR ---
EXAMINATION TYPE: XR chest 2V DATE OF EXAM: 07/12/2017 COMPARISON: 05/29/2017 HISTORY: Weakness TECHNIQUE: Frontal and lateral views of the chest are obtained. FINDINGS: There is no heart failure nor confluent pneumonic infiltrate. Thoracic aorta is atheromato us. There is poor inspiration. IMPRESSION: No active cardiopulmonary disease. Mild pulmonary fibrotic changes. There is slight impr ervin inspiration compared to old exam.
[2017-07-12] MEDS ORDERED: IBUPROFEN 400 MG TAB PO PRN (03:44)
[2017-07-12] MEDS ORDERED: NALOXONE 0.4 MG/ML 1 ML VIAL IV PRN (03:44)
[2017-07-12] MEDS ORDERED: SODIUM CHLORIDE 0.9% 1,000 ML IV SCH (03:45)
[2017-07-12] MEDS ORDERED: cefTRIAXone IN SWFI 1,000 MG/10 ML SYRINGE IVP STA (03:47)
[2017-07-12] MEDS: LACTULOSE 20 GM/30 ML CUP PO SCH ×4 (04:14→20:25)
[2017-07-12] MEDS ORDERED: IPRATROPIUM-ALBUTEROL 3 ML NEB INHALATION PRN (11:05)
[2017-07-12] MEDS ORDERED: traMADol 50 MG TAB PO PRN (11:10)
--- NOTE | 2017-07-12 13:18 | P.HPIM ---
History of Present Illness 77-year-old male came in with altered mental status found to have mildly elevated ammonia and patient is being admitted for hepatic encephalopathy patient denied any abdominal pain abdomen is soft patient does have history of alcoholic cirrhosis but patient is presently alert oriented 3 patient has generalized weakness and mild hyponatremia mildly intravascular volume depleted. Patient mostly has metabolic encephalopathy with a contribution from possible hepatic encephalopathy causing his confusion patient denied any fever chills patient doesn't have any leukocytosis patient denied any abdominal pain. I do not believe patient has responded is back hepatitis although it's one of the causes for hepatic encephalopathy I do not believe patient will require antibiotics dose will be discontinued patient doesn't have any significant improvement in the belly to drain it. Patient doesn't even have shifting dullness abdomen is soft no much distention. Patient does have elevated liver enzymes patient denied any dysuria cough runny nose. Review of Systems REVIEW OF SYSTEMS: CONSTITUTIONAL: No fever, no malaise, no fatigue. HEENT: No recent visual problems or hearing problems. Denied any sore throat. CARDIOVASCULAR: No chest pain, orthopnea, PND, no palpitations, no syncope. PULMONARY: No shortness of breath, no cough, no hemoptysis. GASTROINTESTINAL: No diarrhea, no nausea, no vomiting, no abdominal pain. Normoactive bowel sounds. NEUROLOGICAL: No headaches, no weakness, no numbness. HEMATOLOGICAL: Denies any bleeding or petechiae. GENITOURINARY: Denies any burning micturition, frequency, or urgency. MUSCULOSKELETAL/RHEUMATOLOGICAL: Denies any joint pain, swelling, or any muscle pain. ENDOCRINE: Denies any polyuria or polydipsia. The rest of the 14-point review of systems is negative. Past Medical History Past Medical History: Dementia, Diabetes Mellitus, GERD/Reflux, Hearing Disorder / Deafness, Hyperlipidemia, Liver Disease, Pulmonary Embolus (PE) Additional Past Medical History / Comment(s): Pt recently admitted to [facility] with ascities/paracentesis, influenza A and small R lower lobe PE. Other hx: Recent diagnosis of alcoholic liver cirrhosis with recurrent ascities (pt follows at [facility] with Dr. Gooden and requires paracentesis about q 2 weeks), mild dementia, low magnesium, NIDDM type II, gastritis/esophageal rings, swallowing difficulties-pureed diet and uses a straw at all times, bilateral lower extremity edema at times, anemia, [place] bilaterally-uses hearing aides but they are not here. History of Any Multi-Drug Resistant Organisms: None Reported Past Surgical History: Back Surgery, Joint Replacement, Orthopedic Surgery, Tonsillectomy Additional Past Surgical History / Comment(s): Multiple paracentesis, EGD with dilatations, 05/31/17 EGD with biopsy, colonoscopy, low back surgery, Patial R knee replacement, total R hip replacement Past Anesthesia/Blood Transfusion Reactions: No Reported Reaction Smoking Status: Never smoker - Past Family History Father Family Medical History: No Reported History Mother Family Medical History: Osteoarthritis (OA) Additional Family Medical History / Comment(s): Mother had bilateral hip replacements. Medications and Allergies Home Medications Medication Instructions Recorded Confirmed Type Aspirin [Adult Low Dose Aspirin EC] 81 mg PO DAILY 05/14/17 07/12/17 History Cholecalciferol [Vitamin D3] 1,000 unit PO DAILY 05/14/17 07/12/17 History Memantine HCl [Namenda] 5 mg PO BID 05/14/17 07/12/17 History Multivitamins, Thera [Multivitamin 1 tab PO DAILY 05/14/17 07/12/17 History (formulary)] Venlafaxine HCl [Effexor XR] 150 mg PO BID 05/14/17 07/12/17 History risperiDONE [RisperDAL] 0.5 mg PO HS 05/14/17 07/12/17 History Furosemide [Lasix] 40 mg PO DAILY #30 tab 05/17/17 07/12/17 Rx Magnesium Oxide [Mag-Ox] 400 mg PO BID #60 tab 05/17/17 07/12/17 Rx Spironolactone [Aldactone] 100 mg PO DAILY 05/21/17 07/12/17 History Ipratropium-Albuterol Nebulize 3 ml INHALATION RT-QID PRN #0 06/01/17 07/12/17 Rx [Duoneb 0.5 mg-3 mg/3 ml Soln] ampul.neb ALPRAZolam [Xanax] 0.5 mg PO DAILY PRN 06/19/17 07/12/17 History Bisacodyl [Dulcolax] 10 mg RECTAL DAILY PRN 06/19/17 07/12/17 History Magnesium Hydroxide [Milk of 30 ml PO DAILY PRN 06/19/17 07/12/17 History Magnesia Concentrate] Pantoprazole [Protonix] 40 mg PO BID 07/11/17 07/12/17 History Allergies Allergy/AdvReac Type Severity Reaction Status Date / Time donepezil [From Aricept] Allergy Unknown Verified 07/11/17 15:28 morphine Allergy Unknown Verified 07/11/17 15:28 Physical Exam Vitals: Vital Signs Temp Pulse Pulse Resp BP BP Pulse Ox 07/12/17 12:00 80 18 95/50 97 07/12/17 06:31 98.6 F 72 16 91/54 100 07/12/17 05:47 68 18 93/55 98 07/12/17 04:47 70 17 91/54 99 07/12/17 03:55 74 16 94/50 94 L 07/12/17 02:50 76 17 90/54 99 07/12/17 01:47 80 16 115/61 100 07/12/17 00:40 96 17 98/61 97 07/11/17 23:40 99.2 F 107 H 16 119/62 98 Intake and Output 07/11/17 07/12/17 07/12/17 22:59 06:59 14:59 Intake Total 300 Output Total 300 Balance 0 Intake: Intake, IV Titration 300 Amount Sodium Chloride 0.9% 1, 300 000 ml @ 75 mls/hr IV . [id number] [facility] Rx#:[id number] Output: Urine 300 Other: Weight 68.356 kg PHYSICAL EXAMINATION: GENERAL: The patient is alert and oriented x3, not in any acute distress. Well developed, well nourished. HEENT: Pupils are round and equally reacting to light. EOMI. No scleral icterus. No conjunctival pallor. Normocephalic, atraumatic. No pharyngeal erythema. No thyromegaly. CARDIOVASCULAR: S1 and S2 present. No murmurs, rubs, or gallops. PULMONARY: Chest is clear to auscultation, no wheezing or crackles. ABDOMEN: Soft, nontender, nondistended, normoactive bowel sounds. No palpable organomegaly. MUSCULOSKELETAL: No joint swelling or deformity. EXTREMITIES: No cyanosis, clubbing, or pedal edema. NEUROLOGICAL: Gross neurological examination did not reveal any focal deficits. Patient does have significant generalized weakness SKIN: No rashes. Results CBC & Chem 7: 07/12/17 00:03 07/12/17 00:03 Labs: Abnormal Lab Results - Last 24 Hours (Table) 07/12/17 07/12/17 07/12/17 Range/Units 00:03 00:03 00:03 RBC 3.01 L (4.30-5.90) m/uL Hgb 10.4 L (13.0-17.5) gm/dL Hct 30.7 L (39.0-53.0) % MCV 102.0 H (80.0-100.0) fL Lymphocytes # 0.8 L (1.0-4.8) k/uL PT (9.0-12.0) sec INR (<1.2) Sodium 132 L (137-145) mmol/L BUN 25 H (9-20) mg/dL Glucose 278 H (74-99) mg/dL Plasma Lactic Acid Rusty (0.7-2.0) mmol/L AST 204 H (17-59) U/L ALT 104 H (21-72) U/L Alkaline Phosphatase 291 H (38-126) U/L Ammonia (<30) umol/L Total Creatine Kinase 42 L (55-170) U/L Troponin I 0.038 H* (0.000-0.034) ng/mL Albumin 2.4 L (3.5-5.0) g/dL Urine Protein (Negative) Urine Glucose (UA) (Negative) 07/12/17 07/12/17 07/12/17 Range/Units 00:03 00:03 00:03 RBC (4.30-5.90) m/uL Hgb (13.0-17.5) gm/dL Hct (39.0-53.0) % MCV (80.0-100.0) fL Lymphocytes # (1.0-4.8) k/uL PT 12.4 H (9.0-12.0) sec INR 1.3 H (<1.2) Sodium (137-145) mmol/L BUN (9-20) mg/dL Glucose (74-99) mg/dL Plasma Lactic Acid Rusty 2.6 H* (0.7-2.0) mmol/L AST (17-59) U/L ALT (21-72) U/L Alkaline Phosphatase (38-126) U/L Ammonia 47 H (<30) umol/L Total Creatine Kinase (55-170) U/L Troponin I (0.000-0.034) ng/mL Albumin (3.5-5.0) g/dL Urine Protein (Negative) Urine Glucose (UA) (Negative) 07/12/17 Range/Units 01:50 RBC (4.30-5.90) m/uL Hgb (13.0-17.5) gm/dL Hct (39.0-53.0) % MCV (80.0-100.0) fL Lymphocytes # (1.0-4.8) k/uL PT (9.0-12.0) sec INR (<1.2) Sodium (137-145) mmol/L BUN (9-20) mg/dL Glucose (74-99) mg/dL Plasma Lactic Acid Rusty (0.7-2.0) mmol/L AST (17-59) U/L ALT (21-72) U/L Alkaline Phosphatase (38-126) U/L Ammonia (<30) umol/L Total Creatine Kinase (55-170) U/L Troponin I (0.000-0.034) ng/mL Albumin (3.5-5.0) g/dL Urine Protein Trace H (Negative) Urine Glucose (UA) Trace H (Negative) Microbiology - Last 24 Hours (Table) 07/12/17 01:50 Urine Culture - Preliminary Urine,Catheterized Thrombosis Risk Factor Assmnt - Choose All That Apply Any of the Below Risk Factors Present?: Yes Other Risk Factors: Yes Each Risk Factor Represents 3 Points: Age 75 years or older Other congenital or acquired thrombophilia - If yes, enter type in comment: No Thrombosis Risk Factor Assessment Total Risk Factor Score: 3 Thrombosis Risk Factor Assessment Level: Moderate Risk Assessment and Plan Plan: -Altered mental status and encephalopathy: Most probably hepatic encephalopathy and metabolic encephalopathy patient is intravascular volume depleted because of that all hold off on the diuretic therapy temporarily. IV fluids although will be discussed because of the concerns of fluid retention the belly. Patient doesn't have any abdominal pain or tenderness doesn't have enough ascites either because of which are dyspnea antibiotics. Actos will be Continued. -Coagulopathy: Secondary to cirrhosis next and-alcoholic cirrhosis patient did quit drinking alcohol -Acute renal failure due to intravascular volume depletion and prerenal azotemia diuretic therapy will be held -Mild to moderate dementia: Etiology is unknown -Hyperlipidemia -Type 2 diabetes mellitus -History of PE in the past although patient is not on any anti-correlation presently
--- NOTE | 2017-07-12 14:50 | P.CONS ---
History of Present Illness - Reason for Consult Consult date: 07/12/17 Hepatic encephalopathy Requesting physician: Madeleine Reyna - History of Present Illness 77-year-old gentleman with a history of possible dementia, remote EtOH abuse underlying cirrhosis portal hypertension and ascites admitted with confusion. Admission ammonia 47. He has been evaluated by city solicitor at [facility] has undergone a few paracentesis recently with negative cytology. Hepatitis screen nonreactive. No fever or chills. Denies abdominal pain. Denies hematemesis hematochezia melena. Family is at bedside assisting with history taking. Hemoglobin 10.4. White count 8.1. Platelet 164. CT brain cerebral atrophy and chronic small vessel ischemia no change. Recent EGD May 2017 for evaluation of dysphagia reported mild superficial distal esophageal circumferential rings with no evidence of stricture with mild portal hypertensive gastropathy. Review of Systems Constitutional: History of dementia. Denies fever, chills, sweats, weight gain , or loss. HEENT: Negative for migraines, blurred vision or loss, earaches, drainage, tinnitus, oral mucosal lesions, dysphagia, or odynophagia. Cardiac: Hyperlipidemia. Negative for chest pain, arrhythmias, or palpitation. Respiratory: Negative for shortness of breath, hemoptysis, cough, or sputum production. Gastrointestinal: See HPI for pertinent findings. Genitourinary: Negative for hematuria, urgency, frequency, polyuria, dysuria, or penile discharge. Musculoskeletal: Negative for muscle aches, swelling, arthritis, and arthralgias. Neurologic: Negative for stroke or TIA. Endocrine: History of diabetes. Negative for thyroid problems. Skin: Negative for rash or itching. Psychiatric: History of depression. PTSD. Past Medical History Past Medical History: Dementia, Diabetes Mellitus, GERD/Reflux, Hearing Disorder / Deafness, Hyperlipidemia, Liver Disease, Pulmonary Embolus (PE) Additional Past Medical History / Comment(s): Pt recently admitted to [facility] with ascities/paracentesis, influenza A and small R lower lobe PE. Other hx: Recent diagnosis of alcoholic liver cirrhosis with recurrent ascities (pt follows at [facility] with Dr. Gooden and requires paracentesis about q 2 weeks), mild dementia, low magnesium, NIDDM type II, gastritis/esophageal rings, swallowing difficulties-pureed diet and uses a straw at all times, bilateral lower extremity edema at times, anemia, [place] bilaterally-uses hearing aides but they are not here. History of Any Multi-Drug Resistant Organisms: None Reported Past Surgical History: Back Surgery, Joint Replacement, Orthopedic Surgery, Tonsillectomy Additional Past Surgical History / Comment(s): Multiple paracentesis, EGD with dilatations, 05/31/17 EGD with biopsy, colonoscopy, low back surgery, Patial R knee replacement, total R hip replacement Past Anesthesia/Blood Transfusion Reactions: No Reported Reaction Smoking Status: Never smoker - Past Family History Father Family Medical History: No Reported History Mother Family Medical History: Osteoarthritis (OA) Additional Family Medical History / Comment(s): Mother had bilateral hip replacements. Medications and Allergies Home Medications Medication Instructions Recorded Confirmed Type Aspirin [Adult Low Dose Aspirin EC] 81 mg PO DAILY 05/14/17 07/12/17 History Cholecalciferol [Vitamin D3] 1,000 unit PO DAILY 05/14/17 07/12/17 History Memantine HCl [Namenda] 5 mg PO BID 05/14/17 07/12/17 History Multivitamins, Thera [Multivitamin 1 tab PO DAILY 05/14/17 07/12/17 History (formulary)] Venlafaxine HCl [Effexor XR] 150 mg PO BID 05/14/17 07/12/17 History risperiDONE [RisperDAL] 0.5 mg PO HS 05/14/17 07/12/17 History Furosemide [Lasix] 40 mg PO DAILY #30 tab 05/17/17 07/12/17 Rx Magnesium Oxide [Mag-Ox] 400 mg PO BID #60 tab 05/17/17 07/12/17 Rx Spironolactone [Aldactone] 100 mg PO DAILY 05/21/17 07/12/17 History Ipratropium-Albuterol Nebulize 3 ml INHALATION RT-QID PRN #0 06/01/17 07/12/17 Rx [Duoneb 0.5 mg-3 mg/3 ml Soln] ampul.neb ALPRAZolam [Xanax] 0.5 mg PO DAILY PRN 06/19/17 07/12/17 History Bisacodyl [Dulcolax] 10 mg RECTAL DAILY PRN 06/19/17 07/12/17 History Magnesium Hydroxide [Milk of 30 ml PO DAILY PRN 06/19/17 07/12/17 History Magnesia Concentrate] Pantoprazole [Protonix] 40 mg PO BID 07/11/17 07/12/17 History Allergies Allergy/AdvReac Type Severity Reaction Status Date / Time donepezil [From Aricept] Allergy Unknown Verified 07/11/17 15:28 morphine Allergy Unknown Verified 07/11/17 15:28 Physical Exam Vitals: Vital Signs Temp Pulse Pulse Resp BP BP Pulse Ox 07/12/17 12:00 80 18 95/50 97 07/12/17 06:31 98.6 F 72 16 91/54 100 07/12/17 05:47 68 18 93/55 98 07/12/17 04:47 70 17 91/54 99 07/12/17 03:55 74 16 94/50 94 L 07/12/17 02:50 76 17 90/54 99 07/12/17 01:47 80 16 115/61 100 07/12/17 00:40 96 17 98/61 97 07/11/17 23:40 99.2 F 107 H 16 119/62 98 Intake and Output 07/11/17 07/12/17 07/12/17 22:59 06:59 14:59 Intake Total 300 Output Total 300 Balance 0 Intake: Intake, IV Titration 300 Amount Sodium Chloride 0.9% 1, 300 000 ml @ 75 mls/hr IV . [id number] [facility] Rx#:[id number] Output: Urine 300 Other: Weight 68.356 kg General appearance: The patient is alert, oriented, in no acute distress. HET: Head is normocephalic and atraumatic. Pupils are equal and reactive. Oropharynx is clear without lesions. Neck: Supple without lymphadenopathy. Trachea midline. Heart: S1 S2. Regular rate and rhythm. Lungs: No crackles or wheezes are heard. Abdomen: Soft, nontender, mildly distended mild ascites with bowel sounds. No peritoneal signs. No palpable organomegaly or masses. Extremities: Normal skin color and turgor. No cyanosis, rash, ulceration, clubbing, or edema. Radial and pedal pulses are 2/4 bilaterally. Neurological: No focal deficits. Strength and sensation are grossly intact. Results CBC & Chem 7: 07/13/17 07:19 07/13/17 07:19 Labs: Abnormal Lab Results - Last 24 Hours (Table) 07/12/17 07/12/1718 Range/Units 00:03 00:03 00:03 RBC 3.01 L (4.30-5.90) m/uL Hgb 10.4 L (13.0-17.5) gm/dL Hct 30.7 L (39.0-53.0) % MCV 102.0 H (80.0-100.0) fL Lymphocytes # 0.8 L (1.0-4.8) k/uL PT (9.0-12.0) sec INR (<1.2) Sodium 132 L (137-145) mmol/L BUN 25 H (9-20) mg/dL Glucose 278 H (74-99) mg/dL Plasma Lactic Acid Rusty (0.7-2.0) mmol/L AST 204 H (17-59) U/L ALT 104 H (21-72) U/L Alkaline Phosphatase 291 H (38-126) U/L Ammonia (<30) umol/L Total Creatine Kinase 42 L (55-170) U/L Troponin I 0.038 H* (0.000-0.034) ng/mL Albumin 2.4 L (3.5-5.0) g/dL Urine Protein (Negative) Urine Glucose (UA) (Negative) 07/12/17 07/12/17 07/12/17 Range/Units 00:03 00:03 00:03 RBC (4.30-5.90) m/uL Hgb (13.0-17.5) gm/dL Hct (39.0-53.0) % MCV (80.0-100.0) fL Lymphocytes # (1.0-4.8) k/uL PT 12.4 H (9.0-12.0) sec INR 1.3 H (<1.2) Sodium (137-145) mmol/L BUN (9-20) mg/dL Glucose (74-99) mg/dL Plasma Lactic Acid Rusty 2.6 H* (0.7-2.0) mmol/L AST (17-59) U/L ALT (21-72) U/L Alkaline Phosphatase (38-126) U/L Ammonia 47 H (<30) umol/L Total Creatine Kinase (55-170) U/L Troponin I (0.000-0.034) ng/mL Albumin (3.5-5.0) g/dL Urine Protein (Negative) Urine Glucose (UA) (Negative) 07/12/17 07/12/17 Range/Units 01:50 12:16 RBC (4.30-5.90) m/uL Hgb (13.0-17.5) gm/dL Hct (39.0-53.0) % MCV (80.0-100.0) fL Lymphocytes # (1.0-4.8) k/uL PT (9.0-12.0) sec INR (<1.2) Sodium (137-145) mmol/L BUN (9-20) mg/dL Glucose (74-99) mg/dL Plasma Lactic Acid Rusty (0.7-2.0) mmol/L AST (17-59) U/L ALT (21-72) U/L Alkaline Phosphatase (38-126) U/L Ammonia (<30) umol/L Total Creatine Kinase (55-170) U/L Troponin I 0.035 H* (0.000-0.034) ng/mL Albumin (3.5-5.0) g/dL Urine Protein Trace H (Negative) Urine Glucose (UA) Trace H (Negative) Microbiology - Last 24 Hours (Table) 07/12/17 01:50 Urine Culture - Preliminary Urine,Catheterized Assessment and Plan (1) Hepatic encephalopathy Narrative/Plan: 77-year-old male with a history of underlying alcohol liver cirrhosis portal hypertension ascites requiring paracentesis presented with mental status changes and elevated ammonia level consistent with acute hepatic encephalopathy. Current Visit: Yes Status: Acute Code(s): K72.90 - HEPATIC FAILURE, UNSPECIFIED WITHOUT COMA SNOMED Code(s): 79161699 (2) Cirrhosis Current Visit: No Status: Acute Code(s): K74.60 - UNSPECIFIED CIRRHOSIS OF LIVER SNOMED Code(s): 20140123 Plan: 1. Family is requesting ultrasound evaluation for ascites possible paracentesis however he is scheduled for outpatient paracentesis on 07/14/2017; moderate to large ascites is not evident on physical exam therefore will reevaluate in a.m hold off on ultrasound for now. 2. Continue with lactulose 20 g 3 times a day titrated 3-4 bowel movements daily. Repeat ammonia level in a.m. 3. Will follow closely with you. Thank you for this kind referral and the opportunity to participate in the care of your patient. This consultation was discussed with Dr. Bennett. The impression and plan of care have been directed as dictated.
[2017-07-12] MEDS ORDERED: cefTRIAXone IN SWFI 1,000 MG/10 ML SYRINGE IVP SCH (16:00)
[2017-07-12] MEDS: PANTOPRAZOLE 40 MG TABLET PO SCH (16:31)
[2017-07-12] MEDS: VENLAFAXINE HCL ER 150 MG CAP PO SCH (20:24)
[2017-07-12] MEDS: MAGNESIUM OXIDE 400 MG TAB PO SCH (20:25)
[2017-07-12] MEDS: MEMANTINE 5 MG TAB PO SCH (20:25)
[2017-07-12] MEDS ORDERED: risperiDONE 0.5 MG TAB PO SCH (21:00)
[2017-07-12 23:45] VITALS: RESP 20
[2017-07-13 07:52] LABS: HCT 30.5 % (39.0-53.0); MCH 33.5 pg (25.0-35.0); MCHC 32.7 g/dL (31.0-37.0); MCV 102.2 fL (80.0-100.0); Macrocytosis Slight; Mean Platelet Volume 6.7; Platelet Count 134 k/uL (150-450); RBC 2.99 m/uL (4.30-5.90); RDW 14.4 % (11.5-15.5); WBC 5.2 k/uL (3.8-10.6)
[2017-07-13 08:07] LABS: ALT 90 U/L (21-72); AST 105 U/L (17-59); Albumin 2.1 g/dL (3.5-5.0); Alkaline Phosphatase 231 U/L (38-126); Anion Gap 7 mmol/L; Blood Urea Nitrogen 20 mg/dL (9-20); Calcium 8.2 mg/dL (8.4-10.2); Carbon Dioxide 24 mmol/L (22-30); Chloride 105 mmol/L (98-107); Glucose 125 mg/dL (74-99); Sodium 136 mmol/L (137-145); Total Bilirubin 0.5 mg/dL (0.2-1.3)
[2017-07-13] MEDS: MEMANTINE 5 MG TAB PO SCH (08:40)
[2017-07-13] MEDS: VENLAFAXINE HCL ER 150 MG CAP PO SCH (08:40)
[2017-07-13] MEDS: PANTOPRAZOLE 40 MG TABLET PO SCH ×2 (08:40→17:41)
[2017-07-13] MEDS: LACTULOSE 20 GM/30 ML CUP PO SCH ×2 (08:40→17:19)
[2017-07-13] MEDS: MAGNESIUM OXIDE 400 MG TAB PO SCH (08:40)
[2017-07-13] MEDS ORDERED: ASPIRIN 81 MG PO SCH (09:00)
--- NOTE | 2017-07-13 12:31 | P.PN ---
Subjective Progress Note Date: 07/13/17 Principal diagnosis: Hepatic encephalopathy Alert. Passing a few nonbloody bowel movements. Receiving lactulose. Ammonia level pending. Objective - Vital Signs Vital signs: Vital Signs Temp 99.2 F 07/13/17 06:23 Pulse 72 07/13/17 06:23 Resp 20 07/13/17 06:23 BP 99/62 07/13/17 06:23 Pulse Ox 99 07/13/17 06:23 Intake & Output 07/12/17 07/13/17 07/13/17 18:59 06:59 18:59 Intake Total 300 800 240 Output Total 300 Balance 0 800 240 Weight 68.5 kg Intake: Intake, IV Titration 300 Amount Sodium Chloride 0.9% 1, 300 000 ml @ 75 mls/hr IV . [id number] [facility] Rx#:[id number] Oral 800 240 Output: Urine 300 Other: Voiding Method Toilet Toilet Incontinent Incontinent # Voids 2 # Bowel Movements 1 - Exam General appearance: The patient is alert, oriented, in no acute distress. HET: Head is normocephalic and atraumatic. Pupils are equal and reactive. Oropharynx is clear without lesions. Neck: Supple without lymphadenopathy. Trachea midline. Heart: S1 S2. Regular rate and rhythm. Lungs: No crackles or wheezes are heard. Abdomen: Soft, nontender, mild ascites with bowel sounds. No peritoneal signs. No palpable organomegaly or masses. Extremities: Normal skin color and turgor. No cyanosis, rash, ulceration, clubbing, or edema. Radial and pedal pulses are 2/4 bilaterally. Neurological: No focal deficits. Strength and sensation are grossly intact. - Labs CBC & Chem 7: 07/13/17 07:19 07/13/17 07:19 Labs: Abnormal Lab Results - Last 24 Hours (Table) 07/12/17 07/13/17 07/13/17 Range/Units 12:16 07:19 07:19 RBC 2.99 L (4.30-5.90) m/uL Hgb 10.0 L (13.0-17.5) gm/dL Hct 30.5 L (39.0-53.0) % MCV 102.2 H (80.0-100.0) fL Plt Count 134 L (150-450) k/uL Sodium 136 L (137-145) mmol/L Glucose 125 H (74-99) mg/dL Calcium 8.2 L (8.4-10.2) mg/dL AST 105 H (17-59) U/L ALT 90 H (21-72) U/L Alkaline Phosphatase 231 H (38-126) U/L Troponin I 0.035 H* (0.000-0.034) ng/mL Total Protein 6.0 L (6.3-8.2) g/dL Albumin 2.1 L (3.5-5.0) g/dL Microbiology - Last 24 Hours (Table) 07/12/17 01:50 Urine Culture - Final Urine,Catheterized 07/12/17 00:03 Blood Culture - Preliminary Blood No Growth after 24 hours Assessment and Plan (1) Hepatic encephalopathy Narrative/Plan: 77-year-old male with a history of underlying alcohol liver cirrhosis portal hypertension ascites requiring paracentesis presented with mental status changes and elevated ammonia level consistent with acute hepatic encephalopathy. Current Visit: Yes Status: Acute Code(s): K72.90 - HEPATIC FAILURE, UNSPECIFIED WITHOUT COMA SNOMED Code(s): 94478076 (2) Cirrhosis Current Visit: No Status: Acute Code(s): K74.60 - UNSPECIFIED CIRRHOSIS OF LIVER SNOMED Code(s): 43870295 Plan: 1. Discharge per medicine if ammonia level has improved. Outpatient paracentesis scheduled for tomorrow. Continue lactulose on discharge prescription provided. Follow-up with exhaust tender. Assessment and plan a care discussed with Dr. Jones
[2017-07-13 14:06] VITALS: BMI 24.3
--- NOTE | 2017-07-13 15:06 | P.CRDCN ---
History of Present Illness Consult date: 07/13/17 History of present illness: Mr. Crow is a pleasant 77-year-old male past medical history significant for diabetes mellitus, gastroesophageal reflux disease, PE, dyslipidemia, alcoholic liver cirrhosis with recurrent ascites requiring paracentesis and dementia. He denies history of coronary artery disease and has never seen a assistant gm of content & delivery for any reason. We have been asked to see him in consultation secondary to elevated troponin. Troponin values are 0.038, 0.035 and 0.019. He is seen today resting comfortably in bed in no acute distress. He states his daughters brought him to the hospital because of fever, cough and altered mental status. He denies symptoms of chest pain, shortness of breath, dizziness, palpitations, nausea, vomiting or diaphoresis. He states only that he has been coughing recently. He underwent a paracentesis a few weeks ago and is scheduled for a repeat later this week. EKG on arrival reveals sinus tachycardia heart rate [address] or T- wave abnormalities evident and poor R-wave progression. Chest x-ray is negative for acute cardiopulmonary process with mild fibrotic changes. Laboratory data reviewed, hemoglobin 10.0, leaflets 134, sodium 136, potassium 5.0, creatinine 0.8, ammonia level is less than 9, alk phos 231, AST 105, ALT 90. He currently takes aspirin 81 mg daily and Lasix 40 mg daily. Review of Systems At the time my exam: CONSTITUTIONAL: Denies fever. Denies chills. EYES: Denies blurred vision. Denies vision changes. Denies eye pain. EARS, NOSE, MOUTH & THROAT: Denies headache. Denies sore throat. Denies ear pain. CARDIOVASCULAR: Denies chest pain. Denies shortness of breath. Denies orthopnea. Denies PND. Denies palpitations. RESPIRATORY: Denies cough. GASTROINTESTINAL: Denies abdominal pain. Denies diarrhea. Denies constipation. Denies nausea. Denies vomiting. MUSCULOSKELETAL: Denies myalgias. INTEGUMENTARY: Denies pruitis. Denies rash. NEUROLOGIC: Denies numbness. Denies tingling. Denies weakness. PSYCHIATRIC: Denies anxiety. Denies depression. ENDOCRINE: Denies fatigue. Denies weight change. Denies polydipsia. Denies polyurina. GENITOURINARY: Denies burning, hematuria or urgency with micturation. HEMATOLOGIC: Denies history of anemia. Denies bleeding. Past Medical History Past Medical History: Dementia, Diabetes Mellitus, GERD/Reflux, Hearing Disorder / Deafness, Hyperlipidemia, Liver Disease, Pulmonary Embolus (PE) Additional Past Medical History / Comment(s): Pt recently admitted to [facility] with ascities/paracentesis, influenza A and small R lower lobe PE. Other hx: Recent diagnosis of alcoholic liver cirrhosis with recurrent ascities (pt follows at [facility] with Dr. Gooden and requires paracentesis about q 2 weeks), mild dementia, low magnesium, NIDDM type II, gastritis/esophageal rings, swallowing difficulties-pureed diet and uses a straw at all times, bilateral lower extremity edema at times, anemia, [place] bilaterally-uses hearing aides but they are not here. History of Any Multi-Drug Resistant Organisms: None Reported Past Surgical History: Back Surgery, Joint Replacement, Orthopedic Surgery, Tonsillectomy Additional Past Surgical History / Comment(s): Multiple paracentesis, EGD with dilatations, 05/31/17 EGD with biopsy, colonoscopy, low back surgery, Patial R knee replacement, total R hip replacement Past Anesthesia/Blood Transfusion Reactions: No Reported Reaction Smoking Status: Never smoker - Past Family History Father Family Medical History: No Reported History Mother Family Medical History: Osteoarthritis (OA) Additional Family Medical History / Comment(s): Mother had bilateral hip replacements. Medications and Allergies Home Medications Medication Instructions Recorded Confirmed Type Aspirin [Adult Low Dose Aspirin EC] 81 mg PO DAILY 05/14/17 07/12/17 History Cholecalciferol [Vitamin D3] 1,000 unit PO DAILY 05/14/17 07/12/17 History Memantine HCl [Namenda] 5 mg PO BID 05/14/17 07/12/17 History Multivitamins, Thera [Multivitamin 1 tab PO DAILY 05/14/17 07/12/17 History (formulary)] Venlafaxine HCl [Effexor XR] 150 mg PO BID 05/14/17 07/12/17 History risperiDONE [RisperDAL] 0.5 mg PO HS 05/14/17 07/12/17 History Furosemide [Lasix] 40 mg PO DAILY #30 tab 05/17/17 07/12/17 Rx Magnesium Oxide [Mag-Ox] 400 mg PO BID #60 tab 05/17/17 07/12/17 Rx Ipratropium-Albuterol Nebulize 3 ml INHALATION RT-QID PRN #0 06/01/17 07/12/17 Rx [Duoneb 0.5 mg-3 mg/3 ml Soln] ampul.neb ALPRAZolam [Xanax] 0.5 mg PO DAILY PRN 06/19/17 07/12/17 History Bisacodyl [Dulcolax] 10 mg RECTAL DAILY PRN 06/19/17 07/12/17 History Magnesium Hydroxide [Milk of 30 ml PO DAILY PRN 06/19/17 07/12/17 History Magnesia Concentrate] Pantoprazole [Protonix] 40 mg PO BID 07/11/17 07/12/17 History Lactulose 20 gm PO DAILY #900 ml 07/13/17 Rx Allergies Allergy/AdvReac Type Severity Reaction Status Date / Time donepezil [From Aricept] Allergy Unknown Verified 07/11/17 15:28 morphine Allergy Unknown Verified 07/11/17 15:28 Physical Exam Vitals: Vital Signs Temp Pulse Resp BP Pulse Ox 07/13/17 06:23 99.2 F 72 20 99/62 99 07/12/17 23:00 99.3 F 80 20 111/68 99 07/12/17 16:00 96.8 F L 75 18 138/69 98 Intake and Output 07/12/17 07/13/17 07/13/17 22:59 06:59 14:59 Intake Total 600 200 240 Balance 600 200 240 Intake: Oral 600 200 240 Other: Voiding Method Toilet Incontinent # Voids 2 2 1 # Bowel Movements 1 Weight 68.356 kg 68.5 kg 68.5 kg Blood pressure 99/62 heart rate 72 afebrile maintaining oxygen saturation on nasal cannula GENERAL: This is a 77-year-old male in no apparent distress at the time of my examination. HEENT: Head is atraumatic, normocephalic. Pupils are equal, round. Sclerae anicteric. Conjunctivae are clear. Mucous membranes of the mouth are moist. Neck is supple. There is no jugular venous distention. No carotid bruit is heard. LUNGS: Clear to auscultation no wheezes, rales or rhonchi. No chest wall tenderness is noted on palpation or with deep breathing. Diminished bilaterally. HEART: Regular rate and rhythm without murmurs, rubs or gallops. S1 and S2 heard. ABDOMEN: Soft, nontender. Bowel sounds are heard. No organomegaly noted. EXTREMITIES: No evidence of peripheral edema and no calf tenderness noted. VASCULAR: Radial and dorsalis pedis pulses palpated, no evidence of clubbing. NEUROLOGIC: Patient is awake, alert and oriented x3. Results 07/13/17 07:19 07/13/17 07:19 Cardiac Enzymes 07/12/17 07/13/17 Range/Units 18:27 07:19 AST 105 H (17-59) U/L Troponin I 0.019 (0.000-0.034) ng/mL CBC 07/13/17 Range/Units 07:19 WBC 5.2 (3.8-10.6) k/uL RBC 2.99 L (4.30-5.90) m/uL Hgb 10.0 L (13.0-17.5) gm/dL Hct 30.5 L (39.0-53.0) % Plt Count 134 L (150-450) k/uL Comprehensive Metabolic Panel 07/13/17 Range/Units 07:19 Sodium 136 L (137-145) mmol/L Potassium 5.0 (3.5-5.1) mmol/L Chloride 105 (98-107) mmol/L Carbon Dioxide 24 (22-30) mmol/L BUN 20 (9-20) mg/dL Creatinine 0.80 (0.66-1.25) mg/dL Glucose 125 H (74-99) mg/dL Calcium 8.2 L (8.4-10.2) mg/dL AST 105 H (17-59) U/L ALT 90 H (21-72) U/L Alkaline Phosphatase 231 H (38-126) U/L Total Protein 6.0 L (6.3-8.2) g/dL Albumin 2.1 L (3.5-5.0) g/dL Current Medications Generic Name Dose Route Start Last Admin Trade Name Freq PRN Reason Stop Dose Admin Albuterol/Ipratropium 3 ml 07/12/17 11:05 Duoneb 0.5 Mg-3 Mg/3 Ml Soln INHALATION RT-QID PRN Wheezing Aspirin 81 mg 07/13/17 09:00 07/13/17 08:40 Aspirin PO 81 mg DAILY JAREK Administration Lactulose 20 gm 07/12/17 16:00 07/13/17 08:40 Cephulac PO 20 gm TID JAREK Administration Magnesium Oxide 400 mg 07/12/17 21:00 07/13/17 08:40 Mag-Ox PO 400 mg BID JAREK Administration Memantine 5 mg 07/12/17 21:00 07/13/17 08:40 Namenda PO 5 mg BID JAREK Administration Naloxone HCl 0.2 mg 07/12/17 03:44 Narcan IV Q2M PRN Opioid Reversal Pantoprazole Sodium 40 mg 07/12/17 17:30 07/13/17 08:40 Protonix PO 40 mg AC-BID JAREK Administration Risperidone 0.5 mg 07/12/17 21:00 07/12/17 20:25 Risperdal PO 0.5 mg HS JAREK Administration Tramadol HCl 50 mg 07/12/17 11:10 Ultram PO QID PRN Pain/Discomfort Venlafaxine HCl 150 mg 07/12/17 21:00 07/13/17 08:40 Effexor Xr PO 150 mg BID JAREK Administration Intake and Output 07/12/17 07/13/17 07/13/17 22:59 06:59 14:59 Intake Total 600 200 240 Balance 600 200 240 Intake: Oral 600 200 240 Other: Voiding Method Toilet Incontinent # Voids 2 2 1 # Bowel Movements 1 Weight 68.356 kg 68.5 kg 68.5 kg Patient Weight 07/14/17 06:59 Weight 68.5 kg 07/13/17 07:19 07/13/17 07:19 Assessment and Plan Assessment: ASSESSMENT 1. Very minimal troponin leak of unclear etiology. He denies symptoms of chest pain. 2. Acute hepatic encephalopathy secondary to alcoholic liver disease 3. Liver cirrhosis 4. Diabetes mellitus 5. Dyslipidemia PLAN No aggressive cardiac workup warranted at this time. Troponin leak is not indicative of an acute coronary event. Ongoing medical management recommendations. Thank you kindly for this consultation. Nurse Practitioner note has been reviewed, I agree with a documented findings and plan of care. Patient was seen and examined.
[2017-07-13 16:10] VITALS: BP 104/61; PULSE 89; TEMP 99.6
--- NOTE | 2017-07-16 22:23 | P.DS ---
Providers Date of admission: 07/12/17 03:44 Expected date of discharge: 07/13/17 Attending physician: Rakesh Reyna Consults: 07/12/17 11:08 Consult Physician Routine Consulting Provider: Herson Higgins Consult Reason/Comments: + trop Do you want consulting provider notified?: Yes Primary care physician: Lore Rendon Hospital Course: Final Diagnoses: -Altered mental status and encephalopathy: Most probably hepatic encephalopathy and metabolic encephalopathy patient was intravascular volume depleted on admission. -Coagulopathy: Secondary to cirrhosis -alcoholic cirrhosis patient did quit drinking alcohol -Acute renal failure due to intravascular volume depletion and prerenal azotemia diuretic therapy held, to be resumed at discharge as ordered. -Mild to moderate dementia: Etiology is unknown -Hyperlipidemia -Type 2 diabetes mellitus -History of PE in the past although patient is not on any anti-coagulation presently Hospital course: 77-year-old male came in with altered mental status found to have mildly elevated ammonia and patient is being admitted for hepatic encephalopathy patient denied any abdominal pain abdomen is soft patient does have history of alcoholic cirrhosis but patient is presently alert oriented 3 patient has generalized weakness and mild hyponatremia mildly intravascular volume depleted. Patient mostly has metabolic encephalopathy with a contribution from possible hepatic encephalopathy causing his confusion patient denied any fever chills patient doesn't have any leukocytosis patient denied any abdominal pain. I do not believe patient has responded is back hepatitis although it's one of the causes for hepatic encephalopathy I do not believe patient will require antibiotics dose will be discontinued patient doesn't have any significant improvement in the belly to drain it. Patient doesn't even have shifting dullness abdomen is soft no much distention. Patient does have elevated liver enzymes patient denied any dysuria cough runny nose. Evaluated by both GI and cardiology. Troponin leak not indicative of an acute coronary event with no aggressive cardiac workup at this time as per cardiology.Received lactulose with improvement in Ammonia level,less than 9.sensorium improved. significant clinical improvement. Potassium trending up , currently at 5, Aldactone currently on hold. Outpatient paracentesis scheduled for tomorrow. Patient has been cleared by both cardiology and GI for discharge. Patient is being discharged home in a stable condition with guarded prognosis. PHYSICAL EXAMINATION: GENERAL: VSS,alert and oriented x3, not in any acute distress. CARDIOVASCULAR: S1 and S2 present. No murmurs, rubs, or gallops. PULMONARY: Chest is clear to auscultation, no wheezing or crackles. ABDOMEN: Soft, nontender, nondistended, mild ascites,normoactive bowel sounds. No palpable organomegaly. NEUROLOGICAL: Gross neurological examination did not reveal any focal deficits. Patient does have significant generalized weakness The impression and plan of care has been dictated as directed. : I performed a history and examination of this patient, discussed the same with the dictator. I agree with the dictator's note ,documented as a scribe. Any additional findings or plans will be noted. Time taken: 35 minutes Patient Condition at Discharge: Stable Plan - Discharge Summary Discharge Rx Participant: No New Discharge Prescriptions: New Lactulose 20 gm PO DAILY #900 ml Continue risperiDONE [RisperDAL] 0.5 mg PO HS Multivitamins, Thera [Multivitamin (formulary)] 1 tab PO DAILY Memantine HCl [Namenda] 5 mg PO BID Cholecalciferol [Vitamin D3] 1,000 unit PO DAILY Venlafaxine HCl [Effexor XR] 150 mg PO BID Aspirin [Adult Low Dose Aspirin EC] 81 mg PO DAILY Furosemide [Lasix] 40 mg PO DAILY #30 tab Magnesium Oxide [Mag-Ox] 400 mg PO BID #60 tab Ipratropium-Albuterol Nebulize [Duoneb 0.5 mg-3 mg/3 ml Soln] 3 ml INHALATION RT-QID PRN #0 ampul.neb PRN Reason: Wheezing Bisacodyl [Dulcolax] 10 mg RECTAL DAILY PRN PRN Reason: Constipation ALPRAZolam [Xanax] 0.5 mg PO DAILY PRN PRN Reason: Anxiety Magnesium Hydroxide [Milk of Magnesia Concentrate] 30 ml PO DAILY PRN PRN Reason: Constipation Pantoprazole [Protonix] 40 mg PO BID Discontinued Spironolactone [Aldactone] 100 mg PO DAILY Discharge Medication List Aspirin [Adult Low Dose Aspirin EC] 81 mg PO DAILY 05/14/17 [History] Cholecalciferol [Vitamin D3] 1,000 unit PO DAILY 05/14/17 [History] Memantine HCl [Namenda] 5 mg PO BID 05/14/17 [History] Multivitamins, Thera [Multivitamin (formulary)] 1 tab PO DAILY 05/14/17 [History ] Venlafaxine HCl [Effexor XR] 150 mg PO BID 05/14/17 [History] risperiDONE [RisperDAL] 0.5 mg PO HS 05/14/17 [History] Furosemide [Lasix] 40 mg PO DAILY #30 tab 05/17/17 [Rx] Magnesium Oxide [Mag-Ox] 400 mg PO BID #60 tab 05/17/17 [Rx] Ipratropium-Albuterol Nebulize [Duoneb 0.5 mg-3 mg/3 ml Soln] 3 ml INHALATION RT -QID PRN #0 ampul.neb 06/01/17 [Rx] ALPRAZolam [Xanax] 0.5 mg PO DAILY PRN 06/19/17 [History] Bisacodyl [Dulcolax] 10 mg RECTAL DAILY PRN 06/19/17 [History] Magnesium Hydroxide [Milk of Magnesia Concentrate] 30 ml PO DAILY PRN 06/19/17 [ History] Pantoprazole [Protonix] 40 mg PO BID 07/11/17 [History] Lactulose 20 gm PO DAILY #900 ml 07/13/17 [Rx] Follow up Appointment(s)/Referral(s): Interventional radiology, [facility] [Other] - 07/14/17 (Paracentesis) GI, Dr. Gil Mantilla [Other] - 1 Week Jasmine Galicia MD [STAFF PHYSICIAN] - 07/20/17 1:15 pm Ambulatory/Diagnostic Orders: Comprehensive Metabolic Panel [LAB.AMB] Time Frame: 3 Days, Location: Determined By Patient Patient Instructions/Handouts: Ascites (DC) Activity/Diet/Wound Care/Special Instructions: A & D [phone] Elevated potassium, aldactone on hold Soft, chopped diet, aspiration precautions. Up with assist, use walker, fall precautions. Discharge Disposition: HOME WITH HOME HEALTH SERVICES
--- NOTE | 2017-08-03 08:15 | CDI ---
Last Revision, March 2017 Documentation Clarification Form Date: 08/03/17 From: Kathia Trav Merissa Thurman, Chemical Strength Tester between 8:30 am & 5 pm Nando Admit Date: 07/12/2017 3:44:00 AM Patient Name: Андрей Crow Visit Number: [id number] Discharge Date: 07/13/17 ATTENTION: The Clinical Documentation Specialists (CDI) and [facility] Coding Staff appreciate your assistance in clarifying documentation. Please respond to the clarification below the line at the bottom and electronically sign. The CDI & [facility] Coding staff will review the response and follow-up if needed. Please note: Queries are made part of the Legal Health Record. If you have any questions, please contact the author of this message via ITS. Dr. Madeleine Reyna Acute renal failure was documented in the H&P and DS. History/Risk Factors: alcoholic hepatic encephalopathy w cirrhosis, portal hypertensive gastropathy, waiting on liver transplant BUN: 25, 20 CR: 1.10, 0.80 GFR: 65, 87 Treatment: diuretic therapy held, IV fluids KIDGO defines KENDALL as the occurrence of any 1 of the following: Increase in serum creatinine level by 0.3 mg/dl, measured prospectively by at least 2 separate levels obtained within 48 hrs, or Increase in serum creatinine level to 1.5 times baseline or greater, which is known or presumed to have occurred within the prior 7 days, or A urine volume of less than 0.5 ml/kg/h for 6 hours or longer. In order to capture the severity of condition, please clarify if the condition signifies: Acute renal failure ruled in Acute renal failure ruled out Other, please specify Unable to determine Please continue to document in your progress notes and discharge summary in order to capture severity of illness and risk of mortality. Include clinical findings that support your diagnosis. already documented Acute renal failure ruled in Already addressed MTDD
--- NOTE | 2017-08-24 15:20 | CDI ---
Last Revision, March 2017 Documentation Clarification Form Date: 08/24/2017 From: Kathia Trav Merissa Thurman, Content Manager Hours-8:30 am & 5 pm Nando Admit Date: 07/12/2017 3:44:00 AM Patient Name: Андрей Crow Visit Number: [id number] Discharge Date: 07/13/17 ATTENTION: The Clinical Documentation Specialists (CDI) and [facility] Coding Staff appreciate your assistance in clarifying documentation. Please respond to the clarification below the line at the bottom and electronically sign. The CDI & [facility] Coding staff will review the response and follow-up if needed. Please note: Queries are made part of the Legal Health Record. If you have any questions, please contact the author of this message via ITS. Dr. Madeleine Reyna Acute renal failure was documented in the H&P and DS. History/Risk Factors: alcoholic hepatic encephalopathy w cirrhosis, portal hypertensive gastropathy, waiting on liver transplant BUN: 25, 20 CR: 1.10, 0.80 GFR: 65, 87 Treatment: diuretic therapy held, IV fluids KIDGO defines KENDALL as the occurrence of any 1 of the following: Increase in serum creatinine level by 0.3 mg/dl, measured prospectively by at least 2 separate levels obtained within 48 hrs, or Increase in serum creatinine level to 1.5 times baseline or greater, which is known or presumed to have occurred within the prior 7 days, or A urine volume of less than 0.5 ml/kg/h for 6 hours or longer. In order to capture the severity of condition, please clarify if the condition signifies: Acute renal failure ruled in Acute renal failure ruled out Other, please specify Unable to determine Please continue to document in your progress notes and discharge summary in order to capture severity of illness and risk of mortality. Include clinical findings that support your diagnosis. Duplicate willie that was already addressed MTDD
== END 2017-07-13 19:25 | disposition home health service (06) | DRG 432 ==
LOC: EC 23:39 → 6SEL 07-12 03:44 → 4MS4W 07-12 13:24
PROVIDERS: ADMIT Internal Medicine; ATTEND Internal Medicine
DX: K70.40 Alcoholic hepatic failure without coma (principal); G93.41 Metabolic encephalopathy; E87.1 Hypo-osmolality and hyponatremia; D68.4 Acquired coagulation factor deficiency; K76.6 Portal hypertension; N17.9 Acute kidney failure, unspecified; Z76.82 Awaiting organ transplant status; E86.9 Volume depletion, unspecified; E11.9 Type 2 diabetes mellitus without complications; K70.31 Alcoholic cirrhosis of liver with ascites; F03.90 Unspecified dementia, unspecified severity, without behavioral disturbance, psychotic disturbance, mood disturbance, and anxiety; K31.89 Other diseases of stomach and duodenum; D64.9 Anemia, unspecified; R13.10 Dysphagia, unspecified; K29.70 Gastritis, unspecified, without bleeding; K21.9 Gastro-esophageal reflux disease without esophagitis; E78.5 Hyperlipidemia, unspecified; F43.10 Post-traumatic stress disorder, unspecified; F32.9 Major depressive disorder, single episode, unspecified; F10.11 Alcohol abuse, in remission; H91.90 Unspecified hearing loss, unspecified ear; Z79.82 Long term (current) use of aspirin; Z79.899 Other long term (current) drug therapy; Z87.891 Personal history of nicotine dependence; Z97.2 Presence of dental prosthetic device (complete) (partial); Z88.5 Allergy status to narcotic agent; Z88.8 Allergy status to other drugs, medicaments and biological substances; Z96.641 Presence of right artificial hip joint; Z97.4 Presence of external hearing-aid; Z86.711 Personal history of pulmonary embolism; Z96.651 Presence of right artificial knee joint; Z82.61 Family history of arthritis
CPT/HCPCS: 36415; 51701; 70450; 71046; 80053; 81003; 82140; 82550; 82553; 83605; 83735; 84484; 85025; 85027; 85610; 85730; 87040; 87086; 87502; 93005; 96360; 96361; 96365; 96375; 99285

== ENCOUNTER 2017-07-14 12:07 | Day surgery (SDC) | payer MEDICARE ==
[2017-07-14 12:52] VITALS: RESP 20; TEMP 98.1
[2017-07-14 12:53] LABS: Platelet Count 142 k/uL (150-450)
[2017-07-14 13:01] LABS: INR 1.3 (<1.2); Prothrombin Time 12.2 sec (9.0-12.0)
[2017-07-14 14:38] VITALS: BP 106/75; PULSE 74
[2017-07-14] MEDS: ALBUMIN HUMAN 25% 50 ML in EMPTY BAG 1 BAG IVPB SCH (14:40)
--- NOTE | 2017-07-14 15:45 | US ---
EXAMINATION TYPE: US paracentesis abd w/image DATE OF EXAM: 07/14/2017 COMPARISON: NONE HISTORY: Ascites. PROCEDURE: Maximal barrier technique was utilized. The skin overlying a suitable pocket of fluid was localized with ultrasound and the overlying skin was prepped and draped. Ultrasound was utilized with sterile technique. Lidocaine was used for local anesthesia and a skin terri made with a scalpel. Catheter was advanced under direct ultrasound guidance into a suitable pocket of fluid and approximately 3.4 liter s of serous fluid were removed. Catheter was withdrawn and hemostasis achieved. There is no immedia te complication; the patient is discharged in stable condition. IMPRESSION: STATUS POST ULTRASOUND GUIDED PARACENTESIS FOR PALLIATION OF ASCITES. THIS PROCEDURE WA S PERFORMED BY THE UNDERSIGNED.
[2017-07-14 16:56] LABS: Appearance,BF Hazy; Nucleated Cells, Body Fluid 93 /uL; RBC, Body Fluid 198 /uL
[2017-07-14 16:57] LABS: Mononuclear WBC,Body Fluid 93 %; Polynuclear WBC,Body Fluid 7 %; Total Cells Counted,Body Fluid 100
== END 2017-07-14 14:50 | disposition home or self-care (01) ==
LOC: RADPROMAIN 12:07
PROVIDERS: ATTEND Internal Medicine Gastroenterology
DX: R18.8 Other ascites (principal); K74.60 Unspecified cirrhosis of liver
CPT/HCPCS: 36415; 49083; 85049; 85610; 87070; 87075; 87205; 89050

== ENCOUNTER 2017-07-28 08:40 | Day surgery (SDC) | payer MEDICARE ==
[2017-07-28 09:01] VITALS: BP 119/79; PULSE 80; RESP 20; TEMP 97.6
--- NOTE | 2017-07-28 10:11 | US ---
Therapeutic paracentesis. DATE OF EXAM: 07/28/2017 CLINICAL HISTORY: Discontinued procedure Preliminary scanning demonstrated a small amount of fluid. The patient wished to reschedule and defer procedure. IMPRESSION: Discontinued procedure
== END 2017-07-28 09:30 | disposition home or self-care (01) ==
LOC: RADPROMAIN 08:40
PROVIDERS: ATTEND Internal Medicine Gastroenterology
DX: R18.8 Other ascites (principal); Z53.8 Procedure and treatment not carried out for other reasons
CPT/HCPCS: 76705

== ENCOUNTER 2017-08-04 11:55 | Day surgery (SDC) | payer MEDICARE ==
[2017-08-04 12:32] VITALS: RESP 20; TEMP 98.1
[2017-08-04 12:35] LABS: Mean Platelet Volume 7.8; Platelet Count 144 k/uL (150-450)
[2017-08-04 12:40] LABS: INR 1.4 (<1.2)
[2017-08-04] MEDS: ALBUMIN HUMAN 25% 50 ML in EMPTY BAG 1 BAG IVPB SCH (14:07)
[2017-08-04 14:09] VITALS: BP 100/70; PULSE 78
--- NOTE | 2017-08-04 15:58 | US ---
Therapeutic paracentesis. DATE OF EXAM: 08/04/2017 CLINICAL HISTORY: Ascites The procedure was discussed with the patient. The risks, complications, benefits, and alternatives we re discussed and any questions were answered. Informed consent was obtained. The patient was placed s upine on the ultrasound table and prepped and draped in the usual sterile fashion. All elements of maximal barrier technique were utilized. Under ultrasound guidance, access into the right lower quadrant was obtained, via the paracentesis catheter system and direct ultrasound guidanc e. Approximately 3.3 liters of straw-colored fluid was removed. The patient was stable throughout the pr ocedure and remained stable upon discharge from Department of Radiology. IMPRESSION: Successful therapeutic paracentesis under ultrasound guidance.
== END 2017-08-04 14:05 | disposition home or self-care (01) ==
LOC: RADPROMAIN 11:55
PROVIDERS: ATTEND Internal Medicine Gastroenterology
DX: R18.8 Other ascites (principal); K74.60 Unspecified cirrhosis of liver
CPT/HCPCS: 36415; 49083; 82565; 85049; 85610

== ENCOUNTER 2017-08-25 09:07 | Day surgery (SDC) | payer MEDICARE ==
[2017-08-25 09:35] LABS: Mean Platelet Volume 6.8; Platelet Count 170 k/uL (150-450)
[2017-08-25 09:43] LABS: INR 1.3 (<1.2); Prothrombin Time 12.2 sec (9.0-12.0)
[2017-08-25 09:46] VITALS: TEMP 97.8
[2017-08-25] MEDS: ALBUMIN HUMAN 25% 50 ML in EMPTY BAG 1 BAG IVPB SCH ×2 (10:50→11:05)
[2017-08-25 11:06] VITALS: RESP 16
[2017-08-25 11:30] VITALS: BP 106/78; PULSE 76
--- NOTE | 2017-08-25 13:36 | US ---
EXAMINATION TYPE: US paracentesis abd w/image DATE OF EXAM: 08/25/2017 COMPARISON: NONE HISTORY: Ascites. PROCEDURE: Maximal barrier technique was utilized. The skin overlying a suitable pocket of fluid was localized with ultrasound and the overlying skin was prepped and draped. Ultrasound was utilized with sterile technique. Lidocaine was used for local anesthesia and a skin terri made with a scalpel. Catheter was advanced under direct ultrasound guidance into a suitable pocket of fluid and approximately 4.5 liter s of serous fluid were removed. Catheter was withdrawn and hemostasis achieved. There is no immedia te complication; the patient is discharged in stable condition. IMPRESSION: STATUS POST ULTRASOUND GUIDED PARACENTESIS FOR PALLIATION OF ASCITES. THIS PROCEDURE WA S PERFORMED BY THE UNDERSIGNED. Specimen sent for laboratory analysis
[2017-08-25 14:36] LABS: Appearance,BF Hazy; Color,BF Yellow
[2017-08-25 14:37] LABS: Nucleated Cells, Body Fluid 76 /uL; RBC, Body Fluid 226 /uL
[2017-08-25 14:38] LABS: Mononuclear WBC,Body Fluid 98 %; Polynuclear WBC,Body Fluid 2 %; Total Cells Counted,Body Fluid 100
== END 2017-08-25 11:40 | disposition home or self-care (01) ==
LOC: RADPROMAIN 09:07
PROVIDERS: ATTEND Internal Medicine Gastroenterology
DX: R18.8 Other ascites (principal); K74.60 Unspecified cirrhosis of liver
CPT/HCPCS: 89050; 85049; 85610; 87070; 87205; 87075; 87077; 87186; 96365; 36415; 49083; P9047

== ENCOUNTER 2017-09-13 08:53 | Day surgery (SDC) | payer MEDICARE ==
[2017-09-13 09:24] VITALS: RESP 20; TEMP 97.9
[2017-09-13 09:28] LABS: Mean Platelet Volume 7.7; Platelet Count 154 k/uL (150-450)
[2017-09-13 09:35] LABS: INR 1.3 (<1.2); Prothrombin Time 12.2 sec (9.0-12.0)
[2017-09-13] MEDS: ALBUMIN HUMAN 25% 50 ML in EMPTY BAG 1 BAG IVPB SCH ×2 (10:39→10:53)
[2017-09-13 11:18] VITALS: BP 101/58; PULSE 70
--- NOTE | 2017-09-13 12:04 | US ---
EXAMINATION TYPE: US paracentesis abd w/image DATE OF EXAM: 09/13/2017 COMPARISON: NONE HISTORY: Ascites. PROCEDURE: Maximal barrier technique was utilized. The skin overlying a suitable pocket of fluid was localized with ultrasound and the overlying skin was prepped and draped. Ultrasound was utilized with sterile technique. Lidocaine was used for local anesthesia and a skin terri made with a scalpel. Catheter was advanced under direct ultrasound guidance into a suitable pocket of fluid and approximately 4.3 liter s of serous fluid were removed. Catheter was withdrawn and hemostasis achieved. There is no immedia te complication; the patient is discharged in stable condition. IMPRESSION: STATUS POST ULTRASOUND GUIDED PARACENTESIS FOR PALLIATION OF ASCITES. THIS PROCEDURE WA S PERFORMED BY THE UNDERSIGNED.
[2017-09-13 14:56] LABS: Appearance,BF Hazy; Nucleated Cells, Body Fluid 56 /uL; RBC, Body Fluid 159 /uL
[2017-09-13 14:57] LABS: Mononuclear WBC,Body Fluid 93 %; Polynuclear WBC,Body Fluid 6 %; Total Cells Counted,Body Fluid 100
== END 2017-09-13 11:35 | disposition home or self-care (01) ==
LOC: RADPROMAIN 08:53
PROVIDERS: ATTEND Internal Medicine Gastroenterology
DX: R18.8 Other ascites (principal)
CPT/HCPCS: 89050; 82565; 85049; 85610; 87070; 87205; 87075; 96365; 36415; 49083; P9047

== ENCOUNTER 2017-10-06 11:44 | Day surgery (SDC) | payer MEDICARE ==
--- NOTE | 2017-10-06 13:03 | US ---
Therapeutic paracentesis. DATE OF EXAM: 10/06/2017 CLINICAL HISTORY: Ascites Preliminary imaging of the abdomen demonstrated only a very small amount of fluid within the abdomen. The patient wished to defer the procedure. IMPRESSION: Discontinued paracentesis..
== END 2017-10-06 13:30 | disposition home or self-care (01) ==
LOC: RADPROMAIN 11:44
PROVIDERS: ATTEND Internal Medicine Gastroenterology
DX: R18.8 Other ascites (principal); Z53.8 Procedure and treatment not carried out for other reasons
CPT/HCPCS: 76705

== ENCOUNTER 2017-10-13 11:39 | Day surgery (SDC) | payer MEDICARE ==
[2017-10-13 13:52] VITALS: BP 121/73; PULSE 73; RESP 16; TEMP 97.9
--- NOTE | 2017-10-13 16:14 | US ---
Discontinued thoracentesis HISTORY: Ascites Small amount of ascites is present. Patient defers paracentesis at this time.
== END 2017-10-13 12:35 | disposition home or self-care (01) ==
LOC: RADPROMAIN 11:39
PROVIDERS: ATTEND Internal Medicine Gastroenterology
DX: R18.8 Other ascites (principal); Z53.8 Procedure and treatment not carried out for other reasons
CPT/HCPCS: 76705

== ENCOUNTER 2017-10-24 12:40 | Day surgery (SDC) | payer MEDICARE ==
[2017-10-24 13:18] VITALS: RESP 20; TEMP 98.3
[2017-10-24 13:42] LABS: Mean Platelet Volume 6.8; Platelet Count 199 k/uL (150-450)
[2017-10-24 13:47] LABS: INR 1.3 (<1.2); Prothrombin Time 12.3 sec (9.0-12.0)
[2017-10-24] MEDS: ALBUMIN HUMAN 25% 50 ML in EMPTY BAG 1 BAG IVPB SCH ×3 (14:13→14:47)
[2017-10-24 14:45] VITALS: BP 119/70; PULSE 74
--- NOTE | 2017-10-24 16:09 | US ---
Therapeutic paracentesis. DATE OF EXAM: 10/24/2017 CLINICAL HISTORY: Ascites The procedure was discussed with the patient. The risks, complications, benefits, and alternatives we re discussed and any questions were answered. Informed consent was obtained. The patient was placed s upine on the ultrasound table and prepped and draped in the usual sterile fashion. All elements of maximal barrier technique were utilized. Under ultrasound guidance, access into the left lower quadrant was obtained, via the paracentesis catheter system and direct ultrasound guidance . Approximately 4.6 liters of straw-colored fluid was removed. The patient was stable throughout the pr ocedure and remained stable upon discharge from Department of Radiology. IMPRESSION: Successful therapeutic paracentesis under ultrasound guidance.
[2017-10-24 16:31] LABS: Color,BF Yellow
[2017-10-24 16:32] LABS: Appearance,BF Hazy
[2017-10-24 16:39] LABS: Nucleated Cells, Body Fluid 100 /uL; RBC, Body Fluid 163 /uL
[2017-10-24 16:59] LABS: Mononuclear WBC,Body Fluid 95 %; Polynuclear WBC,Body Fluid 5 %; Total Cells Counted,Body Fluid 100
== END 2017-10-24 15:10 | disposition home or self-care (01) ==
LOC: RADPROMAIN 12:40
PROVIDERS: ATTEND Internal Medicine Gastroenterology
DX: R18.8 Other ascites (principal)
CPT/HCPCS: 89050; 82565; 85049; 85610; 87070; 87205; 87075; 87077; 87186; 36415; 49083; P9047

== ENCOUNTER 2017-11-21 07:46 | Day surgery (SDC) | payer MEDICARE ==
[2017-11-21 08:10] VITALS: BP 117/77; PULSE 87; RESP 16; TEMP 97.9
[2017-11-21 08:49] LABS: Mean Platelet Volume 6.7; Platelet Count 201 k/uL (150-450)
[2017-11-21 08:56] LABS: INR 1.4 (<1.2)
[2017-11-21] MEDS ORDERED: ALBUMIN HUMAN 25% 50 ML in EMPTY BAG 1 BAG IVPB SCH (09:00)
--- NOTE | 2017-11-21 10:00 | US ---
Therapeutic paracentesis. DATE OF EXAM: 11/21/2017 CLINICAL HISTORY: Preliminary imaging demonstrated only a small amount of fluid. The patient deferred the procedure. IMPRESSION: Deferred paracentesis.
== END 2017-11-21 09:31 | disposition home or self-care (01) ==
LOC: RADPROMAIN 07:46
PROVIDERS: ATTEND Internal Medicine Gastroenterology
DX: R18.8 Other ascites (principal); Z53.8 Procedure and treatment not carried out for other reasons
CPT/HCPCS: 76705; 82565; 85049; 85610

== ENCOUNTER 2017-12-07 11:50 | Day surgery (SDC) | payer MEDICARE ==
--- NOTE | 2017-12-07 13:06 | US ---
Discontinued paracentesis HISTORY: Ascites Ultrasound performed of the abdomen. Only small amount of fluid identified. IMPRESSION: Discontinued paracentesis. Minimal ascites.
== END 2017-12-07 12:30 | disposition home or self-care (01) ==
LOC: RADPROMAIN 11:50
PROVIDERS: ATTEND Internal Medicine Gastroenterology
DX: K70.31 Alcoholic cirrhosis of liver with ascites (principal); Z53.8 Procedure and treatment not carried out for other reasons
CPT/HCPCS: 76705

== ENCOUNTER 2018-11-27 19:46 | Inpatient (IN) | payer MEDICARE ==
[2018-11-27] MEDS ORDERED: IPRATROPIUM-ALBUTEROL 3 ML NEB INHALATION STA (19:50)
--- NOTE | 2018-11-27 19:58 | ED ---
General Adult HPI - General Stated complaint: LARS Time Seen by Provider: 11/27/18 19:50 Source: patient, family, EMS, RN notes reviewed Mode of arrival: EMS Limitations: physical limitation - History of Present Illness Initial comments: Patient is a pleasant 78-year-old male presenting to the emergency department for difficulty in breathing. Patient is on CPAP and provides limited history. provides majority of history. Patient became short of breath after using the bathroom just prior to arrival. Patient was doing well earlier in the day. No history of dyspnea are chronic dyspnea. No history of COPD or asthma. Patient does have mild leg swelling however states is chronic and unchanged. Patient denies any pain or other complaints. Patient is a poor his hamida and limited by CPAP. - Related Data Home Medications Medication Instructions Recorded Confirmed Cholecalciferol [Vitamin D3 (25 1,000 unit PO DAILY 05/14/17 11/27/18 Mcg = 1000 Iu)] Memantine HCl [Namenda] 5 mg PO BID 05/14/17 11/27/18 Venlafaxine HCl [Effexor XR] 150 mg PO BID 05/14/17 11/27/18 ALPRAZolam [Xanax] 0.5 mg PO HS PRN 06/19/17 11/27/18 Empagliflozin [Jardiance] 10 mg PO DAILY 11/27/18 11/27/18 Furosemide [Lasix] 20 mg PO MOWEFR 11/27/18 11/27/18 Lactulose 20 gm PO BID 11/27/18 11/27/18 Milk Thistle 150 mg PO BID 11/27/18 11/27/18 Omeprazole 20 mg PO BID 11/27/18 11/27/18 Spironolactone 100 mg PO DAILY 11/27/18 11/27/18 risperiDONE [RisperDAL] 0.125 mg PO BID 11/27/18 11/27/18 Allergies Allergy/AdvReac Type Severity Reaction Status Date / Time morphine Allergy Confusion Verified 11/27/18 20:30 donepezil [From Aricept] AdvReac Hallucinati Verified 11/27/18 20:30 ons Review of Systems ROS Statement: Those systems with pertinent positive or pertinent negative responses have been documented in the HPI. ROS Other: All systems not noted in ROS Statement are negative. Constitutional: Denies: fever Eyes: Denies: eye pain ENT: Denies: ear pain Respiratory: Reports: dyspnea Cardiovascular: Denies: chest pain Endocrine: Denies: fatigue Gastrointestinal: Denies: abdominal pain Genitourinary: Denies: dysuria Musculoskeletal: Denies: back pain Skin: Denies: rash Neurological: Denies: headache Past Medical History Past Medical History: Dementia, Diabetes Mellitus, GERD/Reflux, Hearing Disorder / Deafness, Hyperlipidemia, Liver Disease, Pulmonary Embolus (PE) Additional Past Medical History / Comment(s): Pt recently admitted to [facility] with ascities/paracentesis, influenza A and small R lower lobe PE. Other hx: Recent diagnosis of alcoholic liver cirrhosis with recurrent ascities (pt follows at [facility] with Dr. Gooden and requires paracentesis about q 2 weeks), mild dementia, low magnesium, NIDDM type II, gastritis/esophageal rings, swallowing difficulties-pureed diet and uses a straw at all times, bilateral lower extremity edema at times, anemia, [place] bilaterally-uses hearing aides History of Any Multi-Drug Resistant Organisms: None Reported Past Surgical History: Back Surgery, Joint Replacement, Orthopedic Surgery, Tonsillectomy Additional Past Surgical History / Comment(s): Multiple paracentesis, EGD with dilatations, 05/31/17 EGD with biopsy, colonoscopy, low back surgery, Patial R knee replacement, total R hip replacement Past Anesthesia/Blood Transfusion Reactions: No Reported Reaction Past Psychological History: Anxiety, Depression, PTSD Additional Psychological History / Comment(s): Pt resides with his spouse. He uses a walker to ambulate. He has a nebulizer but has not needed to use it for quite some time. He no longer drives, his spouse drives. His 2 daughters are RNs and work for home care company so pt gets home care thru them. 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 Smoking Status: Never smoker Past Alcohol Use History: Abuse, Heavy Additional Past Alcohol Use History / Comment(s): Pt has hx of etoh abuse but quit drinking years ago. Past Drug Use History: None Reported - Past Family History Father Family Medical History: No Reported History Mother Family Medical History: Osteoarthritis (OA) Additional Family Medical History / Comment(s): Mother had bilateral hip replacements. General Exam Limitations: no limitations General appearance: alert Head exam: Present: atraumatic Eye exam: Present: normal appearance ENT exam: Present: normal oropharynx Neck exam: Present: normal inspection Respiratory exam: Present: respiratory distress, accessory muscle use, decreased breath sounds (Throughout) Cardiovascular Exam: Present: tachycardia GI/Abdominal exam: Present: soft. Absent: distended, tenderness Extremities exam: Present: pedal edema (+1 bilateral). Absent: calf tenderness Back exam: Present: normal inspection Neurological exam: Present: alert Psychiatric exam: Present: normal affect, normal mood Skin exam: Present: normal color Course Vital Signs 11/27/18 11/27/18 11/27/18 19:53 19:59 20:01 Temperature 97.6 F Pulse Rate 98 98 89 Respiratory 28 H 23 24 Rate Blood Pressure 128/80 103/82 O2 Sat by Pulse 95 100 Oximetry 11/27/18 11/27/18 20:06 20:24 Temperature Pulse Rate 101 H 93 Respiratory 26 H 25 H Rate Blood Pressure 122/94 O2 Sat by Pulse 99 Oximetry - Reevaluation(s) Reevaluation #1: 11/27/18 20:11 and daughter states patient is DO NOT RESUSCITATE. No CPR no intubation. They state this is secondary to patient having advanced cirrhosis and this has been previously discussed. 11/27/18 21:33 Patient reevaluated and significantly improved with BiPAP. Patient still has some accessory muscle use. Family updated. Daughter states they have considered starting palliative care however is receptive to computed tomography scan still. 11/27/18 23:40 Patient again reevaluated and significantly improved. Patient and family updated on CT results as well as other results previously. Case discussed in detail with Dr. Philippe, who will admit for Dr. dwyer. 11/27/18 23:42 Patient does meet criteria for sepsis diagnosed at 2330. Blood culture and lactic acid and IV antibiotics ordered. EKG Findings - EKG Comments: EKG Findings:: Sinus rhythm at 100. PVCs present. CA 176. QRS 90. QT 334. QTC 4:30. Left axis. Normal QRS. No acute ST change. Motion artifact present. Medical Decision Making - Lab Data Result diagrams: 11/27/18 20:07 11/27/18 20:07 Lab Results 11/27/18 11/27/18 11/27/18 Range/Units 20:03 20:07 20:07 WBC (3.8-10.6) k/uL RBC (4.30-5.90) m/uL Hgb (13.0-17.5) gm/dL Hct (39.0-53.0) % MCV (80.0-100.0) fL MCH (25.0-35.0) pg MCHC (31.0-37.0) g/dL RDW (11.5-15.5) % Plt Count (150-450) k/uL Neutrophils % % Lymphocytes % % Monocytes % % Eosinophils % % Basophils % % Neutrophils # (1.3-7.7) k/uL Lymphocytes # (1.0-4.8) k/uL Monocytes # (0-1.0) k/uL Eosinophils # (0-0.7) k/uL Basophils # (0-0.2) k/uL Macrocytosis PT 13.1 H (9.0-12.0) sec INR 1.3 H (<1.2) APTT 25.8 (22.0-30.0) sec D-Dimer 7.45 H (<0.60) mg/L FEU VBG pH (7.31-7.41) VBG pCO2 (37-51) mmHg VBG HCO3 (24-28) mmol/L Sodium (137-145) mmol/L Potassium (3.5-5.1) mmol/L Chloride (98-107) mmol/L Carbon Dioxide (22-30) mmol/L Anion Gap mmol/L BUN (9-20) mg/dL Creatinine (0.66-1.25) mg/dL Est GFR (CKD-EPI)AfAm (>60 ml/min/1.73 sqM) Est GFR (CKD-EPI)NonAf (>60 ml/min/1.73 sqM) Glucose (74-99) mg/dL POC Glucose (mg/dL) 177 H (75-99) mg/dL POC Glu Licensed Mortgage Loan Officer ID Neha Man Calcium (8.4-10.2) mg/dL Total Bilirubin (0.2-1.3) mg/dL AST (17-59) U/L ALT (21-72) U/L Alkaline Phosphatase (38-126) U/L Troponin I (0.000-0.034) ng/mL NT-Pro-B Natriuret Pep 821 pg/mL Total Protein (6.3-8.2) g/dL Albumin (3.5-5.0) g/dL 11/27/18 11/27/18 11/27/18 Range/Units 20:07 20:07 20:07 WBC 13.5 H (3.8-10.6) k/uL RBC 3.41 L (4.30-5.90) m/uL Hgb 11.6 L (13.0-17.5) gm/dL Hct 34.5 L (39.0-53.0) % MCV 101.0 H (80.0-100.0) fL MCH 33.9 (25.0-35.0) pg MCHC 33.6 (31.0-37.0) g/dL RDW 14.8 (11.5-15.5) % Plt Count 210 (150-450) k/uL Neutrophils % 68 % Lymphocytes % 24 % Monocytes % 3 % Eosinophils % 2 % Basophils % 1 % Neutrophils # 9.2 H (1.3-7.7) k/uL Lymphocytes # 3.2 (1.0-4.8) k/uL Monocytes # 0.4 (0-1.0) k/uL Eosinophils # 0.3 (0-0.7) k/uL Basophils # 0.1 (0-0.2) k/uL Macrocytosis Slight PT (9.0-12.0) sec INR (<1.2) APTT (22.0-30.0) sec D-Dimer (<0.60) mg/L FEU VBG pH (7.31-7.41) VBG pCO2 (37-51) mmHg VBG HCO3 (24-28) mmol/L Sodium 133 L (137-145) mmol/L Potassium 4.1 (3.5-5.1) mmol/L Chloride 103 (98-107) mmol/L Carbon Dioxide 18 L (22-30) mmol/L Anion Gap 12 mmol/L BUN 23 H (9-20) mg/dL Creatinine 1.32 H (0.66-1.25) mg/dL Est GFR (CKD-EPI)AfAm 60 (>60 ml/min/1.73 sqM) Est GFR (CKD-EPI)NonAf 52 (>60 ml/min/1.73 sqM) Glucose 186 H (74-99) mg/dL POC Glucose (mg/dL) (75-99) mg/dL POC Glu Licensed Mortgage Loan Officer ID Calcium 9.1 (8.4-10.2) mg/dL Total Bilirubin 1.1 (0.2-1.3) mg/dL AST 58 (17-59) U/L ALT 42 (21-72) U/L Alkaline Phosphatase 300 H (38-126) U/L Troponin I 0.014 (0.000-0.034) ng/mL NT-Pro-B Natriuret Pep pg/mL Total Protein 7.2 (6.3-8.2) g/dL Albumin 3.0 L (3.5-5.0) g/dL 11/27/18 Range/Units 20:07 WBC (3.8-10.6) k/uL RBC (4.30-5.90) m/uL Hgb (13.0-17.5) gm/dL Hct (39.0-53.0) % MCV (80.0-100.0) fL MCH (25.0-35.0) pg MCHC (31.0-37.0) g/dL RDW (11.5-15.5) % Plt Count (150-450) k/uL Neutrophils % % Lymphocytes % % Monocytes % % Eosinophils % % Basophils % % Neutrophils # (1.3-7.7) k/uL Lymphocytes # (1.0-4.8) k/uL Monocytes # (0-1.0) k/uL Eosinophils # (0-0.7) k/uL Basophils # (0-0.2) k/uL Macrocytosis PT (9.0-12.0) sec INR (<1.2) APTT (22.0-30.0) sec D-Dimer (<0.60) mg/L FEU VBG pH 7.09 L* (7.31-7.41) VBG pCO2 69 H (37-51) mmHg VBG HCO3 20 L (24-28) mmol/L Sodium (137-145) mmol/L Potassium (3.5-5.1) mmol/L Chloride (98-107) mmol/L Carbon Dioxide (22-30) mmol/L Anion Gap mmol/L BUN (9-20) mg/dL Creatinine (0.66-1.25) mg/dL Est GFR (CKD-EPI)AfAm (>60 ml/min/1.73 sqM) Est GFR (CKD-EPI)NonAf (>60 ml/min/1.73 sqM) Glucose (74-99) mg/dL POC Glucose (mg/dL) (75-99) mg/dL POC Glu Licensed Mortgage Loan Officer ID Calcium (8.4-10.2) mg/dL Total Bilirubin (0.2-1.3) mg/dL AST (17-59) U/L ALT (21-72) U/L Alkaline Phosphatase (38-126) U/L Troponin I (0.000-0.034) ng/mL NT-Pro-B Natriuret Pep pg/mL Total Protein (6.3-8.2) g/dL Albumin (3.5-5.0) g/dL - Radiology Data Radiology results: report reviewed (Computed tomography scan of the chest shows bilateral infiltrates consistent with multilobular pneumonia), image reviewed (Chest x-ray shows mild interstitial changes) Critical Care Time Critical Care Time: Yes Total Critical Care Time: 32 Disposition Clinical Impression: Bilateral pneumonia, Sepsis, Acute respiratory failure Disposition: ADMITTED IP TO THIS HOSP Condition: Serious Is patient prescribed a controlled substance at d/c from ED?: No Referrals: Jasmine Galicia MD [Primary Care Provider] - 1-2 days Decision Time: 23:41
[2018-11-27 20:09] LABS: Glucose,Whole Blood 177 mg/dL (75-99)
[2018-11-27 20:36] LABS: Basophils # (A) 0.1 k/uL (0-0.2); Basophils % (A) 1 %; Eosinophils # (A) 0.3 k/uL (0-0.7); Eosinophils % (A) 2 %; HCT 34.5 % (39.0-53.0); HGB 11.6 gm/dL (13.0-17.5); Lymphocytes # (A) 3.2 k/uL (1.0-4.8); Lymphocytes % (A) 24 %; MCH 33.9 pg (25.0-35.0); MCHC 33.6 g/dL (31.0-37.0); Macrocytosis Slight; Mean Platelet Volume 7.2; Monocytes # (A) 0.4 k/uL (0-1.0); Monocytes % (A) 3 %; Neutrophils # (A) 9.2 k/uL (1.3-7.7); Neutrophils % (A) 68 %; Platelet Count 210 k/uL (150-450); RBC 3.41 m/uL (4.30-5.90); RDW 14.8 % (11.5-15.5); WBC 13.5 k/uL (3.8-10.6)
[2018-11-27 20:40] LABS: VBG PH 7.09 (7.31-7.41)
[2018-11-27 20:50] LABS: Calcium 9.1 mg/dL (8.4-10.2); Potassium 4.1 mmol/L (3.5-5.1); Total Bilirubin 1.1 mg/dL (0.2-1.3); Total Protein 7.2 g/dL (6.3-8.2)
[2018-11-27 20:57] LABS: INR 1.3 (<1.2); Partial Thromboplastin Time 25.8 sec (22.0-30.0); Prothrombin Time 13.1 sec (9.0-12.0)
[2018-11-27 20:59] LABS: D-Dimer 7.45 mg/L FEU (<0.60)
--- NOTE | 2018-11-27 21:30 | XR ---
EXAMINATION: XR chest 1V portable DATE AND TIME: 11/27/2018 7:57 PM CLINICAL INDICATION: PHH; Dyspnea TECHNIQUE: AP upright portable COMPARISON: 07/12/2017 FINDINGS: The pulmonary vasculature is silhouetted by a fine reticular pattern of increased density throughout the lungs, having the appearance of interstitial phase pulmonary edema. There are no zones of pulmona ry consolidation and no silhouetting of the hemidiaphragms or the mediastinum. The pleural spaces are negative. The cardiac silhouette is mildly enlarged. The skeletal structures and soft tissues are negative for acute findings. IMPRESSION: Radiographic findings which can correlate with a clinical diagnosis of mild interstitial phase pulmon alejo edema.
--- NOTE | 2018-11-27 23:23 | CT ---
EXAM: CT Angiography Chest With Intravenous Contrast CLINICAL HISTORY: ITS.REASON CT Reason: pe protocol TECHNIQUE: Axial computed tomographic angiography images of the chest with intravenous contrast using pulmonary embolism protocol. CTDI is 15.17 mGy and DLP is 310.6 mGy-cm. This CT exam was performed using one or more of the following dose reduction techniques: automated exposure control, adjustment of the mA and/or kV according to patient size, and/or use of iterative reconstruction technique. MIP reconstructed images were created and reviewed. COMPARISON: No relevant prior studies available. FINDINGS: There is no pulmonary embolism within limits due to motion. Aortic atherosclerosis. Marked aortic tortuosity. No dissection or other acute syndrome. No aneurysm. Coronary atherosclerosis. Patchy bilateral pulmonary infiltrates, more pronounced in the right lung. Reticulonodular features. Suspect endobronchial spread of atypical infection. Hiatal hernia. Thickened distal esophagus containing food debris. Consider reflux or inflammatory or neoplastic stricture of the distal esophagus. Clinical correlation is advised. Upper abdominal ascites. Cholelithiasis. 2.5 cm lamellated gallstone. Age-indeterminate T12, L1, and L2 compression fractures. Correlate for back pain. IMPRESSION: No PE or aortic dissection. Pulmonary infiltrates suggesting endobronchial spread of infection. Hiatal hernia with thickened distal esophagus containing food debris. Consider reflux or inflammatory or neoplastic stricture. Age-indeterminate T12-L2 compression fractures.
[2018-11-27] MEDS ORDERED: LEVOFLOXACIN 750MG-D5W PMX 750 MG in DEXTROSE/WATER 1 150ML.BAG IVPB STA (23:43)
[2018-11-27] MEDS ORDERED: PIPERACILLIN-TAZOBACTAM 3.375 GM in SODIUM CHLORIDE 0.9% 100 ML IVPB STA (23:43)
[2018-11-27] MEDS ORDERED: IPRATROPIUM-ALBUTEROL 3 ML NEB INHALATION PRN (23:43)
[2018-11-27] MEDS ORDERED: PNEUMONIA PROTOCOL UTILIZED 1 EACH MISC PO PRN (23:43)
[2018-11-28] MEDS: SODIUM CHLORIDE 0.9% 1,000 ML IV SCH ×3 (00:34→20:40)
[2018-11-28 06:12] LABS: Glucose,Whole Blood 220 mg/dL (75-99)
[2018-11-28] MEDS: IPRATROPIUM-ALBUTEROL 3 ML NEB INHALATION SCH ×4 (08:15→19:53)
[2018-11-28] MEDS: PIPERACILLIN-TAZOBACTAM 3.375 GM in SODIUM CHLORIDE 0.9% 100 ML IVPB SCH ×2 (08:18→15:48)
[2018-11-28] MEDS ORDERED: ALPRAZolam 0.5 MG TAB PO PRN (08:30)
[2018-11-28 09:15] LABS: HCT 34.3 % (39.0-53.0); HGB 11.4 gm/dL (13.0-17.5); MCH 33.6 pg (25.0-35.0); MCHC 33.3 g/dL (31.0-37.0); MCV 101.2 fL (80.0-100.0); Macrocytosis Slight; Mean Platelet Volume 7.9; Platelet Count 114 k/uL (150-450); RBC 3.39 m/uL (4.30-5.90); WBC 4.5 k/uL (3.8-10.6)
[2018-11-28 09:20] LABS: Albumin 2.5 g/dL (3.5-5.0); Potassium 4.4 mmol/L (3.5-5.1); Total Protein 6.2 g/dL (6.3-8.2)
[2018-11-28] MEDS: MEMANTINE 5 MG TAB PO SCH ×2 (09:44→20:47)
[2018-11-28] MEDS: CHOLECALCIFEROL 1,000 UNIT TAB PO SCH (09:44)
[2018-11-28] MEDS: LACTULOSE 20 GM/30 ML CUP PO SCH ×2 (09:44→20:47)
[2018-11-28 10:07] LABS: Band Neutrophils % 30 %; Lymphocytes # (M) 0.36 k/uL (1.0-4.8); Metamyelocytes # (M) 0.14 k/uL (0); Metamyelocytes % 3 %; Monocytes # (M) 0.36 k/uL (0-1.0); Myelocytes # (M) 0.05 k/uL (0); Myelocytes % 1 %; Neutrophils % (M) 51 %; Nucleated Red Blood Cells 0 /100 WBC (0-0); Total Cells Counted 200
--- NOTE | 2018-11-28 11:06 | P.HPIM ---
History of Present Illness H&P Date: 11/28/18 This is a 78-year-old male patient of Dr. Galicia patient presented to the ER with complaints of difficulty breathing. No family currently at bedside. Patient unable to provide information about events leading up to hospitalization information obtained from medical record. Per ER report patient became short of breath after using the bathroom was brought into the ER per patient's . Patient does have a past medical history of dementia, diabetes mellitus, GERD, hearing disorder, deafness, hyperlipidemia, liver disease, pulmonary embolism, ascites due to alcohol liver cirrhosis, anxiety depression and history of EtOH. Chest x-ray completed showing radiographic findings back correlate with clinical diagnosis of mild interstitial phase pulmonary edema. D-dimer elevated at 7.45. CTA of the chest completed showing no PE or aortic dissection. Pulmonary infiltrates chest pain and no brachial spread of infection. Hiatal hernia with thickened distal esophagus containing fluid. Consider reflux or inflammatory or neoplastic stricture age-indeterminate T12 to L2 compression fractures. Pulmonary services have been consulted patient has been started on Levaquin and Zosyn for antibiotics. At this time patient is sitting comfortably in chair. Patient remains on his cannula. Patient denies any specific complaints. Review of Systems Please refer to HPI otherwise unremarkable Past Medical History Past Medical History: Dementia, Diabetes Mellitus, GERD/Reflux, Hearing Disorder / Deafness, Hyperlipidemia, Liver Disease, Pulmonary Embolus (PE) Additional Past Medical History / Comment(s): Pt recently admitted to [facility] with ascities/paracentesis, influenza A and small R lower lobe PE. Other hx: Recent diagnosis of alcoholic liver cirrhosis with recurrent ascities (pt follows at [facility] with Dr. Gooden and requires paracentesis about q 2 weeks), mild dementia, low magnesium, NIDDM type II, gastritis/esophageal rings, swallowing difficulties-pureed diet and uses a straw at all times, bilateral lower extremity edema at times, anemia, [place] bilaterally-uses hearing aides History of Any Multi-Drug Resistant Organisms: None Reported Past Surgical History: Back Surgery, Joint Replacement, Orthopedic Surgery, Tonsillectomy Additional Past Surgical History / Comment(s): Multiple paracentesis, EGD with dilatations, 05/31/17 EGD with biopsy, colonoscopy, low back surgery, Patial R knee replacement, total R hip replacement Past Anesthesia/Blood Transfusion Reactions: No Reported Reaction Smoking Status: Never smoker - Past Family History Father Family Medical History: No Reported History Mother Family Medical History: Osteoarthritis (OA) Additional Family Medical History / Comment(s): Mother had bilateral hip replacements. Medications and Allergies Home Medications Medication Instructions Recorded Confirmed Type Cholecalciferol [Vitamin D3 (25 1,000 unit PO DAILY 05/14/17 11/27/18 History Mcg = 1000 Iu)] Memantine HCl [Namenda] 5 mg PO BID 05/14/17 11/27/18 History Venlafaxine HCl [Effexor XR] 150 mg PO BID 05/14/17 11/27/18 History ALPRAZolam [Xanax] 0.5 mg PO HS PRN 06/19/17 11/27/18 History Empagliflozin [Jardiance] 10 mg PO DAILY 11/27/18 11/27/18 History Furosemide [Lasix] 20 mg PO MOWEFR 11/27/18 11/27/18 History Lactulose 20 gm PO BID 11/27/18 11/27/18 History Milk Thistle 150 mg PO BID 11/27/18 11/27/18 History Omeprazole 20 mg PO BID 11/27/18 11/27/18 History Spironolactone 100 mg PO DAILY 11/27/18 11/27/18 History risperiDONE [RisperDAL] 0.125 mg PO BID 11/27/18 11/27/18 History Allergies Allergy/AdvReac Type Severity Reaction Status Date / Time morphine Allergy Confusion Verified 11/27/18 20:30 donepezil [From Aricept] AdvReac Hallucinati Verified 11/27/18 20:30 ons Physical Exam Vitals: Vital Signs Temp Pulse Pulse Resp BP BP BP 11/28/18 09:59 82 16 11/28/18 09:42 97.5 F L 82 16 121/70 11/28/18 08:29 77 11/28/18 08:19 76 11/28/18 08:10 72 18 11/28/18 05:50 98.2 F 80 21 111/65 11/28/18 04:00 98.2 F 80 21 111/65 11/28/18 02:12 87 16 109/71 11/28/18 01:30 85 18 110/69 11/28/18 00:47 97.8 F 81 16 112/73 11/28/18 00:46 75 18 108/71 11/28/18 00:00 87 16 99/86 11/27/18 23:46 81 17 104/67 11/27/18 23:15 80 18 97/66 11/27/18 23:00 77 17 103/63 11/27/18 22:45 84 23 101/68 11/27/18 22:30 100 25 H 134/78 11/27/18 22:00 96 24 140/84 11/27/18 21:45 90 26 H 106/65 11/27/18 20:24 93 25 H 122/94 11/27/18 20:06 101 H 26 H 11/27/18 20:01 89 24 103/82 11/27/18 19:59 98 23 11/27/18 19:53 97.6 F 98 28 H 128/80 Pulse Ox 11/28/18 09:59 11/28/18 09:42 100 11/28/18 08:29 100 11/28/18 08:19 11/28/18 08:10 100 11/28/18 05:50 97 11/28/18 04:00 97 11/28/18 02:12 99 11/28/18 01:30 100 11/28/18 00:47 11/28/18 00:46 100 11/28/18 00:00 100 11/27/18 23:46 100 11/27/18 23:15 100 11/27/18 23:00 100 11/27/18 22:45 100 11/27/18 22:30 98 11/27/18 22:00 100 11/27/18 21:45 99 11/27/18 20:24 99 11/27/18 20:06 11/27/18 20:01 100 11/27/18 19:59 11/27/18 19:53 95 Intake and Output 11/27/18 11/28/18 11/28/18 22:59 06:59 14:59 Intake Total 300 Balance 300 Intake: IV 300 Sodium Chloride 0.9% 1, 300 000 ml @ 100 mls/hr IV . Q10H [facility] Rx#:[id number] Other: Voiding Method Diaper Diaper Incontinent # Voids 1 Weight 54.431 kg 42.5 kg Head normocephalic Neck supple Lungs diminished bilaterally Heart regular rate and rhythm S1-S2, no rub or gallop Abdomen is soft nontender nondistended positive bowel sounds no hepatosplen omegaly Extremities +1 bilateral lower extremity edema Neuro alert and follows commands poor historian Results CBC & Chem 7: 11/28/18 04:19 11/28/18 04:19 Labs: Abnormal Lab Results - Last 24 Hours (Table) 11/27/18 11/27/18 11/27/18 Range/Units 20:03 20:07 20:07 WBC 13.5 H (3.8-10.6) k/uL RBC 3.41 L (4.30-5.90) m/uL Hgb 11.6 L (13.0-17.5) gm/dL Hct 34.5 L (39.0-53.0) % MCV 101.0 H (80.0-100.0) fL Plt Count (150-450) k/uL Neutrophils # 9.2 H (1.3-7.7) k/uL Lymphocytes # (Manual) (1.0-4.8) k/uL Metamyelocytes # (Man) (0) k/uL Myelocytes # (Manual) (0) k/uL PT 13.1 H (9.0-12.0) sec INR 1.3 H (<1.2) D-Dimer 7.45 H (<0.60) mg/L FEU VBG pH (7.31-7.41) VBG pCO2 (37-51) mmHg VBG HCO3 (24-28) mmol/L Sodium (137-145) mmol/L Carbon Dioxide (22-30) mmol/L BUN (9-20) mg/dL Creatinine (0.66-1.25) mg/dL Glucose (74-99) mg/dL POC Glucose (mg/dL) 177 H (75-99) mg/dL Plasma Lactic Acid Rusty (0.7-2.0) mmol/L Alkaline Phosphatase (38-126) U/L Total Protein (6.3-8.2) g/dL Albumin (3.5-5.0) g/dL 11/27/18 11/27/18 11/28/18 Range/Units 20:07 20:07 00:08 WBC (3.8-10.6) k/uL RBC (4.30-5.90) m/uL Hgb (13.0-17.5) gm/dL Hct (39.0-53.0) % MCV (80.0-100.0) fL Plt Count (150-450) k/uL Neutrophils # (1.3-7.7) k/uL Lymphocytes # (Manual) (1.0-4.8) k/uL Metamyelocytes # (Man) (0) k/uL Myelocytes # (Manual) (0) k/uL PT (9.0-12.0) sec INR (<1.2) D-Dimer (<0.60) mg/L FEU VBG pH 7.09 L* (7.31-7.41) VBG pCO2 69 H (37-51) mmHg VBG HCO3 20 L (24-28) mmol/L Sodium 133 L (137-145) mmol/L Carbon Dioxide 18 L (22-30) mmol/L BUN 23 H (9-20) mg/dL Creatinine 1.32 H (0.66-1.25) mg/dL Glucose 186 H (74-99) mg/dL POC Glucose (mg/dL) (75-99) mg/dL Plasma Lactic Acid Rusty 2.7 H* (0.7-2.0) mmol/L Alkaline Phosphatase 300 H (38-126) U/L Total Protein (6.3-8.2) g/dL Albumin 3.0 L (3.5-5.0) g/dL 11/28/18 11/28/18 11/28/18 Range/Units 04:19 04:19 04:19 WBC (3.8-10.6) k/uL RBC 3.39 L (4.30-5.90) m/uL Hgb 11.4 L (13.0-17.5) gm/dL Hct 34.3 L (39.0-53.0) % MCV 101.2 H (80.0-100.0) fL Plt Count 114 L (150-450) k/uL Neutrophils # (1.3-7.7) k/uL Lymphocytes # (Manual) 0.36 L (1.0-4.8) k/uL Metamyelocytes # (Man) 0.14 H (0) k/uL Myelocytes # (Manual) 0.05 H (0) k/uL PT (9.0-12.0) sec INR (<1.2) D-Dimer (<0.60) mg/L FEU VBG pH (7.31-7.41) VBG pCO2 (37-51) mmHg VBG HCO3 (24-28) mmol/L Sodium 134 L (137-145) mmol/L Carbon Dioxide (22-30) mmol/L BUN 25 H (9-20) mg/dL Creatinine 1.45 H (0.66-1.25) mg/dL Glucose 230 H (74-99) mg/dL POC Glucose (mg/dL) (75-99) mg/dL Plasma Lactic Acid Rusty 2.5 H* (0.7-2.0) mmol/L Alkaline Phosphatase 236 H (38-126) U/L Total Protein 6.2 L (6.3-8.2) g/dL Albumin 2.5 L (3.5-5.0) g/dL 11/28/18 Range/Units 06:10 WBC (3.8-10.6) k/uL RBC (4.30-5.90) m/uL Hgb (13.0-17.5) gm/dL Hct (39.0-53.0) % MCV (80.0-100.0) fL Plt Count (150-450) k/uL Neutrophils # (1.3-7.7) k/uL Lymphocytes # (Manual) (1.0-4.8) k/uL Metamyelocytes # (Man) (0) k/uL Myelocytes # (Manual) (0) k/uL PT (9.0-12.0) sec INR (<1.2) D-Dimer (<0.60) mg/L FEU VBG pH (7.31-7.41) VBG pCO2 (37-51) mmHg VBG HCO3 (24-28) mmol/L Sodium (137-145) mmol/L Carbon Dioxide (22-30) mmol/L BUN (9-20) mg/dL Creatinine (0.66-1.25) mg/dL Glucose (74-99) mg/dL POC Glucose (mg/dL) 220 H (75-99) mg/dL Plasma Lactic Acid Rusty (0.7-2.0) mmol/L Alkaline Phosphatase (38-126) U/L Total Protein (6.3-8.2) g/dL Albumin (3.5-5.0) g/dL Thrombosis Risk Factor Assmnt - Choose All That Apply Any of the Below Risk Factors Present?: Yes Each Factor Represents 1 point: Sepsis (< 1month) Other Risk Factors: Yes Each Risk Factor Represents 3 Points: Age 75 years or older Other congenital or acquired thrombophilia - If yes, enter type in comment: No Thrombosis Risk Factor Assessment Total Risk Factor Score: 4 Thrombosis Risk Factor Assessment Level: Moderate Risk Assessment and Plan Assessment: 1. Increased shortness breath related to pneumonia. WBC elevated at 13.5. Lactic acid 2.7 CT of the chest showing no PE or aortic dissection. Pulmonary infiltrate suggesting endobronchial spread of infection. Patient started on Levaquin and Zosyn. Pulmonary services have been consulted. Sputum culture ordered repeat 2 view chest x-ray ordered 2. Acute kidney injury. Creatinine elevated at 1.45 bun 25 Aldactone currently on hold. Normal saline at 100 3. History of Alcohol liver cirrhosis requiring previous paracentesis. Alkaline phosphatase elevated at 236. This does appear baseline for patient 4. History of dementia. Maintained on Namenda 5. History of hyperlipidemia 6. History of diabetes mellitus type 2 7. History of PE in the past. Patient not currently on any anticoagulation 8. History of EtOH. No longer drinking for multiple years 9. Severe malnutrition. Albumin 2.5. Ensure shakes will be ordered DVT prophylaxis heparin. GI prophylaxis Protonix Time with Patient: Greater than 30 (Greater than 60% of the total time spent in counseling and coordination of care. I performed an examination of the patient and discussed their management with the Nurse Practitioner. I have reviewed the Nurse Practitioner's notes and agree with the documented findings and plan of care)
[2018-11-28 11:51] LABS: Glucose,Whole Blood 290 mg/dL (75-99)
[2018-11-28] MEDS: INSULIN ASPART (NovoLOG) 100 UNIT/ML VIAL SQ SCH ×3 (12:34→20:53)
[2018-11-28 16:52] LABS: Glucose,Whole Blood 316 mg/dL (75-99)
--- NOTE | 2018-11-28 18:54 | XR ---
EXAMINATION TYPE: XR chest 2V DATE OF EXAM: 11/28/2018 COMPARISON: 11/27/2018 INDICATION: Pneumonia TECHNIQUE: Frontal and lateral views of the chest are obtained. FINDINGS: The heart size is normal. The pulmonary vasculature is normal. Right lower lobe infiltrate may be present.. IMPRESSION: 1. Clinical consideration for right lower lobe infiltrate is recommended.
[2018-11-28] MEDS: HEPARIN SODIUM,PORCINE 5,000 UNIT/ML 1 ML VIAL SQ SCH (20:41)
[2018-11-28] MEDS: NON-FORMULARY DRUG (Milk Thistle [Milk Thistle] 150 MG) PO SCH (20:41)
[2018-11-28 20:52] LABS: Glucose,Whole Blood 240 mg/dL (75-99)
--- NOTE | 2018-11-28 22:13 | CONS ---
CONSULTATION PULMONARY/CRITICAL CARE CONSULTATION: DATE OF SERVICE: 11/28/2018 This is a 78-year-old male who presented to the emergency room via EMS apparently for difficulty breathing. The patient is unable to give much of a history. His apparently provided most of the history in the emergency department. He apparently became short of breath after using the bathroom. His believes that maybe he fell and possibly aspirated. His chest x-ray and CT scan are consistent with bilateral infiltrates, more right than left-sided, possibly consistent with aspiration pneumonia. Apparently the patient was admitted for a similar finding. He apparently has no history of underlying chronic lung disease. The patient, as I mentioned, is unable to give much history because of his severe dementia. His chest x- rays and CT scans are reviewed. His medications and antibiotics are reviewed. His primary care provider is Dr. Galicia. I did tell the nurse to make sure that the head of the bed was elevated at all times in this patient who has aspiration precautions. HOME MEDICATIONS: Home medications include: 1. Vitamin D3. 2. Namenda. 3. Effexor. 4. Xanax. 5. Jardiance. 6. Lasix. 7. Lactulose. 8. Milk thistle. 9. Omeprazole. 10.Aldactone. 11.Risperdal. ALLERGIES: APPARENTLY MORPHINE AND ARICEPT. MEDICAL HISTORY: Medical history includes: 1. Severe dementia. 2. Diabetes mellitus. 3. GERD. 4. Deafness. 5. Hyperlipidemia. 6. Pulmonary embolism. 7. He apparently also has a previous history of ascites and required paracentesis. 8. He also has a history of lower lobe pulmonary embolism. 9. 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 He apparently requires paracentesis sometimes as frequently as twice a month. 10.In addition, he suffers from type 2 diabetes, as mentioned above. 11.Esophageal rings and gastritis. 12.Dysphagia. 13.Bilateral lower extremity edema. SURGICAL HISTORY: Surgical history includes multiple procedures, includin. Back surgery. 2. Joint replacement. 3. Tonsillectomy. 4. EGD. 5. Multiple paracenteses. 6. Dilatations of his esophagus. 7. Colonoscopy. 8. Partial right knee replacement. 9. Total right hip replacement. SOCIAL HISTORY: Social history is apparently negative for tobacco use. He apparently was a heavy abuser of alcohol. Denies any illicit drug use. FAMILY HISTORY: Apparently positive for mother with arthritis and bilateral hip replacement. REVIEW OF SYSTEMS: Review of systems really cannot be obtained from the patient, as he is a very poor historian and very demented. Apparently, according to his , the reason that he came into the emergency room was because of difficulty breathing. PHYSICAL EXAMINATION: VITAL SIGNS: Current vital signs are reviewed. His temperature is 97.5, heart rate 88, respiratory rate 16, blood pressure 99/59, mean 72, and saturations are 100% on a couple of liters of oxygen. GENERAL: Appears in no acute distress. He is pretty much nonverbal. HEENT: HEENT examination is grossly unremarkable. Nasal oxygen noted. NECK: Supple. CARDIOVASCULAR: Cardiovascular examination reveals regular rhythm and rate. Heart sounds are distant. LUNGS: Some coarse bilateral rhonchi. No wheezes or crackles. He does not take deep breaths. Breath sounds are equal bilaterally. ABDOMEN: Soft. Mildly distended. No masses. I do not notice a fluid wave. EXTREMITIES: Very minimal edema. SKIN: Without rash. NEUROLOGIC: Neurologic examination is difficult to assess. He is very lethargic and somnolent. He is nonverbal. LABS/IMAGING: Reviewed. White count 4.5, hemoglobin 11.4, hematocrit 34.3, platelet count 114,000. Sodium 134, potassium 4.4, chloride 102, CO2 22. Anion gap 10. BUN and creatinine were 25 and 1.45. His lactic acid was 2.5 and it increased to 4.4. Calcium 9. Bilirubin 1. AST, ALT normal. Albumin 2.5. His troponin was 0.014. N-terminal proBNP 821. Chest x-ray shows some patchy bilateral infiltrates. They appear to be more right- than left-sided. A CT scan of the chest done by angiography reveals no evidence of pulmonary embolism or aortic dissection. There are bilateral patchy infiltrates, right greater than left, possibly consistent with aspiration. Microbiologic studies are pending. CURRENT MEDICATIONS: Medications are reviewed. Currently he is on: 1. Xanax. 2. Vitamin D3. 3. Lasix. 4. Subcutaneous heparin. 5. Insulin. 6. DuoNeb. 7. Lactulose. 8. Levaquin. 9. Namenda. 10.Milk thistle. 11.Protonix. 12.Basic IV. ASSESSMENT: 1. Shortness of breath, likely related to aspiration pneumonia. 2. History of chronic liver disease which is secondary to alcohol abuse with cirrhosis and ascites, requiring multiple previous paracenteses abdominis. 3. History of severe dementia. 4. Diabetes mellitus. 5. Gastroesophageal reflux disease. 6. Dysphagia. 7. Esophageal stricture. 8. Deafness. 9. Hyperlipidemia. 10.History of pulmonary embolism. 11.Multiple other medical problems and comorbidities. PLAN: The patient is on antibiotics and updrafts. He is a NO CODE patient. There should be some consideration of hospice or palliative care referral. Overall prognosis is very poor. Additional recommendations and suggestions are forthcoming. MMODL / IJN: [id number] /
[2018-11-29] MEDS: PANTOPRAZOLE 40 MG TABLET PO SCH (05:38)
[2018-11-29 06:07] LABS: Glucose,Whole Blood 112 mg/dL (75-99)
[2018-11-29] MEDS: SODIUM CHLORIDE 0.9% 1,000 ML IV SCH ×2 (06:13→17:23)
[2018-11-29] MEDS: INSULIN ASPART (NovoLOG) 100 UNIT/ML VIAL SQ SCH ×4 (06:15→21:07)
[2018-11-29 06:29] LABS: Albumin 2.5 g/dL (3.5-5.0); Calcium 8.9 mg/dL (8.4-10.2); Potassium 3.6 mmol/L (3.5-5.1); Total Bilirubin 1.1 mg/dL (0.2-1.3); Total Protein 6.1 g/dL (6.3-8.2)
[2018-11-29 06:31] LABS: HCT 32.9 % (39.0-53.0); HGB 11.1 gm/dL (13.0-17.5); MCH 34.4 pg (25.0-35.0); MCHC 33.8 g/dL (31.0-37.0); MCV 101.7 fL (80.0-100.0); Macrocytosis Slight; Mean Platelet Volume 7.2; Platelet Count 108 k/uL (150-450); RBC 3.23 m/uL (4.30-5.90); RDW 15.2 % (11.5-15.5); WBC 8.8 k/uL (3.8-10.6)
[2018-11-29 06:59] LABS: Band Neutrophils % 19 %; Lymphocytes # (M) 0.88 k/uL (1.0-4.8); Monocytes # (M) 0.18 k/uL (0-1.0); Neutrophils % (M) 69 %; Nucleated Red Blood Cells 0 /100 WBC (0-0); Total Cells Counted 200
--- NOTE | 2018-11-29 07:31 | P.CONS ---
History of Present Illness - Reason for Consult Consult date: 11/28/18 Pneumonia Requesting physician: Nori Philippe - Chief Complaint Shortness of breath 1 day - History of Present Illness Patient is 78-year-old male who was brought into the ER with a chief complaints of increasing shortness of breath that started the day he presented to hospital apparently the patient went use the bathroom and on the way back having increasing shortness of breath is no clear history of of any falls patient had did have some occasional cough but when asked specifically bringing up any sputum did not answered history of any nausea vomiting or choking on the food with these symptoms the patient has been evaluated by the ER physician patient did have mildly elevated white count of 13.[address] angiogram was done which was reported as endobronchial spread of infection also mention thickening of the esophagus with a four-day bruise patient did received a dose of Zosyn in the ER and was continued on Levaquin admitted to the hospital for possible aspiration pneumonia infection disease was consulted for further recommendations regarding antibiotic also information has been obtained from review of the chart as the patient himself was unable to void and reliable history and no family member was available at the bedside Review of Systems Positive points has been mentioned in HPI complete review could not be obtained because of the patient mental status Past Medical History Past Medical History: Dementia, Diabetes Mellitus, GERD/Reflux, Hearing Disorder / Deafness, Hyperlipidemia, Liver Disease, Pulmonary Embolus (PE) Additional Past Medical History / Comment(s): Pt recently admitted to [facility] with ascities/paracentesis, influenza A and small R lower lobe PE. Other hx: Recent diagnosis of alcoholic liver cirrhosis with recurrent ascities (pt follows at [facility] with Dr. Gooden and requires paracentesis about q 2 weeks), mild dementia, low magnesium, NIDDM type II, gastritis/esophageal rings, swallowing difficulties-pureed diet and uses a straw at all times, bilateral lower extremity edema at times, anemia, [place] bilaterally-uses hearing aides History of Any Multi-Drug Resistant Organisms: None Reported Past Surgical History: Back Surgery, Joint Replacement, Orthopedic Surgery, Tonsillectomy Additional Past Surgical History / Comment(s): Multiple paracentesis, EGD with dilatations, 05/31/17 EGD with biopsy, colonoscopy, low back surgery, Patial R knee replacement, total R hip replacement Past Anesthesia/Blood Transfusion Reactions: No Reported Reaction Smoking Status: Never smoker - Past Family History Father Family Medical History: No Reported History Mother Family Medical History: Osteoarthritis (OA) Additional Family Medical History / Comment(s): Mother had bilateral hip replacements. Medications and Allergies Home Medications Medication Instructions Recorded Confirmed Type Cholecalciferol [Vitamin D3 (25 1,000 unit PO DAILY 05/14/17 11/27/18 History Mcg = 1000 Iu)] Memantine HCl [Namenda] 5 mg PO BID 05/14/17 11/27/18 History Venlafaxine HCl [Effexor XR] 150 mg PO BID 05/14/17 11/27/18 History ALPRAZolam [Xanax] 0.5 mg PO HS PRN 06/19/17 11/27/18 History Empagliflozin [Jardiance] 10 mg PO DAILY 11/27/18 11/27/18 History Furosemide [Lasix] 20 mg PO MOWEFR 11/27/18 11/27/18 History Lactulose 20 gm PO BID 11/27/18 11/27/18 History Milk Thistle 150 mg PO BID 11/27/18 11/27/18 History Omeprazole 20 mg PO BID 11/27/18 11/27/18 History Spironolactone 100 mg PO DAILY 11/27/18 11/27/18 History risperiDONE [RisperDAL] 0.125 mg PO BID 11/27/18 11/27/18 History Allergies Allergy/AdvReac Type Severity Reaction Status Date / Time morphine Allergy Confusion Verified 11/27/18 20:30 donepezil [From Aricept] AdvReac Hallucinati Verified 11/27/18 20:30 ons Physical Exam Vitals: Vital Signs Temp Pulse Pulse Resp BP BP BP 11/28/18 11:55 80 11/28/18 11:46 82 11/28/18 11:10 87 16 99/59 11/28/18 09:59 82 16 11/28/18 09:42 97.5 F L 82 16 121/70 11/28/18 08:29 77 11/28/18 08:19 76 11/28/18 08:10 72 18 11/28/18 05:50 98.2 F 80 21 111/65 11/28/18 04:00 98.2 F 80 21 111/65 11/28/18 02:12 87 16 109/71 11/28/18 01:30 85 18 110/69 11/28/18 00:47 97.8 F 81 16 112/73 11/28/18 00:46 75 18 108/71 11/28/18 00:00 87 16 99/86 11/27/18 23:46 81 17 104/67 11/27/18 23:15 80 18 97/66 11/27/18 23:00 77 17 103/63 11/27/18 22:45 84 23 101/68 11/27/18 22:30 100 25 H 134/78 11/27/18 22:00 96 24 140/84 11/27/18 21:45 90 26 H 106/65 11/27/18 20:24 93 25 H 122/94 11/27/18 20:06 101 H 26 H 11/27/18 20:01 89 24 103/82 11/27/18 19:59 98 23 11/27/18 19:53 97.6 F 98 28 H 128/80 Pulse Ox 11/28/18 11:55 11/28/18 11:46 11/28/18 11:10 100 11/28/18 09:59 11/28/18 09:42 100 11/28/18 08:29 100 11/28/18 08:19 11/28/18 08:10 100 11/28/18 05:50 97 11/28/18 04:00 97 11/28/18 02:12 99 11/28/18 01:30 100 11/28/18 00:47 11/28/18 00:46 100 11/28/18 00:00 100 11/27/18 23:46 100 11/27/18 23:15 100 11/27/18 23:00 100 11/27/18 22:45 100 11/27/18 22:30 98 11/27/18 22:00 100 11/27/18 21:45 99 11/27/18 20:24 99 11/27/18 20:06 11/27/18 20:01 100 11/27/18 19:59 11/27/18 19:53 95 Intake and Output 11/27/18 11/28/18 11/28/18 22:59 06:59 14:59 Intake Total 300 480 Balance 300 480 Intake: IV 300 Sodium Chloride 0.9% 1, 300 000 ml @ 100 mls/hr IV . Q10H [facility] Rx#:[id number] Oral 480 Other: Voiding Method Diaper Diaper Incontinent # Voids 1 Weight 54.431 kg 42.5 kg 42.5 kg GENERAL DESCRIPTION: Elderly male lying in bed, no distress. No tachypnea or accessory muscle of respiration use. HEENT: Shows Pallor , no scleral icterus. Oral mucous membrane is dry. No pharyngeal erythema or thrush NECK: Trachea central, no thyromegaly. LUNGS: Unlabored breathing. Decreased breath sound at the base. No wheeze or crackle. HEART: S1, S2, regular rate and rhythm. No loud murmur ABDOMEN: Soft, no tenderness , guarding or rigidity, no organomegaly EXTREMITIES: No edema of feet. SKIN: No rash, no masses palpable. NEUROLOGICAL: The patient is awake, alert, oriented x2, mood and affect normal. Results CBC & Chem 7: 11/29/18 05:52 11/29/18 05:52 Labs: Abnormal Lab Results - Last 24 Hours (Table) 11/27/18 11/27/18 11/27/18 Range/Units 20:03 20:07 20:07 WBC 13.5 H (3.8-10.6) k/uL RBC 3.41 L (4.30-5.90) m/uL Hgb 11.6 L (13.0-17.5) gm/dL Hct 34.5 L (39.0-53.0) % MCV 101.0 H (80.0-100.0) fL Plt Count (150-450) k/uL Neutrophils # 9.2 H (1.3-7.7) k/uL Lymphocytes # (Manual) (1.0-4.8) k/uL Metamyelocytes # (Man) (0) k/uL Myelocytes # (Manual) (0) k/uL PT 13.1 H (9.0-12.0) sec INR 1.3 H (<1.2) D-Dimer 7.45 H (<0.60) mg/L FEU VBG pH (7.31-7.41) VBG pCO2 (37-51) mmHg VBG HCO3 (24-28) mmol/L Sodium (137-145) mmol/L Carbon Dioxide (22-30) mmol/L BUN (9-20) mg/dL Creatinine (0.66-1.25) mg/dL Glucose (74-99) mg/dL POC Glucose (mg/dL) 177 H (75-99) mg/dL Plasma Lactic Acid Rusty (0.7-2.0) mmol/L Alkaline Phosphatase (38-126) U/L Total Protein (6.3-8.2) g/dL Albumin (3.5-5.0) g/dL 11/27/18 11/27/18 11/28/18 Range/Units 20:07 20:07 00:08 WBC (3.8-10.6) k/uL RBC (4.30-5.90) m/uL Hgb (13.0-17.5) gm/dL Hct (39.0-53.0) % MCV (80.0-100.0) fL Plt Count (150-450) k/uL Neutrophils # (1.3-7.7) k/uL Lymphocytes # (Manual) (1.0-4.8) k/uL Metamyelocytes # (Man) (0) k/uL Myelocytes # (Manual) (0) k/uL PT (9.0-12.0) sec INR (<1.2) D-Dimer (<0.60) mg/L FEU VBG pH 7.09 L* (7.31-7.41) VBG pCO2 69 H (37-51) mmHg VBG HCO3 20 L (24-28) mmol/L Sodium 133 L (137-145) mmol/L Carbon Dioxide 18 L (22-30) mmol/L BUN 23 H (9-20) mg/dL Creatinine 1.32 H (0.66-1.25) mg/dL Glucose 186 H (74-99) mg/dL POC Glucose (mg/dL) (75-99) mg/dL Plasma Lactic Acid Rusty 2.7 H* (0.7-2.0) mmol/L Alkaline Phosphatase 300 H (38-126) U/L Total Protein (6.3-8.2) g/dL Albumin 3.0 L (3.5-5.0) g/dL 11/28/18 11/28/18 11/28/18 Range/Units 04: 04:19 04:19 WBC (3.8-10.6) k/uL RBC 3.39 L (4.30-5.90) m/uL Hgb 11.4 L (13.0-17.5) gm/dL Hct 34.3 L (39.0-53.0) % MCV 101.2 H (80.0-100.0) fL Plt Count 114 L (150-450) k/uL Neutrophils # (1.3-7.7) k/uL Lymphocytes # (Manual) 0.36 L (1.0-4.8) k/uL Metamyelocytes # (Man) 0.14 H (0) k/uL Myelocytes # (Manual) 0.05 H (0) k/uL PT (9.0-12.0) sec INR (<1.2) D-Dimer (<0.60) mg/L FEU VBG pH (7.31-7.41) VBG pCO2 (37-51) mmHg VBG HCO3 (24-28) mmol/L Sodium 134 L (137-145) mmol/L Carbon Dioxide (22-30) mmol/L BUN 25 H (9-20) mg/dL Creatinine 1.45 H (0.66-1.25) mg/dL Glucose 230 H (74-99) mg/dL POC Glucose (mg/dL) (75-99) mg/dL Plasma Lactic Acid Rusty 2.5 H* (0.7-2.0) mmol/L Alkaline Phosphatase 236 H (38-126) U/L Total Protein 6.2 L (6.3-8.2) g/dL Albumin 2.5 L (3.5-5.0) g/dL 11/28/18 11/28/18 11/28/18 Range/Units 06:10 10:29 11:50 WBC (3.8-10.6) k/uL RBC (4.30-5.90) m/uL Hgb (13.0-17.5) gm/dL Hct (39.0-53.0) % MCV (80.0-100.0) fL Plt Count (150-450) k/uL Neutrophils # (1.3-7.7) k/uL Lymphocytes # (Manual) (1.0-4.8) k/uL Metamyelocytes # (Man) (0) k/uL Myelocytes # (Manual) (0) k/uL PT (9.0-12.0) sec INR (<1.2) D-Dimer (<0.60) mg/L FEU VBG pH (7.31-7.41) VBG pCO2 (37-51) mmHg VBG HCO3 (24-28) mmol/L Sodium (137-145) mmol/L Carbon Dioxide (22-30) mmol/L BUN (9-20) mg/dL Creatinine (0.66-1.25) mg/dL Glucose (74-99) mg/dL POC Glucose (mg/dL) 220 H 290 H (75-99) mg/dL Plasma Lactic Acid Rusty 4.4 H* (0.7-2.0) mmol/L Alkaline Phosphatase (38-126) U/L Total Protein (6.3-8.2) g/dL Albumin (3.5-5.0) g/dL Assessment and Plan Assessment: 1-patient presented to hospital with increasing shortness of breath in this patient who did have a cough did have elevated white count with CT angiogram mentioning evidence of endobronchial spread of infection not clear what that exactly mean but there was evidence of esophageal thickening and evidence of food debris is in the esophagus with concern for aspiration pneumonitis Plan: 1-we will try to obtained sputum for Gram stain and culture 2-swallow evaluation 3-Zosyn 3.37 5 g every 8 hour we will follow on clinical condition and culture to further adjust medication if needed Thank you for this consultation will follow this patient along with you
[2018-11-29] MEDS: IPRATROPIUM-ALBUTEROL 3 ML NEB INHALATION SCH ×4 (08:17→19:17)
[2018-11-29] MEDS: MEMANTINE 5 MG TAB PO SCH ×2 (08:22→21:52)
[2018-11-29] MEDS: HEPARIN SODIUM,PORCINE 5,000 UNIT/ML 1 ML VIAL SQ SCH ×2 (08:25→21:07)
[2018-11-29] MEDS: LACTULOSE 20 GM/30 ML CUP PO SCH ×2 (08:26→21:07)
[2018-11-29] MEDS: NON-FORMULARY DRUG (Milk Thistle [Milk Thistle] 150 MG) PO SCH ×2 (08:27→21:48)
[2018-11-29] MEDS: PIPERACILLIN-TAZOBACTAM 3.375 GM in SODIUM CHLORIDE 0.9% 100 ML IVPB SCH ×2 (08:27→18:01)
[2018-11-29] MEDS: CHOLECALCIFEROL 1,000 UNIT TAB PO SCH (08:27)
--- NOTE | 2018-11-29 10:18 | P.PN ---
Subjective Progress Note Date: 11/29/18 This is a 78-year-old male patient of Dr. Galicia patient presented to the ER with complaints of difficulty breathing. No family currently at bedside. Patient unable to provide information about events leading up to hospitalization information obtained from medical record. Per ER report patient became short of breath after using the bathroom was brought into the ER per patient's . Patient does have a past medical history of dementia, diabetes mellitus, GERD, hearing disorder, deafness, hyperlipidemia, liver disease, pulmonary embolism, ascites due to alcohol liver cirrhosis, anxiety depression and history of EtOH. Chest x-ray completed showing radiographic findings back correlate with clinical diagnosis of mild interstitial phase pulmonary edema. D-dimer elevated at 7.45. CTA of the chest completed showing no PE or aortic dissection. Pulmonary infiltrates chest pain and no brachial spread of infection. Hiatal hernia with thickened distal esophagus containing fluid. Consider reflux or inflammatory or neoplastic stricture age-indeterminate T12 to L2 compression fractures. Pulm onary services have been consulted patient has been started on Levaquin and Zosyn for antibiotics. At this time patient is sitting comfortably in chair. Patient remains on his cannula. Patient denies any specific complaints. On 11/29/2018 patient is currently resting comfortably in bed. Family meeting with patient's and daughter along with patient yesterday. Decided to not pursue any aggressive measures at this time. Would like to treat pneumonia and possibly be DC'd home on hospice. bushel worker consult placed for [facility] hospice. Family declined GI consult for possible workup in regards to hiatal hernia. Patient remains on antibiotics for aspiration pneumonia. Patient v erbalized agreement with plan. As time patient denies chest pain or shortness of breath. Patient denies nausea vomiting or diarrhea. Patient denies any urinary burning or frequency Objective - Vital Signs Vital signs: Vital Signs Temp 98.8 F 11/29/18 07:58 Pulse 84 11/29/18 08:00 Resp 15 11/29/18 08:00 BP 101/59 11/29/18 07:58 Pulse Ox 94 L 11/29/18 07:58 Intake & Output 11/28/18 11/29/18 11/29/18 18:59 06:59 18:59 Intake Total 1730 1140 Balance 1730 1140 Weight 42.5 kg 51.7 kg Intake: IV 1100 Sodium Chloride 0.9% 1, 1100 000 ml @ 100 mls/hr IV . Q10H [facility] Rx#:[id number] Intake, IV Titration 1000 Amount Piperacillin-Tazobactam 3 200 .375 gm In Sodium Chloride 0.9% 100 ml @ 25 mls/hr IVPB Q8H [facility] Rx#: [id number] Sodium Chloride 0.9% 1, 800 000 ml @ 100 mls/hr IV . Q10H [facility] Rx#:[id number] Oral 730 40 Other: Voiding Method Diaper Diaper Diaper Incontinent Incontinent # Voids 1 1 - Exam Head normocephalic Neck supple Lungs diminished bilaterally Heart regular rate and rhythm S1-S2, no rub or gallop Abdomen is soft nontender nondistended positive bowel sounds no hepatosplenomegaly Extremities +1 bilateral lower extremity edema Neuro alert and follows commands poor historian - Labs CBC & Chem 7: 11/29/18 05:52 11/29/18 05:52 Labs: Abnormal Lab Results - Last 24 Hours (Table) 11/28/18 11/28/18 11/28/18 Range/Units 10:29 11:50 16:49 RBC (4.30-5.90) m/uL Hgb (13.0-17.5) gm/dL Hct (39.0-53.0) % MCV (80.0-100.0) fL Plt Count (150-450) k/uL Lymphocytes # (Manual) (1.0-4.8) k/uL Sodium (137-145) mmol/L Carbon Dioxide (22-30) mmol/L BUN (9-20) mg/dL Glucose (74-99) mg/dL POC Glucose (mg/dL) 290 H 316 H (75-99) mg/dL Plasma Lactic Acid Rusty 4.4 H* (0.7-2.0) mmol/L AST (17-59) U/L Alkaline Phosphatase (38-126) U/L Total Protein (6.3-8.2) g/dL Albumin (3.5-5.0) g/dL 11/28/18 11/29/18 11/29/18 Range/Units 20:51 05:52 05:52 RBC 3.23 L (4.30-5.90) m/uL Hgb 11.1 L (13.0-17.5) gm/dL Hct 32.9 L (39.0-53.0) % MCV 101.7 H (80.0-100.0) fL Plt Count 108 L (150-450) k/uL Lymphocytes # (Manual) 0.88 L (1.0-4.8) k/uL Sodium 136 L (137-145) mmol/L Carbon Dioxide 20 L (22-30) mmol/L BUN 26 H (9-20) mg/dL Glucose 116 H (74-99) mg/dL POC Glucose (mg/dL) 240 H (75-99) mg/dL Plasma Lactic Acid Rusty (0.7-2.0) mmol/L AST 64 H (17-59) U/L Alkaline Phosphatase 220 H (38-126) U/L Total Protein 6.1 L (6.3-8.2) g/dL Albumin 2.5 L (3.5-5.0) g/dL 11/29/18 Range/Units 06:06 RBC (4.30-5.90) m/uL Hgb (13.0-17.5) gm/dL Hct (39.0-53.0) % MCV (80.0-100.0) fL Plt Count (150-450) k/uL Lymphocytes # (Manual) (1.0-4.8) k/uL Sodium (137-145) mmol/L Carbon Dioxide (22-30) mmol/L BUN (9-20) mg/dL Glucose (74-99) mg/dL POC Glucose (mg/dL) 112 H (75-99) mg/dL Plasma Lactic Acid Rusty (0.7-2.0) mmol/L AST (17-59) U/L Alkaline Phosphatase (38-126) U/L Total Protein (6.3-8.2) g/dL Albumin (3.5-5.0) g/dL Microbiology - Last 24 Hours (Table) 11/28/18 00:08 Blood Culture - Preliminary Blood No Growth after 24 hours Assessment and Plan Assessment: 1. Increased shortness breath related to pneumonia with sepsis present on admission. WBC elevated at 13.5. Lactic acid 2.7 CT of the chest showing no PE or aortic dissection. Pulmonary infiltrate suggesting endobronchial spread of infection. Patient started on Levaquin and Zosyn. Pulmonary services have been consulted. Sputum culture ordered repeat 2 view chest x-ray ordered. Infectious disease and pulmonary services following. Patient remains on Zosyn for IV antibiotics 2. Acute kidney injury. Creatinine elevated at 1.45 bun 25 Aldactone currently on hold. Normal saline at 100. Creatinine improving to 1.17 and bun 26 3. History of Alcohol liver cirrhosis requiring previous paracentesis. Alkaline phosphatase elevated at 236. This does appear baseline for patient 4. History of dementia. Maintained on Namenda 5. History of hyperlipidemia 6. History of diabetes mellitus type 2 7. History of PE in the past. Patient not currently on any anticoagulation 8. History of EtOH. No longer drinking for multiple years 9. Severe malnutrition. Albumin 2.5. Ensure shakes will be ordered 10. Hiatal hernia with thickened distal esophagus containing food debris seen on computed tomography scan GI services have been consulted. Family and patient declined GI consult would not like to pursue any aggressive measures DVT prophylaxis heparin. GI prophylaxis Protonix Family meeting held with patient, patient's and daughter. At this time would like to treat pneumonia and possibly be DC'd home on hospice requesting not to pursue any aggressive measures. Patient is currently a DO NOT RESUSCITATE. Patient verbalized understanding and agreement with plan. Social work has been consulted I performed an examination of the patient and discussed their management with the Nurse Practitioner. I have reviewed the Nurse Practitioner's notes and agree with the documented findings and plan of care
--- NOTE | 2018-11-29 11:17 | P.PN ---
Subjective Progress Note Date: 11/29/18 Principal diagnosis: Shortness of breath secondary to suspected aspiration pneumonia. The patient is seen today in 11/29/2018 in follow-up on the selective care unit. He is currently awake and alert in no acute distress. He is off the BiPAP. Maintaining good O2 saturations in the 90s on 3 L/m per nasal cannula. He is afebrile. Hemodynamically stable. Blood culture reveals no growth to date. White count 8.8. Hemoglobin 11.1. Creatinine 1.17. He is currently on DuoNeb inhalations and antibiotics in the form of Zosyn. Objective - Vital Signs Vital signs: Vital Signs Temp 98.8 F 11/29/18 07:58 Pulse 84 11/29/18 08:00 Resp 15 11/29/18 08:00 BP 101/59 11/29/18 07:58 Pulse Ox 94 L 11/29/18 07:58 Intake & Output 11/28/18 11/29/18 11/29/18 18:59 06:59 18:59 Intake Total 1730 1140 Balance 1730 1140 Weight 42.5 kg 51.7 kg Intake: IV 1100 Sodium Chloride 0.9% 1, 1100 000 ml @ 100 mls/hr IV . Q10H [facility] Rx#:[id number] Intake, IV Titration 1000 Amount Piperacillin-Tazobactam 3 200 .375 gm In Sodium Chloride 0.9% 100 ml @ 25 mls/hr IVPB Q8H [facility] Rx#: [id number] Sodium Chloride 0.9% 1, 800 000 ml @ 100 mls/hr IV . Q10H [facility] Rx#:[id number] Oral 730 40 Other: Voiding Method Diaper Diaper Diaper Incontinent Incontinent # Voids 1 1 - Exam GENERAL EXAM: Frail, cachectic 78-year-old gentleman. Alert, comfortable in no apparent distress. On 3 L nasal cannula. HEAD: Normocephalic. EYES: Normal reaction of pupils, equal size. NOSE: Clear with pink turbinates. THROAT: No erythema or exudates. NECK: No masses, no JVD. CHEST: No chest wall deformity. LUNGS: Equal air entry with bilateral scattered rhonchi. CVS: S1 and S2 normal with no audible murmur, regular rhythm. ABDOMEN: No hepatosplenomegaly, normal bowel sounds, no guarding or rigidity. SPINE: No scoliosis or deformity SKIN: No rashes CENTRAL NERVOUS SYSTEM: No focal deficits, tone is normal in all 4 extremities. EXTREMITIES: There is no peripheral edema. No clubbing, no cyanosis. Peripheral pulses are intact. - Labs CBC & Chem 7: 11/29/18 05:52 11/29/18 05:52 Labs: Abnormal Lab Results - Last 24 Hours (Table) 11/28/18 11/28/18 11/28/18 Range/Units 11:50 16:49 20:51 RBC (4.30-5.90) m/uL Hgb (13.0-17.5) gm/dL Hct (39.0-53.0) % MCV (80.0-100.0) fL Plt Count (150-450) k/uL Lymphocytes # (Manual) (1.0-4.8) k/uL Sodium (137-145) mmol/L Carbon Dioxide (22-30) mmol/L BUN (9-20) mg/dL Glucose (74-99) mg/dL POC Glucose (mg/dL) 290 H 316 H 240 H (75-99) mg/dL Plasma Lactic Acid Rusty (0.7-2.0) mmol/L AST (17-59) U/L Alkaline Phosphatase (38-126) U/L Total Protein (6.3-8.2) g/dL Albumin (3.5-5.0) g/dL 11/29/18 11/29/18 11/29/18 Range/Units 05:52 05:52 06:06 RBC 3.23 L (4.30-5.90) m/uL Hgb 11.1 L (13.0-17.5) gm/dL Hct 32.9 L (39.0-53.0) % MCV 101.7 H (80.0-100.0) fL Plt Count 108 L (150-450) k/uL Lymphocytes # (Manual) 0.88 L (1.0-4.8) k/uL Sodium 136 L (137-145) mmol/L Carbon Dioxide 20 L (22-30) mmol/L BUN 26 H (9-20) mg/dL Glucose 116 H (74-99) mg/dL POC Glucose (mg/dL) 112 H (75-99) mg/dL Plasma Lactic Acid Rusty (0.7-2.0) mmol/L AST 64 H (17-59) U/L Alkaline Phosphatase 220 H (38-126) U/L Total Protein 6.1 L (6.3-8.2) g/dL Albumin 2.5 L (3.5-5.0) g/dL 11/29/18 Range/Units 09:21 RBC (4.30-5.90) m/uL Hgb (13.0-17.5) gm/dL Hct (39.0-53.0) % MCV (80.0-100.0) fL Plt Count (150-450) k/uL Lymphocytes # (Manual) (1.0-4.8) k/uL Sodium (137-145) mmol/L Carbon Dioxide (22-30) mmol/L BUN (9-20) mg/dL Glucose (74-99) mg/dL POC Glucose (mg/dL) (75-99) mg/dL Plasma Lactic Acid Rusty 2.3 H* (0.7-2.0) mmol/L AST (17-59) U/L Alkaline Phosphatase (38-126) U/L Total Protein (6.3-8.2) g/dL Albumin (3.5-5.0) g/dL Microbiology - Last 24 Hours (Table) 11/28/18 00:08 Blood Culture - Preliminary Blood No Growth after 24 hours Assessment and Plan Assessment: Impression: #1 Acute hypoxic respiratory failure secondary to suspected aspiration pneumonia. 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 #3 Severe dementia. #4 Diabetes mellitus. #5 Gastric esophageal reflux disease. #6 Dysphagia. #7 Esophageal stricture. #8 Hearing disorder. #9 Hyperlipidemia. #10 History of pulmonary embolism. #11 Poor overall functional performance based on the above-mentioned multiple comorbidities. Plan: The patient was seen and evaluated by Dr. Murrieta. He is improved today as compared to yesterday. We'll continue with the current treatment plan. Titrate down the FiO2 as tolerated. Increase his activity as tolerated. We'll continue to follow. I, the cosigning physician, performed a history & physical examination of the patient. Lungs sounds bilateral rhonchi. Maintaining good O2 saturations in the 90s on 3 L/m per nasal cannula. I discussed the assessment and plan of care with my nurse practitioner, Virginia Song. I attest to the above note as dictated by her.
[2018-11-29 12:11] LABS: Glucose,Whole Blood 239 mg/dL (75-99)
[2018-11-29 17:26] LABS: Glucose,Whole Blood 343 mg/dL (75-99)
[2018-11-29 20:50] LABS: Glucose,Whole Blood 294 mg/dL (75-99)
[2018-11-29] MEDS: risperiDONE 0.25 MG TAB PO SCH (21:51)
[2018-11-29] MEDS: VENLAFAXINE HCL ER 150 MG CAP PO SCH (21:52)
[2018-11-29] MEDS ORDERED: LEVOFLOXACIN 750MG-D5W PMX 750 MG in DEXTROSE/WATER 1 150ML.BAG IVPB SCH (23:46)
[2018-11-30] MEDS: PIPERACILLIN-TAZOBACTAM 3.375 GM in SODIUM CHLORIDE 0.9% 100 ML IVPB SCH ×2 (01:22→10:12)
--- NOTE | 2018-11-30 04:58 | PN ---
PROGRESS NOTE DATE OF SERVICE: 11/29/2018 REASON FOR FOLLOWUP: Pneumonia, possible aspiration. INTERVAL HISTORY: The patient is currently afebrile. The patient has been breathing more comfortably. Denies having any chest pain. He did have some cough, no nausea, no vomiting. did mention him having problem with sometimes choking on the food. No nausea, no vomiting. No abdominal pain, no diarrhea. PHYSICAL EXAMINATION: On examination, blood pressure 101/62 with a pulse of 56, temperature of 99. He is 96% 3 L nasal cannula. General description is an elderly male lying in bed in no distress. RESPIRATORY SYSTEM: Unlabored breathing, with decreased breath sounds in the bases. No wheeze. HEART: S1, S2. Regular rate and rhythm. ABDOMEN: Soft, no tenderness. LABS: Hemoglobin is 11.1, white count 8.8. Lactic acid elevated at 4.3. BUN of 26, creatinine is 1.17. Blood culture has been negative. No sputum has been collected. DIAGNOSTIC IMPRESSION AND PLAN: Patient admitted to the hospital with difficulty in breathing, hypoxemia, low-grade fever, elevated white count with concern for pneumonia, possible aspiration etiology. The patient is currently on Zosyn. Will try to obtain a sputum antibiotics. Continue with supportive care. MMODL / IJN: [id number] /
[2018-11-30] MEDS: SODIUM CHLORIDE 0.9% 1,000 ML IV SCH (05:32)
[2018-11-30 06:08] VITALS: BP 111/71; RESP 16; TEMP 98.4
[2018-11-30 07:23] LABS: Glucose,Whole Blood 166 mg/dL (75-99)
[2018-11-30] MEDS: INSULIN ASPART (NovoLOG) 100 UNIT/ML VIAL SQ SCH ×2 (08:27→12:31)
[2018-11-30] MEDS: PANTOPRAZOLE 40 MG TABLET PO SCH (08:28)
[2018-11-30] MEDS: CHOLECALCIFEROL 1,000 UNIT TAB PO SCH (08:29)
[2018-11-30] MEDS: LACTULOSE 20 GM/30 ML CUP PO SCH (08:29)
[2018-11-30] MEDS: HEPARIN SODIUM,PORCINE 5,000 UNIT/ML 1 ML VIAL SQ SCH (08:29)
[2018-11-30] MEDS: VENLAFAXINE HCL ER 150 MG CAP PO SCH (08:30)
[2018-11-30] MEDS: MEMANTINE 5 MG TAB PO SCH (08:30)
[2018-11-30] MEDS: risperiDONE 0.25 MG TAB PO SCH (08:32)
[2018-11-30] MEDS ORDERED: FUROSEMIDE 40 MG TAB PO SCH (09:00)
[2018-11-30] MEDS ORDERED: SPIRONOLACTONE 25 MG TAB PO SCH (09:00)
[2018-11-30] MEDS: IPRATROPIUM-ALBUTEROL 3 ML NEB INHALATION SCH ×2 (09:16→12:11)
--- NOTE | 2018-11-30 10:02 | P.DS ---
Providers Date of admission: 11/27/18 23:46 Expected date of discharge: 11/30/18 Attending physician: Nori Philippe Consults: 11/27/18 23:43 Consult Physician Routine Consulting Provider: Pop Mcgovern Consult Reason/Comments: Pneumonia, sepsis Do you want consulting provider notified?: Yes 11/28/18 12:34 Consult Physician Routine Consulting Provider: Janice Cormier Consult Reason/Comments: pneumonia, sepsis Do you want consulting provider notified?: Yes Primary care physician: Jasmine Galicia Hospital Course: Discharge diagnosis 1. Increased shortness breath related to pneumonia with sepsis present on admission. WBC elevated at 13.5. Lactic acid 2.7 CT of the chest showing no PE or aortic dissection. Pulmonary infiltrate suggesting endobronchial spread of infection. Patient started on Levaquin and Zosyn. Pulmonary services have been consulted. Sputum culture ordered repeat 2 view chest x-ray ordered. Infectious disease and pulmonary services following. Patient remains on Zosyn for IV antibiotics. Discussed case with infectious disease and pulmonary. Patient to be DC'd on hospice care today. Patient will be DC'd on Augmentin for 1 week 2. Acute kidney injury. Creatinine elevated at 1.45 bun 25 Aldactone currently on hold. Normal saline at 100. Creatinine improving to 1.17 and bun 26. Resolved 3. History of Alcohol liver cirrhosis requiring previous paracentesis. Alkaline phosphatase elevated at 236. This does appear baseline for patient 4. History of dementia. Maintained on Namenda 5. History of hyperlipidemia 6. History of diabetes mellitus type 2 7. History of PE in the past. Patient not currently on any anticoagulation 8. History of EtOH. No longer drinking for multiple years 9. Severe malnutrition. Albumin 2.5. Ensure shakes will be ordered 10. Hiatal hernia with thickened distal esophagus containing food debris seen on computed tomography scan GI services have been consulted. Family and patient declined GI consult would not like to pursue any aggressive measures Hospital course This is a 78-year-old male patient of Dr. Galicia patient presented to the ER with complaints of difficulty breathing. No family currently at bedside. Patient unable to provide information about events leading up to hospitalization information obtained from medical record. Per ER report patient became short of breath after using the bathroom was brought into the ER per patient's . Patient does have a past medical history of dementia, diabetes mellitus, GERD, hearing disorder, deafness, hyperlipidemia, liver disease, pulmonary embolism, ascites due to alcohol liver cirrhosis, anxiety depression and history of EtOH. Chest x-ray completed showing radiographic findings back correlate with clinical diagnosis of mild interstitial phase pulmonary edema. D-dimer elevated at 7.45. CTA of the chest completed showing no PE or aortic dissection. Pulmonary infiltrates chest pain and no brachial spread of infection. Hiatal hernia with thickened distal esophagus containing fluid. Consider reflux or inflammatory or neoplastic stricture age-indeterminate T12 to L2 compression fractures. Pulmonary services have been consulted patient has been started on Levaquin and Zosyn for antibiotics. At this time patient is sitting comfortably in chair. Patient remains on his cannula. Patient denies any specific complaints. On 11/29/2018 patient is currently resting comfortably in bed. Family meeting with patient's and daughter along with patient yesterday. Decided to not pursue any aggressive measures at this time. Would like to treat pneumonia and possibly be DC'd home on hospice. electronics worker consult placed for [facility] hospice. Family declined GI consult for possible workup in regards to hiatal hernia. Patient remains on antibiotics for aspiration pneumonia. Patient verbalized agreement with plan. As time patient denies chest pain or shortness of breath. Patient denies nausea vomiting or diarrhea. Patient denies any urinary burning or frequency 11/30/2018 patient is currently resting comfortably in bed. Patient expresses again that she would like to be discharged home on hospice care. Plans to be discharged today on [facility]. Discussed with case management increment to be delivered by 2 PM 2 family's home. At this time patient denies any chest pain or shortness of breath. Patient denies nausea vomiting or diarrhea. Patient denies any urinary burning or frequency. Patient will be discharged h ome on Augmentin for 1 week. Patient will be admitted to [facility] hospice I performed an examination of the patient and discussed their management with the Nurse Practitioner. I have reviewed the Nurse Practitioner's notes and agree with the documented findings and plan of care Patient Condition at Discharge: Stable Plan - Discharge Summary Discharge Rx Participant: No New Discharge Prescriptions: New Amoxicillin/Potassium Clav [Augmentin 500-125 Tablet] 1 tab PO Q12HR 7 Days #14 tab Continue Memantine HCl [Namenda] 5 mg PO BID Cholecalciferol [Vitamin D3 (25 Mcg = 1000 Iu)] 1,000 unit PO DAILY Venlafaxine HCl [Effexor XR] 150 mg PO BID ALPRAZolam [Xanax] 0.5 mg PO HS PRN PRN Reason: Anxiety Spironolactone 100 mg PO DAILY Lactulose 20 gm PO BID Empagliflozin [Jardiance] 10 mg PO DAILY Omeprazole 20 mg PO BID risperiDONE [RisperDAL] 0.125 mg PO BID Furosemide [Lasix] 20 mg PO MOWEFR Milk Thistle 150 mg PO BID Discharge Medication List Cholecalciferol [Vitamin D3 (25 Mcg = 1000 Iu)] 1,000 unit PO DAILY 05/14/17 [History] Memantine HCl [Namenda] 5 mg PO BID 05/14/17 [History] Venlafaxine HCl [Effexor XR] 150 mg PO BID 05/14/17 [History] ALPRAZolam [Xanax] 0.5 mg PO HS PRN 06/19/17 [History] Empagliflozin [Jardiance] 10 mg PO DAILY 11/27/18 [History] Furosemide [Lasix] 20 mg PO MOWEFR 11/27/18 [History] Lactulose 20 gm PO BID 11/27/18 [History] Milk Thistle 150 mg PO BID 11/27/18 [History] Omeprazole 20 mg PO BID 11/27/18 [History] Spironolactone 100 mg PO DAILY 11/27/18 [History] risperiDONE [RisperDAL] 0.125 mg PO BID 11/27/18 [History] Amoxicillin/Potassium Clav [Augmentin 500-125 Tablet] 1 tab PO Q12HR 7 Days #14 tab 11/30/18 [Rx] Follow up Appointment(s)/Referral(s): Jasmine Galicia MD [Primary Care Provider] - 1-2 days Activity/Diet/Wound Care/Special Instructions: [facility] -
[2018-11-30] MEDS: NON-FORMULARY DRUG (Milk Thistle [Milk Thistle] 150 MG) PO SCH (10:10)
[2018-11-30 10:31] LABS: Albumin 2.4 g/dL (3.5-5.0); Calcium 9.1 mg/dL (8.4-10.2); Total Bilirubin 1.5 mg/dL (0.2-1.3); Total Protein 6.2 g/dL (6.3-8.2)
[2018-11-30 10:50] LABS: Potassium 3.7 mmol/L (3.5-5.1)
--- NOTE | 2018-11-30 10:56 | P.PN ---
Subjective Progress Note Date: 11/30/18 Principal diagnosis: Shortness of breath secondary to suspected aspiration pneumonia. The patient is seen today 11/30/2018 in follow-up on the regular medical floor. He is currently resting fairly comfortably in bed. Awake and alert in no sodium 138. Potassium 3.7. Creatinine 1.01. distress. Maintaining O2 saturation in the mid 90s on 3 L/m per nasal cannula. He's been afebrile. Hematologically stable. Blood culture reveals no growth. Remains on bronchodilators and Zosyn. Objective - Vital Signs Vital signs: Vital Signs Temp 98.4 F 11/30/18 06:07 Pulse 89 11/30/18 09:26 Resp 16 11/30/18 09:26 BP 111/71 11/30/18 06:07 Pulse Ox 92 L 11/30/18 09:17 Intake & Output 11/29/18 11/30/18 11/30/18 18:59 06:59 18:59 Intake Total 240 336 Output Total 400 Balance -160 336 Intake: Intake, IV Titration 100 Amount Piperacillin-Tazobactam 3 100 .375 gm In Sodium Chloride 0.9% 100 ml @ 25 mls/hr IVPB Q8HR [facility] Rx# :[id number] Oral 240 236 Output: Urine 400 Other: Voiding Method Diaper Diaper Diaper # Voids 2 # Bowel Movements 1 - Exam GENERAL EXAM: Frail, cachectic 78-year-old gentleman. Comfortable in no apparent distress. On 3 L nasal cannula. HEAD: Normocephalic. EYES: Normal reaction of pupils, equal size. NOSE: Clear with pink turbinates. THROAT: No erythema or exudates. NECK: No masses, no JVD. CHEST: No chest wall deformity. LUNGS: Equal air entry with bilateral scattered rhonchi. CVS: S1 and S2 normal with no audible murmur, regular rhythm. ABDOMEN: No hepatosplenomegaly, normal bowel sounds, no guarding or rigidity. SPINE: No scoliosis or deformity SKIN: No rashes CENTRAL NERVOUS SYSTEM: No focal deficits, tone is normal in all 4 extremities. EXTREMITIES: There is no peripheral edema. No clubbing, no cyanosis. Peripheral pulses are intact. - Labs CBC & Chem 7: 11/29/18 05:52 11/30/18 09:36 Labs: Abnormal Lab Results - Last 24 Hours (Table) 11/29/18 11/29/18 11/29/18 Range/Units 12:00 13:26 17:20 Chloride (98-107) mmol/L BUN (9-20) mg/dL Glucose (74-99) mg/dL POC Glucose (mg/dL) 239 H 343 H (75-99) mg/dL Plasma Lactic Acid Rusty 3.4 H* (0.7-2.0) mmol/L Total Bilirubin (0.2-1.3) mg/dL AST (17-59) U/L Alkaline Phosphatase (38-126) U/L Total Protein (6.3-8.2) g/dL Albumin (3.5-5.0) g/dL 11/29/18 11/29/18 11/29/18 Range/Units 17:22 20:49 21:59 Chloride (98-107) mmol/L BUN (9-20) mg/dL Glucose (74-99) mg/dL POC Glucose (mg/dL) 294 H (75-99) mg/dL Plasma Lactic Acid Rusty 4.3 H* 4.3 H* (0.7-2.0) mmol/L Total Bilirubin (0.2-1.3) mg/dL AST (17-59) U/L Alkaline Phosphatase (38-126) U/L Total Protein (6.3-8.2) g/dL Albumin (3.5-5.0) g/dL 11/30/18 11/30/18 Range/Units 07:22 09:36 Chloride 109 H (98-107) mmol/L BUN 27 H (9-20) mg/dL Glucose 168 H (74-99) mg/dL POC Glucose (mg/dL) 166 H (75-99) mg/dL Plasma Lactic Acid Rusty (0.7-2.0) mmol/L Total Bilirubin 1.5 H (0.2-1.3) mg/dL AST 141 H (17-59) U/L Alkaline Phosphatase 228 H (38-126) U/L Total Protein 6.2 L (6.3-8.2) g/dL Albumin 2.4 L (3.5-5.0) g/dL Microbiology - Last 24 Hours (Table) 11/28/18 00:08 Blood Culture - Preliminary Blood No Growth after 48 hours Assessment and Plan Assessment: Impression: #1 Acute hypoxic respiratory failure secondary to suspected aspiration pneumonia. Recovered and on 3 L nasal cannula. 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 #3 Severe dementia. #4 Diabetes mellitus. #5 Gastric esophageal reflux disease. #6 Dysphagia. #7 Esophageal stricture. #8 Hearing disorder. #9 Hyperlipidemia. #10 History of pulmonary embolism. #11 Poor overall functional performance based on the above-mentioned multiple comorbidities. Plan: The patient was seen and evaluated by Dr. Murrieta. He is cleared for discharge from the pulmonary standpoint. He'll be transitioned to oral antibiotics. We will see him on an as-needed basis. I, the cosigning physician, performed a history & physical examination of the patient. Lungs sounds bilateral rhonchi. Maintaining good O2 saturations in the 90s on 3 L/m per nasal cannula. I discussed the assessment and plan of care with my nurse practitioner, Virginia Song. I attest to the above note as dictated by her.
[2018-11-30 11:15] LABS: Basophils % (A) 0 %; Eosinophils # (A) 0.2 k/uL (0-0.7); Eosinophils % (A) 2 %; HCT 36.1 % (39.0-53.0); HGB 12.2 gm/dL (13.0-17.5); Lymphocytes % (A) 11 %; MCH 34.1 pg (25.0-35.0); MCHC 33.9 g/dL (31.0-37.0); MCV 100.5 fL (80.0-100.0); Macrocytosis Slight; Mean Platelet Volume 7.4; Monocytes # (A) 0.2 k/uL (0-1.0); Monocytes % (A) 3 %; Neutrophils # (A) 7.9 k/uL (1.3-7.7); Neutrophils % (A) 83 %; Platelet Count 113 k/uL (150-450); RBC 3.59 m/uL (4.30-5.90); RDW 15.3 % (11.5-15.5); WBC 9.5 k/uL (3.8-10.6)
[2018-11-30 11:40] LABS: Glucose,Whole Blood 272 mg/dL (75-99)
[2018-11-30 11:58] VITALS: BMI 19.5
[2018-11-30 12:14] VITALS: PULSE 90
--- NOTE | 2018-11-30 14:05 | PN ---
PROGRESS NOTE DATE OF SERVICE: 11/30/2018 REASON FOR FOLLOWUP: Aspiration pneumonia. INTERVAL HISTORY: The patient is currently afebrile. Patient seemed to breathing more comfortably. Patient denies having any chest pain. He did have some cough, not bringing up any sputum. No nausea, abdominal pain, no diarrhea. Family is leading toward hospice extended care. PHYSICAL EXAMINATION: Blood pressure is 111/70 with a pulse of 77, temperature 98.4. He is 95% on 2 L. General description is an elderly male, up in the bed in no distress. RESPIRATORY SYSTEM: Unlabored breathing with decreased breath sounds in the base, no wheeze. HEART: S1, S2. Regular rate and rhythm. ABDOMEN: Soft, no tenderness. LABS: Hemoglobin is 12.8 with a white count 9.5, BUN of 27, creatinine 1.01. Blood culture has been negative. Sputum was not collected. DIAGNOSTIC IMPRESSION AND PLAN: Patient admitted to the hospital with difficulty breathing to have evidence of pneumonia, likely aspiration in etiology. Patient is currently covered with Zosyn as the patient leaning more toward hospice care. However, the family wants antibiotic on discharge, will give him a course of oral Augmentin. Plan of care was discussed with the nurse practitioner for the discharge team. Continue supportive care. MMODL / IJN: [id number] /
== END 2018-11-30 15:30 | disposition hospice, home (50) | DRG 871 ==
LOC: EC 19:46 → 3SCARD 23:46 → 3NMEDONC 11-29 16:31
PROVIDERS: ADMIT Internal Medicine; ATTEND Internal Medicine
PROC: 5A09557 Assistance with Respiratory Ventilation, Greater than 96 Consecutive Hours, Continuous Positive Airway Pressure (ICD-10-PCS; principal; 2018-11-27)
DX: A41.9 Sepsis, unspecified organism (principal); J69.0 Pneumonitis due to inhalation of food and vomit; E43 Unspecified severe protein-calorie malnutrition; J96.01 Acute respiratory failure with hypoxia; N17.9 Acute kidney failure, unspecified; T18.128A Food in esophagus causing other injury, initial encounter; F03.90 Unspecified dementia, unspecified severity, without behavioral disturbance, psychotic disturbance, mood disturbance, and anxiety; K44.9 Diaphragmatic hernia without obstruction or gangrene; K22.2 Esophageal obstruction; K70.31 Alcoholic cirrhosis of liver with ascites; Z66 Do not resuscitate; R74.8 Abnormal levels of other serum enzymes; K21.9 Gastro-esophageal reflux disease without esophagitis; Z51.5 Encounter for palliative care; E78.5 Hyperlipidemia, unspecified; E11.9 Type 2 diabetes mellitus without complications; F10.11 Alcohol abuse, in remission; H91.90 Unspecified hearing loss, unspecified ear; F43.10 Post-traumatic stress disorder, unspecified; F41.9 Anxiety disorder, unspecified; F32.9 Major depressive disorder, single episode, unspecified; Z96.651 Presence of right artificial knee joint; Z96.60 Presence of unspecified orthopedic joint implant; K70.30 Alcoholic cirrhosis of liver without ascites; Z96.641 Presence of right artificial hip joint; Z79.899 Other long term (current) drug therapy; Z79.84 Long term (current) use of oral hypoglycemic drugs; Z86.711 Personal history of pulmonary embolism; Z82.61 Family history of arthritis; Z99.89 Dependence on other enabling machines and devices; Z88.5 Allergy status to narcotic agent; Z88.8 Allergy status to other drugs, medicaments and biological substances; Z90.89 Acquired absence of other organs; Z90.49 Acquired absence of other specified parts of digestive tract; Z98.890 Other specified postprocedural states
CPT/HCPCS: 36415; 71045; 71046; 71275; 80053; 82803; 83605; 83880; 84484; 85025; 85379; 85610; 85730; 87040; 93005; 94640; 94660; 94760; 96365; 96367; 99291